=== PATIENT | male | born 1945 | race Caucasian/White ===

== ENCOUNTER 2018-03-04 07:00 | Inpatient (IN) | payer OTHER, BC ==
[2018-03-04] MEDS ORDERED: MORPHINE 4 MG/ML SYR ONE (07:27)
[2018-03-04] MEDS ORDERED: ONDANSETRON 4 MG/2 ML VIAL ONE ×2 (07:27→08:45)
[2018-03-04 07:51] LABS: Absolute Lymphocytes (CBC) 0.6 K/uL (0.7-4.9); Absolute Monocytes 0.5 K/uL (0.1-1.3); Absolute Neutrophil 3.4 K/uL (1.8-8.0); Basophils % 0.6 % (0-1.3); Hematocrit 28.9 % (39.6-49.0); Lymphocytes % 13.4 % (15.3-44.8); MCH 33.7 pg (27.0-35.0); MCV 100.2 fL (80-100); MPV 7.2 fL (7.6-11.3); Monocytes % 10.5 % (3.3-12.3); RBC Red Blood Cell Count 2.89 M/uL (4.33-5.43)
[2018-03-04] MEDS ORDERED: FENTANYL CITR 100 MCG/2 ML ONE ×2 (08:00→11:05)
[2018-03-04 08:36] LABS: Albumin 3.7 g/dL (3.4-5.0); Bilirubin Direct 0.3 mg/dL (0-0.2); Potassium 4.5 mmol/L (3.5-5.1); Protein, Total 6.9 g/dL (6.4-8.2)
--- NOTE | 2018-03-04 08:59 | RAD REPORT ---
EXAM DESCRIPTION: CT - Abdomen Pelvis Wo Contrast - 03/04/2018 8:20 am CLINICAL HISTORY: Abdominal pain. no iv or oral contrast;Abd pain COMPARISON: CTSTONE PROTOCOL dated 02/06/2012 TECHNIQUE: CT imaging of the abdomen and pelvis was performed without contrast. Solid organ, bowel a nd vascular assessment is limited due to lack of IV and oral contrast. All CT scans are performed using dose optimization technique as appropriate and may include automated exposure control or mA/KV adjustment according to patient size. FINDINGS: Linear subsegmental atelectasis is seen in both lung bases posteriorly.Rim calcified lesio n is identified in the right as azygoesophageal recess measuring 4.0 x 2.0 cm, new since prior study. Multiple hypodense liver lesions are seen compatible with benign cysts. Left lobe 5 cm cyst shows thi n partial rim calcification.Multiple stones are present in the gallbladder. 6 mm stone is in the neck close to the cystic duct. Spleen is mildly prominent. The pancreas and adrenal glands are normal. Bi lateral nephrectomies are noted. No bowel obstruction, free air, free fluid or abscess. The appendix is normal. The osseous structures are within normal limits. IMPRESSION: Rim calcified lesion the in the as azygoesophageal recess, new since comparative study. Differential considerations would include mediastinal cyst or nerve sheath tumor. Cholelithiasis as described with mild gallbladder distention. A limited non-contrast examination was performed as detailed.
--- NOTE | 2018-03-04 09:12 | ER ---
Nurse's Notes [facility] Name: Analilia Colby Age: 72 yrs Sex: Male : 1945 Arrival Date: 03/04/2018 Time: 07:01 Bed 19 Private MD: Alfreda Obrien C Diagnosis: Cholelithiasis;Abdominal and pelvic pain-Intractable Presentation: 03/04 07:05 Presenting complaint: Patient states: epigastric pain that radiates to LUQ and RUQ with ss N/V. Pain began at 0500 this morning. Transition of care: patient was not received from another setting of care. Onset of symptoms was March 04, 2018. Risk Assessment: Do you want to hurt yourself or someone else? Patient reports no desire to harm self or others. Initial Sepsis Screen: Does the patient meet any 2 criteria? No. Patient's initial sepsis screen is negative. Does the patient have a suspected source of infection? No. Patient's initial sepsis screen is negative. Care prior to arrival: None. 07:05 Method Of Arrival: Ambulatory ss 07:05 Acuity: RIVERA 2 ss Historical: - Allergies: 07:11 No Known Allergies; ph - Home Meds: 07:11 amlodipine 10 mg tab 1 tab twice a day [Active]; valsartan 320 mg oral tab 1 tab once ph daily [Active]; sevelamer carbonate 800 mg oral tab 4 tabs 3 times per day [Active]; - PMHx: 07:06 Cancer, Lung; Dialysis; Liver disease; Renal Cancer; ss - PSHx: 07:06 bilateral nephrectomy; ss - Immunization history:: Adult Immunizations unknown. - Social history:: Smoking status: Patient/guardian denies using tobacco. - Ebola Screening: : No symptoms or risks identified at this time. Screenin:35 Abuse screen: Denies threats or abuse. Denies injuries from another. Nutritional ph screening: No deficits noted. Tuberculosis screening: No symptoms or risk factors identified. Fall Risk None identified. Assessment: 07:10 General: Appears in no apparent distress. uncomfortable, well groomed, Behavior is ph calm, cooperative, appropriate for age. Pain: Complains of pain in epigastric area, right upper quadrant and left upper quadrant Pain currently is 10 out of 10 on a pain scale. Quality of pain is described as sharp, stabbing, Pain began suddenly. Neuro: Level of Consciousness is awake, alert, obeys commands, Oriented to person, place, time, situation. Cardiovascular: Reports nausea, vomiting, Denies chest pain, palpitations, shortness of breath, Capillary refill < 3 seconds in bilateral fingers Patient's skin is warm and dry. Rhythm is regular Dialysis shunt: in the dorsal aspect of right forearm, with palpable thrill, with auscultated bruit, with no erythema, with mild edema, no bleeding noted. Respiratory: Airway is patent Respiratory effort is even, unlabored, Respiratory pattern is regular, symmetrical. GI: Abdomen is round non-distended, Bowel sounds present X 4 quads. Abd is soft X 4 quads Abdomen is tender to palpation in epigastric area and right upper quadrant Reports upper abdominal pain, epigastric pain, nausea, vomiting, Patient currently denies diarrhea. : No signs and/or symptoms were reported regarding the genitourinary system. Derm: Skin is intact, is healthy with good turgor, Skin is pink, warm \T\ dry. Musculoskeletal: Circulation, motion, and sensation intact. Range of motion: intact in all extremities. 08:30 Reassessment: Patient appears in no apparent distress at this time. Patient and/or ph family updated on plan of care and expected duration. Pain level reassessed. Patient is alert, oriented x 3, equal unlabored respirations, skin warm/dry/pink. Pt resting quietly, reports that pain has improved to 2/10, awaiting lab and CT results. 10:00 Reassessment: Patient appears in no apparent distress at this time. No changes from previously documented assessment. Patient and/or family updated on plan of care and expected duration. Pain level reassessed. Patient is alert, oriented x 3, equal unlabored respirations, skin warm/dry/pink. Pt resting quietly, awaiting US results and room assignment. 11:45 Reassessment: Patient appears in no apparent distress at this time. Patient and/or ph family updated on plan of care and expected duration. Pain level reassessed. Patient is alert, oriented x 3, equal unlabored respirations, skin warm/dry/pink. Pt resting quietly, rates pain 2/10, report called to second floor, awaiting tech to transport pt. Vital Signs: 07:20 BP 190 / 102; Pulse 70; Resp 20; Temp 97.6(O); Pulse Ox 100% on R/A; Pain 10/10; dh3 08:35 BP 164 / 76; Pulse 68; Resp 18; Pulse Ox 99% on R/A; Pain 7/10; ph 10:00 BP 168 / 82; Pulse 69; Resp 18; Temp 97.8; Pulse Ox 99% on R/A; ph 11:30 BP 174 / 78; Pulse 67; Resp 18; Pulse Ox 100% on R/A; Pain 2/10; ph ED Course: 07:01 Patient arrived in ED. as 07:01 Alfreda Obrien MD is Private Physician. as 07:06 Triage completed. ss 07:06 Arm band placed on right wrist. ss 07:09 Paige Joshi, ALEK is Primary Nurse. ph 07:09 Arturo Corbin PA is PHCP. jr8 07:10 Brenden Bonilla MD is Attending Physician. jr8 07:30 Patient has correct armband on for positive identification. Placed in gown. Bed in low ph position. Call light in reach. Side rails up X 1. ekg monitor on. Pulse ox on. NIBP on. Warm blanket given. 07:30 Accessed Port-a-Cath. using accessed w/ # 20 Cespedes needle, Clean \T\ dry. Dressing ph intact. Good blood return. Flushes easily. 08:19 CT Abd/Pelvis - Without Cont In Process Unspecified. EDMS 08:19 CT completed. Patient tolerated procedure well. Patient moved to CT via stretcher. vr Patient moved back from CT. 09:02 Ultrasound completed. hr 09:12 US Abdomen Limited In Process Unspecified. EDMS 09:12 Alfreda Obrien MD is Hospitalizing Provider. jr8 11:39 No provider procedures requiring assistance completed. Patient admitted, IV remains in ph place. Administered Medications: 07:32 Drug: morphine 4 mg Route: IVP; Site: Port-a-cath; ph 08:25 Follow up: Response: No adverse reaction; Pain is unchanged, physician notified ph 07:32 Drug: Zofran 4 mg Route: IVP; Site: Port-a-cath; ph 08:25 Follow up: Response: No adverse reaction; Nausea is decreased ph 08:05 Drug: fentaNYL (PF) 75 mcg Route: IVP; Site: Port-a-cath; ph 10:35 Follow up: Response: No adverse reaction; Pain is decreased ph 08:59 Drug: Zofran 4 mg Route: IVP; Site: Port-a-cath; ph 10:35 Follow up: Response: No adverse reaction; Nausea is decreased ph 10:25 Drug: Mefoxin 1 grams Route: IVPB; Infused Over: 30 mins; Site: Port-a-cath; ph 10:34 Follow up: Response: No adverse reaction; IV Status: Completed infusion ph 10:33 Drug: Flagyl 500 mg Volume: 100 ml; Route: IVPB; Rate: 200 ml/hr; Infused Over: 30 ph mins; Site: Port-a-cath; 11:47 Follow up: Response: No adverse reaction; IV Status: Completed infusion ph 11:00 Drug: fentaNYL (PF) 25 mcg Route: IVP; Site: Port-a-cath; ph 11:47 Follow up: Response: No adverse reaction; Pain is decreased ph Outcome: 09:12 Decision to Hospitalize by Provider. jr8 11:42 Admitted to Med/surg accompanied by tech, family with patient, via wheelchair, room ph 206, with chart, Report called to Anna GASTON 11:42 Condition: stable 11:50 Patient left the ED. Signatures: Dispatcher [employer] EDMS Quin Crocker Amelia as Smirch, Shelby, ALEK RN Negra Blount Josh, PA PA jr8 Paige Joshi RN RN Kristen Owen 3 Corrections: (The following items were deleted from the chart) 07:31 07:20 BP 190 / 102; Pulse 70bpm; Resp 20bpm; Pulse Ox 98% RA; Temp 97.6F; Pain 10/10; dh3 dh3 07:31 07:20 BP 190 / 102; Pulse 70bpm; Resp 20bpm; Pulse Ox 100% RA; Temp 97.6F; Pain 10/10; dh3 dh3 10:34 10:33 Flagyl 500 mg 100 ml IVPB at 200 ml/hr in left antecubital over 30 mins 100 ml ph ph
--- NOTE | 2018-03-04 09:12 | EDPHYS ---
Physician Documentation [facility] Name: Analiila Colby Age: 72 yrs Sex: Male : 1945 Arrival Date: 03/04/2018 Time: 07:01 Bed 19 Private MD: Alfreda Obrien C ED Physician Brenden Bonilla HPI: 03/04 07:38 This 72 yrs old Male presents to ER via Ambulatory with complaints of jr8 Abdominal Pain. 07:38 The patient presents with abdominal pain in the upper abdomen. Onset: The jr8 symptoms/episode began/occurred acutely, this morning, today. The symptoms do not radiate. Associated signs and symptoms: Pertinent positives: nausea and vomiting. The symptoms are described as constant. Modifying factors: The symptoms are alleviated by nothing, the symptoms are aggravated by nothing. Severity of pain: At its worst the pain was moderate in the emergency department the pain is unchanged. The patient has not experienced similar symptoms in the past. The patient has not recently seen a physician. Historical: - Allergies: 07:11 No Known Allergies; ph - Home Meds: 07:11 amlodipine 10 mg tab 1 tab twice a day [Active]; valsartan 320 mg oral tab 1 tab once ph daily [Active]; sevelamer carbonate 800 mg oral tab 4 tabs 3 times per day [Active]; - PMHx: 07:06 Cancer, Lung; Dialysis; Liver disease; Renal Cancer; ss - PSHx: 07:06 bilateral nephrectomy; ss - Immunization history:: Adult Immunizations unknown. - Social history:: Smoking status: Patient/guardian denies using tobacco. - Ebola Screening: : No symptoms or risks identified at this time. ROS: 07:38 Eyes: Negative for injury, pain, redness, and discharge, ENT: Negative for injury, jr8 pain, and discharge, Neck: Negative for injury, pain, and swelling, Cardiovascular: Negative for chest pain, palpitations, and edema, Respiratory: Negative for shortness of breath, cough, wheezing, and pleuritic chest pain, Back: Negative for injury and pain, MS/Extremity: Negative for injury and deformity, Skin: Negative for injury, rash, and discoloration, Neuro: Negative for headache, weakness, numbness, tingling, and seizure. 07:38 Abdomen/GI: Positive for abdominal pain, nausea and vomiting, Negative for diarrhea, constipation, abdominal cramps, abdominal distension, anorexia, dysphagia, hematemesis, black/tarry stool, rectal pain, rectal bleeding, bowel incontinence, flatulence. Exam: 07:38 Eyes: Pupils equal round and reactive to light, extra-ocular motions intact. Lids and jr8 lashes normal. Conjunctiva and sclera are non-icteric and not injected. Cornea within normal limits. Periorbital areas with no swelling, redness, or edema. ENT: Nares patent. No nasal discharge, no septal abnormalities noted. Tympanic membranes are normal and external auditory canals are clear. Oropharynx with no redness, swelling, or masses, exudates, or evidence of obstruction, uvula midline. Mucous membranes moist. Neck: Trachea midline, no thyromegaly or masses palpated, and no cervical lymphadenopathy. Supple, full range of motion without nuchal rigidity, or vertebral point tenderness. No Meningismus. Cardiovascular: Regular rate and rhythm with a normal S1 and S2. No gallops, murmurs, or rubs. Normal PMI, no JVD. No pulse deficits. Respiratory: Lungs have equal breath sounds bilaterally, clear to auscultation and percussion. No rales, rhonchi or wheezes noted. No increased work of breathing, no retractions or nasal flaring. Back: No spinal tenderness. No costovertebral tenderness. Full range of motion. Skin: Warm, dry with normal turgor. Normal color with no rashes, no lesions, and no evidence of cellulitis. MS/ Extremity: Pulses equal, no cyanosis. Neurovascular intact. Full, normal range of motion. Neuro: Awake and alert, GCS 15, oriented to person, place, time, and situation. Cranial nerves II-XII grossly intact. Motor strength 5/5 in all extremities. Sensory grossly intact. Cerebellar exam normal. Normal gait. 07:38 Abdomen/GI: Inspection: scar(s), are noted in the anterior aspect of left lateral abdomen and anterior aspect of right lateral abdomen, Bowel sounds: active, Palpation: soft, in all quadrants, moderate abdominal tenderness, in the epigastric area mid abdomen, mass, is not appreciated, rebound tenderness, is not appreciated, voluntary guarding, is not appreciated, involuntary guarding, is not appreciated, no appreciated organomegaly, Indicators: McBurney's point is not tender, Quezada's sign is negative, Rovsing's sign is negative. 07:44 ECG was reviewed by the Attending Physician. jr8 Vital Signs: 07:20 BP 190 / 102; Pulse 70; Resp 20; Temp 97.6(O); Pulse Ox 100% on R/A; Pain 10/10; dh3 08:35 BP 164 / 76; Pulse 68; Resp 18; Pulse Ox 99% on R/A; Pain 7/10; ph 10:00 BP 168 / 82; Pulse 69; Resp 18; Temp 97.8; Pulse Ox 99% on R/A; ph 11:30 BP 174 / 78; Pulse 67; Resp 18; Pulse Ox 100% on R/A; Pain 2/10; ph MDM: 07:10 Patient medically screened. jr8 09:11 Data reviewed: vital signs, nurses notes, lab test result(s), radiologic studies, CT jr8 scan, ultrasound, and as a result, I will admit patient. Data interpreted: Pulse oximetry: on room air is 99 %. Interpretation: normal. Counseling: I had a detailed discussion with the patient and/or guardian regarding: the historical points, exam findings, and any diagnostic results supporting the discharge/admit diagnosis, lab results, radiology results, the need for further work-up and treatment in the hospital. 09:19 ED course: Dr. Obrien consulted 09:18. Will see patient for admission . jr8 09:50 ED course: Consulted Dr. Mera on behalf of patient and family. Dr. Mera accepted and jr8 will see patient . 03/04 07:10 Order name: Basic Metabolic Panel; Complete Time: 08:43 03/04 07:10 Order name: CBC with Diff; Complete Time: 07:54 03/04 07:10 Order name: Creatinine for Radiology; Complete Time: 08:43 03/04 07:10 Order name: Hepatic Function; Complete Time: 08:43 03/04 07:10 Order name: Lipase; Complete Time: 08:43 03/04 07:55 Order name: CT Abd/Pelvis - Without Cont; Complete Time: 09:12 03/04 08:48 Order name: US Abdomen Limited; Complete Time: 10:55 03/04 07:07 Order name: EKG; Complete Time: 07:07 03/04 07:07 Order name: EKG - Nurse/Tech; Complete Time: ss 03/04 07:10 Order name: IV Saline Lock; Complete Time: 03/04 07:10 Order name: Labs collected and sent; Complete Time: 03/04 09:54 Order name: CONS Physician Consult EDMS EC:44 Rate is 67 beats/min. Rhythm is regular, Normal Sinus Rhythm. Right axis deviation jr8 noted. [place] interval is normal at 182 msec. QRS interval is prolonged at 122 msec. QT interval is normal at 450 msec. No Q waves. T waves are Inverted in leads II, III, aVF, V4, V5, V6. No ST changes noted. Clinical impression: NSR w/ Non-specific ST/T Changes. Interpreted by me. Reviewed by me. Administered Medications: 07:32 Drug: morphine 4 mg Route: IVP; Site: Port-a-cath; ph 08:25 Follow up: Response: No adverse reaction; Pain is unchanged, physician notified ph 07:32 Drug: Zofran 4 mg Route: IVP; Site: Port-a-cath; ph 08:25 Follow up: Response: No adverse reaction; Nausea is decreased ph 08:05 Drug: fentaNYL (PF) 75 mcg Route: IVP; Site: Port-a-cath; ph 10:35 Follow up: Response: No adverse reaction; Pain is decreased ph 08:59 Drug: Zofran 4 mg Route: IVP; Site: Port-a-cath; ph 10:35 Follow up: Response: No adverse reaction; Nausea is decreased ph 10:25 Drug: Mefoxin 1 grams Route: IVPB; Infused Over: 30 mins; Site: Port-a-cath; ph 10:34 Follow up: Response: No adverse reaction; IV Status: Completed infusion ph 10:33 Drug: Flagyl 500 mg Volume: 100 ml; Route: IVPB; Rate: 200 ml/hr; Infused Over: 30 ph mins; Site: Port-a-cath; 11:47 Follow up: Response: No adverse reaction; IV Status: Completed infusion ph 11:00 Drug: fentaNYL (PF) 25 mcg Route: IVP; Site: Port-a-cath; ph 11:47 Follow up: Response: No adverse reaction; Pain is decreased ph Disposition: 19:19 Co-signature as Attending Physician, Brenden Bonilla MD. rn Disposition: 03/04/18 09:12 Hospitalization ordered by Alfreda Obrien for Inpatient Admission. Preliminary diagnosis are Cholelithiasis, Abdominal and pelvic pain - Intractable . - Bed requested for Telemetry/MedSurg (Inpatient). - Status is Inpatient Admission. ss - Condition is Fair. - Problem is new. - Symptoms have improved. UTI on Admission? No Signatures: Dispatcher [employer] EDMO Christy Paul RN RN Brenden Bonilla MD MD rn Smirch, Shelby, RN RN ss Arturo Corbin, PA PA jr8 Paige Joshi RN RN ph Corrections: (The following items were deleted from the chart) 07:43 07:38 Abdomen/GI: Inspection: abdomen appears normal, jr8 jr8 10:44 09:12 Hospitalization Ordered by A Micah ARRIETA for Inpatient Admission. Preliminary dw diagnosis is Cholelithiasis; Abdominal and pelvic pain - Intractable . Bed requested for Telemetry/MedSurg (Inpatient). Status is Inpatient Admission. Condition is Fair. Problem is new. Symptoms have improved. UTI on Admission? No. jr8 11:50 10:44 03/04/2018 09:12 Hospitalization Ordered by A Micah ARRIETA for Inpatient Admission. ss Preliminary diagnosis is Cholelithiasis; Abdominal and pelvic pain - Intractable . Bed requested for Telemetry/MedSurg (Inpatient). Status is Inpatient Admission. Condition is Fair. Problem is new. Symptoms have improved. UTI on Admission? No. dw
[2018-03-04] MEDS ORDERED: CEFOXITIN/SWI 1gm 1 GM/10 ML SYR ONE (09:58)
[2018-03-04] MEDS ORDERED: METRONIDAZOLE 500mg IVPB 500 MG/100 ML BAG IV ONE (09:58)
--- NOTE | 2018-03-04 10:54 | RAD REPORT ---
EXAM DESCRIPTION: US - Abdomen Exam Limited - 03/04/2018 10:41 am CLINICAL HISTORY: Abdominal pain, right upper quadrant pain, abnormal CT study COMPARISON: CT study March 04 FINDINGS: Well filled gallbladder shows no abnormal wall thickening or pericholecystic fluid. Multip le gallstones are clustered in the neck of the gallbladder up to 15 mm in size. These remained positi oned at the neck throughout the course of the examination. Common bile duct is 5 mm in thickness with no intrahepatic dilatation. No common duct stone identifia ble. Incidental liver cysts are noted not fully assessed on this examination. IMPRESSION: Multi stone cholelithiasis up to 15 mm in size fixed near the neck of the gallbladder. No wall thickening or pericholecystic fluid. No duct stone or biliary tree dilatation.
[2018-03-04] MEDS ORDERED: ACETAMINOPHEN 500 MG TAB PO PRN (11:34)
[2018-03-04] MEDS ORDERED: ONDANSETRON 4 MG/2 ML VIAL IV PRN (11:34)
[2018-03-04 12:36] VITALS: BMI 27.5
[2018-03-04] MEDS ORDERED: PNEUMOCOCCAL VACCINE 0.5 ML IMVAC ONE (14:00)
--- NOTE | 2018-03-04 15:42 | EKG ---
Test Date: 2018-03-04 Test Time: 07:25:13 Supervising Editor News Reel: MATT MEASUREMENT RESULTS: Intervals: Rate: 67 OH: 182 QRSD: 122 QT: 426 QTc: 450 [place]: P: 54 OH: 182 QRS: -46 T: -47 INTERPRETIVE STATEMENTS: Normal sinus rhythm Left bundle branch block Abnormal ECG Compared to ECG 08/22/2011 03:12:39 Left bundle-branch block now present ST (T wave) deviation no longer present Possible ischemia no longer present Electronically Signed On 03-04-18 15:40:31 CDT by Kendrick Gomez
[2018-03-04] MEDS: HEPARIN 500 UNIT/5 ML SYR IV SCH (16:57)
[2018-03-04] MEDS ORDERED: AMLODIPINE 5 MG TAB PO ONE (18:00)
--- NOTE | 2018-03-04 18:15 | CON ---
Date of Consultation: 03/04/2018 Reason For Consultation: Abdominal pain. History Of Present Illness: The patient is a 72-year-old gentleman, comes in with acute onset of epi gastric pain, going to both upper quadrants, associated with nausea, vomiting. No bloating, belching , or heartburn. This happened this morning. There was not postprandial. He has never had similar s ymptoms in the past and the pain was severe. Pain medication given in the ER was not helpful and the patient was admitted. He has no sore throat, runny nose, cough, headaches, or dizziness. No chest pain. No fever or chills. No diarrhea, constipation, blood in his stool. No dysuria or hematuria. Review of Systems: Otherwise unremarkable. Past Medical History: Significant for bilateral renal carcinoma, end-stage renal disease, high blood pressure. Past Surgical History: Significant for vascular access for dialysis on the right arm and bilateral n ephrectomies. Allergies: NO ALLERGIES. Social History: He does not smoke. Does not drink. Family History: Noncontributory. Physical Examination: Vital Signs: Stable. He is afebrile. General: He is awake, alert, and oriented x3. Head and Neck: Cranial nerves 2 through 12 grossly within normal limits. No icterus. No neck alban s. No JVD. Throat clear. Neck is supple. Chest: Clear. Heart: S1, S2. Abdomen: Soft, nondistended. Positive bowel sounds. There is tenderness in the right upper quadran t with minimal rebound. No rigidity or guarding. He does have subcostal incision for his nephrectom y bilaterally. Extremities: Adequately perfused. Nontender. Neuro: Nonfocal. Laboratory Data: White count is 4.7, platelets are 86. Chemistry reviewed. His BUN and creatinine are elevated as expected with not being on dialysis. CO2 is 25. LFTs, total bilirubin, amylase, lip ase are within normal limits. He had a CAT scan of the abdomen and pelvis and an abdominal ultrasoun d, which showed multi stone cholelithiasis up to 15 mm in size, fixed near the neck of the gallbladde r. No wall thickening or pericholecystic fluid. No duct stone or biliary tree dilatation. An abdom inal CT shows a rim calcified lesion in the azygoesophageal recess, nuisance comparative study, nghia lithiasis described with mild gallbladder distention. Assessment: A 72-year-old gentleman with acute cholecystitis, cholelithiasis, renal cancer, end-stag e renal disease. Recommendations: I discussed the case with Dr. Obrien and Dr. Le. We will go ahead and schedule the patient for dialysis early in the morning following which we will proceed with lap choly, possibl e open knowing that the risks of opening are slightly higher based on his previous surgeries. This w as also explained to the patient and family in detail. They understand the benefits, alternatives, a nd risks and agreed to procedure. We will keep him on antibiotics and n.p.o. after midnight. /MODL Voice ID: [id number] Report ID: [id number]
[2018-03-04] MEDS: METRONIDAZOLE 500mg IVPB 500 MG/100 ML BAG IV SCH (20:26)
[2018-03-04] MEDS ORDERED: NA CHLORIDE 0.9% 250 ML ONE (20:26)
--- NOTE | 2018-03-04 22:09 | P.CNS ---
Date of Consult: 03/04/18 Reason for Consult: ESRD Requesting Physician: Ward Obrien Chief Complaint: Epigastric pain History of Present Illness: 07:38 This 72 yrs old Male presents to ER via Ambulatory with complaints of jr8 Abdominal Pain. 07:38 The patient presents with abdominal pain in the upper abdomen. Onset: The jr8 symptoms/episode began/occurred acutely, this morning, today. The symptoms do not radiate. Associated signs and symptoms: Pertinent positives: nausea and vomiting. The symptoms are described as constant. Modifying factors: The symptoms are alleviated by nothing, the symptoms are aggravated by nothing. Severity of pain: At its worst the pain was moderate in the emergency department the pain is unchanged. The patient has not experienced similar symptoms in the past. The patient has not recently seen a physician. Allergies No Known Allergies Allergy (Verified 03/04/18 12:12) Home medications list reviewed: Yes Home Medications: Amlodipine Besylate 1 tab PO DAILY 03/04/18 Sevelamer HCl [Renagel] 4 tab PO AC 03/04/18 Valsartan/Hydrochlorothiazide [Valsartan-Hctz 320-12.5 mg Tab] 1 tab PO DAILY - Past Medical/Surgical History Diabetic: No -: renal cell carcinoma with mets lungs -: both kidneys removed -: htn -: dialysis [facility] -: both kidneys removed -: fistula L arm-not active. -: surg. L shoulder repair. -: tonsils removed and adnoids - Social History Smoking Status: Never smoker Alcohol use: No CD- Drugs: No Caffeine use: No Place of Residence: Home Review of Systems 10-point ROS is otherwise unremarkable Gastrointestinal: Abdominal Pain Physical Examination Temp Pulse Resp BP Pulse Ox 96.9 F 66 20 176/74 H 99 03/04/18 16:00 03/04/18 18:15 03/04/18 16:00 03/04/18 18:15 03/04/18 16:00 General: Oriented x3, Cooperative HEENT: Atraumatic, Mucous membr. moist/pink Neck: Supple Respiratory: Clear to auscultation bilaterally, Normal air movement Cardiovascular: No edema, Regular rate/rhythm, No rubs Gastrointestinal: Hypoactive, No masses, Tenderness (RUQ) Musculoskeletal: No clubbing, No contractures Integumentary: No rashes, No cyanosis Neurological: Normal speech Laboratory Data (last 24 hrs) 03/04/18 07:23: Creatinine 8.60 H* 03/04/18 07:23: WBC 4.7, Hgb 9.7 L, Hct 28.9 L, Plt Count 86 L 03/04/18 07:23: Sodium 138, Potassium 4.5, BUN 48 H, Creatinine 8.60 H*, Glucose 137 H, Total Bilirubin 1.0, AST 11 L, ALT 19, Alkaline Phosphatase 114, Lipase 205 Imagings Data: EXAM DESCRIPTION: CT - Abdomen Pelvis Wo Contrast - 03/04/2018 8:20 am CLINICAL HISTORY: Abdominal pain. no iv or oral contrast;Abd pain COMPARISON: CTSTONE PROTOCOL dated 02/06/2012 TECHNIQUE: CT imaging of the abdomen and pelvis was performed without contrast. Solid organ, bowel and vascular assessment is limited due to lack of IV and oral contrast. All CT scans are performed using dose optimization technique as appropriate and may include automated exposure control or mA/KV adjustment according to patient size. FINDINGS: Linear subsegmental atelectasis is seen in both lung bases posteriorly.Rim calcified lesion is identified in the right as azygoesophageal recess measuring 4.0 x 2.0 cm, new since prior study. Multiple hypodense liver lesions are seen compatible with benign cysts. Left lobe 5 cm cyst shows thin partial rim calcification.Multiple stones are present in the gallbladder. 6 mm stone is in the neck close to the cystic duct. Spleen is mildly prominent. The pancreas and adrenal glands are normal. Bilateral nephrectomies are noted. No bowel obstruction, free air, free fluid or abscess. The appendix is normal. The osseous structures are within normal limits. IMPRESSION: Rim calcified lesion the in the as azygoesophageal recess, new since comparative study. Differential considerations would include mediastinal cyst or nerve sheath tumor. Cholelithiasis as described with mild gallbladder distention. A limited non-contrast examination was performed as detailed. Conclusions/Impression: A/ ESRD on HD. HTN with CKD. Anemia in CKD. Diastolic CHF, chronic. MANFRED/ Secondary HyperPTH. Acute cholecystitis. P/ Continue current POC and Medications. Acute HD in the AM. Restart home medications as indicated. Follow up with surgery in the am. AM labs. Daily weight. Thank you kindly for the consultation.
[2018-03-05] MEDS: FENTANYL CITR 100 MCG/2 ML IV PRN ×3 (00:17→21:50)
--- NOTE | 2018-03-05 03:37 | HP ---
Date of Admission: 03/04/2018 Chief Complaint: Abdominal pain. History Of Present Illness: This is a 72-year-old male patient with end-stage renal disease, on hemo dialysis, was doing fine in his normal usual state of health until this morning he started to have se chester abdominal pain in the right upper quadrant and epigastric region. Denies any fever or chills. Pain was continuous until he came to emergency room. After he came into the ER, he was given morphin e that did not help, subsequently received fentanyl and that did help his pain. Further workup done in the emergency room reveals evidence of acute cholecystitis with gallstone and I was contacted requ esting admission to the hospital. General surgeon, Dr. Mera, was consulted and I have discussed det ails with him. Allergies: NO KNOWN ALLERGIES. Medications: List reviewed. Review of Systems: GI: As mentioned above. All other systems reviewed and negative. Past Medical History: Significant for hypertension; end-stage renal disease, on hemodialysis; hyperl ipidemia; anemia due to chronic kidney disease; chronic systolic congestive heart failure; kidney can cer; benign prostatic hypertrophy. Past Surgical History: Bilateral nephrectomies in 2006 due to kidney cancer. Family History: Significant for COPD. Social History: Negative for smoking and alcohol use. Physical Examination: Vital Signs: Temperature 96.9, pulse 66, respiratory rate 20, blood pressure 176/74, oxygen saturati on 99%. General: Awake, alert, oriented, not in distress. HEENT: Head atraumatic, normocephalic. Conjunctivae nonerythematous. Sclerae white. Mouth, no thr ush or edema noted. Ears/Nose, no mass, lesion, discharge noted. Neck: Supple. No JVD, lymph nodes, bruit, thyromegaly noted. Lungs: Bilateral good equal air entry. Clear to auscultation. No rhonchi. No rales. Heart: Normal heart sounds, no murmur or gallop. Abdomen: Soft. Bowel sounds normal. No guarding, rigidity, or distention. Presence of right upper quadrant tenderness. No rebound tenderness. No distention. No hepatosplenomegaly. Bowel sounds n ormoactive. Extremities: No leg edema. No calf tenderness. Skin: No rash, ulcer, cellulitis. Lymphatics: No lymph node enlargement in neck, supraclavicular, infraclavicular region. Neuro: No focal neurological deficit. Chest: Unremarkable. External Genitalia: Deferred. Rectal: Deferred. Laboratory Data: White count 4.7, hemoglobin 9.7, platelets 86. Sodium 138, potassium 4.5, chloride 102, bicarb 25, BUN 48, creatinine 8.60, glucose 137. Liver function tests unremarkable. Lipase 20 5. Abdominal ultrasound shows multi-stone cholelithiasis and some gallstones fixed near the neck of the gallbladder. No evidence of biliary tree dilatation. CAT scan of abdomen without contrast shows rim calcified lesion in azygoesophageal recess, new since prior study from 2011 and differential could b e mediastinal cyst or nerve sheath tumor. EKG; normal sinus rhythm, left bundle-branch block. Impression: 1.Cholelithiasis with acute cholecystitis without obstruction. 2.End-stage renal disease, on hemodialysis. 3.Anemia due to chronic kidney disease. 4.Thrombocytopenia. 5.Hypertension. 6.Hyperlipidemia. 7.Kidney cancer. 8.Benign prostatic hypertrophy. Plan: We will go ahead and admit the patient to hospital for further evaluation and management of th is problem. The patient is appropriate for inpatient and is expected to spend 2 midnights in the [facility]. We will consult manager fleet for dialysis support. The patient will have dialysis tomorrow m orning and after that Dr. Mera will perform gallbladder surgery. The patient is at acceptable risk from planned surgery. We will continue home medications per order. Empiric antibiotics will be give n per order. Details and plan of treatment discussed with the patient. Upon discharge from the hosp ital, the patient should follow up at [facility] with a copy of the CAT scan result. He does go to [facility] regularly, so further evaluation will be requested for abnormality noted on the CAT scan with help of oncologist at [facility]. The patient will be requested to take copy of CAT scan film and report. RYAN/MODL Voice ID: [id number]
[2018-03-05 04:54] LABS: Absolute Lymphocytes (CBC) 0.6 K/uL (0.7-4.9); Absolute Monocytes 0.4 K/uL (0.1-1.3); Absolute Neutrophil 2.9 K/uL (1.8-8.0); Basophils % 1.2 % (0-1.3); Hematocrit 25.6 % (39.6-49.0); Lymphocytes % 14.6 % (15.3-44.8); MCH 33.6 pg (27.0-35.0); MCV 98.7 fL (80-100); MPV 6.7 fL (7.6-11.3); Monocytes % 9.7 % (3.3-12.3)
[2018-03-05 05:20] LABS: Blood Morphology Comment NOT SEEN (NOT SEEN); Platelet Estimate DECR; Urine White Blood Cell Casts OK
[2018-03-05 05:30] LABS: Albumin 3.3 g/dL (3.4-5.0); Bilirubin Direct 0.4 mg/dL (0-0.2); Bilirubin Total 1.2 mg/dL (0.2-1.0); Potassium 5.5 mmol/L (3.5-5.1); Protein, Total 5.9 g/dL (6.4-8.2)
[2018-03-05] MEDS ORDERED: NA CHLORIDE 0.9% 1,000 ML IV PRN (07:03)
[2018-03-05] MEDS ORDERED: MANNITOL 25% 12.5 GM/50 ML VIAL IV PRN (07:03)
[2018-03-05] MEDS ORDERED: EPOETIN ALFA 20,000 UNIT/ML SQ ONE (07:05)
[2018-03-05] MEDS ORDERED: EPOETIN ALFA 10,000 UNIT/ML VIAL IV SCH (07:15)
[2018-03-05] MEDS ORDERED: SEVELAMER HCL PO SCH (07:30)
[2018-03-05] MEDS: SEVELAMER CARBONATE 800 MG TABLET PO SCH ×3 (07:30→16:30)
[2018-03-05] MEDS ORDERED: ALBUMIN HUMAN 25% 50 ML IV SCH (08:00)
[2018-03-05] MEDS: VALSARTAN 160 MG TAB PO SCH (09:00)
[2018-03-05] MEDS: AMLODIPINE 10 MG TAB PO SCH (09:00)
[2018-03-05] MEDS ORDERED: HOME MED 1 EA UNK (Valsartan/Hydrochlorothiazide [Valsartan-Hctz 320-12.5 Mg Tab] 1 TAB) PO SCH (09:00)
[2018-03-05] MEDS: hydroCHLOROthiazide 12.5 MG CAP PO SCH (09:00)
[2018-03-05] MEDS ORDERED: CEFOXITIN SODIUM 1 GM/VIAL IVPB SCH (10:00)
[2018-03-05] MEDS ORDERED: NA CHLORIDE 0.9% 500 ML ONE (10:16)
[2018-03-05] MEDS ORDERED: PROPOFOL 200 MG/20 ML VIAL IV ONE (11:28)
[2018-03-05] MEDS ORDERED: GLYCOPYRROLATE 0.2 MG/ML SYR ONE (11:29)
[2018-03-05] MEDS ORDERED: LIDOCAINE 2% MPF 5 ML VIAL ONE (11:29)
[2018-03-05] MEDS ORDERED: NEOSTIGMINE 1 MG/ML -5 ML SYRINGE ONE (11:30)
[2018-03-05] MEDS ORDERED: FENTANYL CITR 100 MCG/2 ML ONE (11:30)
[2018-03-05] MEDS ORDERED: ROCURONIUM 50 MG/5 ML VIAL IV ONE (11:30)
[2018-03-05] MEDS: CEFOXITIN/SWI 1gm 1 GM/10 ML SYR IV SCH (11:35)
[2018-03-05] MEDS: METRONIDAZOLE 500mg IVPB 500 MG/100 ML BAG IV SCH ×2 (11:38→21:38)
[2018-03-05] MEDS ORDERED: ETOMIDATE 20 MG/10 ML VIAL IV ONE (11:46)
[2018-03-05] MEDS ORDERED: CISATRACURIUM INJECTION 2 MG/ML (10 ML Vial) IV ONE (12:00)
[2018-03-05] MEDS ORDERED: HYDRALAZINE HCL 20 MG/ML VIAL ONE (12:28)
--- NOTE | 2018-03-05 12:41 | P.OP ---
Manager Union: Rosalie PECK Preoperative diagnosis: Acute Cholecystitis and Cholelithiasis Postoperative diagnosis: same Primary procedure: Lap Ashleigh Anesthesia: general Estimated blood loss: min Specimen: gb Findings: as above Complications: None Transferred to: Recovery Room Condition: Good
[2018-03-05] MEDS ORDERED: EPHEDRINE SULF 50 MG/ML SYR ONE (12:59)
[2018-03-05] MEDS ORDERED: MEPERIDINE HCL 25 MG/0.5 ML ONE (13:06)
[2018-03-05] MEDS ORDERED: PROMETHAZINE 25 MG/ML VIAL ONE (13:25)
[2018-03-05] MEDS ORDERED: ONDANSETRON 4 MG/2 ML VIAL IV PRN (13:40)
[2018-03-05] MEDS ORDERED: HYDROCODONE/APAP 7.5/325 MG TAB PO PRN (13:40)
--- NOTE | 2018-03-05 23:48 | OP ---
Date of Procedure: 03/05/2018 Surgeon: Erich Mera MD Community Health Worker: CISCO Valadez. Preoperative Diagnoses: Acute cholecystitis and cholelithiasis. Postoperative Diagnoses: Acute cholecystitis and cholelithiasis. Procedure: Laparoscopic cholecystectomy. Estimated Blood Loss: Minimal. Specimens: Gallbladder. Findings: As above. Anesthesia: General. Complications: None. Disposition: The patient tolerated the procedure in stable condition and taken to Recovery in good g eneral condition. Procedure In Detail: The patient was brought to the OR and placed in supine position. General anest hesia was begun. The patient was prepped and draped in the usual sterile fashion. Marcaine 0.5% was infiltrated locally. A #15-blade was used to make a 1 cm supraumbilical midline incision. Subcutan eous tissue was divided. Fascia was identified and divided. A #1 Vicryl stay suture was placed. Pe ritoneal cavity was entered with blunt dissection. A 12-mm trocar was placed into the peritoneal cav ity under direct vision. Pneumoperitoneum was established. Then, three 5-mm trocars were placed, 1 in the epigastrium just to the right of midline and 2 in the right subcostal region. Laparoscopy rev ealed adhesions to the gallbladder, omental in nature, taken down with sharp and blunt dissection. B leeding was controlled with cautery. Gallbladder was distended and was aspirated of bile, and the fu ndus was retracted superiorly. Infundibulum was identified and retracted inferolaterally. Cystic du ct and cystic artery were clearly identified with blunt dissection. Clips were placed. Both structu res were divided. Cautery was used to remove the gallbladder from the liver bed. Bleeding in the li drew bed was controlled with cautery. Gallbladder was retrieved through the umbilicus via EndoCatch b ag. Right upper quadrant was irrigated. Effluent was clear. No evidence of bleeding or bile leakag e appreciated. Subsequently, all trocars were removed under direct vision. Stay sutures were tied t o each other to help reapproximate the fascial defect. Subcutaneous wounds were irrigated. Bleeding was controlled with cautery. A 3-0 chromic used to reapproximate the subcutaneous tissue and close the skin. Sterile dressing was applied. The patient was awakened and taken to Recovery in good gene ral condition. /MODL Voice ID: [id number] Report ID: [id number]
--- NOTE | 2018-03-06 00:18 | PN ---
Date of Progress Note: 03/05/2018 Subjective: The patient was seen this morning for followup. No new complaints or problems reported by patient. Lying in bed, not in distress. He was getting dialysis. Had some abdominal pain last n ight, requiring IV pain medication. No nausea. No vomiting. Objective: Vital Signs: Reviewed. HEENT: Examination unremarkable. Lungs: Clear to auscultation. Heart: Heart sounds normal. Abdomen: Soft. Bowel sounds normal. No guarding, rigidity, tenderness, or distention, except some mild right upper quadrant tenderness. Extremities: No leg edema. Laboratory Data: White count 4.2, hemoglobin 8.7, platelets 78. Sodium 139, potassium 5.5, chloride 100, bicarb 27, BUN 57, creatinine 10.70, glucose 82, lipase 305. Impression: 1.Gallstone with acute cholecystitis. 2.End-stage renal disease, on hemodialysis. 3.Hypertension. 4.Anemia due to chronic kidney disease. 5.Kidney cancer. Plan: We will continue current antihypertensive medication. Details were discussed with Dr. Mera. The patient was getting dialysis this morning. After the dialysis, he will have gallbladder surgery . I will see him tomorrow for followup. RYAN/MODL Voice ID: [id number] Report ID: [id number]
[2018-03-06 05:01] LABS: Absolute Lymphocytes (CBC) 0.5 K/uL (0.7-4.9); Absolute Monocytes 0.5 K/uL (0.1-1.3); Absolute Neutrophil 4.3 K/uL (1.8-8.0); Basophils % 0.7 % (0-1.3); Eosinophils % 2.2 % (0-4.4); Hematocrit 26.8 % (39.6-49.0); Lymphocytes % 8.7 % (15.3-44.8); MCH 33.8 pg (27.0-35.0); MCV 99.7 fL (80-100); MPV 6.7 fL (7.6-11.3); Monocytes % 9.5 % (3.3-12.3); RBC Red Blood Cell Count 2.69 M/uL (4.33-5.43)
[2018-03-06 06:13] LABS: Magnesium 2.2 mg/dL (1.8-2.4); Phosphorus 6.9 mg/dL (2.5-4.9)
[2018-03-06] MEDS: SEVELAMER CARBONATE 800 MG TABLET PO SCH (08:07)
[2018-03-06] MEDS: AMLODIPINE 10 MG TAB PO SCH (08:07)
[2018-03-06] MEDS: hydroCHLOROthiazide 12.5 MG CAP PO SCH (08:07)
[2018-03-06] MEDS: VALSARTAN 160 MG TAB PO SCH (08:08)
[2018-03-06 08:55] VITALS: O2SAT 98
[2018-03-06] MEDS ORDERED: SILVER NITRATE 1 APPL TOP SCH (09:00)
[2018-03-06 09:26] VITALS: BP 170/74; TEMP 97.8
[2018-03-06] MEDS: CEFOXITIN/SWI 1gm 1 GM/10 ML SYR IV SCH (10:01)
[2018-03-06] MEDS: HEPARIN 500 UNIT/5 ML SYR IV SCH (10:02)
[2018-03-06] MEDS ORDERED: HEPARIN 500 UNIT/5 ML SYR IV PRN (10:12)
--- NOTE | 2018-03-06 11:01 | PN ---
Date of Progress Note: 03/06/2018 Subjective: The patient is awake, alert. No complaint. Tolerating his diet. He has some oozing fr om the 5-mm trocar site. Vital signs are stable. Afebrile. His H and H are stable. Platelets are 72,000. Abdominal exam revealed minimal oozing in the top of a 5-mm trocar site. Silver nitrate was utilized to control bleeding immediately. Pressure dressing was applied. Disposition: The patient tolerated the procedure well. Assessment: Status post laparoscopic cholecystectomy. Recommendation: The patient will be discharged to home. Told him to leave the pressure dressing on for 2 days, then he can shower. He will be given antibiotics and pain medicine by Dr. Obrien. He will follow up with me in 1 week. Instructions given in detail. FRANCISCO/WATSON Voice ID: [id number] Report ID: [id number]
--- NOTE | 2018-03-06 20:20 | P.PN ---
Date of Service: 03/06/18 Vital Signs Temp Pulse Resp BP Pulse Ox 97.8 F 70 16 170/74 H 96 03/06/18 08:00 03/06/18 08:00 03/06/18 08:00 03/06/18 08:00 03/06/18 08:00 Assessment/ Plan: Nephrology. Doing better. Pain improved. +Appetite CPS stable without CP or SOB. No acute events overnight. Vitals, medications, blood work and imaging reviewed in the chart. General: Oriented x3, Cooperative HEENT: Atraumatic, Mucous membr. moist/pink Neck: Supple Respiratory: Clear to auscultation bilaterally, Normal air movement Cardiovascular: No edema, Regular rate/rhythm, No rubs Gastrointestinal: Hypoactive, No masses, Tenderness (RUQ) Musculoskeletal: No clubbing, No contractures Integumentary: No rashes, No cyanosis Neurological: Normal speech Laboratory Data (last 24 hrs) 03/04/18 07:23: Creatinine 8.60 H* 03/04/18 07:23: WBC 4.7, Hgb 9.7 L, Hct 28.9 L, Plt Count 86 L 03/04/18 07:23: Sodium 138, Potassium 4.5, BUN 48 H, Creatinine 8.60 H*, Glucose 137 H, Total Bilirubin 1.0, AST 11 L, ALT 19, Alkaline Phosphatase 114, Lipase 205 Imagings Data: EXAM DESCRIPTION: CT - Abdomen Pelvis Wo Contrast - 03/04/2018 8:20 am CLINICAL HISTORY: Abdominal pain. no iv or oral contrast;Abd pain COMPARISON: CTSTONE PROTOCOL dated 02/06/2012 TECHNIQUE: CT imaging of the abdomen and pelvis was performed without contrast. Solid organ, bowel and vascular assessment is limited due to lack of IV and oral contrast. All CT scans are performed using dose optimization technique as appropriate and may include automated exposure control or mA/KV adjustment according to patient size. FINDINGS: Linear subsegmental atelectasis is seen in both lung bases posteriorly.Rim calcified lesion is identified in the right as azygoesophageal recess measuring 4.0 x 2.0 cm, new since prior study. Multiple hypodense liver lesions are seen compatible with benign cysts. Left lobe 5 cm cyst shows thin partial rim calcification.Multiple stones are present in the gallbladder. 6 mm stone is in the neck close to the cystic duct. Spleen is mildly prominent. The pancreas and adrenal glands are normal. Bilateral nephrectomies are noted. No bowel obstruction, free air, free fluid or abscess. The appendix is normal. The osseous structures are within normal limits. IMPRESSION: Rim calcified lesion the in the as azygoesophageal recess, new since comparative study. Differential considerations would include mediastinal cyst or nerve sheath tumor. Cholelithiasis as described with mild gallbladder distention. A limited non-contrast examination was performed as detailed. Conclusions/Impression: A/ ESRD on HD. HTN with CKD. Anemia in CKD. Diastolic CHF, chronic. MANFRED/ Secondary HyperPTH. Acute cholecystitis. P/ Continue current POC and Medications. Next HD tomorrow. Case discussed with Dr. Obrien. Follow up with surgery. AM labs. Daily weight.
--- NOTE | 2018-03-07 01:57 | DS ---
Date of Discharge: 03/06/2018 Disposition: Discharged to go home. Physical Examination: HEENT: Unremarkable. Lungs: Clear to auscultation. Heart: Sounds normal. Abdomen: Soft, bowel sounds normal. No guarding, rigidity, tenderness, or distention. Extremities: No leg edema. Hospital Course: A 72-year-old male patient, who was admitted to the hospital with abdominal pain. Please see dictated H and P for more information. The patient was admitted to the hospital with acut e cholecystitis with gallstone without any obstruction of bile duct. After he was evaluated in the E R, he was admitted to the hospital. Empiric antibiotics were started. Nephrology consultation was r equested for his dialysis needs and yesterday he had dialysis. In the morning after his hemodialysis , Dr. Mera did a laparoscopy cholecystectomy. Postoperatively, the patient is doing fine. He is to lerating diet very well. This morning when I saw him, he reported that at 1 surgical site he had nita e oozing of blood which was saturating his gauze and he had to get that changed by the nursing staff. I did talk to Dr. Mera this morning. He evaluated the patient and cauterized distally which he re ported that it was bleeding. After that he has released patient to go home. Medically, he is stable for discharge. His CAT scan of the abdomen done in emergency room had shown some abnormality which I pointed out to him and I have given him a copy of this CAT scan results and also copy of the CAT sc an film. The patient and patient's both were made aware that he needs to follow up at [facility]. He goes there about almost every 3 months and so far he has had multiple CAT scans done at [facility] and he does not recollect any abnormality detected or mentioned at [facility]. So, I am not sure what to make out of this report, but I have informed the patient and his that I would like for him to get opinion from his oncologist at [facility] for further evaluation of any abnormalities stating that needs further attention. Final Diagnoses: 1.Cholelithiasis with acute cholecystitis without obstruction. 2.End-stage renal disease, on hemodialysis. 3.Anemia due to chronic kidney disease. 4.Thrombocytopenia. 5.Hypertension. 6.Hyperlipidemia. 7.Kidney cancer. 8.Benign prostatic hypertrophy. Discharge Medications: 1.Continue all prior home medication. 2.Levaquin 250 mg p.o. daily for 1 week. 3.Tylenol with Codeine No. 3, one tablet p.o. q.6 hours p.r.n. pain. Discharge Instructions: 1.The patient was instructed not to drive car or operate any hazardous machine after taking this lisa n medication. 2.Follow up with Dr. Mera per his instruction. 3.Follow up at my office in about 3 weeks. RYAN/MODL Voice ID: [id number] Report ID: [id number]
== END 2018-03-06 10:56 | disposition home or self-care (01) | DRG 417 ==
LOC: ER 07:00 → ERHOLD 09:52 → 2ND 11:39
PROVIDERS: ADMIT Internal Medicine; ATTEND Internal Medicine
PROC: 0FT44ZZ Resection of Gallbladder, Percutaneous Endoscopic Approach (ICD-10-PCS; principal; 2018-03-05 10:45)
DX: K80.00 Calculus of gallbladder with acute cholecystitis without obstruction (principal); N18.6 End stage renal disease; I13.2 Hypertensive heart and chronic kidney disease with heart failure and with stage 5 chronic kidney disease, or end stage renal disease; I50.22 Chronic systolic (congestive) heart failure; D63.1 Anemia in chronic kidney disease; D69.6 Thrombocytopenia, unspecified; E78.5 Hyperlipidemia, unspecified; N40.0 Benign prostatic hyperplasia without lower urinary tract symptoms; Z85.528 Personal history of other malignant neoplasm of kidney; Z90.5 Acquired absence of kidney
CPT/HCPCS: 36415; 74176; 76705; 80048; 80076; 83690; 83735; 84100; 85025; 87070; 87205; 88304; 90935; 93005; 96365; 96375; 99285; J0360; J0885; J1642; J2175; J2405; J2550; J2710; J3010

== ENCOUNTER 2018-11-12 17:45 | Observation (INO) | payer OTHER, BC ==
[2018-11-12] MEDS ORDERED: NA CHLORIDE 0.9% 1,000 ML ONE (18:34)
[2018-11-12 18:53] LABS: Absolute Lymphocytes (CBC) 0.8 K/uL (0.7-4.9); Absolute Monocytes 0.6 K/uL (0.1-1.3); Absolute Neutrophil 6.2 K/uL (1.8-8.0); Basophils % 1.2 % (0-1.3); Eosinophils % 4.8 % (0-4.4); Lymphocytes % 9.8 % (15.3-44.8); MPV 7.5 fL (7.6-11.3); Monocytes % 6.9 % (3.3-12.3)
[2018-11-12 19:19] LABS: Blood Morphology Comment NOT SEEN (NOT SEEN); Platelet Estimate DECR; Urine White Blood Cell Casts OK
[2018-11-12 19:33] LABS: Albumin 3.6 g/dL (3.4-5.0); Bilirubin Direct 0.4 mg/dL (0-0.2); Bilirubin Total 1.1 mg/dL (0.2-1.0); Protein, Total 6.5 g/dL (6.4-8.2)
[2018-11-12 19:35] LABS: Potassium 6.2 mmol/L (3.5-5.1)
--- NOTE | 2018-11-12 19:40 | RAD REPORT ---
EXAM DESCRIPTION: CT - Abdomen Pelvis Wo Contrast - 11/12/2018 7:23 pm CLINICAL HISTORY: Abdominal pain vomiting and diarrhea COMPARISON: February 2018 TECHNIQUE: Computed axial tomography of the abdomen and pelvis was obtained. IV and oral contrast we re not requested. All CT scans are performed using dose optimization technique as appropriate and may include automated exposure control or mA/KV adjustment according to patient size. FINDINGS: The evaluation of solid organs, vessels and bowel is limited secondary to the lack of con trast administration. 4 centimeter peripherally calcified mass within as azygoesophageal recess is unchanged. Hepatic cysts are stable. Spleen is upper limits normal size containing granulomas. The pancreas appears grossly normal. Bilateral nephrectomies Cholecystectomy Multiple loops of small bowel are mildly dilated and fluid-filled. Fluid is also present within the c olon. Small amount of ascites is present. Mild stranding is present within the mesenteric fat. Prostate gland is mildly to moderately enlarged. Small inguinal hernias contain fat The appendix is normal. There is no evidence of diverticulitis. IMPRESSION: Multiple loops of mildly dilated small bowel which are fluid-filled. Fluid is also pres ent within the colon. This probably represents a gastroenteritis. .
--- NOTE | 2018-11-12 20:13 | EDPHYS ---
Physician Documentation [facility] Name: Analilia Colby Age: 73 yrs Sex: Male : 1945 Arrival Date: 11/12/2018 Time: 17:48 Bed 14 Private MD: Alfreda Obrien C ED Physician Andre Barros HPI: 11/12 19:30 This 73 yrs old Male presents to ER via Ambulatory with complaints of pm1 Vomiting/Diarrhea, Abdominal Pain. 19:30 The patient presents to the emergency department with nausea, vomiting, diarrhea, pm1 abdominal pain, of the bilateral sides of umbilicus, described as crampy, sharp, and does not radiate. Onset: The symptoms/episode began/occurred last night. Possible causes: unknown. The symptoms are aggravated by nothing. The symptoms are alleviated by nothing. Associated signs and symptoms: Pertinent negatives: dysuria, fever, chest pain, shortness of breath. Severity of symptoms: in the emergency department the symptoms have improved markedly. The patient has not experienced similar symptoms in the past. Patient missed his dialysis appointment today due to pain and n/v/d. Historical: - Allergies: 17:55 No Known Allergies; tw2 - Home Meds: 17:55 valsartan 320 mg Oral tab 1 tab once daily [Active]; sevelamer carbonate 800 mg Oral tw2 tab 4 tabs 3 times per day [Active]; amlodipine 10 mg tab 1 tab twice a day [Active]; carvedilol 3.125 mg oral tab 1 tab 2 times per day [Active]; losartan 100 mg oral tab 1 tab once daily [Active]; - PMHx: 17:55 Cancer, Lung; Dialysis; Liver disease; Renal Cancer; tw2 - PSHx: 17:55 bilateral nephrectomy; tw2 - Immunization history:: Adult Immunizations. - Social history:: Smoking status: . - Ebola Screening: : Patient denies travel to an Ebola-affected area in the 21 days before illness onset. ROS: 19:30 Constitutional: Negative for fever, chills, and weight loss, Eyes: Negative for injury, pm1 pain, redness, and discharge, ENT: Negative for injury, pain, and discharge, Neck: Negative for injury, pain, and swelling, Cardiovascular: Negative for chest pain, palpitations, and edema, Respiratory: Negative for shortness of breath, cough, wheezing, and pleuritic chest pain. 19:30 Back: Negative for injury and pain, : Negative for injury, bleeding, discharge, and swelling, MS/Extremity: Negative for injury and deformity, Skin: Negative for injury, rash, and discoloration, Neuro: Negative for headache, weakness, numbness, tingling, and seizure. 19:30 Abdomen/GI: Positive for abdominal pain, nausea, vomiting, and diarrhea, Negative for constipation, hematemesis, black/tarry stool, rectal bleeding. Exam: 19:30 Constitutional: This is a well developed, well nourished patient who is awake, alert, pm1 and in no acute distress. Head/Face: Normocephalic, atraumatic. Eyes: Pupils equal round and reactive to light, extra-ocular motions intact. Lids and lashes normal. Conjunctiva and sclera are non-icteric and not injected. Cornea within normal limits. Periorbital areas with no swelling, redness, or edema. ENT: Nares patent. No nasal discharge, no septal abnormalities noted. Tympanic membranes are normal and external auditory canals are clear. Oropharynx with no redness, swelling, or masses, exudates, or evidence of obstruction, uvula midline. Mucous membranes moist. Neck: Trachea midline, no thyromegaly or masses palpated, and no cervical lymphadenopathy. Supple, full range of motion without nuchal rigidity, or vertebral point tenderness. No Meningismus. Chest/axilla: Normal chest wall appearance and motion. Nontender with no deformity. No lesions are appreciated. Cardiovascular: Regular rate and rhythm with a normal S1 and S2. No gallops, murmurs, or rubs. Normal PMI, no JVD. No pulse deficits. Respiratory: Lungs have equal breath sounds bilaterally, clear to auscultation and percussion. No rales, rhonchi or wheezes noted. No increased work of breathing, no retractions or nasal flaring. 19:30 Back: No spinal tenderness. No costovertebral tenderness. Full range of motion. Skin: Warm, dry with normal turgor. Normal color with no rashes, no lesions, and no evidence of cellulitis. MS/ Extremity: Pulses equal, no cyanosis. Neurovascular intact. Full, normal range of motion. 19:30 Abdomen/GI: Inspection: abdomen appears normal, Bowel sounds: normal, Palpation: soft, moderate abdominal tenderness, in the laterally to umbilicus, mass, is not appreciated, rebound tenderness, is not appreciated. 19:30 Neuro: Orientation: is normal, Motor: is normal, moves all fours. Vital Signs: 17:56 BP 135 / 85; Pulse 81; Resp 17; Temp 97.0(O); Pulse Ox 99% on R/A; Weight 83.91 kg (R); tw2 Height 5 ft. 9 in. (175.26 cm); Pain 6/10; 19:15 BP 177 / 81; Pulse 75; Resp 20 S; Temp 97.4(O); Pulse Ox 99% on R/A; cc3 20:40 BP 137 / 65; Pulse 78; Resp 19 S; Pulse Ox 96% on R/A; cc3 21:45 BP 138 / 80; Pulse 72; Resp 20 S; Pulse Ox 100% on R/A; cc3 22:11 BP 174 / 84; Pulse 70; Resp 17; Pulse Ox 95% on R/A; cc3 22:45 BP 148 / 73; Pulse 69; Resp 18 S; Pulse Ox 95% on R/A; cc3 17:56 Body Mass Index 27.32 (83.91 kg, 175.26 cm) tw2 MDM: 18:58 Patient medically screened. pm1 19:59 Physician consultation: Alfreda Obrien MD regarding admission, patient's condition, would like pm1 medications started, Levaquin 250mg IV once daily, Flagyl 500 mg Q8, Stop NS 125mL/hr and change to 50mL/hr, in the emergency department to see patient at 19:59. 20:10 Physician consultation: Wang Le DO was called at 20:05, was contacted at 20:05, pm1 regarding consult, patient's condition, If patient can tolerate Kayexalate and EKG is normal will perform dialysis on patient tomorrow morning. Informed that EKG looks good, no peaked T's. May give Kayexalate UT if needed. Informed Dr. Obrien of dialysis treatment plan. 20:11 Data reviewed: vital signs. Data interpreted: Pulse oximetry: on room air is 99 %. pm1 Interpretation: normal. Counseling: I had a detailed discussion with the patient and/or guardian regarding: the historical points, exam findings, and any diagnostic results supporting the discharge/admit diagnosis, lab results, radiology results, the need for further work-up and treatment in the hospital. 11/12 18:16 Order name: Basic Metabolic Panel; Complete Time: 19:36 kdr 11/12 18:16 Order name: CBC with Diff; Complete Time: 19:32 kdr 11/12 18:16 Order name: Creatinine for Radiology; Complete Time: 19:41 kdr 11/12 18:16 Order name: Hepatic Function; Complete Time: 19:36 kdr 11/12 18:16 Order name: Lipase; Complete Time: 19:36 kdr 11/12 19:20 Order name: CBC Smear Scan; Complete Time: 19:32 EDMS 11/12 19:07 Order name: CT Abd/Pelvis - Without Cont; Complete Time: 19:41 pm1 11/12 18:16 Order name: IV Saline Lock; Complete Time: 18:41 kdr 11/12 18:16 Order name: Labs collected and sent; Complete Time: 18:42 kdr 11/12 19:40 Order name: EKG; Complete Time: 19:41 pm1 11/12 19:40 Order name: EKG - Nurse/Tech; Complete Time: 20:50 pm1 Administered Medications: Discontinued: NS 0.9% 1000 ml IV at 125 ml/hr continuous 18:21 Drug: NS 0.9% 1000 ml Route: IV; Rate: 125 ml/hr; Site: left antecubital; hj 20:15 Drug: NS 0.9% 1000 ml Route: IV; Rate: 50 ml/hr; Site: left antecubital; cc3 22:45 Follow up: Response: No adverse reaction; IV Status: Infusion continued upon admission cc3 20:30 Drug: Kayexalate 30 grams Route: PO; cc3 21:00 Follow up: Response: No adverse reaction cc3 20:31 Drug: Albuterol 5 mg Route: Inhalation; cc3 21:00 Follow up: Response: No adverse reaction cc3 20:34 Drug: Insulin Regular Human 5 units {Co-Signature: ls4 (Danisha Cummins RN).} Route: IVP; cc3 Site: left antecubital; 21:00 Follow up: Response: No adverse reaction cc3 20:35 Drug: D50W 50 ml Route: IVP; Site: left antecubital; cc3 21:00 Follow up: Response: No adverse reaction cc3 20:40 Drug: morphine 4 mg Route: IVP; Site: left antecubital; cc3 21:45 Follow up: Response: No adverse reaction; Pain is unchanged, physician notified cc3 20:44 Drug: Zofran 4 mg Route: IVP; Site: left antecubital; cc3 21:00 Follow up: Response: No adverse reaction; Nausea is decreased cc3 20:47 Drug: Flagyl 500 mg Volume: 100 ml; Route: IVPB; Rate: 200 ml/hr; Infused Over: 30 cc3 mins; Site: left antecubital; 21:15 Follow up: Response: No adverse reaction; IV Status: Completed infusion; IV Intake: cc3 100ml 21:40 Drug: Calcium Gluconate 1 grams Route: IVPB; Infused Over: 60 mins; Site: left cc3 antecubital; 22:40 Follow up: Response: No adverse reaction; IV Status: Completed infusion cc3 22:00 Drug: morphine 4 mg Route: IVP; Site: left antecubital; cc3 22:45 Follow up: Response: No adverse reaction; Pain is decreased cc3 22:41 Drug: LevaQUIN 250 mg Volume: 50 ml; Route: IVPB; Infused Over: 60 mins; Site: left cc3 antecubital; 22:45 Follow up: Response: No adverse reaction; IV Status: Infusion continued upon admission cc3 Disposition: 11/13 07:38 Co-signature as Attending Physician, Andre Barros MD I agree with the assessment and kdr plan of care. Disposition: 11/12/18 20:13 Hospitalization ordered by Alfreda Obrien for Inpatient Admission. Preliminary diagnosis are Hyperkalemia, Unspecified abdominal pain, Gastroenteritis, End stage renal disease. - Bed requested for Telemetry/MedSurg (Inpatient). - Status is Inpatient Admission. cc3 - Condition is Stable. - Problem is new. - Symptoms have improved. UTI on Admission? No Signatures: Dispatcher [employer] EDMS Andre Barros MD MD [facility] Garrick Avery RN RN hj Garcia, Cindy, RN RN cg Marinas, Patrick, IDALMIS DIAL SCREW ASSEMBLER pm1 Dolly Miller RN RN tw2 Марина Acharya cc3 Danisha Cummins RN ls4 Corrections: (The following items were deleted from the chart) 11/12 21:12 20:13 Hospitalization Ordered by A Micah ARRIETA for Inpatient Admission. Preliminary cg diagnosis is HyperkalemiaUnspecified abdominal pain; Gastroenteritis; End stage renal disease. Bed requested for Telemetry/MedSurg (Inpatient). Status is Inpatient Admission. Condition is Stable. Problem is new. Symptoms have improved. UTI on Admission? No. pm1 23:00 21:12 11/12/2018 20:13 Hospitalization Ordered by A Micah ARRIETA for Inpatient Admission. cc3 Preliminary diagnosis is HyperkalemiaUnspecified abdominal pain; Gastroenteritis; End stage renal disease. Bed requested for Telemetry/MedSurg (Inpatient). Status is Inpatient Admission. Condition is Stable. Problem is new. Symptoms have improved. UTI on Admission? No. cg
--- NOTE | 2018-11-12 20:13 | ER ---
Nurse's Notes [facility] Name: Analilia Colby Age: 73 yrs Sex: Male : 1945 Arrival Date: 11/12/2018 Time: 17:48 Bed 14 Private MD: Alfreda Obrien C Diagnosis: Unspecified abdominal pain;Gastroenteritis;Hyperkalemia;End stage renal disease Presentation: 11/12 17:53 Presenting complaint: Patient states: i started feeling bad just about this time tw2 yesterday, i threw up, i was supposed to go to dialysis today but he had diarrhea all night and so he didn't go. Transition of care: patient was not received from another setting of care. Onset of symptoms was November 12, 2018. Risk Assessment: Do you want to hurt yourself or someone else? Patient reports no desire to harm self or others. Initial Sepsis Screen: Does the patient meet any 2 criteria? No. Patient's initial sepsis screen is negative. Does the patient have a suspected source of infection? No. Patient's initial sepsis screen is negative. Care prior to arrival: None. 17:53 Method Of Arrival: Ambulatory tw2 17:53 Acuity: RIVERA 3 tw2 Triage Assessment: 17:56 General: Appears uncomfortable, Behavior is calm, cooperative, appropriate for age. tw2 Pain: Complains of pain in abdomen. GI: Reports nausea, vomiting. Historical: - Allergies: 17:55 No Known Allergies; tw2 - Home Meds: 17:55 valsartan 320 mg Oral tab 1 tab once daily [Active]; sevelamer carbonate 800 mg Oral tw2 tab 4 tabs 3 times per day [Active]; amlodipine 10 mg tab 1 tab twice a day [Active]; carvedilol 3.125 mg oral tab 1 tab 2 times per day [Active]; losartan 100 mg oral tab 1 tab once daily [Active]; - PMHx: 17:55 Cancer, Lung; Dialysis; Liver disease; Renal Cancer; tw2 - PSHx: 17:55 bilateral nephrectomy; tw2 - Immunization history:: Adult Immunizations. - Social history:: Smoking status: . - Ebola Screening: : Patient denies travel to an Ebola-affected area in the 21 days before illness onset. Screenin:16 Abuse screen: Denies threats or abuse. Denies injuries from another. Nutritional hj screening: No deficits noted. Tuberculosis screening: No symptoms or risk factors identified. Fall Risk None identified. Assessment: 18:41 GI: Abdomen is non-distended. hj 18:42 General: Appears in no apparent distress. uncomfortable, Behavior is calm, cooperative, hj appropriate for age. Pain: Complains of pain in abdomen Pain currently is 6 out of 10 on a pain scale. Neuro: Level of Consciousness is awake, alert, obeys commands, Oriented to person, place, time, situation, Appropriate for age. Cardiovascular: Capillary refill < 3 seconds Patient's skin is warm and dry. Respiratory: Airway is patent Respiratory effort is even, unlabored, Respiratory pattern is regular, symmetrical. : Reports should have dialysis today but missed it due to diarrhea;. EENT: No signs and/or symptoms were reported regarding the EENT system. Derm: No signs and/or symptoms reported regarding the dermatologic system. Musculoskeletal: No signs and/or symptoms reported regarding the musculoskeletal system. 19:15 Reassessment: Patient appears in no apparent distress at this time. Patient and/or cc3 family updated on plan of care and expected duration. Pain level reassessed. Patient is alert, oriented x 3, equal unlabored respirations, skin warm/dry/pink. Received this male patient from morning shift ALEK Mccauley as a case of vomiting and diarrhea. With IV cannula gauge 22 at the left ACV with ongoing IVF of NS 1 liter at 125 mL/hr infusing well. Patient on hemodialysis during Saturday, Saturday and Saturday but today's session was not done, with hemodialysis access at the right arm noted. 19:30 Reassessment: Patient came back from CT scan department, awaiting result. cc3 20:30 Reassessment: Patient appears in no apparent distress at this time. Patient and/or cc3 family updated on plan of care and expected duration. Pain level reassessed. Patient is alert, oriented x 3, equal unlabored respirations, skin warm/dry/pink. Patient took more than half of the kayexalate 30 grams medication orally but doesn't like to finish all up the remaining though educated him regarding the need of it, informed CARDIOLOGY CONSULTANT Armando and he's aware. 21:20 Reassessment: Patient appears in no apparent distress at this time. Patient and/or cc3 family updated on plan of care and expected duration. Pain level reassessed. Patient is alert, oriented x 3, equal unlabored respirations, skin warm/dry/pink. 22:45 Reassessment: Patient appears in no apparent distress at this time. Patient and/or cc3 family updated on plan of care and expected duration. Pain level reassessed. Patient is alert, oriented x 3, equal unlabored respirations, skin warm/dry/pink. Room available at 207, report called and handed over to ALEK Krishna for continuity of care and management. 22:55 Reassessment: Patient appears in no apparent distress at this time. Patient and/or cc3 family updated on plan of care and expected duration. Pain level reassessed. Patient is alert, oriented x 3, equal unlabored respirations, skin warm/dry/pink. Patient left ER for admission vitally stable by wheelchair escorted by emergency vehicle technician Glenys and the patient's . Vital Signs: 17:56 BP 135 / 85; Pulse 81; Resp 17; Temp 97.0(O); Pulse Ox 99% on R/A; Weight 83.91 kg (R); tw2 Height 5 ft. 9 in. (175.26 cm); Pain 6/10; 19:15 BP 177 / 81; Pulse 75; Resp 20 S; Temp 97.4(O); Pulse Ox 99% on R/A; cc3 20:40 BP 137 / 65; Pulse 78; Resp 19 S; Pulse Ox 96% on R/A; cc3 21:45 BP 138 / 80; Pulse 72; Resp 20 S; Pulse Ox 100% on R/A; cc3 22:11 BP 174 / 84; Pulse 70; Resp 17; Pulse Ox 95% on R/A; cc3 22:45 BP 148 / 73; Pulse 69; Resp 18 S; Pulse Ox 95% on R/A; cc3 17:56 Body Mass Index 27.32 (83.91 kg, 175.26 cm) tw2 ED Course: 17:48 Patient arrived in ED. ds1 17:49 Alfreda Obrien MD is Private Physician. ds1 17:54 Triage completed. tw2 17:54 Arm band placed on. tw2 18:14 Andre Barros MD is Attending Physician. kdr 18:16 Garrick Avery, ALEK is Primary Nurse. hj 18:16 Patient has correct armband on for positive identification. Bed in low position. Call light in reach. Side rails up X 1. Adult w/ patient. 18:35 Initial lab(s) drawn, by me, sent to lab. Inserted saline lock: 22 gauge in left hj antecubital area, using aseptic technique. Blood collected. 18:42 Basic Metabolic Panel Sent. hj 18:42 CBC with Diff Sent. hj 18:42 Creatinine for Radiology Sent. hj 18:42 Hepatic Function Sent. hj 18:42 Lipase Sent. hj 18:57 Armando Banegas, IDALMIS is PHCP. pm1 19:[address] 2 19:24 CT Abd/Pelvis - Without Cont In Process Unspecified. EDMS 19:38 Notified Nurse Practitioner and/or Physician Roentgenology Teacher of a critical lab result(s), bb Potassium of 6.2, Creatinine 10.9 Armando Banegas CARDIOLOGY CONSULTANT notified. 20:12 Alfreda Obrien MD is Hospitalizing Provider. pm1 22:45 No provider procedures requiring assistance completed. Patient admitted, IV remains in cc3 place. Administered Medications: Discontinued: NS 0.9% 1000 ml IV at 125 ml/hr continuous 18:21 Drug: NS 0.9% 1000 ml Route: IV; Rate: 125 ml/hr; Site: left antecubital; hj 20:15 Drug: NS 0.9% 1000 ml Route: IV; Rate: 50 ml/hr; Site: left antecubital; cc3 22:45 Follow up: Response: No adverse reaction; IV Status: Infusion continued upon admission cc3 20:30 Drug: Kayexalate 30 grams Route: PO; cc3 21:00 Follow up: Response: No adverse reaction cc3 20:31 Drug: Albuterol 5 mg Route: Inhalation; cc3 21:00 Follow up: Response: No adverse reaction cc3 20:34 Drug: Insulin Regular Human 5 units {Co-Signature: ls4 (Danisha Cummins RN).} Route: IVP; cc3 Site: left antecubital; 21:00 Follow up: Response: No adverse reaction cc3 20:35 Drug: D50W 50 ml Route: IVP; Site: left antecubital; cc3 21:00 Follow up: Response: No adverse reaction cc3 20:40 Drug: morphine 4 mg Route: IVP; Site: left antecubital; cc3 21:45 Follow up: Response: No adverse reaction; Pain is unchanged, physician notified cc3 20:44 Drug: Zofran 4 mg Route: IVP; Site: left antecubital; cc3 21:00 Follow up: Response: No adverse reaction; Nausea is decreased cc3 20:47 Drug: Flagyl 500 mg Volume: 100 ml; Route: IVPB; Rate: 200 ml/hr; Infused Over: 30 cc3 mins; Site: left antecubital; 21:15 Follow up: Response: No adverse reaction; IV Status: Completed infusion; IV Intake: cc3 100ml 21:40 Drug: Calcium Gluconate 1 grams Route: IVPB; Infused Over: 60 mins; Site: left cc3 antecubital; 22:40 Follow up: Response: No adverse reaction; IV Status: Completed infusion cc3 22:00 Drug: morphine 4 mg Route: IVP; Site: left antecubital; cc3 22:45 Follow up: Response: No adverse reaction; Pain is decreased cc3 22:41 Drug: LevaQUIN 250 mg Volume: 50 ml; Route: IVPB; Infused Over: 60 mins; Site: left cc3 antecubital; 22:45 Follow up: Response: No adverse reaction; IV Status: Infusion continued upon admission cc3 Intake: 21:15 IV: 100ml; Total: 100ml. cc3 Outcome: 20:13 Decision to Hospitalize by Provider. pm1 22:45 Admitted to Med/surg accompanied by tech, family with patient, via wheelchair, room cc3 207, with chart, Report called to ALEK Krishna 22:45 Condition: stable 22:45 Instructed on the need for admit, Demonstrated understanding of instructions. 23:00 Patient left the ED. cc3 Signatures: Dispatcher [employer] EDMS Andre Barros MD MD kdr Sanford, Demi ds1 Nikole Nina RN RN bb Joaquin, Henry, RN RN hj Marinas, Patrick, NP CARDIOLOGY CONSULTANT pm1 Dolly Miller RN RN tw2 Negra Tran [facility] Марина Acharya cc3 Danisha Cummins RN ls4
[2018-11-12] MEDS ORDERED: INSULIN -REGULAR HUMAN 50 UNIT/0.5 ML ML ONE (20:33)
[2018-11-12] MEDS ORDERED: ALBUTEROL 2.5 MG/3 ML NEB SOL ONE (20:34)
[2018-11-12] MEDS ORDERED: ONDANSETRON 4 MG/2 ML VIAL ONE (20:35)
[2018-11-12] MEDS ORDERED: MORPHINE 4 MG/ML SYR ONE ×2 (20:35→22:10)
[2018-11-12] MEDS ORDERED: METRONIDAZOLE 500mg IVPB 500 MG/100 ML BAG IV ONE (20:36)
[2018-11-12] MEDS ORDERED: D50W 25 GM/50 ML SYRINGE IV ONE (20:36)
[2018-11-12] MEDS ORDERED: SOD POLYSTYREN SUL 15 GM/60 ML UCUP ONE (20:36)
[2018-11-12] MEDS ORDERED: CALCIUM GLUCONATE 1 GM IVPB 1 GM/50 ML BAG IV ONE (21:27)
[2018-11-12] MEDS ORDERED: Levofloxacin 250mg IV 250 MG/50 ML BAG IV ONE (21:37)
[2018-11-12] MEDS ORDERED: Levofloxacin 250mg IV 250 MG/50 ML BAG IV SCH (23:10)
[2018-11-12] MEDS ORDERED: NA CHLORIDE 0.9% 1,000 ML IV SCH (23:10)
[2018-11-12] MEDS ORDERED: MORPHINE 4 MG/ML SYR IV PRN (23:10)
[2018-11-12] MEDS ORDERED: ONDANSETRON 4 MG/2 ML VIAL IV PRN (23:10)
[2018-11-12 23:13] VITALS: BMI 27.1
[2018-11-13] MEDS: METRONIDAZOLE 500mg IVPB 500 MG/100 ML BAG IV SCH ×2 (00:32→09:16)
--- NOTE | 2018-11-13 05:53 | EKG ---
Test Date: 2018-11-12 Test Time: 20:01:54 Applicator Sprayer: CHRISSY MEASUREMENT RESULTS: Intervals: Rate: 75 OK: 186 QRSD: 128 QT: 414 QTc: 462 [place]: P: 62 OK: 186 QRS: -60 T: -21 INTERPRETIVE STATEMENTS: Normal sinus rhythm Left atrial enlargement Left axis deviation Nonspecific intraventricular block Non specific ST and T abnormality Abnormal ECG Compared to ECG 05/27/2018 08:55:28 no significant change from previous ECG Electronically Signed On 11-13-18 05:53:01 [employer] by Haresh Ledsema
[2018-11-13 06:57] LABS: Absolute Lymphocytes (CBC) 0.8 K/uL (0.7-4.9); Absolute Monocytes 0.4 K/uL (0.1-1.3); Absolute Neutrophil 3.2 K/uL (1.8-8.0); Basophils % 0.9 % (0-1.3); Eosinophils % 4.8 % (0-4.4); Hematocrit 30.8 % (39.6-49.0); Lymphocytes % 16.4 % (15.3-44.8); MPV 7.9 fL (7.6-11.3); Monocytes % 8.7 % (3.3-12.3); RBC Red Blood Cell Count 3.35 M/uL (4.33-5.43)
[2018-11-13 07:13] LABS: Albumin 3.2 g/dL (3.4-5.0); Bilirubin Total 1.7 mg/dL (0.2-1.0); Protein, Total 5.6 g/dL (6.4-8.2)
[2018-11-13 07:18] LABS: Potassium 6.5 mmol/L (3.5-5.1)
[2018-11-13] MEDS ORDERED: NA CHLORIDE 0.9% 1,000 ML IV PRN (08:48)
[2018-11-13] MEDS ORDERED: MANNITOL 25% 12.5 GM/50 ML VIAL IV PRN (08:48)
[2018-11-13 08:56] VITALS: TEMP 97.4
[2018-11-13 09:00] LABS: Blood Morphology Comment NOT SEEN (NOT SEEN); Platelet Estimate DECR
[2018-11-13] MEDS ORDERED: CARVEDILOL 3.125 MG PO SCH (09:00)
[2018-11-13] MEDS ORDERED: EPOETIN ALFA 10,000 UNIT/ML VIAL IV SCH (09:00)
[2018-11-13] MEDS ORDERED: HOME MED 1 EA UNK (Losartan Potassium [Losartan Potassium] 100 MG) PO SCH (09:00)
[2018-11-13] MEDS ORDERED: ALBUMIN HUMAN 25% 50 ML IV SCH (09:00)
[2018-11-13] MEDS ORDERED: SEVELAMER CARBONATE PO SCH (09:00)
[2018-11-13] MEDS ORDERED: AMLODIPINE BESYLATE PO SCH (09:00)
[2018-11-13 10:58] VITALS: O2SAT 98
[2018-11-13 12:27] VITALS: BP 166/74
--- NOTE | 2018-11-13 18:16 | P.CNS ---
Date of Consult: 11/13/18 Reason for Consult: ESRD Requesting Physician: Ward Obrien Chief Complaint: N/V/D History of Present Illness: 73 yo WM CKD, HTN presented to the ER with 24 hours of severe, persistent symptoms of gastroenteritis with associated malaise and fatigue. No alleviating fx. Seen and examined this morning. Feeling better with supportive medications. Did not take his kayexalate last night. 19:30 This 73 yrs old Male presents to ER via Ambulatory with complaints of pm1 Vomiting/Diarrhea, Abdominal Pain. 19:30 The patient presents to the emergency department with nausea, vomiting, diarrhea, pm1 abdominal pain, of the bilateral sides of umbilicus, described as crampy, sharp, and does not radiate. Onset: The symptoms/episode began/occurred last night. Possible causes: unknown. The symptoms are aggravated by nothing. The symptoms are alleviated by nothing. Associated signs and symptoms: Pertinent negatives: dysuria, fever, chest pain, shortness of breath. Severity of symptoms: in the emergency department the symptoms have improved markedly. The patient has not experienced similar symptoms in the past. Patient missed his dialysis appointment today due to pain and n/ v/d. Allergies No Known Allergies Allergy (Verified 11/12/18 23:23) Home Medications: Amlodipine Besylate 1 tab PO BID 11/12/18 Carvedilol [Coreg] 3.125 mg PO BID 11/12/18 Losartan Potassium 100 mg PO DAILY 11/12/18 Sevelamer Carbonate [Renvela*] 4 tab PO TID 11/12/18 - Past Medical/Surgical History Diabetic: No -: renal cell carcinoma with mets lungs -: both kidneys removed -: htn -: dialysis mwf -: both kidneys removed -: fistula L arm-not active. -: cholecystectomy -: tonsils removed and adnoids - Social History Smoking Status: Never smoker Alcohol use: No CD- Drugs: No Caffeine use: No Place of Residence: Home Review of Systems 10-point ROS is otherwise unremarkable General: Weakness, Malaise Respiratory: SOB with Excertion Cardiovascular: Edema Gastrointestinal: Nausea, Vomiting, Abdominal Pain, Diarrhea Neurological: Weakness Physical Examination Temp Pulse Resp BP Pulse Ox 97.4 F 67 15 166/74 H 95 11/13/18 08:00 11/13/18 12:00 11/13/18 12:00 11/13/18 12:00 11/13/18 12:00 General: Oriented x3, Cooperative HEENT: Atraumatic Neck: Supple Respiratory: Clear to auscultation bilaterally Cardiovascular: Edema Gastrointestinal: Soft and benign, Non-distended Integumentary: No rashes, No cyanosis Neurological: Normal speech Laboratory Data (last 24 hrs) 11/12/18 18:36: Creatinine 11.00 H* 11/12/18 18:36: WBC 8.0, Hgb 12.3 L, Hct 37.0 L, Plt Count 113 L 11/12/18 18:36: Sodium 143, Potassium 6.2 H*, BUN 87 H, Creatinine 10.90 H*, Glucose 106, Total Bilirubin 1.1 H, AST 70 H, ALT 68, Alkaline Phosphatase 157 H , Lipase 433 H Imagings Data: EXAM DESCRIPTION: CT - Abdomen Pelvis Wo Contrast - 11/12/2018 7:23 pm CLINICAL HISTORY: Abdominal pain vomiting and diarrhea COMPARISON: February 2018 TECHNIQUE: Computed axial tomography of the abdomen and pelvis was obtained. IV and oral contrast were not requested. All CT scans are performed using dose optimization technique as appropriate and may include automated exposure control or mA/KV adjustment according to patient size. FINDINGS: The evaluation of solid organs, vessels and bowel is limited secondary to the lack of contrast administration. 4 centimeter peripherally calcified mass within as azygoesophageal recess is unchanged. Hepatic cysts are stable. Spleen is upper limits normal size containing granulomas. The pancreas appears grossly normal. Bilateral nephrectomies Cholecystectomy Multiple loops of small bowel are mildly dilated and fluid-filled. Fluid is also present within the colon. Small amount of ascites is present. Mild stranding is present within the mesenteric fat. Prostate gland is mildly to moderately enlarged. Small inguinal hernias contain fat The appendix is normal. There is no evidence of diverticulitis. IMPRESSION: Multiple loops of mildly dilated small bowel which are fluid- filled. Fluid is also present within the colon. This probably represents a gastroenteritis. Conclusions/Impression: A/ ESRD on HD. Hyperkalemia. HTN with CKD/ CHF. Diastolic CHF, chronic. Anemia in CKD. MANFRED/ Secondary HyperPTH. Metastatic RCC sp bilateral nephrectomy. Acute gastroenteritis. P/ Continue current POC and Medications. Supportive care as ordered. Kayexalate as ordered. Arrange for acute HD. 1-2 Liters UF. Restart home medications as indicated. Give Epo. Give binders and vitamin D. Renal diet; advance as tolerated. No NSAIDs. AM labs. Daily weight. Case discussed with ER physician. Thank you kindly for the consultation.
[2018-11-13] MEDS ORDERED: Levofloxacin 250mg IV 250 MG/50 ML BAG IV SCH (22:00)
--- NOTE | 2018-11-16 21:47 | HP ---
Date of Admission: 11/12/2018 Chief Complaint: Abdominal pain, nausea, vomiting, diarrhea. History Of Present Illness: This is a 73-year-old male patient with end-stage renal disease on hemod ialysis, was doing fine in his usual state of health until today, started to have significant abdomin al pain associated with nausea, vomiting, and diarrhea. All these symptoms started yesterday. He ca lled my office today and was advised to come to emergency room. He had about 4-5 episodes of vomitin g and multiple episodes of diarrhea. He was evaluated in the ER and decision was made to admit him t o the hospital. He was feeling very bad when he came in to ER with this complaint. I did see him in the emergency room. His was present with him at bedside. Allergies: NO KNOWN ALLERGIES. Medications: List reviewed. Review of Systems: GI: As mentioned above. Constitutional: As mentioned above. All other systems reviewed and negative. Past Medical History: Significant for hypertension, end-stage renal disease on hemodialysis, hyperli pidemia, anemia due to chronic kidney disease, chronic systolic congestive heart failure, kidney canc er, benign prostatic hypertrophy. Past Surgical History: Bilateral nephrectomy in 2006 due to kidney cancer. Family History: Significant for COPD. Social History: Negative for smoking and alcohol use. Physical Examination: Vital Signs: Temperature 97, pulse 81, respiratory rate 17, blood pressure 135/85, oxygen saturation 99%. Height 5 feet 9 inches, weight 182 pounds. General: Awake, alert, oriented, not in distress. HEENT: Head atraumatic, normocephalic. Conjunctivae nonerythematous. Sclerae white. Mouth, no thr ush or edema noted. Ears/Nose, no mass, lesion, discharge noted. Neck: Supple. No JVD, lymph nodes, bruit, thyromegaly noted. Lungs: Bilateral good equal air entry. Clear to auscultation. No rhonchi. No rales. Heart: Normal heart sounds, no murmur or gallop. Abdomen: The patient has abdominal tenderness all across his mid and lower abdomen. No rebound tend erness. Bowel sounds normoactive. No distention. No hepatosplenomegaly. No bruit. Extremities: No leg edema. No calf tenderness. Skin: No rash, ulcer, cellulitis. Lymphatics: No lymph node enlargement in neck, supraclavicular, infraclavicular region. Neuro: No focal neurological deficit. Chest: Unremarkable. External Genitalia: Deferred. Rectal: Deferred. Laboratory Data: White count 8, hemoglobin 12.3, platelets of abdomen and pelvis without contrast shows multiple loops of mildly dilated small bowel, which are fluid-filled. A 4-cm peripher ally calcified mass in azygoesophageal recess and it is unchanged from prior CAT scan. Evidence of h epatic cyst, which is stable from previous CAT scan per radiologist. Sodium 143, potassium 6.2, chlo ride 107, bicarb 26, BUN 87, creatinine 10.9, glucose 106. SGOT 70, SGPT 68, alkaline phosphatase 15 7, lipase 433. Impression: 1.Acute gastroenteritis. 2.Hyperkalemia. 3.End-stage renal disease, on hemodialysis. 4.Hypertension. 5.Hyperlipidemia. 6.Anemia due to chronic kidney disease. 7.Kidney cancer. 8.Thrombocytopenia. Plan: Admit the patient to hospital for further evaluation and management of this problem. The trent ent is appropriate to be admitted as he feels very poorly at this point with this acute gastroenterit is. We will go ahead and give him gentle IV hydration. IV antibiotics will be given. Prototype Technician will be consulted for dialysis need and I will see him tomorrow for followup. Home medications will be continued and details and plan of treatment discussed with the patient and his . RYAN/WATSON Voice ID: [id number]
--- NOTE | 2018-11-17 09:46 | DS ---
Date of Discharge: 11/13/2018 Disposition: Discharged to go home. Physical Examination: HEENT: Unremarkable. Lungs: Clear to auscultation. Heart: Sounds normal. Abdomen: Soft. Bowel sounds normal. No guarding, rigidity, tenderness, or distention. Extremities: No leg edema. Laboratory Data: White count today on day of discharge 4.6, hemoglobin 10.4, platelets 69. Discharge Diagnoses: 1.Acute gastroenteritis. 2.Hyperkalemia. 3.End-stage renal disease, on hemodialysis. 4.Anemia due to chronic kidney disease. 5.Thrombocytopenia. 6.Hypertension. 7.Hyperlipidemia. 8.Kidney cancer. 9.Benign prostatic hypertrophy. Hospital Course: A 73-year-old male patient admitted to the hospital after he presented to emergency room with abdominal pain, nausea, vomiting, diarrhea. Please see dictated H and P for more informat rajinder. After the patient was evaluated in the ER, he was admitted to the hospital. We started him on gentle IV fluid hydration. IV antibiotics were given. Nephrology was consulted. A day after admiss rajinder, when I saw him in the morning, he was feeling fine, back to his normal usual state of health, an d no GI complaints reported at all. He has not had any bowel movement. No diarrhea, no vomiting aft er his admission to hospital. I did talk to him about his thrombocytopenia, and he has a history of thrombocytopenia, and he was suggested to have a followup blood work done on Saturday when he goes for his dialysis, and for some reason if he does not get that blood work with energy efficient site manager for monitoring of this low platelet count, then he was advised to come to my office to sweet pickle maker the lab order. The patient reports that this is his ongoing problem, and he gets blood work done very regularly for at [facility] as well as with energy efficient site manager. Discharge Medications And Instructions: 1.Continue prior home medications. 2.Follow up at my office per scheduled appointment. RYAN/MODL Voice ID: [id number] Report ID: [id number]
[2018-11-19 03:39] LABS: HBsAG Nonreactive (Nonreactive)
== END 2018-11-13 16:37 | disposition home or self-care (01) ==
LOC: ER 17:45 → ERHOLD 20:24 → INTOOBSV 20:24 → 2ND 22:47
PROVIDERS: ADMIT Internal Medicine; ATTEND Internal Medicine
DX: K52.9 Noninfective gastroenteritis and colitis, unspecified (principal); E87.5 Hyperkalemia; I13.2 Hypertensive heart and chronic kidney disease with heart failure and with stage 5 chronic kidney disease, or end stage renal disease; N18.6 End stage renal disease; I50.32 Chronic diastolic (congestive) heart failure; Z99.2 Dependence on renal dialysis; D63.1 Anemia in chronic kidney disease; D69.6 Thrombocytopenia, unspecified; E78.5 Hyperlipidemia, unspecified; N40.0 Benign prostatic hyperplasia without lower urinary tract symptoms; Z85.528 Personal history of other malignant neoplasm of kidney
CPT/HCPCS: 96365; 96367; 96361; 93005; 85025 ×2; 80048 ×2; 36415; 80076 ×2; 83690 ×2; 86317; 87340; 86706; 74176; 90935 ×2; 96375; 99285; Q4081; J0610; J7030; J2405; G0378 ×2

== ENCOUNTER 2018-11-20 10:06 | Emergency (ER) | payer OTHER, BC ==
--- NOTE | 2018-11-20 11:59 | RAD REPORT ---
EXAM DESCRIPTION: RAD - Chest Single View - 11/20/2018 11:48 am CLINICAL HISTORY: cough, fever Chest pain. COMPARISON: Chest Pa And Lat (2 Views) dated 05/27/2018; ABDOMEN ACUTE SERIES dated 08/22/2011; CHEST PA AND LAT 2 VIEW dated 10/18/2009; CHEST SINGLE VIEW dated 08/26/2009; Abdomen Pelvis Wo Contrast d ated 11/12/2018 FINDINGS: Portable technique limits examination quality. Rounded nodule is suspected in the right upper lobe. Small nodule may also be present superior to the left hilum. Calcified nodule seen in the right mid lung. No focal infiltrate is seen. The heart is n ormal in size. Left-sided port catheter its tip in the SVC. IMPRESSION: Several nodules are present in the lungs, presumably neoplastic in origin. No acute intr athoracic abnormality discerned.
[2018-11-20 12:23] LABS: Absolute Lymphocytes (CBC) 0.3 K/uL (0.7-4.9); Absolute Monocytes 0.4 K/uL (0.1-1.3); Absolute Neutrophil 2.5 K/uL (1.8-8.0); Basophils % 0.7 % (0-1.3); Eosinophils % 5.6 % (0-4.4); Hematocrit 31.3 % (39.6-49.0); Lymphocytes % 9.2 % (15.3-44.8); MPV 7.1 fL (7.6-11.3); Monocytes % 11.7 % (3.3-12.3); RBC Red Blood Cell Count 3.39 M/uL (4.33-5.43)
[2018-11-20 12:24] LABS: Protime INR 1.11
[2018-11-20 12:48] LABS: ALT/SGPT 42 U/L (12-78); AST/SGOT 17 U/L (15-37); Albumin 3.4 g/dL (3.4-5.0); Alkaline Phosphatase 155 U/L (45-117); BUN Blood Urea Nitrogen 28 mg/dL (7-18); Bicarbonate 31 mmol/L (21-32); Bilirubin Direct 0.4 mg/dL (0-0.2); Bilirubin Total 1.5 mg/dL (0.2-1.0); Glucose Level 89 mg/dL (74-106); Magnesium 2.1 mg/dL (1.8-2.4); NT PRO-BNP 31647 pg/mL (<125); Potassium 4.6 mmol/L (3.5-5.1); Protein, Total 6.2 g/dL (6.4-8.2); Sodium Level 143 mmol/L (136-145); Troponin (Emerg Dept Use Only) < 0.02 ng/mL (0.0-0.045)
[2018-11-20] MEDS ORDERED: LEVALBUTEROL 1.25 MG/3 ML NEB ONE (13:10)
[2018-11-20 14:45] LABS: Platelet Estimate DECR; Urine White Blood Cell Casts OK
[2018-11-20 14:46] LABS: Anisocytosis 2+; Blood Morphology Comment NOTED (NOT SEEN); Polychromasia 1+
[2018-11-20] MEDS ORDERED: Levofloxacin 250mg IV 250 MG/50 ML BAG IV ONE (15:00)
--- NOTE | 2018-11-20 15:36 | ER ---
Nurse's Notes [facility] Name: Analilia Colby Age: 73 yrs Sex: Male : 1945 Arrival Date: 11/20/2018 Time: 10:07 Bed 17 Private MD: Alfreda Obrien C Diagnosis: Acute bronchitis Presentation: 11/20 10:35 Presenting complaint: Patient states: Runny nose ,productive cough w/ clear mucus, and ph fever that began yesterday, TMAX 102.5, denies N/V/D. Transition of care: patient was not received from another setting of care. Onset of symptoms was November 20, 2018. Risk Assessment: Do you want to hurt yourself or someone else? Patient reports no desire to harm self or others. Initial Sepsis Screen: Does the patient meet any 2 criteria? No. Patient's initial sepsis screen is negative. Does the patient have a suspected source of infection? Yes: Productive cough/pneumonia. Care prior to arrival: None. 10:35 Method Of Arrival: Ambulatory ph 10:35 Acuity: RIVERA 3 ph Historical: - Allergies: 10:37 No Known Allergies; ph - PMHx: 10:37 Cancer, Lung; Dialysis; Liver disease; Renal Cancer; ph - PSHx: 10:37 bilateral nephrectomy; ph - Immunization history:: Flu vaccine is up to date. - Social history:: Smoking status: Smoking status: Patient/guardian denies using tobacco. - Ebola Screening: : Patient denies travel to an Ebola-affected area in the 21 days before illness onset. Screenin:30 Abuse screen: Denies threats or abuse. Denies injuries from another. Nutritional ph screening: No deficits noted. Tuberculosis screening: No symptoms or risk factors identified. 16:29 Fall Risk None identified. aj1 Assessment: 11:30 General: Appears in no apparent distress. uncomfortable, Behavior is calm, cooperative, ph appropriate for age. Pain: Denies pain. Neuro: Level of Consciousness is awake, alert, obeys commands, Oriented to person, place, time, situation. Cardiovascular: Heart tones S1 S2 present Patient's skin is warm and dry. Rhythm is sinus rhythm. Respiratory: Reports cough that is productive, Airway is patent Respiratory effort is even, unlabored, Respiratory pattern is regular, symmetrical, Breath sounds with wheezes bilaterally. GI: No signs and/or symptoms were reported involving the gastrointestinal system. : No signs and/or symptoms were reported regarding the genitourinary system. EENT: No signs and/or symptoms were reported regarding the EENT system. Derm: No signs and/or symptoms reported regarding the dermatologic system. Skin is pink, warm \T\ dry. normal. Musculoskeletal: No signs and/or symptoms reported regarding the musculoskeletal system. Circulation, motion, and sensation intact. 12:30 Reassessment: Patient appears in no apparent distress at this time. No changes from ph previously documented assessment. Patient and/or family updated on plan of care and expected duration. Pain level reassessed. Patient is alert, oriented x 3, equal unlabored respirations, skin warm/dry/pink. 13:30 Reassessment: Patient appears in no apparent distress at this time. No changes from aj1 previously documented assessment. Patient and/or family updated on plan of care and expected duration. Pain level reassessed. Patient is alert, oriented x 3, equal unlabored respirations, skin warm/dry/pink. 14:30 Reassessment: Patient appears in no apparent distress at this time. No changes from aj1 previously documented assessment. Patient and/or family updated on plan of care and expected duration. Pain level reassessed. Patient is alert, oriented x 3, equal unlabored respirations, skin warm/dry/pink. 15:28 Reassessment: Patient appears in no apparent distress at this time. No changes from aj1 previously documented assessment. Patient and/or family updated on plan of care and expected duration. Pain level reassessed. Patient is alert, oriented x 3, equal unlabored respirations, skin warm/dry/pink. 16:27 Reassessment: Patient appears in no apparent distress at this time. No changes from aj1 previously documented assessment. Patient and/or family updated on plan of care and expected duration. Pain level reassessed. Patient is alert, oriented x 3, equal unlabored respirations, skin warm/dry/pink. Vital Signs: 10:38 BP 172 / 72; Pulse 77; Resp 20; Temp 98.5; Pulse Ox 97% on R/A; Weight 83.91 kg; Height ph 5 ft. 8 in. (172.72 cm); 11:30 BP 169 / 78; Pulse 74; Resp 21; Pulse Ox 95% on R/A; ph 13:04 BP 166 / 65; Pulse 68; Resp 16; Pulse Ox 100% on Nebulizer Mask; ph 13:22 BP 167 / 73; Pulse 69; Resp 19; Temp 98.0(O); Pulse Ox 100% ; mh5 14:30 BP 135 / 98; Pulse 69; Resp 13; Pulse Ox 96% on R/A; aj1 15:28 BP 170 / 77; Pulse 70; Resp 22; Pulse Ox 97% on R/A; aj1 16:28 BP 166 / 65; Pulse 72; Resp 18; Pulse Ox 97% on R/A; aj1 10:38 Body Mass Index 28.13 (83.91 kg, 172.72 cm) ph ED Course: 10:07 Patient arrived in ED. ag5 10:07 Alfreda Obrien MD is Private Physician. ag5 10:37 Triage completed. ph 10:38 Arm band placed on. ph 11:00 Wilber Montiel PA is PHCP. jm 11:00 Cristhian Garcia MD is Attending Physician. [facility] 11:30 Patient has correct armband on for positive identification. Bed in low position. Call ph light in reach. Side rails up X 1. admitting manager on. Pulse ox on. NIBP on. 11:41 EKG done, by biochemistry technician. reviewed by Wilber NAPOLES. at1 11:45 X-ray completed. Portable x-ray completed in exam room. Patient tolerated procedure sw well. 11:46 XRAY Chest (1 view) In Process Unspecified. EDMS 11:50 Initial lab(s) drawn, by wv, sent to lab. Inserted saline lock: 22 gauge in left ph antecubital area, using aseptic technique. Blood collected. 11:54 Paige Joshi, RN is Primary Nurse. ph 15:36 Alfreda Obrien MD is Referral Physician. jm 16:29 No provider procedures requiring assistance completed. IV discontinued, intact, aj1 bleeding controlled, No redness/swelling at site. Pressure dressing applied. Administered Medications: 13:02 Drug: Xopenex (3) 1.25 mg Route: Inhalation; ph 16:27 Follow up: Response: No adverse reaction aj1 14:51 Drug: LevaQUIN 250 mg Volume: 50 ml; Route: IVPB; Infused Over: 60 mins; Site: left aj1 antecubital; 16:27 Follow up: IV Status: Completed infusion; IV Intake: 100ml aj1 Intake: 16:27 IV: 100ml; Total: 100ml. aj1 Outcome: 15:36 Discharge ordered by . laly 16:29 Discharged to home ambulatory, with family. aj1 16:29 Condition: good 16:29 Discharge instructions given to patient, family, Instructed on discharge instructions, follow up and referral plans. medication usage, Demonstrated understanding of instructions, follow-up care, medications, Prescriptions given X 3. 16:47 Patient left the ED. aj1 Signatures: Dispatcher [employer] EDAisha Ramos RN RN aj1 Wilber Montiel PA PA jmm Gonzales, Amanda, powerhouse mechanic EKG [facility]1 Paige Joshi RN RN Rigoberto, [facility] Miguel, [facility]
--- NOTE | 2018-11-20 15:36 | EDPHYS ---
Physician Documentation [facility] Name: Analilia Colby Age: 73 yrs Sex: Male : 1945 Arrival Date: 11/20/2018 Time: 10:07 Bed 17 Private MD: Alfreda Obrien C ED Physician Cristhian Garcia HPI: 11/20 11:02 This 73 yrs old Male presents to ER via Ambulatory with complaints of Cough, jmm Fever, Wheezing > 1 Year. 11:02 The patient or guardian reports cough. Onset: The symptoms/episode began/occurred last jmm night. This is a 73 year old male with a history of esrd, renal cell cancer that presents to the ED with complaints of cough, fever, body aches beginning last night. Patient states he was recently admitted to the hospital due to diarrhea. Patient states he was last dialyzed yesterday. Dr. Le is the patient's wrapping checker. . Historical: - Allergies: 10:37 No Known Allergies; ph - PMHx: 10:37 Cancer, Lung; Dialysis; Liver disease; Renal Cancer; ph - PSHx: 10:37 bilateral nephrectomy; ph - Immunization history:: Flu vaccine is up to date. - Social history:: Smoking status: Smoking status: Patient/guardian denies using tobacco. - Ebola Screening: : Patient denies travel to an Ebola-affected area in the 21 days before illness onset. ROS: 11:02 Constitutional: Positive for body aches, fever. jmm 11:02 Respiratory: Positive for cough, shortness of breath. 11:02 All other systems are negative. Exam: 11:02 Constitutional: This is a well developed, well nourished patient who is awake, alert, jmm and in no acute distress. Head/Face: atraumatic. Eyes: EOMI, no conjunctival erythema appreciated ENT: Moist Mucus Membranes Neck: Trachea midline, Supple Chest/axilla: Normal chest wall appearance and motion. 11:02 Abdomen/GI: Non distended, soft Back: Normal ROM Skin: General appearance color normal MS/ Extremity: Moves all extremities, no obvious deformities appreciated, no edema noted to the lower extremities Neuro: Awake and alert, normal gait Psych: Behavior is normal, Mood is normal, Patient is cooperative and pleasant 11:02 Cardiovascular: Rate: normal, Rhythm: regular. 11:02 Respiratory: the patient does not display signs of respiratory distress, Respirations: normal, Breath sounds: wheezing: is heard diffusely. Vital Signs: 10:38 BP 172 / 72; Pulse 77; Resp 20; Temp 98.5; Pulse Ox 97% on R/A; Weight 83.91 kg; Height ph 5 ft. 8 in. (172.72 cm); 11:30 BP 169 / 78; Pulse 74; Resp 21; Pulse Ox 95% on R/A; ph 13:04 BP 166 / 65; Pulse 68; Resp 16; Pulse Ox 100% on Nebulizer Mask; ph 13:22 BP 167 / 73; Pulse 69; Resp 19; Temp 98.0(O); Pulse Ox 100% ; mh5 14:30 BP 135 / 98; Pulse 69; Resp 13; Pulse Ox 96% on R/A; aj1 15:28 BP 170 / 77; Pulse 70; Resp 22; Pulse Ox 97% on R/A; aj1 16:28 BP 166 / 65; Pulse 72; Resp 18; Pulse Ox 97% on R/A; aj1 10:38 Body Mass Index 28.13 (83.91 kg, 172.72 cm) ph MDM: 11:02 Patient medically screened. anh 14:20 Data reviewed: vital signs, nurses notes. Counseling: I had a detailed discussion with laly the patient and/or guardian regarding: the historical points, exam findings, and any diagnostic results supporting the discharge/admit diagnosis, lab results, radiology results. 15:31 ED course: Patient is alert and non toxic in appearance in the ED. No signs of resp [facility] distress appreciated. Wheezing has decreased in the ED. Patient will be given prescription for antibiotics along with albuterol inhaler. Benefits of admission for observation was discussed with the patient whom declined. I discussed the patient with Dr. Obrien whom would accepted admission. The patient was given strict return precautions and otherwise advised to follow up with Dr. Obrien outpatient. Patient understood and agrees with the plan of care. . 11/20 11:15 Order name: Basic Metabolic Panel [facility] 11/20 11:15 Order name: CBC with Diff [facility] 11/20 11:15 Order name: LFT's [facility] 11/20 11:15 Order name: Magnesium; Complete Time: 12:55 [facility] 11/20 11:15 Order name: NT PRO-BNP; Complete Time: 12:55 [facility] 11/20 11:15 Order name: PT-INR; Complete Time: 12:32 [facility] 11/20 11:15 Order name: Troponin (emerg Dept Use Only); Complete Time: 12:55 [facility] 11/20 11:15 Order name: Procalcitonin; Complete Time: 12:56 [facility] 11/20 11:15 Order name: Lactate; Complete Time: 12:35 [facility] 11/20 11:15 Order name: Blood Culture Adult (2) [facility] 11/20 11:15 Order name: Flu; Complete Time: 12:46 [facility] 11/20 11:16 Order name: Basic Metabolic Panel; Complete Time: 12:55 EDMS 11/20 11:16 Order name: CBC with Automated Diff; Complete Time: 14:59 EDMS 11/20 11:16 Order name: Liver (Hepatic) Function; Complete Time: 12:55 EDMS 11/20 11:15 Order name: XRAY Chest (1 view); Complete Time: 12:02 [facility] 11/20 11:15 Order name: EKG; Complete Time: 11:16 [facility] 11/20 11:15 Order name: Cardiac monitoring; Complete Time: 12:12 [facility] 11/20 11:15 Order name: EKG - Nurse/Tech; Complete Time: 11:55 [facility] 11/20 11:15 Order name: IV Saline Lock; Complete Time: 12:12 [facility] 11/20 11:15 Order name: Labs collected and sent; Complete Time: 12:12 [facility] 11/20 11:15 Order name: O2 Per Protocol; Complete Time: 12:12 [facility] 11/20 11:15 Order name: O2 Sat Monitoring; Complete Time: 12:12 [facility] 11/20 12:25 Order name: CBC Smear Scan; Complete Time: 14:59 EDMS Administered Medications: 13:02 Drug: Xopenex (3) 1.25 mg Route: Inhalation; ph 16:27 Follow up: Response: No adverse reaction aj1 14:51 Drug: LevaQUIN 250 mg Volume: 50 ml; Route: IVPB; Infused Over: 60 mins; Site: left aj1 antecubital; 16:27 Follow up: IV Status: Completed infusion; IV Intake: 100ml aj1 Disposition: 11/21 09:10 Co-signature as Attending Physician, Cristhian Garcia MD I agree with the assessment and anh plan of care. Disposition: 11/20/18 15:36 Discharged to Home. Impression: Acute bronchitis. - Condition is Stable. - Discharge Instructions: Acute Bronchitis, Adult. - Prescriptions for Levaquin 250 mg Oral Tablet - take 1 tablet by ORAL route every 48 hours for 10 days Begin 11/22; 4 tablet. Albuterol Sulfate 90 mcg/actuation - inhale 1-2 puff by INHALATION route every 4-6 hours; 1 Inhaler. Guaifenesin AC - take 5 milliliter by ORAL route every 6 hours; 60 milliliter. - Medication Reconciliation Form, Thank You Letter, Antibiotic Education, Prescription Opioid Use form. - Follow up: Alfreda Obrien MD; When: 2 - 3 days; Reason: Recheck today's complaints, Continuance of care, Re-evaluation by your physician. Signatures: Dispatcher [employer] EDAisha Ramos RN RN aj1 Cristhian Garcia MD MD cha Mickail, Joel, PA PA darrius Paige Joshi RN RN ph Corrections: (The following items were deleted from the chart) 11/20 16:47 15:36 11/20/2018 15:36 Discharged to Home. Impression: Acute bronchitis. Condition is aj1 Stable. Forms are Medication Reconciliation Form, Thank You Letter, Antibiotic Education, Prescription Opioid Use. Follow up: Alfreda Obrien; When: 2 - 3 days; Reason: Recheck today's complaints, Continuance of care, Re-evaluation by your physician. laly
[2018-11-20 17:02] VITALS: TEMP 98
[2018-11-20 17:04] VITALS: O2SAT 97
[2018-11-20 17:05] VITALS: BP 166/65
--- NOTE | 2018-11-21 05:33 | EKG ---
Test Date: 2018-11-20 Test Time: 11:31:41 [employer] Making Machine Supervisor: MATT MEASUREMENT RESULTS: Intervals: Rate: 71 LA: 188 QRSD: 124 QT: 410 QTc: 445 [place]: P: 72 LA: 188 QRS: -55 T: -17 INTERPRETIVE STATEMENTS: Normal sinus rhythm Left axis Nonspecific ST and T wave abnormality Abnormal ECG Compared to ECG 11/12/2018 20:01:54 Atrial abnormality no longer present Electronically Signed On 11-21-18 05:33:15 CDT by Haresh Ledesma
== END 2018-11-20 16:47 | disposition home or self-care (01) ==
LOC: ER 10:06
DX: J20.9 Acute bronchitis, unspecified (principal); K76.9 Liver disease, unspecified; Z99.2 Dependence on renal dialysis; N18.6 End stage renal disease; Z85.118 Personal history of other malignant neoplasm of bronchus and lung; Z85.528 Personal history of other malignant neoplasm of kidney
CPT/HCPCS: 36415; 71045; 80048; 80076; 83605; 83735; 83880; 84145; 84484; 85025; 85610; 87040; 87804; 93005; 96365; 96366; 99285

== ENCOUNTER 2018-11-25 18:14 | Inpatient (IN) | payer OTHER, BC ==
[2018-11-25] MEDS ORDERED: GUAIFENESIN/DM 5 ML UCUP PO PRN (19:57)
[2018-11-25 20:31] LABS: Absolute Lymphocytes (CBC) 0.4 K/uL (0.7-4.9); Absolute Monocytes 0.3 K/uL (0.1-1.3); Absolute Neutrophil 1.8 K/uL (1.8-8.0); Basophils % 0.8 % (0-1.3); Eosinophils % 6.4 % (0-4.4); Hematocrit 29.6 % (39.6-49.0); Lymphocytes % 15.8 % (15.3-44.8); MPV 7.2 fL (7.6-11.3); Monocytes % 9.8 % (3.3-12.3); RBC Red Blood Cell Count 3.22 M/uL (4.33-5.43)
--- NOTE | 2018-11-25 20:35 | RAD REPORT ---
EXAM DESCRIPTION: Hema Farr And Lat (2 Views)11/25/2018 8:22 pm CLINICAL HISTORY: Cough COMPARISON: November 20, 2018 FINDINGS: 17 millimeter nodular opacity overlies the right upper lobe. A smaller nodule seen on the prior chest x-ray within the left upper lobe is obscured by the overlying port. Couple of calcified l maria antonia granulomas are present. The heart is mildly enlarged. A central venous catheter remains in place. IMPRESSION: Bilateral pulmonary nodules may represent metastases
[2018-11-25 20:44] LABS: Albumin 3.3 g/dL (3.4-5.0); Bilirubin Total 1.4 mg/dL (0.2-1.0); Magnesium 2.3 mg/dL (1.8-2.4); Potassium 4.7 mmol/L (3.5-5.1); Protein, Total 6.2 g/dL (6.4-8.2)
[2018-11-25] MEDS: ALBUTEROL 2.5 MG/3 ML NEB SOL NEB SCH (20:55)
[2018-11-25] MEDS: AMLODIPINE 10 MG TAB PO SCH (21:00)
[2018-11-25] MEDS: CARVEDILOL 3.125 MG TAB PO SCH (21:00)
[2018-11-25] MEDS ORDERED: CEFTRIAXONE 1 GM/NS 50 ML 1 GM/50 ML BAG IV SCH (21:00)
[2018-11-25 21:22] LABS: Platelet Estimate DECR; Urine White Blood Cell Casts OK
[2018-11-25 21:23] LABS: Blood Morphology Comment NOT SEEN (NOT SEEN)
[2018-11-25] MEDS ORDERED: CEFTRIAXONE/SWI 1gm 1 GM/10 ML SYR ONE (21:55)
[2018-11-25] MEDS ORDERED: NA CHLORIDE 0.9% 50 ML ONE (22:28)
[2018-11-25] MEDS ORDERED: MANNITOL 25% 12.5 GM/50 ML VIAL IV PRN (23:05)
[2018-11-25] MEDS ORDERED: NA CHLORIDE 0.9% 1,000 ML IV PRN (23:05)
[2018-11-25] MEDS ORDERED: EPOETIN ALFA 10,000 UNIT/ML VIAL IV SCH (23:15)
[2018-11-25] MEDS ORDERED: ALBUMIN HUMAN 25% 50 ML IV SCH (23:45)
[2018-11-26] MEDS: ALBUTEROL 2.5 MG/3 ML NEB SOL NEB SCH ×5 (02:40→20:00)
--- NOTE | 2018-11-26 04:40 | HP ---
Date of Admission: 11/25/2018 Chief Complaint: Shortness of breath. History Of Present Illness: A 73-year-old male patient came into emergency room almost a week ago wi th cough, congestion, and some fever. After he was evaluated in the ER, he was discharged to go home with Levaquin 250 mg every other day and albuterol neb inhaler. The patient says that he was gettin g better with this medication until last 2-3 days. He is having increasing cough, chest congestion, shortness of breath, feeling very weak, very poor appetite. His shortness of breath was so bad that last 2 days he felt like that he was not going to be able to make it at home. He came into office to day with his . After he was evaluated, decision was made to admit him to hospital for further ev aluation and management of what I am concerned about him having this pneumonia. Allergies: NO KNOWN ALLERGIES. Medications: List reviewed. Review of Systems: Respiratory: As mentioned above. Constitutional: As mentioned above. All other systems reviewed a nd negative. Past Medical History: Significant for hypertension, end-stage renal disease on hemodialysis, hyperli pidemia, anemia due to chronic kidney disease, thrombocytopenia, chronic systolic congestive heart fa ilure, kidney cancer, benign prostatic hypertrophy. Past Surgical History: Bilateral nephrectomy in 2006 due to kidney cancer. Family History: Significant for COPD. Social History: Negative for smoking and alcohol use. Physical Examination: VITAL SIGNS: At office today when he came in, weight 184 pounds, blood pressure 137/66, pulse 66, re spiratory rate 15, temperature 98.2, height 68 inches. General: Awake, alert, oriented, not in distress. HEENT: Head atraumatic, normocephalic. Conjunctivae nonerythematous. Sclerae white. Mouth, no thr ush or edema noted. Ears/Nose, no mass, lesion, discharge noted. Neck: Supple. No JVD, lymph nodes, bruit, thyromegaly noted. Lungs: Bilateral good equal air entry. Presence of scattered rales noted in lower 2/3 of both lung armstrong with some scattered wheezing. Not using accessory muscles of respiration at rest. Heart: Normal heart sounds, no murmur or gallop. Abdomen: Soft, bowel sounds normal. No guarding, rigidity, tenderness, mass, hepatosplenomegaly, di stention, or bruit noted. Extremities: No leg edema. No calf tenderness. Skin: No rash, ulcer, cellulitis. Lymphatics: No lymph node enlargement in neck, supraclavicular, infraclavicular region. Neuro: No focal neurological deficit. Chest: Unremarkable. External Genitalia: Deferred. Rectal: Deferred. Laboratory Data: Sodium 144, potassium 4.7, chloride 105, bicarb 29, BUN 38, creatinine 8.87, glucos e 99. Liver function tests unremarkable except total bilirubin 1.4. Albumin 3.3. Lactic acid 1.4. Procalcitonin pending. White count 2.6, hemoglobin 10, platelets 54. Chest x-ray, bilateral pulmon niru nodules present indicating metastatic disease. No definite infiltrate seen on the chest x-ray. Impression: 1.Pneumonia. 2.Thrombocytopenia. 3.Anemia due to chronic kidney disease. 4.Hypertension. 5.End-stage renal disease, on hemodialysis. 6.Kidney cancer. 7.Hyperlipidemia. 8.Chronic systolic congestive heart failure. 9.Benign prostatic hypertrophy. Plan: Admit the patient to hospital for further evaluation and management of this problem. The trent ent is appropriate for inpatient and is expected to spend 2 midnights in hospital. We will go ahead and continue home medications per order. Consult labor training manager for dialysis support. SCD was ordered for DVT prophylaxis. Empiric antibiotics will be given. I will go ahead and start him on IV steroi d as well as CAT scan of the chest will be obtained tomorrow. Details and plan of treatment discusse d with him. I will see him tomorrow for followup. RYAN/MODL Voice ID: [id number]
[2018-11-26] MEDS: LOSARTAN POTASSIUM 50 MG TABLET PO SCH ×2 (09:00→10:20)
[2018-11-26] MEDS: CARVEDILOL 3.125 MG TAB PO SCH ×3 (09:00→21:00)
[2018-11-26] MEDS: AMLODIPINE 10 MG TAB PO SCH ×3 (09:00→21:00)
[2018-11-26] MEDS: AZITHROMYCIN IV 250 MG in NA CHLORIDE 0.9% 250 ML IVPB SCH (10:18)
[2018-11-26] MEDS: METHYLPREDNISOLONE 40 MG INJ IV SCH ×2 (10:19→18:00)
[2018-11-26] MEDS: CEFTRIAXONE/SWI 1gm 1 GM/10 ML SYR IV SCH ×2 (10:19→21:55)
[2018-11-26] MEDS: DULERA 100/5 (MOMETASONE/FORMOTEROL) INHALER IH SCH ×2 (10:19→21:56)
--- NOTE | 2018-11-26 10:51 | RAD REPORT ---
EXAM DESCRIPTION: .CT - Thorax Wo Con - 11/26/2018 9:31 am CLINICAL HISTORY: Pulmonary nodules/renal cell carcinoma COMPARISON: February 2018 CT abdomen November 25, 2018 chest x-ray TECHNIQUE: Computed axial tomography of the chest was obtained. Contrast was not requested. All CT scans are performed using dose optimization technique as appropriate and may include automated exposure control or mA/KV adjustment according to patient size. FINDINGS: The evaluation of mediastinum, rolando and vessels is limited secondary to lack of IV contras t administration. A 3.9 centimeter mass with peripheral calcification within the azygoesophageal recess is unchanged. Mild tree-in-bud opacities within the left lower lobe. A 7 millimeter ground-glass nodule is present within the lingula image 30. Calcified granuloma right lung 1.9 x 0.8 centimeter pleural based opacity is present within the upper posterior right hemithorax con taining small amount of calcification. This corresponds to the abnormality seen on recent chest x-ray . No mediastinal or hilar lymphadenopathy is seen. A pleural effusion is not present. A pericardial effusion is not noted. Hepatic cysts IMPRESSION: A 3.9 centimeter mass with peripheral calcification within the azygoesophageal recess is unchanged since February 2018. It probably represents a foregut or bronchogenic cyst. 1.9 x 0.8 centimeter pleural based opacity within the upper posterior right upper hemithorax may repr esent benign pleural thickening or a small mass. Followup CT in 3 months recommended 7 millimeter ground-glass nodule within the lingula probably is inflammatory or infectious. Neoplasm can also have this appearance. This also can be re-evaluated on the follow-up CT chest Mild tree-in-bud opacities within the left lower lobe may indicate an atypical infection
[2018-11-26 19:11] LABS: Absolute Lymphocytes (CBC) 0.2 K/uL (0.7-4.9); Absolute Monocytes 0.1 K/uL (0.1-1.3); Absolute Neutrophil 2.1 K/uL (1.8-8.0); Basophils % 0.4 % (0-1.3); Eosinophils % 0.7 % (0-4.4); Hematocrit 32.1 % (39.6-49.0); Lymphocytes % 8.6 % (15.3-44.8); MPV 7.6 fL (7.6-11.3); Monocytes % 2.3 % (3.3-12.3); RBC Red Blood Cell Count 3.52 M/uL (4.33-5.43)
[2018-11-26 19:26] LABS: Albumin 3.5 g/dL (3.4-5.0); Bilirubin Total 1.1 mg/dL (0.2-1.0); Phosphorus 5.3 mg/dL (2.5-4.9); Potassium 4.4 mmol/L (3.5-5.1); Protein, Total 6.6 g/dL (6.4-8.2); Uric Acid 6.2 mg/dL (3.5-7.2)
[2018-11-26 21:20] LABS: Blood Morphology Comment NOT SEEN (NOT SEEN); Platelet Estimate DECR
--- NOTE | 2018-11-26 22:25 | P.CNS ---
Date of Consult: 11/25/18 Reason for Consult: ESRD Requesting Physician: Ward Obrien Chief Complaint: Cough History of Present Illness: 73 yo WM CKD, HTN presented to the hospital from his PCP's office with moderate , persistent cough with associated dyspnea. Associated malaise and fatigue. + Anorexia Allergies No Known Allergies Allergy (Verified 11/12/18 23:23) Home Medications: Amlodipine [Norvasc*] 1 tab PO BID 11/25/18 Carvedilol [Coreg*] 1 tab PO BID 11/25/18 Losartan Potassium [Cozaar] 1 tab PO DAILY 11/25/18 - Past Medical/Surgical History Diabetic: No -: renal cell carcinoma with mets lungs -: both kidneys removed -: htn -: dialysis mwf -: both kidneys removed -: fistula L arm-not active. -: cholecystectomy -: tonsils removed and adnoids - Social History Smoking Status: Never smoker Alcohol use: No CD- Drugs: No Caffeine use: No Place of Residence: Home Review of Systems 10-point ROS is otherwise unremarkable General: Weakness, Malaise Respiratory: Cough, Shortness of Breath Physical Examination Temp Pulse Resp BP Pulse Ox 97.7 F 70 18 183/82 H 95 11/26/18 16:00 11/26/18 16:00 11/26/18 16:00 11/26/18 16:00 11/26/18 16:00 General: Alert, Oriented x3, Cooperative HEENT: Atraumatic Neck: Supple Respiratory: Rhonchi/gurgles Cardiovascular: No edema, Regular rate/rhythm Gastrointestinal: Soft and benign, Non-distended Musculoskeletal: No clubbing, No contractures Integumentary: No rashes Neurological: Normal speech Lymphatics: No axilla or inguinal lymphadenopathy Laboratory Data (last 24 hrs) 11/26/18 18:15: WBC 2.4 L, Hgb 10.8 L, Hct 32.1 L, Plt Count 62 L 11/26/18 18:15: Sodium 141, Potassium 4.4, BUN 50 H, Creatinine 10.80 H* D, Glucose 181 H, Uric Acid 6.2, Phosphorus 5.3 H, Total Bilirubin 1.1 H, AST 31, ALT 57, Alkaline Phosphatase 317 H Imagings Data: EXAM DESCRIPTION: .CT - Thorax Wo Con - 11/26/2018 9:31 am CLINICAL HISTORY: Pulmonary nodules/renal cell carcinoma COMPARISON: February 2018 CT abdomen November 25, 2018 chest x-ray TECHNIQUE: Computed axial tomography of the chest was obtained. Contrast was not requested. All CT scans are performed using dose optimization technique as appropriate and may include automated exposure control or mA/KV adjustment according to patient size. FINDINGS: The evaluation of mediastinum, rolando and vessels is limited secondary to lack of IV contrast administration. A 3.9 centimeter mass with peripheral calcification within the azygoesophageal recess is unchanged. Mild tree-in-bud opacities within the left lower lobe. A 7 millimeter ground-glass nodule is present within the lingula image 30. Calcified granuloma right lung 1.9 x 0.8 centimeter pleural based opacity is present within the upper posterior right hemithorax containing small amount of calcification. This corresponds to the abnormality seen on recent chest x-ray. No mediastinal or hilar lymphadenopathy is seen. A pleural effusion is not present. A pericardial effusion is not noted. Hepatic cysts IMPRESSION: A 3.9 centimeter mass with peripheral calcification within the azygoesophageal recess is unchanged since February 2018. It probably represents a foregut or bronchogenic cyst. 1.9 x 0.8 centimeter pleural based opacity within the upper posterior right upper hemithorax may represent benign pleural thickening or a small mass. Followup CT in 3 months recommended 7 millimeter ground-glass nodule within the lingula probably is inflammatory or infectious. Neoplasm can also have this appearance. This also can be re- evaluated on the follow-up CT chest Mild tree-in-bud opacities within the left lower lobe may indicate an atypical infection Conclusions/Impression: A/ ESRD on HD. HTN with CKD/ CHF. Diastolic CHF, chronic. Anemia in CKD. MANFRED/ Secondary HyperPTH. RCC with metastatic disease. Bilateral nephrectomy. Acute bronchitis vs atypical PNA. P/ Continue current POC and Medications. Arrange for acute HD. Restart home medications as indicated. Agree with abx. AM labs. Daily weight. Thank you kindly for the consultation.
--- NOTE | 2018-11-26 22:31 | P.PN ---
Date of Service: 11/26/18 Vital Signs Temp Pulse Resp BP Pulse Ox 97.7 F 70 18 183/82 H 95 11/26/18 16:00 11/26/18 16:00 11/26/18 16:00 11/26/18 16:00 11/26/18 16:00 Medications Albuterol Sulfate (Proventil 0.083% Neb Soln) 2.5 mg NEB [id number] MACO Stop: 12/25/18 20:01 Last Admin: 11/26/18 14:05 Dose: 2.5 mg Amlodipine Besylate (Norvasc) 10 mg PO BID MACO Stop: 12/25/18 21:01 Last Admin: 11/26/18 21:00 Dose: Not Given Carvedilol (Coreg) 3.125 mg PO BID MACO Stop: 12/25/18 21:01 Last Admin: 11/26/18 21:00 Dose: Not Given Epoetin Cl[place]is (Procrit) 10,000 unit IV EVERY HD MACO Stop: 12/25/18 23:16 Last Admin: 11/26/18 19:56 Dose: 10,000 unit Guaifenesin/Dextromethorphan (Robitussin Dm) 10 ml PO Q6H PRN PRN Reason: COUGH Stop: 12/25/18 19:58 Heparin Sodium (Porcine) (Heparin 1,000 Units/Ml) 6,000 unit IJ EVERY HD PRN PRN Reason: FLUSH AFTER EACH USE Stop: 12/25/18 23:06 Azithromycin 250 mg/ Sodium (Chloride) 250 mls @ 250 mls/hr IVPB DAILY MACO; Protocol Stop: 12/26/18 09:01 Last Admin: 11/26/18 10:18 Dose: 250 mls Albumin Human (Albumin 25%) 50 mls @ 100 mls/hr IV EVERY HD MACO Stop: 12/25/18 23:46 Ceftriaxone Sodium/Sodium Chloride (Rocephin 1 Gm/10 Ml Swi Ivp) 1 gm in 10 mls @ 600 mls/hr IV Q12HR MACO; Protocol Stop: 12/26/18 09:01 Last Admin: 11/26/18 21:55 Dose: 10 mls Losartan Potassium (Cozaar) 100 mg PO DAILY MACO Stop: 12/26/18 09:01 Last Admin: 11/26/18 09:00 Dose: Not Given Mannitol (Mannitol 12.5 Gm/50 Ml Vial) 12.5 gm IV EVERY HD PRN PRN Reason: Titrate to SBP (MUST DEFINE) Stop: 12/25/18 23:06 Methylprednisolone Sodium Succinate (Solu-Medrol) 40 mg IV Q8HR MACO Stop: 12/26/18 09:01 Last Admin: 11/26/18 18:00 Dose: 40 mg Lab Results (last 24 hrs) 11/26/18 18:15: WBC 2.4 L, RBC 3.52 L, Hgb 10.8 L, Hct 32.1 L, MCV 91.1, MCH 30.8, MCHC 33.8, RDW 17.1 H, Plt Count 62 L, MPV 7.6, Neutrophils % 88.0 H, Lymphocytes % 8.6 L, Monocytes % 2.3 L, Eosinophils % 0.7, Basophils % 0.4, Absolute Neutrophils 2.1, Segmented Neutrophils 93 H, Band Neutrophils 1, Absolute Lymphocytes 0.2 L, Lymphocytes 5 L, Monocytes CELLAR SUPERVISOR, Absolute Monocytes 0.1, Eosinophils 1, Absolute Eosinophils 0.0, Absolute Basophils 0.0, Morphology Comment Not seen 11/26/18 18:15: Sodium 141, Potassium 4.4, Chloride 103, Carbon Dioxide 24, BUN 50 H, Creatinine 10.80 H* D, Estimated GFR 5 L, Glucose 181 H, Uric Acid 6.2, Calcium 8.4 L, Phosphorus 5.3 H, Total Bilirubin 1.1 H, AST 31, ALT 57, Alkaline Phosphatase 317 H, Serum Total Protein 6.6, Albumin 3.5, Globulin 3.1, Albumin/Globulin Ratio 1.1 11/25/18 20:10: Procalcitonin 0.74 H Assessment/ Plan: Nephrology. Feeling better today. CPS improved without CP or SOB. +CP No acute events overnight. Vitals, medications, blood work and imaging reviewed in the chart. General: Alert, Oriented x3, Cooperative HEENT: Atraumatic Neck: Supple Respiratory: Rhonchi/gurgles Cardiovascular: No edema, Regular rate/rhythm Gastrointestinal: Soft and benign, Non-distended Musculoskeletal: No clubbing, No contractures Integumentary: No rashes Neurological: Normal speech Lymphatics: No axilla or inguinal lymphadenopathy Laboratory Data (last 24 hrs) 11/26/18 18:15: WBC 2.4 L, Hgb 10.8 L, Hct 32.1 L, Plt Count 62 L 11/26/18 18:15: Sodium 141, Potassium 4.4, BUN 50 H, Creatinine 10.80 H* D, Glucose 181 H, Uric Acid 6.2, Phosphorus 5.3 H, Total Bilirubin 1.1 H, AST 31, ALT 57, Alkaline Phosphatase 317 H Imagings Data: EXAM DESCRIPTION: .CT - Thorax Wo Con - 11/26/2018 9:31 am CLINICAL HISTORY: Pulmonary nodules/renal cell carcinoma COMPARISON: February 2018 CT abdomen November 25, 2018 chest x-ray TECHNIQUE: Computed axial tomography of the chest was obtained. Contrast was not requested. All CT scans are performed using dose optimization technique as appropriate and may include automated exposure control or mA/KV adjustment according to patient size. FINDINGS: The evaluation of mediastinum, rolando and vessels is limited secondary to lack of IV contrast administration. A 3.9 centimeter mass with peripheral calcification within the azygoesophageal recess is unchanged. Mild tree-in-bud opacities within the left lower lobe. A 7 millimeter ground-glass nodule is present within the lingula image 30. Calcified granuloma right lung 1.9 x 0.8 centimeter pleural based opacity is present within the upper posterior right hemithorax containing small amount of calcification. This corresponds to the abnormality seen on recent chest x-ray. No mediastinal or hilar lymphadenopathy is seen. A pleural effusion is not present. A pericardial effusion is not noted. Hepatic cysts IMPRESSION: A 3.9 centimeter mass with peripheral calcification within the azygoesophageal recess is unchanged since February 2018. It probably represents a foregut or bronchogenic cyst. 1.9 x 0.8 centimeter pleural based opacity within the upper posterior right upper hemithorax may represent benign pleural thickening or a small mass. Followup CT in 3 months recommended 7 millimeter ground-glass nodule within the lingula probably is inflammatory or infectious. Neoplasm can also have this appearance. This also can be re- evaluated on the follow-up CT chest Mild tree-in-bud opacities within the left lower lobe may indicate an atypical infection Conclusions/Impression: A/ ESRD on HD. HTN with CKD/ CHF. Diastolic CHF, chronic. Anemia in CKD. MANFRED/ Secondary HyperPTH. RCC with metastatic disease. Bilateral nephrectomy. Acute bronchitis vs atypical PNA. P/ Continue current POC and Medications. Arrange for acute HD. Agree with abx. AM labs. Daily weight.
[2018-11-27] MEDS: METHYLPREDNISOLONE 40 MG INJ IV SCH ×3 (00:25→16:36)
--- NOTE | 2018-11-27 01:15 | PN ---
Date of Progress Note: 11/26/2018 Subjective: The patient was seen this morning for followup. His was present with him at bedsid e. He denies any new complaints, but does not feel any better today than yesterday. Still has cough , congestion, and shortness of breath. Objective: Vital Signs: Reviewed. HEENT: Unremarkable. Lungs: Bilateral wheezing and rales noted, unchanged from yesterday. Not in any respiratory distres s. Heart: Sounds normal. Abdomen: Soft. Bowel sounds normal. No guarding, rigidity, tenderness, or distention. Extremities: No leg edema. Laboratory Data: CAT scan of the chest done today. Results reviewed. Impression: 1.Pneumonia. 2.Pulmonary nodules. 3.Kidney cancer. 4.End-stage renal disease, on hemodialysis. 5.Hypertension. 6.Pancytopenia. Plan: When I walked into the patient's room, he was talking to his oncologist and I also had janna gamez to discuss details with his oncologist. His oncologist did inform me that current immunotherapy that the patient is currently on, can cause pneumonitis type of problem as well as pancytopenia and he had recommended using steroid medications, which I already have ordered it for the patient to be s tarted on as of this morning, and oncologist was agreeable with that plan along with continuation of current antibiotics. I am hoping in next day or 2 days with combination of antibiotic and steroid, t he patient's condition should improve well enough to go home. Dialysis support to be provided by nep hrologist and I will see him tomorrow for followup. Details and plan of treatment discussed with the patient and his . RYAN/MODL Voice ID: [id number] Report ID: [id number]
[2018-11-27] MEDS: ALBUTEROL 2.5 MG/3 ML NEB SOL NEB SCH ×4 (02:00→19:23)
[2018-11-27] MEDS: AMLODIPINE 10 MG TAB PO SCH ×2 (09:00→21:00)
[2018-11-27] MEDS: LOSARTAN POTASSIUM 50 MG TABLET PO SCH (09:00)
[2018-11-27] MEDS: CARVEDILOL 3.125 MG TAB PO SCH ×2 (09:00→21:00)
[2018-11-27] MEDS: CEFTRIAXONE/SWI 1gm 1 GM/10 ML SYR IV SCH ×2 (10:03→21:44)
[2018-11-27] MEDS: AZITHROMYCIN IV 250 MG in NA CHLORIDE 0.9% 250 ML IVPB SCH (10:03)
[2018-11-27] MEDS: DULERA 100/5 (MOMETASONE/FORMOTEROL) INHALER IH SCH ×2 (10:04→21:45)
[2018-11-27 18:03] VITALS: BMI 27.2
--- NOTE | 2018-11-27 22:18 | P.PN ---
Date of Service: 11/27/18 Vital Signs Temp Pulse Resp BP Pulse Ox 97.3 F 63 16 181/77 H 95 11/27/18 20:00 11/27/18 21:00 11/27/18 20:00 11/27/18 21:00 11/27/18 20:00 Medications Albuterol Sulfate (Proventil 0.083% Neb Soln) 2.5 mg NEB [id number] MACO Stop: 12/25/18 20:01 Last Admin: 11/27/18 19:23 Dose: 2.5 mg Amlodipine Besylate (Norvasc) 10 mg PO BID MACO Stop: 12/25/18 21:01 Last Admin: 11/27/18 21:00 Dose: Not Given Carvedilol (Coreg) 3.125 mg PO BID MACO Stop: 12/25/18 21:01 Last Admin: 11/27/18 21:00 Dose: Not Given Epoetin Clovis (Procrit) 10,000 unit IV EVERY HD MACO Stop: 12/25/18 23:16 Last Admin: 11/26/18 19:56 Dose: 10,000 unit Guaifenesin/Dextromethorphan (Robitussin Dm) 10 ml PO Q6H PRN PRN Reason: COUGH Stop: 12/25/18 19:58 Heparin Sodium (Porcine) (Heparin 1,000 Units/Ml) 6,000 unit IJ EVERY HD PRN PRN Reason: FLUSH AFTER EACH USE Stop: 12/25/18 23:06 Azithromycin 250 mg/ Sodium (Chloride) 250 mls @ 250 mls/hr IVPB DAILY MACO; Protocol Stop: 12/26/18 09:01 Last Admin: 11/27/18 10:03 Dose: 250 mls Albumin Human (Albumin 25%) 50 mls @ 100 mls/hr IV EVERY HD MACO Stop: 12/25/18 23:46 Ceftriaxone Sodium/Sodium Chloride (Rocephin 1 Gm/10 Ml Swi Ivp) 1 gm in 10 mls @ 600 mls/hr IV Q12HR MACO; Protocol Stop: 12/26/18 09:01 Last Admin: 11/27/18 21:44 Dose: 10 mls Losartan Potassium (Cozaar) 100 mg PO DAILY MACO Stop: 12/26/18 09:01 Last Admin: 11/27/18 09:00 Dose: Not Given Mannitol (Mannitol 12.5 Gm/50 Ml Vial) 12.5 gm IV EVERY HD PRN PRN Reason: Titrate to SBP (MUST DEFINE) Stop: 12/25/18 23:06 Methylprednisolone Sodium Succinate (Solu-Medrol) 40 mg IV Q8HR MACO Stop: 12/26/18 09:01 Last Admin: 11/27/18 16:36 Dose: 40 mg Assessment/ Plan: Nephrology. Feeling better today. CPS improved without CP or SOB. No acute events overnight. Vitals, medications, blood work and imaging reviewed in the chart. General: Alert, Oriented x3, Cooperative HEENT: Atraumatic Neck: Supple Respiratory: Rhonchi/gurgles Cardiovascular: No edema, Regular rate/rhythm Gastrointestinal: Soft and benign, Non-distended Musculoskeletal: No clubbing, No contractures Integumentary: No rashes Neurological: Normal speech Lymphatics: No axilla or inguinal lymphadenopathy Laboratory Data (last 24 hrs) 11/26/18 18:15: WBC 2.4 L, Hgb 10.8 L, Hct 32.1 L, Plt Count 62 L 11/26/18 18:15: Sodium 141, Potassium 4.4, BUN 50 H, Creatinine 10.80 H* D, Glucose 181 H, Uric Acid 6.2, Phosphorus 5.3 H, Total Bilirubin 1.1 H, AST 31, ALT 57, Alkaline Phosphatase 317 H Imagings Data: EXAM DESCRIPTION: .CT - Thorax Wo Con - 11/26/2018 9:31 am CLINICAL HISTORY: Pulmonary nodules/renal cell carcinoma COMPARISON: February 2018 CT abdomen November 25, 2018 chest x-ray TECHNIQUE: Computed axial tomography of the chest was obtained. Contrast was not requested. All CT scans are performed using dose optimization technique as appropriate and may include automated exposure control or mA/KV adjustment according to patient size. FINDINGS: The evaluation of mediastinum, rolando and vessels is limited secondary to lack of IV contrast administration. A 3.9 centimeter mass with peripheral calcification within the azygoesophageal recess is unchanged. Mild tree-in-bud opacities within the left lower lobe. A 7 millimeter ground-glass nodule is present within the lingula image 30. Calcified granuloma right lung 1.9 x 0.8 centimeter pleural based opacity is present within the upper posterior right hemithorax containing small amount of calcification. This corresponds to the abnormality seen on recent chest x-ray. No mediastinal or hilar lymphadenopathy is seen. A pleural effusion is not present. A pericardial effusion is not noted. Hepatic cysts IMPRESSION: A 3.9 centimeter mass with peripheral calcification within the azygoesophageal recess is unchanged since February 2018. It probably represents a foregut or bronchogenic cyst. 1.9 x 0.8 centimeter pleural based opacity within the upper posterior right upper hemithorax may represent benign pleural thickening or a small mass. Followup CT in 3 months recommended 7 millimeter ground-glass nodule within the lingula probably is inflammatory or infectious. Neoplasm can also have this appearance. This also can be re- evaluated on the follow-up CT chest Mild tree-in-bud opacities within the left lower lobe may indicate an atypical infection Conclusions/Impression: A/ ESRD on HD. HTN with CKD/ CHF. Diastolic CHF, chronic. Anemia in CKD. MANFRED/ Secondary HyperPTH. RCC with metastatic disease. Bilateral nephrectomy. Acute bronchitis vs atypical PNA. Opdivo effect? P/ Continue current POC and Medications. Arrange for acute HD tomorrow. Agree with abx. Agree with steroids. AM labs. Daily weight.
[2018-11-28] MEDS: METHYLPREDNISOLONE 40 MG INJ IV SCH ×3 (01:05→09:00)
[2018-11-28 01:34] VITALS: O2SAT 95
[2018-11-28] MEDS: ALBUTEROL 2.5 MG/3 ML NEB SOL NEB SCH ×2 (02:15→08:08)
--- NOTE | 2018-11-28 03:10 | PN ---
Date of Progress Note: 11/27/2018 Subjective: The patient was seen this morning for followup. His was present with him at bedsid e. No new complaints or problems reported. He feels better today than yesterday. Objective: Vital Signs: Reviewed. HEENT: Examination unremarkable. Lungs: Bilateral good equal air entry. Presence of scattered wheezing noted with some rales in the lower lung armstrong, not in any respiratory distress. Overall lung findings are better today than yest erday. Heart: Sounds normal. Abdomen: Soft. Bowel sounds normal. No guarding, rigidity, tenderness, or distention. Extremities: No leg edema. Laboratory Data: Yesterday's blood work results reviewed. CAT scan of the chest reviewed. Impression: 1.Pneumonia. 2.Kidney cancer. 3.End-stage renal disease, on hemodialysis. 4.Hypertension. Plan: The patient's lung findings are much better today than yesterday. We will continue antibiotic and steroids. Continue antihypertensive medication. 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 I will see him tomorrow for followup, possible discharge to go home either tomorrow or day after tomorrow depending on his overall conditio n. RYAN/MODL Voice ID: [id number] Report ID: [id number]
[2018-11-28] MEDS: AZITHROMYCIN IV 250 MG in NA CHLORIDE 0.9% 250 ML IVPB SCH ×2 (08:57→09:00)
[2018-11-28] MEDS: CEFTRIAXONE/SWI 1gm 1 GM/10 ML SYR IV SCH ×2 (08:57→09:00)
[2018-11-28] MEDS: CARVEDILOL 3.125 MG TAB PO SCH (08:58)
[2018-11-28] MEDS: LOSARTAN POTASSIUM 50 MG TABLET PO SCH (08:59)
[2018-11-28] MEDS: DULERA 100/5 (MOMETASONE/FORMOTEROL) INHALER IH SCH (08:59)
[2018-11-28] MEDS: AMLODIPINE 10 MG TAB PO SCH (08:59)
[2018-11-28 10:50] VITALS: BP 159/88; TEMP 97.7
--- NOTE | 2018-11-28 20:50 | P.PN ---
Date of Service: 11/28/18 Vital Signs Temp Pulse Resp BP Pulse Ox 97.7 F 139 H 16 159/88 H 95 11/28/18 08:00 11/28/18 08:00 11/28/18 08:00 11/28/18 08:00 11/28/18 08:00 Assessment/ Plan: Nephrology. Feeling better today. CPS stable without CP or SOB. No acute events overnight. Vitals, medications, blood work and imaging reviewed in the chart. General: Alert, Oriented x3, Cooperative HEENT: Atraumatic Neck: Supple Respiratory: Rhonchi/gurgles Cardiovascular: No edema, Regular rate/rhythm Gastrointestinal: Soft and benign, Non-distended Musculoskeletal: No clubbing, No contractures Integumentary: No rashes Neurological: Normal speech Lymphatics: No axilla or inguinal lymphadenopathy Laboratory Data (last 24 hrs) 11/26/18 18:15: WBC 2.4 L, Hgb 10.8 L, Hct 32.1 L, Plt Count 62 L 11/26/18 18:15: Sodium 141, Potassium 4.4, BUN 50 H, Creatinine 10.80 H* D, Glucose 181 H, Uric Acid 6.2, Phosphorus 5.3 H, Total Bilirubin 1.1 H, AST 31, ALT 57, Alkaline Phosphatase 317 H Imagings Data: EXAM DESCRIPTION: .CT - Thorax Wo Con - 11/26/2018 9:31 am CLINICAL HISTORY: Pulmonary nodules/renal cell carcinoma COMPARISON: February 2018 CT abdomen November 25, 2018 chest x-ray TECHNIQUE: Computed axial tomography of the chest was obtained. Contrast was not requested. All CT scans are performed using dose optimization technique as appropriate and may include automated exposure control or mA/KV adjustment according to patient size. FINDINGS: The evaluation of mediastinum, rolando and vessels is limited secondary to lack of IV contrast administration. A 3.9 centimeter mass with peripheral calcification within the azygoesophageal recess is unchanged. Mild tree-in-bud opacities within the left lower lobe. A 7 millimeter ground-glass nodule is present within the lingula image 30. Calcified granuloma right lung 1.9 x 0.8 centimeter pleural based opacity is present within the upper posterior right hemithorax containing small amount of calcification. This corresponds to the abnormality seen on recent chest x-ray. No mediastinal or hilar lymphadenopathy is seen. A pleural effusion is not present. A pericardial effusion is not noted. Hepatic cysts IMPRESSION: A 3.9 centimeter mass with peripheral calcification within the azygoesophageal recess is unchanged since February 2018. It probably represents a foregut or bronchogenic cyst. 1.9 x 0.8 centimeter pleural based opacity within the upper posterior right upper hemithorax may represent benign pleural thickening or a small mass. Followup CT in 3 months recommended 7 millimeter ground-glass nodule within the lingula probably is inflammatory or infectious. Neoplasm can also have this appearance. This also can be re- evaluated on the follow-up CT chest Mild tree-in-bud opacities within the left lower lobe may indicate an atypical infection Conclusions/Impression: A/ ESRD on HD. HTN with CKD/ CHF. Diastolic CHF, chronic. Anemia in CKD. MANFRED/ Secondary HyperPTH. RCC with metastatic disease. Bilateral nephrectomy. Acute bronchitis vs atypical PNA. Opdivo effect? P/ Continue current POC and Medications. HD today. Agree with abx. Agree with steroids. AM labs. Daily weight.
--- NOTE | 2018-12-14 06:28 | DS ---
Date of Discharge: 11/28/2018 Physical Examination: HEENT: Unremarkable. Lungs: Clear to auscultation. Heart: Sounds normal. Abdomen: Soft. Bowel sounds normal. No guarding, rigidity, tenderness, or distention. Extremities: No leg edema. Laboratory Data: Labs and investigation done during this hospitalization. Initial white count 2.6, hemoglobin 10, platelets 54, repeat white count 2.4, hemoglobin 10.8, platelets 62. Last chemistry, sodium 141, potassium 4.4, chloride 103, bicarb 24, BUN 50, creatinine 10.8, glucose 181, procalciton in 0.74. Chest x-ray showed bilateral pulmonary nodules and CAT scan of the chest showed pulmonary n odules and mild tree-in-bud opacities in left lower lobe may indicate atypical infection. Hospital Course: This is a 73-year-old male patient, came into emergency room and was admitted [facility] after he came in with complaints of cough, shortness of breath. Please see dictated H and P for more information. The patient was admitted to the hospital with a diagnosis of pneumonia. He has kidney cancer with metastatic disease and he has been going to [facility] currently on immunoth erapy. Empiric antibiotics were started. Oxygen nebulizer treatment, etc., was started. I did talk to his oncologist and he is concerned about possible side effect of his immunotherapy causing shortn ess of breath and he agreed with treatment of steroids so IV steroid was started while he was in our hospital. Nephrology consultation was obtained for dialysis support. The patient's condition improv ed very well after we started him on IV steroid. His cough, shortness of breath, wheezing continued to improve on a day-to-day basis and on the day of discharge, he was feeling much better. His lungs were clear to auscultation and there was no evidence of any wheezing. The patient was discharged to go home in stable condition. Discharge Medications And Instructions: 1.Continue all prior home medications except stop antibiotic that you were taking prior to this admi ssion. 2.Take new medication as prescribed, which is prednisone and antibiotics and it was sent to his [facility] from office. 3.Follow up at my office a week after next. 4.Use Dulera inhaler 2 puffs by mouth 2 times a day. Rinse mouth with water after each use. Final Diagnoses: 1.Pneumonia. 2.Kidney cancer. 3.End-stage renal disease, on hemodialysis. 4.Hypertension. 5.Thrombocytopenia. 6.Hyperlipidemia. 7.Chronic systolic congestive heart failure. 8.Benign prostatic hypertrophy. RYAN/MODL Voice ID: [id number] Report ID: [id number]
== END 2018-11-28 10:30 | disposition home or self-care (01) | DRG 193 ==
LOC: 2ND 18:18
PROVIDERS: ADMIT Internal Medicine; ATTEND Internal Medicine
PROC: 5A1D70Z Performance of Urinary Filtration, Intermittent, Less than 6 Hours Per Day (ICD-10-PCS; principal; 2018-11-26)
DX: J18.9 Pneumonia, unspecified organism (principal); N18.6 End stage renal disease; I13.2 Hypertensive heart and chronic kidney disease with heart failure and with stage 5 chronic kidney disease, or end stage renal disease; I50.22 Chronic systolic (congestive) heart failure; C78.00 Secondary malignant neoplasm of unspecified lung; N25.81 Secondary hyperparathyroidism of renal origin; D61.818 Other pancytopenia; Z99.2 Dependence on renal dialysis; E78.5 Hyperlipidemia, unspecified; D63.1 Anemia in chronic kidney disease; Z85.528 Personal history of other malignant neoplasm of kidney; N40.0 Benign prostatic hyperplasia without lower urinary tract symptoms; Z90.5 Acquired absence of kidney; N25.0 Renal osteodystrophy; R91.8 Other nonspecific abnormal finding of lung field
CPT/HCPCS: 36415; 71046; 71250; 80053; 82977; 83605; 83735; 84100; 84145; 84550; 85025; 90935; 94640; J0456; J0696; J1644; J2920; J7606; Q4081

== ENCOUNTER 2019-05-17 20:07 | Observation (INO) | payer OTHER, BC ==
--- OUTSIDE RECORDS SUMMARY | 2019-05-17 20:11 | XMS REPORT | Clinical Summary ---
:1945 Author Organization [employer] Address [address] [place] [address] Care Team Providers Name Role Phone Ward Obrien MD Primary Care Provider Allergies No Known Allergies Medications Medication Sig Dispensed Refills Start Date End Date Status carvedilol (COREG) Take 3.125 mg by 0 Active 3.125 MG tablet mouth 2 (two) times a day with meals. losartan (COZAAR) Take 100 mg by 0 Active 100 MG tablet mouth daily. predniSONE Take 10 mg by 0 Active (DELTASONE) 10 mg mouth daily. tablet amLODIPine Take 10 mg by 0 Active (NORVASC) 10 mg mouth 2 (two) tablet times a day. mometasone-formoter Inhale 2 puffs 2 0 Active ol (DULERA) 100-5 (two) times a day. mcg/actuation inhaler azithromycin Take 250 mg by 0 11/29/2018 01/08/2019 (ZITHROMAX) 250 MG mouth every other tablet day. For 10 days alternate with cefuroxime 500 mg every other day 11/29/18-12/09/18 cefuroxime (CEFTIN) Take 500 mg by 0 11/28/2018 12/08/2018 500 MG tablet mouth every other day. For 10 days alternate with Azithromycin 250 mg every other day 11/28/18-12/08/18 sevelamer (RENVELA) Take 3 tablets 270 tablet 0 12/05/2018 01/04/2019 800 mg tablet (2,400 mg total) by mouth 3 (three) times a day with meals for 30 days. fluticasone 2 sprays (100 mcg 15.8 mL 0 12/05/2018 01/04/2019 propionate total) by Each (FLONASE) 50 Nare route daily mcg/actuation nasal for 30 days. spray Active Problems Problem Noted Date Dialysis AV fistula malfunction 12/03/2018 Encounters Date Type Specialty Care Team Description 12/25/2018 Office Visit Cardiovascular Scott Garcia Encounter regarding vascular access for dialysis for end-stage renal disease (HCC) (Primary Dx); MD Lois Postprocedural seroma of skin and subcutaneous tissue following other procedure 12/22/2018 Telephone Cardiovascular Ivon Reich MA 12/05/2018 Anesthesia Event General Surgery Kalpesh Soto MD 12/05/2018 Surgery General Surgery Neil, RIGHT UPPER EXTREMITY Delio Menchaca MD AV FISTULA THROMBECTOMY AND REVISION 12/03/2018 - [facility] Internal Glenroy Garcia Malfunction of 12/06/2018 Encounter Medicine MD Balta arteriovenous Ace, dialysis fistula, MD Balta initial encounter Iesha Magallon MD ([facility]) (Primary Dx) after 05/16/2018 Social History Tobacco Use Types Packs/Day Years Used Date Never Smoker Smokeless Tobacco: Never Used Alcohol Use Drinks/Week oz/Week Comments No Alcohol Habits Answer Date Recorded How often do you have a drink containing alcohol? Never 12/03/2018 How many drinks containing alcohol do you have on a typical Not asked day when you are drinking? How often do you have six or more drinks on one occasion? Not asked Sex Assigned at Date Recorded Not on file Job Start Date Occupation Industry Not on file Not on file Not on file Travel History Travel Start Travel End No recent travel history available. Last Filed Vital Signs Vital Sign Reading Time Taken Comments Blood Pressure 158/70 12/25/2018 8:38 AM CDT Pulse 68 12/25/2018 8:38 AM CDT Temperature 36 C (96.8 F) 12/06/2018 1:00 AM CDT Respiratory Rate 18 12/06/2018 1:00 AM CDT Oxygen Saturation 99% 12/25/2018 8:38 AM CDT Inhaled Oxygen Concentration - - Weight 83.9 kg (185 lb) 12/25/2018 8:38 AM CDT Height 172.7 cm (5' 8") 12/25/2018 8:38 AM CDT Body Mass Index 28.13 12/25/2018 8:38 AM CDT Plan of Treatment Health Maintenance Due Date Last Done Comments COLONOSCOPY SCREENING 1997 SHINGLES VACCINES (#1) 1997 65+ PNEUMOCOCCAL VACCINE (1 of 2 - PCV13) 2012 INFLUENZA VACCINE 04/09/2019 Implants Implanted Type Area Supply Chain Coordinator Device Shelf Model / Identifier Expiration Serial / Date Lot Instructional Material Director Mltpl Clip Ligaclip Ligtng [address] [facility] - [id number] Surgical Right: ETHICON ENDO [id number] / Implanted: Qty: 1 on 12/05/2018 by Delio Trejo MD at [facility] Implants; Arm SURGERY-ED / Expanders; Extenders; Surgical Wires Procedures Procedure Name Priority Date/Time Associated Comments Diagnosis HEPATITIS B SURFACE Routine 12/05/2018 9:00 Results for this ANTIGEN PM CDT procedure are in the results section. HEMODIALYSIS Routine 12/05/2018 5:43 PM CDT WV AN ELECTIVE Routine 12/05/2018 8:33 SUPRAGLOTTIC AIRWAY AM CDT Procedure Note - Kalpesh Soto MD - 12/05/2018 8:33 AM CDT Airway Date/Time: 12/05/2018 8:13 AM Performed by: Kalpesh Soto MD Authorized by: Kalpesh Soto MD Location: OR Urgency: Elective Difficult Airway: No Anesthesiologist: Kalpesh Soto MD Performed by: anesthesiologist Preoxygenated with 100% O2: Yes C-spine Precautions Maintained Throughout: Yes Mask Ventilation: Not attempted Final Airway Type: Supraglottic airway Final LMA: I-Gel LMA Size: 4 Number of Attempts at Approach: 1 THROMBECTOMY, AV GRAFT, WITH 12/05/2018 8:04 AM CDT End stage renal disease REVISION (HCC) Case Notes REQ 0800 START, PHYSICIAN HAS [facility] MEETING, C-ARM Special Needs REQ 0800 START, PHYSICIAN HAS [facility] MEETING, C-ARM POTASSIUM LEVEL Routine 12/05/2018 4:44 AM CDT ESTIMATED GFR Routine 12/05/2018 1:01 AM CDT MAGNESIUM LEVEL Routine 12/05/2018 1:01 AM CDT BASIC METABOLIC PANEL Routine 12/05/2018 1:01 AM CDT TYPE AND SCREEN Routine 12/05/2018 12:45 AM CDT PROTHROMBIN TIME WITH INR Routine 12/05/2018 12:45 AM CDT PARTIAL THROMBOPLASTIN TIME Routine 12/05/2018 12:45 AM CDT Results for this (PTT) procedure are in the results section. CBC WITH PLATELET AND Routine 12/05/2018 12:45 AM CDT Results for this DIFFERENTIAL procedure are in the results section. HEMODIALYSIS Routine 12/04/2018 4:29 PM CDT US DUPLEX VENOUS UPPER STAT 12/04/2018 2:59 PM CDT Results for this EXTREMITY RIGHT procedure are in the results section. US DUPLEX HEMODIALYSIS AVG STAT 12/04/2018 2:59 PM CDT Results for this AVF ACCESS procedure are in the results section. ESTIMATED GFR Routine 12/04/2018 5:10 AM CDT TROPONIN Routine 12/04/2018 5:10 AM CDT COMPREHENSIVE METABOLIC Routine 12/04/2018 5:10 AM CDT Results for this PANEL procedure are in the results section. PROTHROMBIN TIME WITH INR Routine 12/04/2018 5:10 AM CDT PARTIAL THROMBOPLASTIN TIME Routine 12/04/2018 5:10 AM CDT Results for this (PTT) procedure are in the results section. HC COMPLETE BLD COUNT W/AUTO Routine 12/04/2018 5:10 AM CDT Results for this DIFF procedure are in the results section. XR CHEST 2 VW STAT 12/03/2018 9:47 PM CDT ECG 12-LEAD STAT 12/03/2018 9:08 PM CDT ESTIMATED GFR STAT 12/03/2018 8:59 PM CDT PARTIAL THROMBOPLASTIN TIME STAT 12/03/2018 8:59 PM CDT Results for this (PTT) procedure are in the results section. PROTHROMBIN TIME WITH INR STAT 12/03/2018 8:59 PM CDT B NATRIURETIC PEPTIDE STAT 12/03/2018 8:59 PM CDT TROPONIN STAT 12/03/2018 8:59 PM CDT COMPREHENSIVE METABOLIC STAT 12/03/2018 8:59 PM CDT Results for this PANEL procedure are in the results section. HC COMPLETE BLD COUNT W/AUTO STAT 12/03/2018 8:59 PM CDT Results for this DIFF procedure are in the results section. ECG ED PRELIMINARY Routine 12/03/2018 8:45 PM CDT Results for this INTERPRETATION procedure are in the results section. after 05/16/2018 Results Hepatitis B surface antigen (12/05/2018 9:00 PM CDT) Pathologist [facility] Hepatitis B surface Non-reactive Non-reactive [facility] Specimen Blood Performing Organization Address City/[facility] Phone Number [facility] DEPARTMENT OF PATHOLOGY AND [address] [place] [phone] [place] [phone] Potassium level (12/05/2018 4:44 AM CDT) [facility] Potassium 4.8 3.5 - 5.0 mEq/L [facility] Specimen Plasma specimen Performing Organization Address City/[facility] Phone Number [facility] DEPARTMENT OF PATHOLOGY AND [address] [place] [phone] [place] [phone] Estimated GFR (12/05/2018 1:01 AM CDT)Only the most recent of3 resultswithin the time period is included. [facility] Estimated GFR 4 (A) mL/min/1.73 [facility] Comment: HOSPITAL CatergoryUnitsInterpretation G1 >=90 Normal or high G2 60-89Mildly decreased F5q04-22Ldziko to moderately decreased V1g56-27Cmlwtcveno to severely decreased G4 15-29Severely decreased G5 <15Kidney failure The eGFR was calculated using the Chronic Kidney Disease Epidemiology Collaboration (CKD-EPI) equation. Interpretation is based on recommendations of the National Kidney Foundation-Kidney Disease Outcomes Quality Initiative (NKF-KDOQI) published in 2014. Specimen Plasma specimen Narrative Performed At [facility] to perform testing, specimen is [facility] DEPARTMENT OF PATHOLOGY AND GENOMIC HEMOLYZED. Recollect MEDICINE requested for K___ (name/location) notified by ____ (tech ID) at ____ (date/time).Credit issued. Performing Organization Address City/State/Zipcode Phone Number [facility] DEPARTMENT OF PATHOLOGY AND [address] [place] [phone] Magnesium level (12/05/2018 1:01 AM CDT) Magnesium 2.4 1.6 - 2.4 mg/dL [facility] Specimen Plasma specimen Narrative Performed At Unable to perform testing, specimen is [facility] DEPARTMENT OF PATHOLOGY AND GENOMIC HEMOLYZED. Recollect MEDICINE requested for K___ (name/location) notified by ____ (tech ID) at ____ (date/time).Credit issued. Performing Organization Address City/[facility] Phone Number [facility] DEPARTMENT OF PATHOLOGY AND [address] [place] [phone] Basic metabolic panel (12/05/2018 1:01 AM CDT) Sodium 143 135 - 148 mEq/L [facility] Potassium SEE COMMENT 3.5 - 5.0 mEq/L [facility] Comment: HOSPITAL Footnote--------- Unable to perform testing, specimen is HEMOLYZED. Recollect requested for K Chloride 99 98 - 112 mEq/L [facility] CO2 21 (L) 24 - 31 mEq/L [facility] Anion gap 23@ANIO (H) 7 - 15 mEq/L [facility] BUN 110 (H) 8 - 23 mg/dL [facility] Creatinine 11.45 (H) 0.70 - 1.20 [facility] mg/dL [facility] Glucose 134 (H) 65 - 99 mg/dL [facility] Calcium 8.0 (L) 8.8 - 10.2 [facility] mg/dL [facility] Specimen Plasma specimen Narrative Performed At Unable to perform testing, specimen is [facility] DEPARTMENT OF PATHOLOGY AND GENOMIC HEMOLYZED. Recollect MEDICINE requested for K___ (name/location) notified by ____ (tech ID) at ____ (date/time).Credit issued. Performing Organization Address City/State/Zipcode Phone Number [facility] DEPARTMENT OF PATHOLOGY AND [address] [place] [phone] [place] [phone] Partial thromboplastin time, activated (12/05/2018 12:45 AM CDT)Only the most recent of3 resultswithin the time period is included. PTT 25.8 23.0 - 36.0 [facility] Comment: [facility] PTT therapeutic range for unfractionated heparin is 61.0-112.0 seconds which corresponds to Anti-Xa 0.3-0.7 U/ml. Specimen Blood Performing Organization Address City/[facility]/Zipcode Phone Number [facility] DEPARTMENT OF PATHOLOGY AND [address] [place] [address] Prothrombin time with INR (12/05/2018 12:45 AM CDT)Only the most recent of3 resultswithin the time period is included. [facility] Prothrombin time 13.7 11.5 - 14.5 [facility] INR 1.1 LAUREN Comment: LAURITA The International Normalized Ratio (INR) is a therapeutic HOSPITAL monitoring tool for patients who are stable on oral anticoagulant therapy. An INR of 2.0-3.0 is suggested for deep vein thrombosis/pulmonary embolism. Specimen Blood Performing Organization Address City/[facility]/Zipcode Phone Number [facility] DEPARTMENT OF PATHOLOGY AND [address] [place] [phone] [place] [phone] CBC with platelet and differential (12/05/2018 12:45 AM CDT)Only the most recent of3 resultswithin the time period is included. WBC 9.29 4.50 - 11.00 [facility] k/[facility] RBC 3.19 (L) 4.40 - 6.00 [facility] m/[facility] HGB 9.9 (L) 14.0 - 18.0 [facility] g/dL [facility] HCT 30.4 (L) 41.0 - 51.0 % [facility] MCV 95.3 82.0 - 100.0 [facility] MCH 31.0 27.0 - 34.0 pg [facility] MCHC 32.6 31.0 - 37.0 [facility] g/dL HOSPITAL RDW - SD 57.1 (H) 37.0 - 55.0 fL [facility] MPV 11.5 8.8 - 13.2 fL [facility] Platelet count 140 (L) 150 - 400 k/uL [facility] Nucleated RBC 0.00 /100 WBC [facility] Neutrophils 85.1 (H) 39.0 - 69.0 % [facility] Lymphocytes 4.3 (L) 25.0 - 45.0 % [facility] Monocytes 6.6 0.0 - 10.0 % [facility] Eosinophils 0.5 0.0 - 5.0 % [facility] Basophils 0.2 0.0 - 1.0 % [facility] Immature granulocytes 3.3 0.0 - 1.0 % [facility] (H)Comment: HOSPITAL "Immature granulocytes" (promyelocytes , myelocytes, metamyelocytes ) Specimen Blood Performing Organization Address [facility] Phone Number [facility] DEPARTMENT OF PATHOLOGY AND [address] [place] [address] Type and screen (12/05/2018 12:45 AM CDT) ABO grouping O [facility] Rh type POS [facility] Antibody screen (gel) NEG [facility] Specimen Blood Performing Organization Address [facility] Phone Number [facility] DEPARTMENT OF PATHOLOGY AND [address] [place] [address] Us duplex venous upper extremity (12/04/2018 2:59 PM CDT) Specimen Narrative Performed At [facility] Vascular Ultrasound Laboratory Upper Extremity Venous Report [address] [place] [address] Pat.Name:JENNIFER COLBY Pat.ID:[id number] .Date: 12/04/2018 Refer.MD:IESHA MAGALLON MD Exam Time: 2:40:00 PMStudy Type:UE Venous DOBAge:1945,73Y Sex: MALE Sonogrphr: Luke Vi, RVTPat. Stat.:Inpatient Room:[address] TapeVol: , CPT - 4: 19326 Echo Event ID:[id number] Order ID:[id number] Reason for Study:Right upper arm swelling and pain. Procedures:Colorflow, Grayscale/2D, Pulsed wave Doppler Race:C SUMMARY: DUPLEX SCAN OBSERVATIONS Right Left IJNormal SubclavianNormal Normal AxillaryNormal BrachialArterialized BasilicArterialized CephalicThrombosed AVF RIGHT: The cephalic vein (radiocephalic AVF) at upper arm is dilated, non-compressible and filled with mixed echogenic material within the lumen. Colorflow and Doppler signals are absent. All other remaining veins are patent. Arterialized flow is seen in the brachial vein and basilic vein. LEFT: There is normal compressibility and no evidence of echogenic material noted within the lumen of the subclavian vein. Colorflow and Doppler signals are normal. PRELIMINARY FINDINGS 1. Thrombosed right cephalic vein (radiocephalic AVF) at upper arm. PHYSICIAN INTERPRETATION Venous examination of the right upper extremity and neck demonstrated thrombosed right cephalic vein (radiocephalic AVF) at upper arm. Brachial and basilic veins still arterialized. Signed 12/04/2018 03:51 PM Aguilar Daly MD, RPVI Procedure Note Interface, Radiology Results In - 12/04/2018 3:53 PM CDT Vascular Ultrasound Laboratory Upper Extremity Venous Report [address] [place] [address] Pat.Name: JENNIFER COLBY Pat.ID: [id number] St.Date: 12/04/2018 Refer.MD: IESHA MAGALLON MD Exam Time: 2:40:00 PM Study Type:UE Venous Age: 11 1945,73Y Sex: MALE Sonogrphr: Ti Berman RVT Pat. Stat.:Inpatient Room: [address] Vol: HV, CPT - 4: 28019 Echo Event ID:[id number] Order ID: [id number] Reason for Study:Right upper arm swelling and pain. Procedures:Colorflow, Grayscale/2D, Pulsed wave Doppler Race: C SUMMARY: DUPLEX SCAN OBSERVATIONS Right Left IJ Normal Subclavian Normal Normal Axillary Normal Brachial Arterialized Basilic Arterialized Cephalic Thrombosed AVF RIGHT: The cephalic vein (radiocephalic AVF) at upper arm is dilated, non-compressible and filled with mixed echogenic material within the lumen. Colorflow and Doppler signals are absent. All other remaining veins are patent. Arterialized flow is seen in the brachial vein and basilic vein. LEFT: There is normal compressibility and no evidence of echogenic material noted within the lumen of the subclavian vein. Colorflow and Doppler signals are normal. PRELIMINARY FINDINGS 1. Thrombosed right cephalic vein (radiocephalic AVF) at upper arm. PHYSICIAN INTERPRETATION Venous examination of the right upper extremity and neck demonstrated thrombosed right cephalic vein (radiocephalic AVF) at upper arm. Brachial and basilic veins still arterialized. Signed 12/04/2018 03:51 PM Aguilar Daly MD, RPVI Performing Organization Address [facility]/Zipcode Phone Number [facility] [address] duplex hemodialysis avg avf access (12/04/2018 2:59 PM CDT) Specimen Narrative Performed At [facility] Vascular Ultrasound Laboratory AV Graft - Fistula Report [address] [place] [address] Pat.Name:JENNIFER COLBY Pat.ID:[id number] St.Date: 12/04/2018 Refer.MD:IESHA MAGALLON MD Exam Time: 1:55:00 PMStudy Type:AV Graft - Fistula DOBAge:1945,73Y Sex: MALE Sonogrphr: Luke Vi, RVTPat. Stat.:Inpatient Room:[address] TapeVol: , CPT - 4: 06965 Echo Event ID:[id number] Order ID:[id number] Reason for Study:Concern for right upper extremity AVF malfunction. History of right radiocephalic AVF, ESRD on HD. Procedures:B-flow imaging, Colorflow, Grayscale/2D, Pulsed wave Doppler Race:C SUMMARY: DUPLEX SCAN OBSERVATIONS: RIGHT: The radiocephalic vein AV fistula is well visualized. Disturbed colorflow and Doppler signals are seen at the anastomosis. Calcified material is noted at the anastomosis and juxta. The upper arm cephalic vein is dilated, non-compressible and filled with mixed echogenic material within the lumen. Colorflow and Doppler signals are absent. The mid forearm cephalic vein is tortuous and narrowed. Elevated velocity and disturbed colorflow and Doppler signals are seen. The cephalic arch is patent with flow coming from collaterals. The subclavian vein is patent. DOPPLER FINDINGS: ARTERYLOCATIONPSV (cm/sec) RIGHT BrachialProximal-third 109 Mid-wibow387 Distal- RadialProximal-third 143 Mid-xbewx617 Distal-wvuqq227 Radiocephalic AVF Gwrxkrzcnta098 Shphr261 FA-Pymkwi636 FA-Hmr514 588(Tortuosity) FA-Glucisck729 Antecubital fossa 132 UA-Distal0 UA-Mid0 UA-Proximal0 Shoulder0 Cephalic Arch 27 (from collateral flow) Subclavian vein Distal- VOLUME FLOW: [id number] cc/min 1025 cc/min Lsyryd365 cc/min 663 cc/min PRELIMINARY FINDINGS: 1. Thrombosed right radiocephalic AV fistula at upper arm. 2. <50% stenosis at the anastomosis. 3. Elevatedvelocity of right cephalic vein at mid forearm, possibly due to tortuosity. 4. Volume of right brachial artery is 1031 cc/min. 5. Volume of right radial artery is 725 cc/min. PHYSICIAN INTERPRETATION: 1. Thrombosed right radiocephalic AV fistula and ulnar artery at upper arm. 2. <50% stenosis at the anastomosis. 3. Elevatedvelocity of right cephalic vein at mid forearm, possibly due to tortuosity. 4. Volume of right brachial artery is 1031 cc/min. Volume of right radial artery is 725 cc/min. Signed 12/05/2018 11:52 AM Aguilar Daly MD, RPVI Procedure Note Interface, Radiology Results In - 12/05/2018 11:53 AM CDT Vascular Ultrasound Laboratory AV Graft - Fistula Report [address] [place] [address] Pat.Name: JENNIFER COLBY Pat.ID: [id number] .Date: 12/04/2018 Refer.MD: IESHA MAGALLON MD Exam Time: 1:55:00 PM Study Type:AV Graft - Fistula Age: 11 1945,73Y Sex: MALE Sonogrphr: Ti Berman RVT Pat. Stat.:Inpatient Room: [address] Tape Vol: , CPT - 4: 49311 Echo Event ID:[id number] Order ID: [id number] Reason for Study:Concern for right upper extremity AVF malfunction. History of right radiocephalic AVF, ESRD on HD. Procedures:B-flow imaging, Colorflow, Grayscale/2D, Pulsed wave Doppler Race: C SUMMARY: DUPLEX SCAN OBSERVATIONS: RIGHT: The radiocephalic vein AV fistula is well visualized. Disturbed colorflow and Doppler signals are seen at the anastomosis. Calcified material is noted at the anastomosis and juxta. The upper arm cephalic vein is dilated, non-compressible and filled with mixed echogenic material within the lumen. Colorflow and Doppler signals are absent. The mid forearm cephalic vein is tortuous and narrowed. Elevated velocity and disturbed colorflow and Doppler signals are seen. The cephalic arch is patent with flow coming from collaterals. The subclavian vein is patent. DOPPLER FINDINGS: ARTERY LOCATION PSV (cm/sec) RIGHT Brachial Proximal-third 109 Mid-third 153 Distal-third 166 Radial Proximal-third 143 Mid-third 208 Distal-third 212 Radiocephalic AVF Anastamosis 253 Juxta 276 FA-Distal 151 FA-Mid 142 588(Tortuosity) FA-Proximal 153 Antecubital fossa 132 UA-Distal 0 UA-Mid 0 UA-Proximal 0 Shoulder 0 Cephalic Arch 27 (from collateral flow) Subclavian vein Distal-third 177 VOLUME FLOW: Brachial 1031 cc/min 1025 cc/min Radial 725 cc/min 663 cc/min PRELIMINARY FINDINGS: 1. Thrombosed right radiocephalic AV fistula at upper arm. 2. <50% stenosis at the anastomosis. 3. Elevated velocity of right cephalic vein at mid forearm, possibly due to tortuosity. 4. Volume of right brachial artery is 1031 cc/min. 5. Volume of right radial artery is 725 cc/min. PHYSICIAN INTERPRETATION: 1. Thrombosed right radiocephalic AV fistula and ulnar artery at upper arm. 2. <50% stenosis at the anastomosis. 3. Elevated velocity of right cephalic vein at mid forearm, possibly due to tortuosity. 4. Volume of right brachial artery is 1031 cc/min. Volume of right radial artery is 725 cc/min. Signed 12/05/2018 11:52 AM Aguilar Daly MD, RPVI Performing Organization Address City/[facility]/Zipcode Phone Number [facility] [address] [place] [address] Troponin (12/04/2018 5:10 AM CDT)Only the most recent of2 resultswithin the time period is included. [facility] Troponin <0.30 0.00 - 0.30 [facility] Comment: ng/mL HOSPITAL 0.30 - 1.49 ng/mlMay indicate increased risk of acute coronary syndrome. >=1.5 ng/mlConsistent with acute myocardial infarction. The diagnostic value of a single normal or non-diagnostic result is questionable.Serial samples at 2-6 hour intervals are required to rule out acute myocardial injury. Specimen Plasma specimen Performing Organization Address City/[facility]/Zipcode Phone Number [facility] DEPARTMENT OF PATHOLOGY AND [address] [place] [address] GENOMIC MEDICINE [address] [address] Comprehensive metabolic panel (12/04/2018 5:10 AM CDT)Only the most recent of2 resultswithin the time period is included. [facility] Sodium 143 135 - 148 [facility] mEq/L [facility] Potassium 5.1 (H) 3.5 - 5.0 [facility] mEq/L [facility] Chloride 102 98 - 112 mEq/L [facility] CO2 20 (L) 24 - 31 mEq/L [facility] Anion gap 21@ANIO (H) 7 - 15 mEq/L [facility] BUN 102 (H) 8 - 23 mg/dL [facility] Creatinine 9.97 (H) 0.70 - 1.20 [facility] mg/dL [facility] Glucose 121 (H) 65 - 99 mg/dL [facility] Calcium 8.5 (L) 8.8 - 10.2 [facility] mg/dL [facility] Protein 5.6 (L) 6.3 - 8.3 g/dL [facility] Comment: HOSPITAL 4.6-7.0 g/dL 1 week 4.4-7.6 g/dL 7 months-1year5.1-7.3 g/dL 1-2 years5.6-7.5 g/dL >3 years6.0-8.0 g/dL 18-150 6.3-8.3 g/dL Albumin 3.2 (L) 3.5 - 5.0 g/dL [facility] A/G ratio 1.3 0.7 - 3.8 [facility] Alkaline phosphatase 147 (H) 40 - 129 U/L [facility] AST 17 10 - 50 U/L [facility] ALT 29 5 - 50 U/L [facility] Total bilirubin 0.7 0.0 - 1.2 [facility] mg/dL [facility] Specimen Plasma specimen Performing Organization Address City/State/Zipcode Phone Number [facility] DEPARTMENT OF PATHOLOGY AND [address] [place] [address] GENOMIC MEDICINE [address] [address] XR Chest 2 Vw (12/03/2018 9:47 PM CDT) Specimen Narrative Performed At EXAMINATION: XR CHEST 2 VW [facility] CLINICAL HISTORY: HTN COMPARISON:07/07/2007 chest x-ray. IMPRESSION: Left chest port. The lungs are clear. No pleural effusion or pneumothorax. The cardiomediastinal silhouette is normal. No acute osseous abnormalities. [facility]-[id number] Procedure Note Interface, Radiology Results Incoming - 12/03/2018 9:59 PM CDT EXAMINATION: XR CHEST 2 VW CLINICAL HISTORY: HTN COMPARISON: 07/07/2007 chest x-ray. IMPRESSION: Left chest port. The lungs are clear. No pleural effusion or pneumothorax. The cardiomediastinal silhouette is normal. No acute osseous abnormalities. [facility]-[id number] Performing Organization Address [facility] Phone Number [facility] [address] [place] [address] ECG 12 lead (12/03/2018 9:08 PM CDT) Ventricular rate 69 [facility] MUSE Atrial rate 69 [facility] MUSE [place] interval 140 [facility] M[facility] QRSD interval 120 [facility] QT interval 428 [facility] QTC interval 458 [facility] M[facility] P axis 1 69 [facility] QRS axis 1 -51 [facility] M[facility] T wave axis -18 [facility] EKG impression Sinus rhythm with occasional premature ventricular complexes- Left anterior fascicular block-Nonspecific intraventricular block-Nonspecific ST and T wave abnormality-Abnormal ECG-In automated comparison [facility] MUSE with ECG of 16-MAR-2013 10:14,-premature ventricular complexes are now present-T wave inversion no longer evident in Anterior leads- Specimen Narrative Performed At Performing Organization Address [facility] Phone Number [facility] M[facility] [address] [place] [address] B natriuretic peptide (12/03/2018 8:59 PM CDT) BNP 631 (H) 0 - 100 pg/mL [facility] Specimen Blood Performing Organization Address City/State/Zipcode Phone Number [facility] DEPARTMENT OF PATHOLOGY AND [address] [place] [address] GENOMIC MEDICINE [address] [address] ECG ED Preliminary Interpretation - Not an Order (12/03/2018 8:45 PM CDT) Narrative Performed At Glenroy Garcia MD 12/04/20181:12 AM ECG ED Preliminary Interpretation - Not an Order Performed by: Glenroy Garcia MD Authorized by: Glenroy Garcia MD ECG reviewed by ED Physician in the absence of a network announcer: yes Interpretation: Interpretation: abnormal Rate: ECG rate:69 ECG rate assessment: normal Rhythm: Rhythm: sinus rhythm Ectopy: Ectopy: PVCs PVCs:Infrequent QRS: QRS axis:Left QRS intervals:Wide Conduction: Conduction: abnormal Abnormal conduction: non-specific intraventricular conduction delay ST segments: ST segments:Normal T waves: T waves: normal Other findings: Other findings: poor R wave progression after 05/16/2018 Insurance Payer Benefit Plan / Subscriber ID Effective Dates Phone Address Type Group MEDICARE MEDICARE PART A xxxxxxxxxxx 2007-Present [place], [place] Medicare AND B BCBS BCBS CHOICE xxxxxxxxxxxx 2017-Present PPO PPO/[employer] PPO Advance Directives For more information, please contact: [phone] Type Date 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
[2019-05-17] MEDS ORDERED: IPRATROPIUM BROM 0.5MG/2.5ML ONE ×2 (21:35→21:36)
[2019-05-17] MEDS ORDERED: ALBUTEROL 2.5 MG/3 ML NEB SOL ONE ×2 (21:35→23:04)
[2019-05-17] MEDS ORDERED: predniSONE 20 MG TAB ONE (21:56)
[2019-05-17 22:03] LABS: Absolute Lymphocytes (CBC) 0.6 K/uL (0.7-4.9); Hematocrit 27.4 % (39.6-49.0); Lymphocytes % 6.9 % (15.3-44.8); MPV 6.9 fL (7.6-11.3); RBC Red Blood Cell Count 2.97 M/uL (4.33-5.43)
[2019-05-17 22:08] LABS: Protime INR 0.96
[2019-05-17 22:40] LABS: Albumin 3.9 g/dL (3.4-5.0); Bilirubin Direct 0.5 mg/dL (0-0.2); Bilirubin Total 1.9 mg/dL (0.2-1.0); Magnesium 2.3 mg/dL (1.8-2.4); Protein, Total 6.8 g/dL (6.4-8.2); Troponin (Emerg Dept Use Only) 0.02 ng/mL (0.0-0.045)
[2019-05-17 22:51] LABS: Blood Morphology Comment NOT SEEN (NOT SEEN); Platelet Estimate DECR; Urine White Blood Cell Casts OK
[2019-05-17] MEDS ORDERED: CEFEPIME 1 GM/100 ML BAG IV ONE (23:05)
[2019-05-17 23:07] LABS: Arterial Blood Carboxyhemoglob 1.8 % (0-1.5); Blood Gas Oxyhemoglobin 85.4 % (94-97)
--- NOTE | 2019-05-17 23:46 | RAD REPORT ---
EXAM DESCRIPTION: RAD - Chest Single View - 05/17/2019 10:11 pm CLINICAL HISTORY: DYSPNEA Chest pain. COMPARISON: Chest Pa And Lat (2 Views) dated 11/25/2018; Chest Single View dated 11/20/2018; Chest Pa And Lat (2 Views) dated 05/27/2018; ABDOMEN ACUTE SERIES dated 08/22/2011; Thorax Wo Con dated 9 FINDINGS: Portable technique limits examination quality. Moderate pulmonary opacities are present bilaterally, slightly greater on the right, likely indicatin g pulmonary edema or pneumonia. The heart is moderately enlarged. Small bilateral pleural effusions a re likely present. Left-sided port catheter has tip in the SVC.
[2019-05-18] MEDS: IPRATROPIUM BROM 0.5MG/2.5ML NEB SCH ×7 (00:09→23:35)
--- NOTE | 2019-05-18 00:52 | ER ---
Nurse's Notes [facility] Name: Analilia Colby Age: 73 yrs Sex: Male : 1945 Arrival Date: 05/17/2019 Time: 20:09 Bed 25 Private MD: Alfreda Obrien C Diagnosis: Lobar pneumonia, unspecified organism;VOLUME OVERLOAD;Pulmonary edema Presentation: 05/17 20:43 Presenting complaint: Patient states: Shortness of breath for the past week that aj1 started getting worse yesterday. Reports cough. Reports that hes taking Octivo for cancer and that has caused his cough. He was here in November for the same thing, but its not as bad as his previous visit. Transition of care: patient was not received from another setting of care. Onset of symptoms was May 17, 2019. Risk Assessment: Do you want to hurt yourself or someone else? Patient reports no desire to harm self or others. Initial Sepsis Screen: Does the patient meet any 2 criteria? RR > 20 per min. No. Patient's initial sepsis screen is negative. Does the patient have a suspected source of infection? Yes: Productive cough/pneumonia. Care prior to arrival: None. 20:43 Method Of Arrival: Wheelchair aj1 20:43 Acuity: RIVERA 3 aj1 Triage Assessment: 20:46 General: Appears in no apparent distress. comfortable, Behavior is calm, cooperative, aj1 appropriate for age. Pain: Denies pain. Neuro: Level of Consciousness is awake, alert, obeys commands, Oriented to person, place, time, situation. Cardiovascular: Patient's skin is warm and dry. Respiratory: Reports shortness of breath cough that is dry, persistent Airway is patent Respiratory effort is even, unlabored, Respiratory pattern is regular, symmetrical, Onset: The symptoms/episode began/occurred gradually, the patient has moderate shortness of breath. Historical: - Allergies: 20:46 No Known Allergies; aj1 - Home Meds: 20:46 carvedilol 6.25 mg oral tab 2 times per day [Active]; losartan 100 mg Oral tab 1 tab aj1 once daily [Active]; amlodipine 10 mg tab 1 tab twice a day [Active]; prednisone 5 mg/5 mL Oral soln once daily [Active]; ProAir HFA 90 mcg/actuation inhalation HFAA 1 puff every 4 hours [Active]; - PMHx: 20:46 Cancer, Lung; Dialysis; Liver disease; Renal Cancer; aj1 - Immunization history:: Flu vaccine is up to date. - Social history:: Smoking status: Patient/guardian denies using tobacco. - Ebola Screening: : Patient denies travel to an Ebola-affected area in the 21 days before illness onset. Screenin:00 Abuse screen: Denies threats or abuse. Denies injuries from another. Nutritional rv screening: No deficits noted. Tuberculosis screening: No symptoms or risk factors identified. Fall Risk None identified. Assessment: 21:00 General: Appears in no apparent distress. uncomfortable, Behavior is calm, appropriate rv for age. 21:00 Pain: Denies pain. Neuro: Level of Consciousness is awake, alert, obeys commands, rv Oriented to person, place, time, situation. Cardiovascular: Patient's skin is warm and dry. Rhythm is regular. Respiratory: Airway is patent Breath sounds with wheezes bilaterally. GI: No signs and/or symptoms were reported involving the gastrointestinal system. : No signs and/or symptoms were reported regarding the genitourinary system. EENT: No signs and/or symptoms were reported regarding the EENT system. Derm: Skin is intact. Musculoskeletal: No signs and/or symptoms reported regarding the musculoskeletal system. 23:44 Reassessment: Patient appears in no apparent distress at this time. Patient and/or rv family updated on plan of care and expected duration. Pain level reassessed. Patient is alert, oriented x 3, equal unlabored respirations, skin warm/dry/pink. PATIENT WENT TO THE CT SCAN. AWAITING RESULT. PATIENT AND FAMILY UPDATED ON WAIT STATUS. 05/18 01:11 Reassessment: Patient appears in no apparent distress at this time. Patient and/or rv family updated on plan of care and expected duration. Pain level reassessed. Patient is alert, oriented x 3, equal unlabored respirations, skin warm/dry/pink. DR SAENZ TALKED TO THE PATIENT AND EXPLAINED THE PLAN OF CARE. PATIENT AND FAMILY AGREED. WAITING FOR ADMISSION ORDERS. Vital Signs: 05/17 20:46 BP 183 / 78; Pulse 72; Resp 28; Temp 98.4; Pulse Ox 91% on R/A; Weight 81.65 kg; Height aj1 5 ft. 8 in. (172.72 cm) (R); 22:31 BP 164 / 61 LA Supine; Pulse 74; Resp 24; Pulse Ox 94% on R/A; rv 23:42 Pulse 72; Resp 21; Pulse Ox 97% on 2 lpm NC; rv 05/18 01:09 BP 145 / 66; Pulse 68; Resp 21; Pulse Ox 97% on 2 lpm NC; rv 05/17 20:46 Body Mass Index 27.37 (81.65 kg, 172.72 cm) aj1 ED Course: 05/17 20:09 Patient arrived in ED. mr 20:10 Alfreda Obrien MD is Private Physician. mr 20:45 Triage completed. aj1 20:46 Arm band placed on. aj1 20:56 Joe Downing RN is Primary Nurse. rv 20:57 John Saenz MD is Attending Physician. gs 21:00 Patient has correct armband on for positive identification. Bed in low position. Call rv light in reach. Side rails up X 1. night monitor on. Pulse ox on. NIBP on. 22:01 Missed attempt(s): 22 gauge in left forearm. rv 22:11 XRAY Chest (1 view) In Process Unspecified. EDMS 23:44 Inserted saline lock: 22 gauge in left forearm, using aseptic technique. rv 23:49 CT Chest Wo Con In Process Unspecified. EDMS 05/18 00:49 Alfreda Obrien MD is Hospitalizing Provider. gs 03:00 No provider procedures requiring assistance completed. Patient admitted, IV remains in wh place. Administered Medications: 05/17 21:30 Drug: Albuterol - atroVENT (3:1) (2.5 mg - 0.5 mg) 3 ml Route: Nebulizer; rv 22:30 Follow up: Response: No adverse reaction; Marked relief of symptoms rv 21:30 Drug: AtroVENT Aerosol 0.5 mg Route: Inhalation; rv 22:31 Follow up: Response: No adverse reaction rv 21:57 Drug: predniSONE 40 mg Route: PO; wh 22:31 Follow up: Response: No adverse reaction rv 23:00 Drug: Albuterol 2.5 mg Route: Inhalation; rv 23:39 Drug: Cefepime 1 grams Route: IVPB; Rate: 200 ml/hr; Infused Over: 30 mins; Site: left rv forearm; 05/18 01:57 Follow up: Response: No adverse reaction; IV Status: Completed infusion Outcome: 00:50 Decision to Hospitalize by Provider. 03:00 Admitted to Tele accompanied by nurse, family with patient, via wheelchair, room 427, with oxygen, with chart, Report called to Marck Oliver RN 03:00 Condition: good 03:00 Instructed on the need for admit. 03:16 Patient left the ED. bb Signatures: Dispatcher [employer] EDAisha Ramos RN RN aj Alessandra Yin Brenda RN RN Yaniv Hemphill John Saenz MD MD Joe Downing RN RN rv
--- NOTE | 2019-05-18 00:53 | EDPHYS ---
Physician Documentation [facility] Name: Analilia Colby Age: 73 yrs Sex: Male : 1945 Arrival Date: 05/17/2019 Time: 20:09 Bed 25 Private MD: Alfreda Obrien C ED Physician John Saenz HPI: 05/18 00:32 This 73 yrs old Male presents to ER via Wheelchair with complaints of gs Shortness Of Breath. 00:32 The patient has shortness of breath at rest. Onset: The symptoms/episode began/occurred gs 3 day(s) ago, and became worse and became persistent. Duration: The symptoms are continuous. The patient's shortness of breath is aggravated by coughing. Associated signs and symptoms: Pertinent negatives: chest pain, diaphoresis. Severity of symptoms: At their worst the symptoms were severe in the emergency department the symptoms are unchanged. The patient has experienced similar episodes in the past, a few times. Historical: - Allergies: 05/17 20:46 No Known Allergies; aj1 - Home Meds: 20:46 carvedilol 6.25 mg oral tab 2 times per day [Active]; losartan 100 mg Oral tab 1 tab aj1 once daily [Active]; amlodipine 10 mg tab 1 tab twice a day [Active]; prednisone 5 mg/5 mL Oral soln once daily [Active]; ProAir HFA 90 mcg/actuation inhalation HFAA 1 puff every 4 hours [Active]; - PMHx: 20:46 Cancer, Lung; Dialysis; Liver disease; Renal Cancer; aj1 - Immunization history:: Flu vaccine is up to date. - Social history:: Smoking status: Patient/guardian denies using tobacco. - Ebola Screening: : Patient denies travel to an Ebola-affected area in the 21 days before illness onset. ROS: 05/18 00:32 All other systems are negative. gs Exam: 00:32 Head/Face: Normocephalic, atraumatic. Eyes: Pupils equal round and reactive to light, gs extra-ocular motions intact. Lids and lashes normal. Conjunctiva and sclera are non-icteric and not injected. Cornea within normal limits. Periorbital areas with no swelling, redness, or edema. ENT: Nares patent. No nasal discharge, no septal abnormalities noted. Tympanic membranes are normal and external auditory canals are clear. Oropharynx with no redness, swelling, or masses, exudates, or evidence of obstruction, uvula midline. Mucous membranes moist. Neck: Trachea midline, no thyromegaly or masses palpated, and no cervical lymphadenopathy. Supple, full range of motion without nuchal rigidity, or vertebral point tenderness. No Meningismus. Chest/axilla: Normal chest wall appearance and motion. Nontender with no deformity. No lesions are appreciated. Cardiovascular: Regular rate and rhythm with a normal S1 and S2. No gallops, murmurs, or rubs. Normal PMI, no JVD. No pulse deficits. 00:32 Abdomen/GI: Soft, non-tender, with normal bowel sounds. No distension or tympany. No guarding or rebound. No evidence of tenderness throughout. Back: No spinal tenderness. No costovertebral tenderness. Full range of motion. Skin: Warm, dry with normal turgor. Normal color with no rashes, no lesions, and no evidence of cellulitis. MS/ Extremity: Pulses equal, no cyanosis. Neurovascular intact. Full, normal range of motion. 00:32 Constitutional: The patient appears alert, awake, in obvious distress, severely distressed. 00:32 Cardiovascular: Rate: 00:32 ECG was reviewed by the Attending Physician. 00:32 Respiratory: moderate respiratory distress is noted, Respirations: tachypnea, Breath sounds: decreased breath sounds, wheezing: Vital Signs: 05/17 20:46 BP 183 / 78; Pulse 72; Resp 28; Temp 98.4; Pulse Ox 91% on R/A; Weight 81.65 kg; Height aj1 5 ft. 8 in. (172.72 cm) (R); 22:31 BP 164 / 61 LA Supine; Pulse 74; Resp 24; Pulse Ox 94% on R/A; rv 23:42 Pulse 72; Resp 21; Pulse Ox 97% on 2 lpm NC; rv 05/18 01:09 BP 145 / 66; Pulse 68; Resp 21; Pulse Ox 97% on 2 lpm NC; rv 05/17 20:46 Body Mass Index 27.37 (81.65 kg, 172.72 cm) aj1 MDM: 05/17 21:24 Patient medically screened. 05/18 00:32 Differential diagnosis: CHF exacerbation, Chronic Obstructive Pulmonary Disease gs pneumonia. Data reviewed: vital signs, nurses notes, old medical records, lab test result(s), EKG, radiologic studies. Counseling: I had a detailed discussion with the patient and/or guardian regarding: the historical points, exam findings, and any diagnostic results supporting the discharge/admit diagnosis, the need for further work-up and treatment in the hospital. Physician consultation: Fam Maldonado MD and will see patient in inpatient room. Physician consultation: Cody Loving MD regarding patient's condition, and will see patient in inpatient room. ED course: IMPROVED. 05/17 21:28 Order name: Basic Metabolic Panel 05/17 21:28 Order name: CBC with Diff; Complete Time: 23: 05/17 21:28 Order name: LFT's; Complete Time: 23: 05/17 21:28 Order name: Magnesium; Complete Time: 23: 05/17 21:28 Order name: NT PRO-BNP; Complete Time: 23: 05/17 21:28 Order name: PT-INR; Complete Time: 23: 05/17 21:28 Order name: Troponin (emerg Dept Use Only); Complete Time: 23:07 05/17 21:28 Order name: XRAY Chest (1 view); Complete Time: 00:50 05/17 21:29 Order name: Basic Metabolic Panel; Complete Time: 23:07 [facility] 05/17 22:32 Order name: ABG; Complete Time: 00:50 05/17 22:52 Order name: CBC Smear Scan; Complete Time: 23:07 [facility] 05/17 23:10 Order name: CT Chest Wo Con 05/17 21:28 Order name: EKG; Complete Time: 21:30 05/17 21:28 Order name: Cardiac monitoring; Complete Time: 23:39 05/17 21:28 Order name: EKG - Nurse/Tech; Complete Time: 21:33 05/17 21:28 Order name: IV Saline Lock; Complete Time: 21:58 05/17 21:28 Order name: Labs collected and sent; Complete Time: 21:58 05/17 21:28 Order name: O2 Per Protocol; Complete Time: 21:58 05/17 21:28 Order name: O2 Sat Monitoring; Complete Time: 21:59 05/17 22:32 Order name: Oxygen; Complete Time: 23:10 05/18 01:04 Order name: CONS Physician Consult EDMS 05/18 01:04 Order name: Consistent Carb (ADA) 2000 Roberto EDMS EC:32 Rate is 73 beats/min. Rhythm is regular. QRS [place] is Normal. [place] interval is prolonged. gs QRS interval is prolonged. Clinical impression: NSR w/ Non-specific ST/T Changes. Interpreted by me. Administered Medications: 05/17 21:30 Drug: Albuterol - atroVENT (3:1) (2.5 mg - 0.5 mg) 3 ml Route: Nebulizer; rv 22:30 Follow up: Response: No adverse reaction; Marked relief of symptoms rv 21:30 Drug: AtroVENT Aerosol 0.5 mg Route: Inhalation; rv 22:31 Follow up: Response: No adverse reaction rv 21:57 Drug: predniSONE 40 mg Route: PO; wh 22:31 Follow up: Response: No adverse reaction rv 23:00 Drug: Albuterol 2.5 mg Route: Inhalation; rv 23:39 Drug: Cefepime 1 grams Route: IVPB; Rate: 200 ml/hr; Infused Over: 30 mins; Site: left rv forearm; 05/18 01:57 Follow up: Response: No adverse reaction; IV Status: Completed infusion Disposition: 05/18/19 00:50 Hospitalization ordered by Alfreda Obrien for Inpatient Admission. Preliminary diagnosis are Lobar pneumonia, unspecified organism, VOLUME OVERLOAD, Pulmonary edema. - Bed requested for Telemetry/MedSurg (Inpatient). - Status is Inpatient Admission. bb - Condition is Stable. - Problem is new. - Symptoms have improved. UTI on Admission? No Signatures: Dispatcher [employer] EDWY Aisha Duran RN RN aj1 Nikole Nina RN RN bb Kath Friedman RN RN Yaniv Persaud John Saenz MD MD Joe Downing RN RN rv Corrections: (The following items were deleted from the chart) 01:56 00:50 Hospitalization Ordered by A Micah ARRIETA for Inpatient Admission. Preliminary cg diagnosis is Lobar pneumonia, unspecified organism; VOLUME OVERLOAD; Pulmonary edema. Bed requested for Telemetry/MedSurg (Inpatient). Status is Inpatient Admission. Condition is Stable. Problem is new. Symptoms have improved. UTI on Admission? No. gs 03:16 01:56 05/18/2019 00:50 Hospitalization Ordered by A Micah ARRIETA for Inpatient Admission. bb Preliminary diagnosis is Lobar pneumonia, unspecified organism; VOLUME OVERLOAD; Pulmonary edema. Bed requested for Telemetry/MedSurg (Inpatient). Status is Inpatient Admission. Condition is Stable. Problem is new. Symptoms have improved. UTI on Admission? No. cg
[2019-05-18] MEDS ORDERED: ACETAMINOPHEN 500 MG TAB PO PRN (00:56)
[2019-05-18] MEDS: PIPER/TAZO/NS 2.25gm 2.25 GM/50 ML BAG IVPB SCH ×3 (01:00→17:54)
[2019-05-18] MEDS: ALBUTEROL 2.5 MG/3 ML NEB SOL NEB SCH ×6 (02:00→23:35)
[2019-05-18 03:13] VITALS: BMI 27.5
[2019-05-18] MEDS ORDERED: PIPERACIL/TAZO 2.25 GM VIAL IV ONE (04:00)
[2019-05-18] MEDS ORDERED: NA CHLORIDE 0.9% 50 ML ONE (04:02)
[2019-05-18] MEDS ORDERED: ALBUTEROL INHALER 60 PUFF/8 GM IH PRN (07:39)
--- NOTE | 2019-05-18 08:03 | EKG ---
Test Date: 2019-05-17 Test Time: 21:05:36 Telehealth Nurse Educator: RV MEASUREMENT RESULTS: Intervals: Rate: 73 MT: 172 QRSD: 126 QT: 408 QTc: 449 [place]: P: 61 MT: 172 QRS: -19 T: 13 INTERPRETIVE STATEMENTS: Normal sinus rhythm Nonspecific intraventricular block Abnormal ECG Compared to ECG 11/20/2018 11:31:41 ST (T wave) deviation no longer present Electronically Signed On 05-18-19 08:02:38 CDT by Haresh Ledesma
[2019-05-18] MEDS: METHYLPREDNISOLONE 40 MG INJ IV SCH ×2 (08:34→21:54)
[2019-05-18] MEDS: LOSARTAN POTASSIUM 50 MG TABLET PO SCH (08:34)
[2019-05-18] MEDS: AMLODIPINE 10 MG TAB PO SCH ×2 (08:34→21:54)
[2019-05-18] MEDS: CARVEDILOL 6.25 MG TAB PO SCH ×2 (08:35→21:54)
[2019-05-18] MEDS ORDERED: MANNITOL 25% 12.5 GM/50 ML VIAL IV PRN (09:14)
[2019-05-18] MEDS ORDERED: NA CHLORIDE 0.9% 1,000 ML IV PRN (09:14)
[2019-05-18] MEDS ORDERED: NA CHLORIDE 0.9% 100 ML IV ONE (09:51)
[2019-05-18] MEDS ORDERED: ALBUMIN HUMAN 25% 50 ML IV SCH (10:00)
--- NOTE | 2019-05-18 20:23 | P.CNS ---
Date of Consult: 05/18/19 Reason for Consult: ESRD Requesting Physician: Ward Obrien Chief Complaint: Dyspnea History of Present Illness: 73 yo WM HTN, CKD presented to the ER with moderate, progressive dyspnea in the setting of CHF with associated fatigue and weakness. The patient was seen and examined at the end of dialysis. He feels better after receiving his dialysis with UF of approximately 2-2.5 liters of fluid. Reports scattered bruising of unclear etiology. 00:32 This 73 yrs old Male presents to ER via Wheelchair with complaints of gs Shortness Of Breath. 00:32 The patient has shortness of breath at rest. Onset: The symptoms/episode began/occurred gs 3 day(s) ago, and became worse and became persistent. Duration: The symptoms are continuous. The patient's shortness of breath is aggravated by coughing. Associated signs and symptoms: Pertinent negatives: chest pain, diaphoresis. Severity of symptoms: At their worst the symptoms were severe in the emergency department the symptoms are unchanged. The patient has experienced similar episodes in the past, a few times. Allergies No Known Allergies Allergy (Verified 11/12/18 23:23) Home medications list reviewed: Yes Home Medications: Carvedilol [Coreg*] 6.25 mg PO BID 11/25/18 Losartan Potassium [Cozaar] 1 tab PO DAILY 11/25/18 Albuterol Sulfate [Proair Hfa] 1 puff IH Q4HP PRN 05/18/19 Amlodipine Besylate 1 tab PO BID 05/18/19 predniSONE [Prednisone] 1 tab PO DAILY 05/18/19 - Past Medical/Surgical History Diabetic: No -: renal cell carcinoma with mets lungs -: both kidneys removed -: htn -: dialysis mwf -: both kidneys removed -: graft L arm-not active. -: cholecystectomy -: tonsils removed and adnoids - Family History Mother Medical History: Cancer Notes: doesnt know what kind Father Medical History: Other (see notes) Notes: circulatory problem-aneurysm - Social History Smoking Status: Never smoker Alcohol use: No CD- Drugs: No Caffeine use: No Place of Residence: Home Review of Systems 10-point ROS is otherwise unremarkable General: Weakness, Malaise Respiratory: SOB with Excertion Cardiovascular: Edema Neurological: Weakness Physical Examination Temp Pulse Resp BP Pulse Ox 98.2 F 66 18 146/92 H 100 05/18/19 16:00 05/18/19 16:00 05/18/19 16:00 05/18/19 16:00 05/18/19 16:00 General: In no apparent distress, Oriented x3, Cooperative HEENT: Atraumatic Neck: Supple Respiratory: Clear to auscultation bilaterally Cardiovascular: Regular rate/rhythm, Edema Gastrointestinal: Soft and benign, Non-distended Musculoskeletal: No clubbing, No contractures Integumentary: No rashes, No significant lesion, No cyanosis Neurological: Normal speech Laboratory Data (last 24 hrs) 05/17/19 21:59: PT 11.4, INR 0.96 05/17/19 21:59: WBC 9.2, Hgb 9.5 L, Hct 27.4 L, Plt Count 80 L 05/17/19 21:59: Sodium 144, Potassium 5.0, BUN 65 H, Creatinine 10.30 H*, Glucose 94, Magnesium 2.3, Total Bilirubin 1.9 H, AST 11 L, ALT 19, Alkaline Phosphatase 86 Imagings Data: EXAM DESCRIPTION: RAD - Chest Single View - 05/17/2019 10:11 pm CLINICAL HISTORY: DYSPNEA Chest pain. COMPARISON: Chest Pa And Lat (2 Views) dated 11/25/2018; Chest Single View dated 11/20/2018; Chest Pa And Lat (2 Views) dated 05/27/2018; ABDOMEN ACUTE SERIES dated 08/22/2011; Thorax Wo Con dated 05/17/2019 FINDINGS: Portable technique limits examination quality. Moderate pulmonary opacities are present bilaterally, slightly greater on the right, likely indicating pulmonary edema or pneumonia. The heart is moderately enlarged. Small bilateral pleural effusions are likely present. Left-sided port catheter has tip in the SVC. Conclusions/Impression: A/ ESRD on HD. Hyperkalemia. Diastolic CHF, A/C. HTN with CKD/ CHF. Anemia in CKD. Hyperglycemia on steroids. RCC with mets. P/ Continue current POC and Medications. Acute HD as ordered. Seen and examined at the end of HD. UF as tolerated. Give Procrit. On abx for possible PNA. Low sodium/ No sugar diet. No NSAIDs. AM labs. Daily weight. Thank you kindly for the consultation.
[2019-05-18] MEDS ORDERED: EPOETIN ALFA 20,000 UNIT/1 ML VIAL SQ ONE (20:45)
[2019-05-19] MEDS: PIPER/TAZO/NS 2.25gm 2.25 GM/50 ML BAG IVPB SCH ×2 (00:44→08:01)
--- NOTE | 2019-05-19 02:29 | HP ---
Date of Admission: 05/18/2019 Chief Complaint: Shortness of breath. History Of Present Illness: This is a 73-year-old pleasant male patient with multiple comorbidities, has kidney cancer, end-stage renal disease, hypertension. He is on immunotherapy at [facility] and gets this treatment about every month. He has some shortness of breath with activity and his last h ospital admission was about 6 months ago or so for similar problem, and he was treated with antibioti c as well as steroid considering in mind about possible side effect from his immunotherapy to his daniel g as per my discussion with his oncologist. So, after he was treated, he started feeling better, but continues to have some baseline shortness of breath a small dose of maintenance dose of p rednisone, and the patient says that so far that has allowed him to continue his immunotherapy, but i n the last few days, his shortness of breath has got much worse that he could not even walk 15-20 tootie ps in his house without getting short of breath, and he came into emergency room. After he was evalu ated, he was admitted to hospital. He does not have any expectoration. No hemoptysis. Medications: List reviewed. Allergies: NO KNOWN ALLERGIES. Review of Systems: Respiratory: As mentioned above. All other systems reviewed and negative. Past Medical History: Significant for hypertension, end-stage renal disease, kidney cancer, hyperlip idemia, anemia due to chronic kidney disease, thrombocytopenia, chronic systolic congestive heart nathaly lure, benign prostatic hypertrophy. Past Surgical History: Bilateral nephrectomy in 2006 due to kidney cancer. Family History: Significant for COPD. Social History: Negative for smoking and alcohol use. Physical Examination: Vital Signs: Temperature 97, pulse 78, respiratory rate 22, blood pressure 153/69, oxygen saturation 97% on 28% FiO2. Height 5 feet 8 inches, weight 181 pounds. General: Awake, alert, oriented, not in distress. HEENT: Head atraumatic, normocephalic. Conjunctivae nonerythematous. Sclerae white. Mouth, no thr ush or edema noted. Ears/Nose, no mass, lesion, discharge noted. Neck: Supple. No JVD, lymph nodes, bruit, thyromegaly noted. Lungs: Presence of diminished air entry in both mid and lower lung region with presence of some fine crackles in both lung armstrong in the lower lung region. The patient is not using any accessory muscl es of respiration. Heart: Normal heart sounds, no murmur or gallop. Abdomen: Soft, bowel sounds normal. No guarding, rigidity, tenderness, mass, hepatosplenomegaly, dis tention, or bruit noted. Extremities: No leg edema. No calf tenderness. Skin: No rash, ulcer, cellulitis. Lymphatics: No lymph node enlargement in neck, supraclavicular, infraclavicular region. Neuro: No focal neurological deficit. Chest: Unremarkable. External Genitalia: Deferred. Rectal: Deferred. Laboratory Data: White count 9.2, hemoglobin 9.5, platelets 80. Blood gas; pH 7.45, pCO2 37.4, pO2 54, oxygen saturation 88% on room air. Sodium 144, potassium 5, chloride 108, bicarb 24, BUN 65, cre atinine 10.30, glucose 94. Total bilirubin 1.9; rest of the liver function tests unremarkable. ProB EEO OFFICER 148,697. Chest x-ray shows moderate pulmonary opacities bilaterally consistent with pneumonia and congestive heart failure. Impression: 1.Pneumonia. 2.Chronic systolic congestive heart failure, with acute exacerbation. 3.End-stage renal disease, on hemodialysis. 4.Anemia due to chronic kidney disease. 5.Thrombocytopenia, chronic. 6.Kidney cancer. 7.Hypertension. 8.Hyperlipidemia. 9.Benign prostatic hypertrophy. Plan: Admit the patient to hospital for further evaluation and management of this problem. The trent ent is appropriate for inpatient and is expected to spend 2 midnights in hospital. Home medications will be continued. We will go ahead and continue IV antibiotics per order; IV steroid will be given per order. Ambulation was encouraged. I will see him tomorrow for followup, and upon discharge from the hospital, the patient will communicate with his oncologist at [facility] to see what other genaro tment adjustment he may need to make for his immunotherapy as it seems to be underlying concern with pneumonia. I will review his prior record to see when his last echocardiogram was, and if necessary, we will order echocardiogram with Doppler. Consult his florist supplies salesperson for dialysis support. We will see him tomorrow for followup. RYAN/MODL Voice ID: [id number]
[2019-05-19] MEDS: IPRATROPIUM BROM 0.5MG/2.5ML NEB SCH ×3 (03:50→12:11)
[2019-05-19] MEDS: ALBUTEROL 2.5 MG/3 ML NEB SOL NEB SCH ×3 (03:50→12:11)
[2019-05-19 04:14] LABS: Absolute Lymphocytes (CBC) 0.3 K/uL (0.7-4.9); Basophils % 0.3 % (0-1.3); Hematocrit 22.8 % (39.6-49.0); Lymphocytes % 3.3 % (15.3-44.8); MPV 7.7 fL (7.6-11.3); RBC Red Blood Cell Count 2.51 M/uL (4.33-5.43)
[2019-05-19 05:04] LABS: Albumin 3.2 g/dL (3.4-5.0); Bilirubin Total 1.5 mg/dL (0.2-1.0); Magnesium 2.1 mg/dL (1.8-2.4); Potassium 5.2 mmol/L (3.5-5.1); Protein, Total 5.7 g/dL (6.4-8.2); Uric Acid 3.2 mg/dL (3.5-7.2)
[2019-05-19] MEDS: LOSARTAN POTASSIUM 50 MG TABLET PO SCH (08:02)
[2019-05-19] MEDS: AMLODIPINE 10 MG TAB PO SCH (08:02)
[2019-05-19] MEDS: SEVELAMER CARBONATE 800 MG TABLET PO SCH ×3 (08:03→16:38)
[2019-05-19] MEDS: CARVEDILOL 6.25 MG TAB PO SCH (08:03)
[2019-05-19] MEDS: METHYLPREDNISOLONE 40 MG INJ IV SCH (08:03)
--- NOTE | 2019-05-19 08:42 | RAD REPORT ---
EXAM DESCRIPTION: RAD - Chest Pa And Lat (2 Views) - 05/19/2019 8:34 am CLINICAL HISTORY: pneumonia COMPARISON: May 17 CT chest, May 17 portable chest TECHNIQUE: PA and lateral views of the chest were obtained. FINDINGS: The lungs are normal volume. Patient has a baseline prominence of the interstitial pattern . Overall interstitial and alveolar opacities are substantially improved from comparison. Minimal inf iltrate or lung opacities remain. Trachea is midline. Left-sided Port-A-Cath is in place. Heart size is normal and central vasculature is within normal limits. Small bilateral pleural effusions are st ill present. No acute bony finding noted. No aortic abnormality. IMPRESSION: Significant clearing of the lung parenchymal opacities since prior May 17 imaging Small bilateral pleural effusions remain.
[2019-05-19] MEDS ORDERED: VITAMIN D 5,000 UNIT CAP PO SCH (09:00)
[2019-05-19] MEDS ORDERED: CALCITROL 0.25 MCG CAP PO SCH (09:00)
--- NOTE | 2019-05-19 09:49 | RAD REPORT ---
EXAM DESCRIPTION: Thorax Wo Con CLINICAL HISTORY: 73 years Male sob COMPARISON: 11/26/2018. TECHNIQUE: Contiguous axial images obtained through the chest without IV contrast. Reformatted image s obtained. This exam was performed according to our department optimization program which includes automated exp osure control, adjustment of the mA and/or kv according to patient size and/or use of iterative recon struction technique. FINDINGS: Left chest port tip is in the lower SVC. There are multiple low-density lesions in the liver which appears similar and are consistent with cys ts. Small amount of wall calcification is visualized within one of these cysts. There is mild cardiomegaly. Coronary artery calcifications. There are small lymph nodes in the mediastinum. There is a 3.6 x 2.4 cm pleural-based mass in the region of the right azygos esophageal recess. There is rim calcification with some internal calcifications also visualized. The appearance is stable com pared to the prior study. There is also a pleural-based mass in the posterior right upper lung measur ing approximately 2.1 x 0.9 cm each is unchanged in size when measured in a similar fashion. There ar e several calcifications associated with this lesion. Atherosclerotic calcifications in the thoracic aorta. There are small bilateral pleural effusions which are new since the previous study. There are patchy airspace and nodular infiltrates throughout the lungs greater on the right. These findings could be f rom an infectious or an inflammatory process. There is a calcified granuloma in the lateral right daniel g. No pneumothorax. There are somewhat lytic appearing lesions in the lateral ninth rib which are stable compared to the prior study. IMPRESSION: Bilateral pleural effusions with patchy airspace and nodular infiltrates throughout the lungs greater on the right. The findings are likely from an infectious or inflammatory process. Mejía es from edema are not totally excluded. Follow-up is recommended after treatment. There are stable pleural-based mass lesions which are of uncertain etiology. There are somewhat lytic appearing lesions in the lateral ninth rib which are stable compared to the prior study. Follow-up of these findings is recommended in 12 months. Electronically signed by: Louis Heredia MD 05/18/2019 12:19 AM CDT Due to temporary technical issues with the PACS/Fluency reporting system, reports are being signed by the in house radiologist as a courtesy to ensure prompt reporting. The interpreting radiologist is f ully responsible for the content of the report.
[2019-05-19] MEDS ORDERED: EPOETIN ALFA 20,000 UNIT/ML SQ ONE (10:36)
[2019-05-19 16:04] VITALS: O2SAT 97
[2019-05-19 16:12] VITALS: BP 172/82; TEMP 98.2
--- NOTE | 2019-05-20 17:46 | DS ---
Date of Discharge: 05/19/2019 Disposition: Discharged to go home. Physical Examination: HEENT: Unremarkable. Lungs: Clear to auscultation. No rhonchi. No rales. Heart: Sounds normal. Abdomen: Soft. Bowel sounds normal. No guarding, rigidity, tenderness, distention. Extremities: No leg edema. Hospital Course: A 73-year-old male patient admitted to the hospital with complaints of shortness of breath. Please see dictated H and P for more information. The patient's white count was 9.2, hemog lobin 9.5, platelets 80. Blood gas showed pH 7.45, pCO2 of 37.4, PO2 of 54, oxygen saturation 88% on room air upon admission. Sodium was 144, potassium 5, chloride 108, bicarb 24, BUN 65, creatinine 1 0.30, glucose 94. Total bilirubin 1.9, otherwise rest of the liver function tests were unremarkable. Chest x-ray showed moderate pulmonary opacity bilaterally consistent with pneumonia. The patient w as admitted to the hospital. He was given IV antibiotics Zosyn, IV steroid Solu-Medrol 40 mg q.12 ho urs. On outpatient basis, he takes prednisone 5 mg daily. Maintenance Technician 2Nd Shift was consulted for dialysis s upport. He got his dialysis yesterday. Today, when I saw him, he was feeling much better, ambulatin g well. Shortness of breath problem has improved significantly and told me that he felt like he was ready to go home. Repeat chest x-ray done today shows significant improvement in his pneumonia. Jeff prather advised him to follow up with his [facility] oncologist within next 1 to 2 weeks and to discuss about his hospital admission with pneumonia requiring IV antibiotics and IV steroids and to discuss f urther treatment plan for his kidney cancer with help of his oncologist as there is a concern about o ngoing immunotherapy causing any lung damage. Final Diagnoses: 1.Pneumonia. 2.Chronic systolic congestive heart failure, with acute exacerbation. 3.End-stage renal disease, on hemodialysis. 4.Anemia due to chronic kidney disease. 5.Thrombocytopenia, chronic. 6.Kidney cancer. 7.Hypertension. 8.Hyperlipidemia. 9.Benign prostatic hypertrophy. Discharge Medications: 1.Continue prior home medications. 2.Take Augmentin 500 mg one tablet by mouth daily for 10 days and patient was advised to take it in the afternoon or evening hours so he will end up taking his dose after dialysis. 3.Take prednisone 10 mg. the patient to take 3 tablets by mouth daily for 3 days, then 2 tablets by mouth daily for 3 days, then 1 tablet by mouth daily for 3 days, then stop. The patient was advised that after he stops this 9 days of prednisone therapy, he should resume his usual daily dose of 5 mg prednisone at that time. Discharge Instructions: 1.Follow up at my office in 1 month. 2.Follow up with MD Garcia in 1 to 2 weeks. RYAN/WATSON Voice ID: [id number] Report ID: [id number]
== END 2019-05-19 17:00 | disposition home or self-care (01) ==
LOC: ER 20:07 → ERHOLD 05-18 01:22 → INTOOBSV 05-18 01:22 → 4TH 05-18 02:26
PROVIDERS: ADMIT Internal Medicine; ATTEND Internal Medicine
PROC: 5A1D70Z Performance of Urinary Filtration, Intermittent, Less than 6 Hours Per Day (ICD-10-PCS; principal; 2019-05-19)
DX: J18.9 Pneumonia, unspecified organism (principal); I50.23 Acute on chronic systolic (congestive) heart failure; I13.2 Hypertensive heart and chronic kidney disease with heart failure and with stage 5 chronic kidney disease, or end stage renal disease; R73.9 Hyperglycemia, unspecified; E87.5 Hyperkalemia; D69.6 Thrombocytopenia, unspecified; N18.6 End stage renal disease; E78.5 Hyperlipidemia, unspecified; N40.0 Benign prostatic hyperplasia without lower urinary tract symptoms; C64.9 Malignant neoplasm of unspecified kidney, except renal pelvis; D63.1 Anemia in chronic kidney disease; Z99.2 Dependence on renal dialysis
CPT/HCPCS: 96365; 93005; 85025 ×2; 80048; 36415 ×2; 83735 ×2; 85610; 82962 ×2; 80076; 84550; 83036; 84484; 80053; 84145; 83880 ×2; 71250; 71045; 71046; 90935 ×2; 94640 ×2; 82805; 94760 ×7; 99285; 96366; J2543; Q4081; J1644 ×2; J0692; J2920 ×3; G0378; J7512

== ENCOUNTER 2019-08-15 16:20 | Inpatient (IN) | payer OTHER, BC ==
[2019-08-15] MEDS ORDERED: CEFTRIAXONE/SWI 1gm 1 GM/10 ML SYR ONE (17:39)
[2019-08-15] MEDS ORDERED: LEVALBUTEROL 1.25 MG/3 ML NEB ONE (17:39)
[2019-08-15 17:53] LABS: Absolute Lymphocytes (CBC) 0.2 K/uL (0.7-4.9); Basophils % 0.4 % (0-1.3); Hematocrit 27.9 % (39.6-49.0); Lymphocytes % 3.7 % (15.3-44.8); RBC Red Blood Cell Count 3.12 M/uL (4.33-5.43)
[2019-08-15 17:57] LABS: Protime INR 0.99
--- NOTE | 2019-08-15 18:13 | RAD REPORT ---
EXAM DESCRIPTION: Hema Single View08/15/2019 5:49 pm CLINICAL HISTORY: congestion COMPARISON: August 12, 2018 FINDINGS: Mild bilateral interstitial lung opacities. Small pleural effusions. The heart is mildly enlarged Central venous line has its tip in the superior vena cava IMPRESSION: Mild CHF
[2019-08-15 18:18] LABS: Blood Morphology Comment NOT SEEN (NOT SEEN); Platelet Estimate DECR; Urine White Blood Cell Casts OK
[2019-08-15 18:34] LABS: ALT/SGPT 20 U/L (12-78); AST/SGOT 17 U/L (15-37); Alkaline Phosphatase 91 U/L (45-117); BUN Blood Urea Nitrogen 40 mg/dL (7-18); Bicarbonate 28 mmol/L (21-32); Bilirubin Direct 0.4 mg/dL (0-0.2); Bilirubin Total 1.3 mg/dL (0.2-1.0); Glucose Level 123 mg/dL (74-106); Magnesium 2.2 mg/dL (1.8-2.4); Potassium 4.5 mmol/L (3.5-5.1); Protein, Total 6.6 g/dL (6.4-8.2); Sodium Level 143 mmol/L (136-145); Troponin (Emerg Dept Use Only) < 0.02 ng/mL (0.0-0.045)
[2019-08-15 19:06] LABS: NT PRO-BNP > 175000 pg/mL (<125)
--- NOTE | 2019-08-15 19:12 | ER ---
Nurse's Notes [facility] Name: Analilia Colby Age: 74 yrs Sex: Male : 1945 Arrival Date: 08/15/2019 Time: 16:22 Bed 20 Private MD: Alfreda Obrien C Diagnosis: Shortness of breath;Congestive Heart Failure Presentation: 08/15 16:46 Presenting complaint: Patient states: Cough, congestion, and SOB x approx 1 week, saw ph Micah on and prescribed Zpack and steroids but aren't helping, denies fever, chills, N/V, no distress noted. Transition of care: patient was not received from another setting of care. Onset of symptoms was August 15, 2019. Risk Assessment: Do you want to hurt yourself or someone else? Patient reports no desire to harm self or others. Initial Sepsis Screen: Does the patient meet any 2 criteria? No. Patient's initial sepsis screen is negative. Does the patient have a suspected source of infection? No. Patient's initial sepsis screen is negative. Care prior to arrival: None. 16:46 Method Of Arrival: Wheelchair 16:46 Acuity: RIVERA 3 ph Triage Assessment: 19:20 General: Appears in no apparent distress. comfortable. Respiratory: the patient has cc3 mild shortness of breath. Historical: - Allergies: 16:46 No Known Allergies; ph - Home Meds: 16:46 amlodipine 10 mg tab 1 tab twice a day [Active]; carvedilol 6.25 mg Oral tab 2 times ph per day [Active]; losartan 100 mg Oral tab 1 tab once daily [Active]; prednisone 5 mg/5 mL Oral soln once daily [Active]; ProAir HFA 90 mcg/actuation inhalation HFAA 1 puff every 4 hours [Active]; - PMHx: 16:46 Cancer, Lung; Renal Cancer; Dialysis; Liver disease; Hypertension; ph - Immunization history:: Flu vaccine is up to date. - Social history:: Smoking status: Patient/guardian denies using tobacco. - Ebola Screening: : No symptoms or risks identified at this time. Screenin:05 Abuse screen: Denies threats or abuse. Nutritional screening: No deficits noted. em Tuberculosis screening: No symptoms or risk factors identified. Fall Risk None identified. Assessment: 17:05 General: Appears in no apparent distress. uncomfortable, Behavior is calm, cooperative, em Denies fever. Pain: Denies pain. Neuro: Level of Consciousness is awake, alert, obeys commands, Oriented to person, place, time, situation, Appropriate for age. Cardiovascular: Capillary refill < 3 seconds Patient's skin is warm and dry. Rhythm is regular Chest pain is denied Dialysis shunt: in the right antecubital area, with palpable thrill, with auscultated bruit, with no erythema, with no edema, no bleeding noted. Respiratory: Reports shortness of breath at rest on exertion cough that is productive, Airway is patent Respiratory effort is even, unlabored, Breath sounds with wheezes bilaterally. Onset: The symptoms/episode began/occurred 1 week. Derm: Skin is intact, is healthy with good turgor, Skin is pink, warm \T\ dry. Musculoskeletal: Capillary refill < 3 seconds, Range of motion: intact in all extremities. 17:50 Reassessment: Patient appears in no apparent distress at this time. Patient and/or em family updated on plan of care and expected duration. Pain level reassessed. Patient is alert, oriented x 3, equal unlabored respirations, skin warm/dry/pink. Patient states symptoms have improved. 19:20 Reassessment: Patient appears in no apparent distress at this time. Patient and/or cc3 family updated on plan of care and expected duration. Pain level reassessed. Patient is alert, oriented x 3, equal unlabored respirations, skin warm/dry/pink. Received this male patient from morning shift [facility] as a case of CHF, with IV cannula gauge 22 at the left ACV saline locked. Noted with nonworking fistula at the left arm; with right arm working fistula for hemodialysis, patient said he's having hemodialysis during Saturday, Saturday, and Saturday. Patient denies pain at this time. General: Appears in no apparent distress. comfortable, Behavior is calm, cooperative, appropriate for age. Pain: Denies pain. Neuro: Level of Consciousness is awake, alert, obeys commands, Oriented to person, place, time, situation, Appropriate for age. Cardiovascular: Denies chest pain, Heart tones S1 S2 present Capillary refill < 3 seconds in bilateral fingers Patient's skin is warm and dry. Dialysis shunt: in the right arm and right antecubital area, with palpable thrill, with auscultated bruit, with no erythema, with no edema, no bleeding noted. Respiratory: Airway is patent Respiratory effort is even, unlabored, Respiratory pattern is regular, symmetrical, Breath sounds with wheezes bilaterally. GI: Abdomen is round non-distended, Bowel sounds present X 4 quads. Abd is soft and non tender X 4 quads. : Reports anuria because he's on hemodialysis. EENT: No signs and/or symptoms were reported regarding the EENT system. Derm: Skin is fragile, is thin, Skin is pink, warm \T\ dry. normal. Musculoskeletal: Circulation, motion, and sensation intact. Range of motion: intact in all extremities. 20:18 Reassessment: Patient appears in no apparent distress at this time. Patient and/or cc3 family updated on plan of care and expected duration. Pain level reassessed. Patient is alert, oriented x 3, equal unlabored respirations, skin warm/dry/pink. Patient denies pain at this time. Patient states feeling better. Patient states symptoms have improved. 21:15 Reassessment: Patient appears in no apparent distress at this time. Patient and/or cc3 family updated on plan of care and expected duration. Pain level reassessed. Patient is alert, oriented x 3, equal unlabored respirations, skin warm/dry/pink. Patient for admission, room available in 407, report called and handed over to ALEK Juarez for continuity of care and management. 21:30 Reassessment: Patient appears in no apparent distress at this time. Patient and/or cc3 family updated on plan of care and expected duration. Pain level reassessed. Patient is alert, oriented x 3, equal unlabored respirations, skin warm/dry/pink. dental laboratory technician Maite called lab to draw Troponin and lab staff told her that they've been waiting for Troponin sample since 1700H; last Troponin result was at 1837H charge nurse Nikole informed and she called lab and spoke with the staff and she was told that the admission order was Troponin every 4 hours. 21:50 Reassessment: Patient appears in no apparent distress at this time. Patient and/or cc3 family updated on plan of care and expected duration. Pain level reassessed. Patient is alert, oriented x 3, equal unlabored respirations, skin warm/dry/pink. Patient left ER for admission vitally stable by stretcher escorted by dental laboratory technician Maite and the patient's . No valuables left in the patient's room. Patient denies pain at this time. Patient states feeling better. Patient states symptoms have improved. Vital Signs: 16:48 BP 171 / 83; Pulse 78; Resp 20; Temp 98.0(O); Pulse Ox 94% on R/A; Weight 80 kg; ph 17:30 BP 161 / 72; Pulse 77; Resp 18; Pulse Ox 99% on R/A; Pain 0/10; iw 19:30 BP 156 / 87; Pulse 75; Resp 20 S; Pulse Ox 97% on R/A; cc3 20:00 BP 127 / 53; Pulse 76; Resp 20 S; Pulse Ox 97% on R/A; cc3 21:30 BP 114 / 51; Pulse 78; Resp 21 S; Pulse Ox 99% on R/A; cc3 ED Course: 16:22 Patient arrived in ED. mr 16:23 Alfreda Obrien MD is Private Physician. mr 16:48 Triage completed. ph 16:49 Arm band placed on left wrist. Patient placed in an exam room. ph 17:03 Andre Barros MD is Attending Physician. iw 17:05 Patient has correct armband on for positive identification. Placed in gown. Bed in low em position. Call light in reach. Side rails up X2. Adult w/ patient. Pulse ox on. NIBP on. 17:08 Juventino Del Rio LVN is Primary Nurse. em 17:50 Inserted saline lock: 22 gauge in left antecubital area, using aseptic technique. Blood em collected. 17:50 Initial lab(s) drawn, by me, sent to lab. First set of blood cultures drawn by me. em 17:51 XRAY Chest (1 view) In Process Unspecified. EDMS 19:08 Alfreda Obrien MD is Hospitalizing Provider. kdr 20:00 Radiology exam delayed due to PT HAVING A BREATHING TREATMENT. bq 20:19 CT completed. Patient tolerated procedure well. Patient moved back from CT. mw3 21:15 No provider procedures requiring assistance completed. Patient admitted, IV remains in cc3 place. Administered Medications: 17:44 Drug: Xopenex (3) 1.25 mg Route: Inhalation; em 18:15 Drug: Rocephin 1 grams Route: IV; Rate: calculated rate; Site: left antecubital; iw 19:00 Follow up: Response: No adverse reaction; IV Status: Completed infusion cc3 19:15 Drug: Lasix 40 mg Route: IVP; Site: left antecubital; cc3 20:00 Follow up: Response: No adverse reaction cc3 19:32 CANCELLED (Duplicate Order): DuoNeb (3:1) (2.5 mg - 0.5 mg) 3 ml Nebulizer once cc3 19:35 Drug: SOLU-Medrol 100 mg Route: IVP; Site: left antecubital; cc3 20:00 Follow up: Response: No adverse reaction cc3 19:35 Drug: Albuterol - atroVENT (3:1) (2.5 mg - 0.5 mg) 3 ml Route: Nebulizer; cc3 20:00 Follow up: Response: No adverse reaction; Marked relief of symptoms cc3 Outcome: 19:09 Decision to Hospitalize by Provider. kdr 21:15 Admitted to Tele accompanied by tech, family with patient, via stretcher, room 407, cc3 with chart, Report called to ALEK Juarez 21:15 Condition: stable 21:15 Instructed on the need for admit, Demonstrated understanding of instructions. 22:05 Patient left the ED. cc3 Signatures: Dispatcher [employer] Andre Clark MD MD [facility] Humphrey, Alessandra mr Maddi, Jessicagibson Del Rio, Juventino, POSTBED STITCHER POSTBED STITCHER Jessie Vargas RN RN Paige Joshi RN RN Shi Arboleda 3 Марина Acharya cc3 Corrections: (The following items were deleted from the chart) 19:38 17:50 Reassessment: Patient appears in no apparent distress at this time. Patient em and/or family updated on plan of care and expected duration. Pain level reassessed. Patient is alert, oriented x 3, equal unlabored respirations, skin warm/dry/pink. Patient states symptoms have improved. iw
--- NOTE | 2019-08-15 19:12 | EDPHYS ---
Physician Documentation [facility] Name: Analilia Colby Age: 74 yrs Sex: Male : 1945 Arrival Date: 08/15/2019 Time: 16:22 Bed 20 Private MD: Alfreda Obrien C ED Physician Andre Barros HPI: 08/15 19:09 This 74 yrs old Male presents to ER via Wheelchair with complaints of kdr Breathing Difficulty, Cough, Congestion. 08/16 07:12 The patient has shortness of breath at rest, with light activity. Onset: The kdr symptoms/episode began/occurred gradually, 1 week(s) ago. Duration: The symptoms are continuous, and are steadily getting worse. The patient's shortness of breath is aggravated by exertion, light activity. Associated signs and symptoms: Pertinent positives: non-productive cough, Pertinent negatives: diaphoresis, dizziness, fever, hemoptysis, nausea, numbness in extremities, visual changes, vomiting. Severity of symptoms: At their worst the symptoms were mild moderate just prior to arrival, in the emergency department the symptoms are unchanged. The patient has not experienced similar symptoms in the past. The patient has been recently seen by a physician: Saw Dr. Obrien on Saturday and given Z-Pack and steroids but he is not getting any better. Historical: - Allergies: 08/15 16:46 No Known Allergies; ph - Home Meds: 16:46 amlodipine 10 mg tab 1 tab twice a day [Active]; carvedilol 6.25 mg Oral tab 2 times ph per day [Active]; losartan 100 mg Oral tab 1 tab once daily [Active]; prednisone 5 mg/5 mL Oral soln once daily [Active]; ProAir HFA 90 mcg/actuation inhalation HFAA 1 puff every 4 hours [Active]; - PMHx: 16:46 Cancer, Lung; Renal Cancer; Dialysis; Liver disease; Hypertension; ph - Immunization history:: Flu vaccine is up to date. - Social history:: Smoking status: Patient/guardian denies using tobacco. - Ebola Screening: : No symptoms or risks identified at this time. ROS: 08/16 07:12 Constitutional: Negative for fever, chills, and weight loss, Eyes: Negative for injury, kdr pain, redness, and discharge, ENT: Negative for injury, pain, and discharge, Neck: Negative for injury, pain, and swelling, Cardiovascular: Negative for chest pain, palpitations, and edema, Abdomen/GI: Negative for abdominal pain, nausea, vomiting, diarrhea, and constipation, Back: Negative for injury and pain, : Negative for injury, bleeding, discharge, and swelling, MS/Extremity: Negative for injury and deformity, Skin: Negative for injury, rash, and discoloration, Neuro: Negative for headache, weakness, numbness, tingling, and seizure activity. Psych: Negative for depression, anxiety, suicide ideation, homicidal ideation, and hallucinations, Allergy/Immunology: Negative for hives, rash, and allergies, Endocrine: Negative for neck swelling, polydipsia, polyuria, polyphagia, and marked weight changes, Hematologic/Lymphatic: Negative for swollen nodes, abnormal bleeding, and unusual bruising. Respiratory: Positive for cough, with no reported sputum, dyspnea on exertion, shortness of breath, wheezing, inspiratory, expiratory. Exam: 07:12 Constitutional: This is a well developed, well nourished patient who is awake, alert, kdr and in no acute distress. Head/Face: Normocephalic, atraumatic. Eyes: Pupils equal round and reactive to light, extra-ocular motions intact. Lids and lashes normal. Conjunctiva and sclera are non-icteric and not injected. Cornea within normal limits. Periorbital areas with no swelling, redness, or edema. Neck: Trachea midline, no thyromegaly or masses palpated, and no cervical lymphadenopathy. Supple, full range of motion without nuchal rigidity, or vertebral point tenderness. No Meningismus. Chest/axilla: Normal chest wall appearance and motion. Nontender with no deformity. No lesions are appreciated. Cardiovascular: Regular rate and rhythm with a normal S1 and S2. No gallops, murmurs, or rubs. Normal PMI, no JVD. No pulse deficits. Abdomen/GI: Soft, non-tender, with normal bowel sounds. No distension or tympany. No guarding or rebound. No evidence of tenderness throughout. Back: No spinal tenderness. No costovertebral tenderness. Full range of motion. Skin: Warm, dry with normal turgor. Normal color with no rashes, no lesions, and no evidence of cellulitis. MS/ Extremity: Pulses equal, no cyanosis. Neurovascular intact. Full, normal range of motion. Neuro: Awake and alert, GCS 15, oriented to person, place, time, and situation. Cranial nerves II-XII grossly intact. Motor strength 5/5 in all extremities. Sensory grossly intact. Cerebellar exam normal. Normal gait. Psych: Awake, alert, with orientation to person, place and time. Behavior, mood, and affect are within normal limits. 07:12 Respiratory: mild respiratory distress is noted, Respirations: labored breathing, that is mild, Breath sounds: rales, are heard diffusely, wheezing: that is moderate, is heard diffusely. Vital Signs: 08/15 16:48 BP 171 / 83; Pulse 78; Resp 20; Temp 98.0(O); Pulse Ox 94% on R/A; Weight 80 kg; ph 17:30 BP 161 / 72; Pulse 77; Resp 18; Pulse Ox 99% on R/A; Pain 0/10; iw 19:30 BP 156 / 87; Pulse 75; Resp 20 S; Pulse Ox 97% on R/A; cc3 20:00 BP 127 / 53; Pulse 76; Resp 20 S; Pulse Ox 97% on R/A; cc3 21:30 BP 114 / 51; Pulse 78; Resp 21 S; Pulse Ox 99% on R/A; cc3 MDM: 19:09 Patient medically screened. kdr 08/16 07:12 Data reviewed: vital signs, nurses notes, lab test result(s), radiologic studies. kdr Counseling: I had a detailed discussion with the patient and/or guardian regarding: the historical points, exam findings, and any diagnostic results supporting the discharge/admit diagnosis, lab results, radiology results, the need for further work-up and treatment in the hospital. 08/15 17:04 Order name: Basic Metabolic Panel; Complete Time: 19:07 kdr 08/15 17:04 Order name: CBC with Diff; Complete Time: 18:47 kdr 08/15 17:04 Order name: LFT's; Complete Time: 19:07 kdr 08/15 17:04 Order name: Magnesium; Complete Time: 19:07 kdr 08/15 17:04 Order name: NT PRO-BNP; Complete Time: 19:07 kdr 08/15 17:04 Order name: PT-INR; Complete Time: 18:47 kdr 08/15 17:04 Order name: Troponin (emerg Dept Use Only); Complete Time: 19:07 kdr 08/15 17:34 Order name: Blood Culture Adult (2) kdr 08/15 17:34 Order name: Ckmb; Complete Time: 20:55 kdr 08/15 17:34 Order name: CPK; Complete Time: 20:55 kdr 08/15 17:34 Order name: Lactate; Complete Time: 18:47 kdr 08/15 17:34 Order name: Lipase; Complete Time: 20:55 kdr 08/15 17:34 Order name: Procalcitonin; Complete Time: 19:07 kdr 08/15 17:34 Order name: Ptt, Activated; Complete Time: 18:47 kdr 08/15 17:04 Order name: XRAY Chest (1 view); Complete Time: 18:47 kdr 08/15 17:34 Order name: Urine Microscopic Only kdr 08/15 17:58 Order name: CBC Smear Scan; Complete Time: 18:47 EDMS 08/15 19:18 Order name: Basic Metabolic Panel EDPA 08/15 19:18 Order name: Basic Metabolic Panel EDPA 08/15 19:18 Order name: CBC with Automated Diff EDMS 08/15 19:18 Order name: CBC with Automated Diff EDMS 08/15 19:18 Order name: NT PRO-BNP EDPA 08/15 19:18 Order name: NT PRO-BNP EDPA 08/15 19:18 Order name: Troponin I EDPA 08/15 19:19 Order name: Troponin I EDPA 08/15 19:19 Order name: Troponin I EDPA 08/15 19:31 Order name: CT Chest Wo Con kdr 08/15 20:54 Order name: CT; Complete Time: 20:55 EDMS 08/15 17:04 Order name: EKG; Complete Time: 17:06 kdr 08/15 17:04 Order name: Cardiac monitoring; Complete Time: 17:08 kdr 08/15 17:04 Order name: EKG - Nurse/Tech; Complete Time: 18:03 kdr 08/15 17:04 Order name: IV Saline Lock; Complete Time: 18:03 kdr 08/15 17:04 Order name: Labs collected and sent; Complete Time: 18:03 kdr 08/15 17:04 Order name: O2 Per Protocol; Complete Time: 17:08 kdr 08/15 17:04 Order name: O2 Sat Monitoring; Complete Time: 17:08 kdr 08/15 17:34 Order name: Accucheck; Complete Time: 18:30 kdr 08/15 17:34 Order name: IV Saline Lock - Large Bore; Complete Time: 18:30 kdr 08/15 19:18 Order name: Low Sodium EDMS Administered Medications: 08/15 17:44 Drug: Xopenex (3) 1.25 mg Route: Inhalation; em 18:15 Drug: Rocephin 1 grams Route: IV; Rate: calculated rate; Site: left antecubital; iw 19:00 Follow up: Response: No adverse reaction; IV Status: Completed infusion cc3 19:15 Drug: Lasix 40 mg Route: IVP; Site: left antecubital; cc3 20:00 Follow up: Response: No adverse reaction cc3 19:32 CANCELLED (Duplicate Order): DuoNeb (3:1) (2.5 mg - 0.5 mg) 3 ml Nebulizer once cc3 19:35 Drug: SOLU-Medrol 100 mg Route: IVP; Site: left antecubital; cc3 20:00 Follow up: Response: No adverse reaction cc3 19:35 Drug: Albuterol - atroVENT (3:1) (2.5 mg - 0.5 mg) 3 ml Route: Nebulizer; cc3 20:00 Follow up: Response: No adverse reaction; Marked relief of symptoms cc3 Disposition: 08/15/19 19:09 Hospitalization ordered by Alfreda Obrien for Inpatient Admission. Preliminary diagnosis are Shortness of breath, Congestive Heart Failure. - Bed requested for Telemetry/MedSurg (Inpatient). - Status is Inpatient Admission. cc3 - Condition is Fair. - Problem is an acute exacerbation. - Symptoms have improved. UTI on Admission? No Signatures: Dispatcher [employer] EDMS Cristhian Garcia MD MD cha Rittger, Kevin, MD MD kdr Juventino Del [place], CLINICAL PRODUCT SPECIALIST CLINICAL PRODUCT SPECIALIST em Jessie Wynn, ALEK GASTON iw Paige Joshi RN RN ph Garcia, Cindy, ALEK RN Марина Villareal cc3 Corrections: (The following items were deleted from the chart) 18:19 17:34 Urine Dipstick-Ancillary ordered. kdr ar5 19:32 19:31 DuoNeb (3:1) (2.5 mg - 0.5 mg) 3 ml Nebulizer once ordered. cc3 cc3 19:52 19:09 Hospitalization Ordered by A Micah ARRIETA for Inpatient Admission. Preliminary cg diagnosis is Shortness of breath; Congestive Heart Failure. Bed requested for Telemetry/MedSurg (Inpatient). Status is Inpatient Admission. Condition is Fair. Problem is an acute exacerbation. Symptoms have improved. UTI on Admission? No. kdr 22:05 19:52 08/15/2019 19:09 Hospitalization Ordered by A Micah ARRIETA for Inpatient Admission. cc3 Preliminary diagnosis is Shortness of breath; Congestive Heart Failure. Bed requested for Telemetry/MedSurg (Inpatient). Status is Inpatient Admission. Condition is Fair. Problem is an acute exacerbation. Symptoms have improved. UTI on Admission? No. cg
[2019-08-15] MEDS ORDERED: ONDANSETRON 4 MG/2 ML VIAL IV PRN (19:15)
[2019-08-15] MEDS ORDERED: ACETAMINOPHEN 500 MG TAB PO PRN (19:15)
[2019-08-15] MEDS ORDERED: ALBUTEROL 2.5 MG/3 ML NEB SOL NEB PRN (19:15)
[2019-08-15] MEDS ORDERED: IPRATROPIUM BROM 0.5MG/2.5ML NEB PRN (19:15)
[2019-08-15] MEDS ORDERED: FUROSEMIDE 40 MG/4 ML VIAL ONE (19:18)
[2019-08-15 19:39] LABS: CKMB Creatine Kinase MB 1.2 ng/mL (0.3-3.6)
[2019-08-15] MEDS ORDERED: METHYLPREDNISOLONE 125 MG INJ ONE (19:39)
[2019-08-15] MEDS ORDERED: IPRATROPIUM BROM 0.5MG/2.5ML ONE (19:39)
[2019-08-15] MEDS ORDERED: ALBUTEROL 2.5 MG/3 ML NEB SOL ONE (19:39)
--- NOTE | 2019-08-15 20:52 | RAD REPORT ---
EXAM DESCRIPTION: CT - Thorax Wo Con - 08/15/2019 8:19 pm CLINICAL HISTORY: sob COMPARISON: November 2018 TECHNIQUE: Computed axial tomography of the chest was obtained. Contrast was not requested. All CT scans are performed using dose optimization technique as appropriate and may include automated exposure control or mA/KV adjustment according to patient size. FINDINGS: The evaluation of mediastinum, rolando and vessels is limited secondary to lack of IV contras t administration. Mild bilateral interstitial lung opacities 1 3.9 centimeter peripherally calcified mass within the azygoesophagealrecess is unchanged. 1.9 centimeter pleural base mass within the upper posterior right hemithorax contains small calcifica tion and is unchanged Small bilateral pleural effusions. A 1 centimeter lucency within a lower lateral left rib is unchanged IMPRESSION: Mild CHF 3.9 centimeter peripherally calcified mass within the as azygoesophageal recess unchanged may represe nt a bronchogenic or foregut cyst 1.9 centimeter pleural-based mass within the upper posterior right hemithorax is unchanged 1 centimeter lucency within a lower lateral left rib is unchanged Followup CT in 6 months is recommended for re-evaluation
[2019-08-16 04:12] LABS: Absolute Lymphocytes (CBC) 0.1 K/uL (0.7-4.9); Basophils % 0.3 % (0-1.3); Hematocrit 25.7 % (39.6-49.0); Lymphocytes % 3.4 % (15.3-44.8); MPV 7.5 fL (7.6-11.3); RBC Red Blood Cell Count 2.84 M/uL (4.33-5.43)
[2019-08-16 04:37] LABS: BUN Blood Urea Nitrogen 47 mg/dL (7-18); Bicarbonate 27 mmol/L (21-32); Glucose Level 161 mg/dL (74-106); Potassium 4.2 mmol/L (3.5-5.1); Sodium Level 142 mmol/L (136-145)
[2019-08-16 04:39] LABS: NT PRO-BNP > 175000 pg/mL (<125)
--- NOTE | 2019-08-16 06:04 | EKG ---
Test Date: 2019-08-15 Test Time: 17:16:27 Maintenance Planner: HAJA MEASUREMENT RESULTS: Intervals: Rate: 78 NM: 170 QRSD: 134 QT: 422 QTc: 481 [place]: P: -5 NM: 170 QRS: 102 T: 50 INTERPRETIVE STATEMENTS: Sinus rhythm with occasional premature ventricular complexes Rightward axis Nonspecific intraventricular block Abnormal ECG Compared to ECG 05/17/2019 21:05:36 Ventricular premature complex(es) now present Right-axis deviation now present Electronically Signed On 08-16-19 06:03:33 VENEER MARKER by Haresh Ledesma
[2019-08-16] MEDS ORDERED: FUROSEMIDE 20 MG/ 2ML VIAL IV SCH (09:00)
[2019-08-16] MEDS: IPRATROPIUM BROM 0.5MG/2.5ML NEB SCH ×3 (10:11→20:00)
[2019-08-16] MEDS: ALBUTEROL 2.5 MG/3 ML NEB SOL NEB SCH ×3 (10:11→20:00)
[2019-08-16] MEDS: CEFTRIAXONE/SWI 1gm 1 GM/10 ML SYR IVP SCH ×2 (10:37→20:36)
[2019-08-16] MEDS: METHYLPREDNISOLONE 40 MG INJ IV SCH ×3 (11:31→23:07)
[2019-08-16] MEDS: LOSARTAN POTASSIUM 50 MG TABLET PO SCH (11:31)
[2019-08-16] MEDS: AZITHROMYCIN IV 250 MG in NA CHLORIDE 0.9% 250 ML IVPB SCH (13:18)
--- NOTE | 2019-08-16 19:40 | CON ---
Date of Consultation: 08/16/2019 Requesting Provider: Dr. Obrien. Reason For Consultation: End-stage renal disease. History Of Present Illness: Mr. Colby is a 74-year-old male with a history of end-stage renal disea se. He presented to the hospital with shortness of breath at rest. The patient was admitted for fur ther management. Consultation was requested for dialysis management. Mr. Colby states that he has been adhering to his dialysis therapy and denies any excessive fluid or sodium intake. He is current ly receiving breathing treatment as he states that his dyspnea has been improving. Review of Systems: Denies any fevers or chills. Positive for dyspnea. No chest pain, nausea, vomiting, or diarrhea. Past Medical History: End-stage renal disease, kidney cancer, and hypertension. Family History: Noncontributory. Physical Examination: Vital Signs: Blood pressure 144, 75, pulse 76, afebrile. General: No acute distress, receiving breathing treatment. Heart: Regular rate and rhythm. No murmurs, rubs, gallops. Lungs: Diffuse expiratory wheezing and rhonchi noted. Abdomen: Soft, nontender, nondistended. Positive bowel sounds x4. Extremities: No significant edema. AV fistula with palpable thrill and audible bruit. Laboratory Data: Hemoglobin 8.4, hematocrit 25.7. Serum chemistry; potassium 4.2, BUN 47, creatinin e 7.36. BNP over 175,000. Diagnostic Imaging: Chest CT shows calcified mass, also shows a 1.9 cm pleural-based mass, 1 cm luce ncy of the lower lateral left rib without any akbar volume overload. Impression: 1.End-stage renal disease, on hemodialysis. 2.Acute dyspnea with wheezing related to possible asthma versus chronic obstructive pulmonary diseas e versus effect of patient's immunologic therapy. 3.Hypertension. Plan: The patient currently is breathing treatment. I will recommend continuing Solu-Medrol 40 mg I V q.6h. Patient will be scheduled for dialysis tomorrow to maintain patient on schedule. Thank you kindly for the consultation. SE/MODL Voice ID: [id number] Report ID: [id number]
--- NOTE | 2019-08-16 20:19 | HP ---
Date of Admission: 08/16/2019 Chief Complaint: Cough, shortness of breath, coughing up mucus. History Of Present Illness: A 74-year-old pleasant male patient who came into my office Saturday of this week with shortness of breath for last few days. He did not have any other symptoms except shortness of breath with activity. Outpatient chest x-ray was done which revealed bilateral pleural effusion, small and on patient's symptoms got little worse, so I did talk to him. He was asked to come in at office and his examination was unchanged, but considering his symptoms, we decided to start him on 5 days of prednisone 20 mg daily and also a Z-Eric was prescribed considering his symptoms. Patient says that Saturday, he felt really great, felt like he was getting much better, but as of yesterday, he started to have more and more shortness of breath and taking just few steps in the room would cause him shortness of breath. He started to have some cough with clear mucus which later on turned into yellow mucus. He denies any fever. After he came into emergency room, he was admitted to the hospital. This morning when I saw him, he was noted to have some wheezing and obviously shortness of breath with talking and that is definitely worse than what it was earlier this week on Saturday and when I saw him at the office. Allergies: NO KNOWN ALLERGIES. Medications: List reviewed. Review of Systems: Respiratory: As mentioned above. Cardiovascular: As mentioned above. All other systems reviewed and negative. Social History: Negative for smoking, alcohol use. Family History: Significant for COPD. Past Surgical History: Bilateral nephrectomy in 2006 due to kidney cancer. Past Medical History: Hypertension, end-stage renal disease, kidney cancer, hyperlipidemia, anemia due to chronic kidney disease, thrombocytopenia, chronic systolic congestive heart failure, benign prostatic hypertrophy. Patient goes for dialysis on Saturday, Saturday, Saturday and after I talked to him on to try to get some more fluid removed during dialysis. He did have his last dialysis session on Saturday and he got 1 extra kilogram body weight removed with extra dialysis. Physical Examination: Vital Signs: Temperature 97.7, pulse 81, respiratory rate 18, blood pressure 144/70, oxygen saturation 94%. Height 5 feet 2 inches, weight 178 pounds. General: Awake, alert, oriented, not in distress. HEENT: Head atraumatic, normocephalic. Conjunctivae nonerythematous. Sclerae white. Mouth, no thrush or edema noted. Ears/Nose, no mass, lesion, discharge noted. Neck: Supple. No JVD, lymph nodes, bruit, thyromegaly noted. Lungs: Patient has wheezing in both lung armstrong, scattered all over. Presence of some rales in both lower lung armstrong, more so on left side than the right side. Heart: Normal heart sounds, no murmur or gallop. Abdomen: Soft, bowel sounds normal. No guarding, rigidity, tenderness, mass, hepatosplenomegaly, distention, or bruit noted. Extremities: No leg edema. No calf tenderness. Skin: No rash, ulcer, cellulitis. Lymphatics: No lymph node enlargement in neck, supraclavicular, infraclavicular region. Neuro: No focal neurological deficit. Chest: Unremarkable. External Genitalia: Deferred. Rectal: Deferred. Laboratory Data: Chest x-ray yesterday shows evidence of mild CHF type of pattern. Electrocardiogram, normal sinus rhythm, occasional premature ventricular complex. CAT scan of the chest done in the emergency room yesterday shows mild CHF pattern, 3.9 cm peripherally calcified mass within the azygoesophageal recess unchanged from before 1.9 cm pleural base mass within upper posterior right hemithorax unchanged and 1 cm lucency within the lower lateral left rib unchanged. White count yesterday 6.1, hemoglobin 9.5, platelets 76. This morning, white count 4.1, hemoglobin 8.4, platelets 65. Yesterday, sodium 143, potassium 4.5, chloride 107, bicarb 28, BUN 40, creatinine 6.54, glucose 123. Liver function tests unremarkable. ProBNP 175, 000. Troponin less than 0.02. Procalcitonin 0.32. This morning, ProBNP more than 175,000. Sodium 142, potassium 4.2, chloride 107, bicarb 27, BUN 47, creatinine 7.36, glucose 161. Impression: 1. Congestive heart failure, chronic, systolic, with acute exacerbation. 2. Acute bronchitis. 3. End-stage renal disease, on hemodialysis. 4. Kidney cancer, status post bilateral nephrectomy. 5. Hypertension. 6. Anemia due to chronic kidney disease. 7. Thrombocytopenia, chronic. 8. Hyperlipidemia. 9. Benign prostatic hypertrophy. Plan: We will go ahead and admit the patient to hospital for further evaluation and management of this problem. Patient is appropriate for inpatient and is expected to spend 2 midnights in hospital. We will go ahead and give him IV steroid, IV antibiotics per order. We will discontinue IV Lasix. Patient does not make any urine at all and we will discontinue IV Lasix therapy. We will also consult retail support manager for dialysis support and see if retail support manager can remove some more fluid for him if it is possible to assist with his breathing, we will get echo with Doppler tomorrow. Home medications will be continued per order and we will make further adjustment on medication depending on his echocardiogram report. Details and plan of treatment discussed with the patient. RYAN/WATSON Voice ID: [id number] QUAN
[2019-08-16] MEDS: AMLODIPINE 10 MG TAB PO SCH (20:35)
[2019-08-16] MEDS: GUAIFENESIN/DM 5 ML UCUP PO PRN (20:36)
[2019-08-16] MEDS: carvediloL 6.25 MG TAB PO SCH (20:36)
[2019-08-17] MEDS: IPRATROPIUM BROM 0.5MG/2.5ML NEB SCH ×4 (02:00→20:45)
[2019-08-17] MEDS: ALBUTEROL 2.5 MG/3 ML NEB SOL NEB SCH ×4 (02:00→20:45)
[2019-08-17] MEDS: GUAIFENESIN/DM 5 ML UCUP PO PRN ×2 (02:04→22:19)
[2019-08-17] MEDS: METHYLPREDNISOLONE 40 MG INJ IV SCH ×3 (05:15→17:04)
[2019-08-17 05:37] VITALS: BMI 26.3
[2019-08-17] MEDS ORDERED: HOME MED 1 EA UNK (Losartan Potassium [Cozaar] 1 TAB) PO SCH (09:00)
[2019-08-17] MEDS ORDERED: LOSARTAN POTASSIUM 50 MG TABLET PO SCH (09:00)
[2019-08-17] MEDS: PIPER/TAZO/NS 2.25gm 2.25 GM/50 ML BAG IVPB SCH ×2 (09:53→16:36)
[2019-08-17] MEDS: AZITHROMYCIN IV 250 MG in NA CHLORIDE 0.9% 250 ML IVPB SCH (09:53)
[2019-08-17] MEDS: carvediloL 6.25 MG TAB PO SCH ×2 (09:54→22:19)
[2019-08-17] MEDS: AMLODIPINE 10 MG TAB PO SCH ×2 (09:54→22:20)
[2019-08-17] MEDS: LOSARTAN POTASSIUM 50 MG TABLET PO SCH (09:54)
--- NOTE | 2019-08-17 10:12 | RAD REPORT ---
EXAM DESCRIPTION: Hema Pa And Lat (2 Views)08/17/2019 9:04 am CLINICAL HISTORY: Cough COMPARISON: August 15, 2019 FINDINGS: The bilateral pulmonary opacities have resolved Small bilateral pleural effusions The heart is mildly enlarged A central venous line remains in place No change in a partially calcified right as azygoesophageal mass
--- NOTE | 2019-08-17 22:13 | P.PN ---
Date of Service: 08/17/19 Vital Signs Temp Pulse Resp BP Pulse Ox 97.5 F 66 28 H 137/85 96 08/17/19 16:00 08/17/19 16:00 08/17/19 16:00 08/17/19 16:00 08/17/19 16:00 Medications Acetaminophen (Tylenol -Extra Strength) 500 mg PO Q6H PRN PRN Reason: Temp > 101.5 Stop: 09/14/19 19:16 Albuterol Sulfate (Proventil 0.083% Neb Soln) 2.5 mg NEB [id number] [facility] Stop: 09/15/19 12:01 Last Admin: 08/17/19 14:00 Dose: Not Given Amlodipine Besylate (Norvasc) 10 mg PO BID [facility] Stop: 09/15/19 21:01 Last Admin: 08/17/19 09:54 Dose: 10 mg Carvedilol (Coreg) 6.25 mg PO BID [facility] Stop: 09/15/19 21:01 Last Admin: 08/17/19 09:54 Dose: 6.25 mg Guaifenesin/Dextromethorphan (Robitussin Dm) 10 ml PO Q6H PRN PRN Reason: COUGH Stop: 09/15/19 09:42 Last Admin: 08/17/19 02:04 Dose: 10 ml Azithromycin 250 mg/ Sodium (Chloride) 250 mls @ 250 mls/hr IVPB DAILY [facility]; Protocol Stop: 09/15/19 12:01 Last Admin: 08/17/19 09:53 Dose: 250 mls Piperacillin/Tazobactam/Sod Chloride (Zosyn 2.25 Gm/50 Ml Ivpb) 2.25 gm in 50 mls @ 100 mls/hr IVPB Q8HR [facility]; Protocol Stop: 09/16/19 09:01 Last Admin: 08/17/19 16:36 Dose: 50 mls Ipratropium [place] (Atrovent Neb) 0.5 mg NEB [id number] [facility] Stop: 09/15/19 12:01 Last Admin: 08/17/19 14:00 Dose: Not Given Losartan Potassium (Cozaar) 100 mg PO DAILY [facility] Stop: 09/15/19 12:01 Last Admin: 08/17/19 09:54 Dose: 100 mg Methylprednisolone Sodium Succinate (Solu-Medrol) 40 mg IV Q6HR [facility] Stop: 09/15/19 12:01 Last Admin: 08/17/19 17:04 Dose: 40 mg Ondansetron HCl (Zofran) 4 mg IV Q4H PRN PRN Reason: NAUSEA / VOMITING Sodium Chloride (Normal Saline Flush) 10 ml IV BID [facility] Stop: 09/14/19 21:01 Last Admin: 08/17/19 09:54 Dose: 10 ml Microbiology Results 08/15/19 18:10 Blood - Blood Aerobic Blood Culture - Preliminary No growth in 24 hours. 08/15/19 18:10 Blood - Blood Anaerobic Blood Culture - Final 08/15/19 17:50 Blood - Blood Aerobic Blood Culture - Preliminary No growth in 24 hours. 08/15/19 17:50 Blood - Blood Anaerobic Blood Culture - Final Assessment/ Plan: Nephrology CPS improved without CP. +GILLIAM Feeling better after dialysis today. No acute events overnight. Vitals, medications, blood work and imaging reviewed in the chart. NAD. MMM. Neck supple. Diffuse wet rales. RRR. Soft Abd. No C/C/E. No rash. AAO. Normal Speech. A/ ESRD on HD. Systolic CHF, A/C. HTN with CKD/ CHF. Anemia in CKD. Thrombocytopenia. MANFRED/ Secondary HyperPTH. BPH. P/ Continue current POC and Medications. Next HD Saturday. Declines another HD treatment tomorrow. Continue abx and steroids. Echocardiogram pending. AM labs. Daily weight. No NSAIDs. EXAM DESCRIPTION: Hema Farr And Lat (2 Views)08/17/2019 9:04 am CLINICAL HISTORY: Cough COMPARISON: August 15, 2019 FINDINGS: The bilateral pulmonary opacities have resolved Small bilateral pleural effusions The heart is mildly enlarged A central venous line remains in place No change in a partially calcified right as azygoesophageal mass. EXAM DESCRIPTION: CT - Thorax Wo Con - 08/15/2019 8:19 pm CLINICAL HISTORY: sob COMPARISON: November 2018 TECHNIQUE: Computed axial tomography of the chest was obtained. Contrast was not requested. All CT scans are performed using dose optimization technique as appropriate and may include automated exposure control or mA/KV adjustment according to patient size. FINDINGS: The evaluation of mediastinum, rolando and vessels is limited secondary to lack of IV contrast administration. Mild bilateral interstitial lung opacities 1 3.9 centimeter peripherally calcified mass within the azygoesophagealrecess is unchanged. 1.9 centimeter pleural base mass within the upper posterior right hemithorax contains small calcification and is unchanged Small bilateral pleural effusions. A 1 centimeter lucency within a lower lateral left rib is unchanged IMPRESSION: Mild CHF 3.9 centimeter peripherally calcified mass within the as azygoesophageal recess unchanged may represent a bronchogenic or foregut cyst 1.9 centimeter pleural-based mass within the upper posterior right hemithorax is unchanged 1 centimeter lucency within a lower lateral left rib is unchanged Followup CT in 6 months is recommended for re-evaluation
[2019-08-18] MEDS: METHYLPREDNISOLONE 40 MG INJ IV SCH ×4 (00:23→17:08)
--- NOTE | 2019-08-18 01:11 | PN ---
Date of Progress Note: 08/17/2019 Subjective: Patient was seen this morning for followup. He did not feel any better today compared t o yesterday. In fact, he felt like his shortness of breath was worse today than yesterday. Objective: Vital Signs: Reviewed. HEENT: Unremarkable. Lungs: Bilateral good equal air entry, presence of some scattered wheezing noted. Heart: Sounds normal. Abdomen: Soft, bowel sounds normal. No guarding, rigidity, tenderness, or distention. Extremities: No leg edema. Impression: 1.Pneumonia. 2.End-stage renal disease, on hemodialysis. 3.Kidney cancer. Plan: We will repeat chest x-ray. Discontinue ceftriaxone, but continue azithromycin. We will add Zosyn per order. Dialysis support will be provided per ecmo specialist and we will follow up on echocar diogram results. Depending on echocardiogram results, we will decide further treatment. Meanwhile, continue other current medications. RYAN/MODL Voice ID: [id number] Report ID: [id number]
[2019-08-18] MEDS: PIPER/TAZO/NS 2.25gm 2.25 GM/50 ML BAG IVPB SCH ×4 (01:25→17:08)
[2019-08-18] MEDS: ALBUTEROL 2.5 MG/3 ML NEB SOL NEB SCH ×4 (01:30→19:55)
[2019-08-18] MEDS: IPRATROPIUM BROM 0.5MG/2.5ML NEB SCH ×4 (01:30→19:55)
[2019-08-18] MEDS: ACETYLCYST 20% 4 ML VIAL IH SCH ×2 (08:00→19:55)
[2019-08-18] MEDS: AZITHROMYCIN IV 250 MG in NA CHLORIDE 0.9% 250 ML IVPB SCH (09:16)
[2019-08-18] MEDS: carvediloL 6.25 MG TAB PO SCH ×2 (09:18→22:03)
[2019-08-18] MEDS: AMLODIPINE 10 MG TAB PO SCH ×2 (09:18→22:03)
[2019-08-18] MEDS: LOSARTAN POTASSIUM 50 MG TABLET PO SCH (09:18)
--- NOTE | 2019-08-18 13:21 | ECHO ---
HEIGHT: 5 ft 8 in WEIGHT: 173 lb 3.2 oz DATE OF STUDY: 08/18/[address]: Ward Obrien MD 2-DIMENSIONAL: YES M.MODE: YES DOPPLER: YES COLOR FLOW: YES TDS: NO PORTABLE: NO DEFINITY: NO BUBBLE STUDY: NO DIAGNOSIS: CONGESTIVE HEART FAILURE CARDIAC HISTORY: CATHERIZATION: NO SURGERY: NO PROSTHETIC VALVE: NO PACEMAKER: NO MEASUREMENTS (cm) DIASTOLIC (NORMALS) SYSTOLIC (NORMALS) IVSd 1.3 (0.6-1.2) LA Diam 4.1 (1.9-4.0) LVEF 51-55% LVIDd 5.4 (3.5-5.7) LVIDs 3.8 (2.0-3.5) %FS 18% LVPWd 1.3 (0.6-1.2) Ao Diam 3.0 (2.0-3.7) 2 DIMENSIONAL ASSESSMENT: RIGHT ATRIUM: NORMAL LEFT ATRIUM: DILATED RIGHT VENTRICLE: NORMAL LEFT VENTRICLE: LEFT VENTRICULAR HYPERTROPHY TRICUSPID VALVE: NORMAL MITRAL VALVE: MITRAL ANNULAR CALCIFICATION PULMONIC VALVE: NORMAL AORTIC VALVE: NORMAL PERICARDIAL EFFUSION: NONE AORTIC ROOT: NORMAL LEFT VENTRICULAR WALL MOTION: NORMAL EJECTION FRACTION. DOPPLER/COLOR FLOW: MILD MITRAL REGURGITATION. MILD TRICUSPID REGURGITATION MILD PULMONARY HYPERTENSION. COMMENTS: DIASTOLIC DYSFUNCTION. LEFT VENTRICULAR HYPERTROPHY. LEFT ATRIAL ENLARGEMENT. MITRAL ANNULAR CALCIFICATION. MILD MITRAL AND TRICUSPID REGURGITATION. MILD PULMONARY HYPERTENSION. TECHNOLOGIST: AYAN BINGHAM
[2019-08-18 22:41] VITALS: O2SAT 98
--- NOTE | 2019-08-18 23:16 | P.PN ---
Date of Service: 08/18/19 Vital Signs Temp Pulse Resp BP Pulse Ox 97.5 F 66 18 149/67 H 98 08/18/19 16:00 08/18/19 16:00 08/18/19 16:00 08/18/19 16:00 08/18/19 16:00 Medications Acetaminophen (Tylenol -Extra Strength) 500 mg PO Q6H PRN PRN Reason: Temp > 101.5 Stop: 09/14/19 19:16 Acetylcysteine (Mucomyst 20% (For Respiratory)) 4 ml IH BIDRESP [facility] Stop: 09/17/19 08:01 Last Admin: 08/18/19 19:55 Dose: 4 ml Albuterol Sulfate (Proventil 0.083% Neb Soln) 2.5 mg NEB [id number] [facility] Stop: 09/15/19 12:01 Last Admin: 08/18/19 19:55 Dose: 2.5 mg Amlodipine Besylate (Norvasc) 10 mg PO BID [facility] Stop: 09/15/19 21:01 Last Admin: 08/18/19 22:03 Dose: 10 mg Carvedilol (Coreg) 6.25 mg PO BID [facility] Stop: 09/15/19 21:01 Last Admin: 08/18/19 22:03 Dose: 6.25 mg Guaifenesin/Dextromethorphan (Robitussin Dm) 10 ml PO Q6H PRN PRN Reason: COUGH Stop: 09/15/19 09:42 Last Admin: 08/17/19 22:19 Dose: 10 ml Azithromycin 250 mg/ Sodium (Chloride) 250 mls @ 250 mls/hr IVPB DAILY [facility]; Protocol Stop: 09/15/19 12:01 Last Admin: 08/18/19 09:16 Dose: 250 mls Piperacillin/Tazobactam/Sod Chloride (Zosyn 2.25 Gm/50 Ml Ivpb) 2.25 gm in 50 mls @ 100 mls/hr IVPB Q8HR [facility]; Protocol Stop: 09/16/19 09:01 Last Admin: 08/18/19 17:08 Dose: 50 mls Ipratropium [place] (Atrovent Neb) 0.5 mg NEB [id number] [facility] Stop: 09/15/19 12:01 Last Admin: 08/18/19 19:55 Dose: 0.5 mg Losartan Potassium (Cozaar) 100 mg PO DAILY [facility] Stop: 09/15/19 12:01 Last Admin: 08/18/19 09:18 Dose: 100 mg Methylprednisolone Sodium Succinate (Solu-Medrol) 40 mg IV Q6HR [facility] Stop: 09/15/19 12:01 Last Admin: 08/18/19 17:08 Dose: 40 mg Ondansetron HCl (Zofran) 4 mg IV Q4H PRN PRN Reason: NAUSEA / VOMITING Sodium Chloride (Normal Saline Flush) 10 ml IV BID [facility] Stop: 09/14/19 21:01 Last Admin: 08/18/19 09:18 Dose: 10 ml Microbiology Results 08/15/19 18:10 Blood - Blood Aerobic Blood Culture - Preliminary No growth in 24 hours. 08/15/19 18:10 Blood - Blood Anaerobic Blood Culture - Final 08/15/19 17:50 Blood - Blood Aerobic Blood Culture - Preliminary No growth in 24 hours. 08/15/19 17:50 Blood - Blood Anaerobic Blood Culture - Final Assessment/ Plan: Nephrology CPS improved without CP. +GILLIAM Feeling better today. No acute events overnight. Vitals, medications, blood work and imaging reviewed in the chart. NAD. MMM. Neck supple. Diffuse wet rales. RRR. Soft Abd. No C/C/E. No rash. AAO. Normal Speech. A/ ESRD on HD. Diastolic CHF, A/C. HTN with CKD/ CHF. Anemia in CKD. Thrombocytopenia. MANFRED/ Secondary HyperPTH. BPH. P/ Continue current POC and Medications. Next HD Saturday. Continue abx and steroids. Echocardiogram reviewed. AM labs. Daily weight. No NSAIDs. EXAM DESCRIPTION: Hema Farr And Lat (2 Views)08/17/2019 9:04 am CLINICAL HISTORY: Cough COMPARISON: August 15, 2019 FINDINGS: The bilateral pulmonary opacities have resolved Small bilateral pleural effusions The heart is mildly enlarged A central venous line remains in place No change in a partially calcified right as azygoesophageal mass. EXAM DESCRIPTION: CT - Thorax Wo Con - 08/15/2019 8:19 pm CLINICAL HISTORY: sob COMPARISON: November 2018 TECHNIQUE: Computed axial tomography of the chest was obtained. Contrast was not requested. All CT scans are performed using dose optimization technique as appropriate and may include automated exposure control or mA/KV adjustment according to patient size. FINDINGS: The evaluation of mediastinum, rolando and vessels is limited secondary to lack of IV contrast administration. Mild bilateral interstitial lung opacities 1 3.9 centimeter peripherally calcified mass within the azygoesophagealrecess is unchanged. 1.9 centimeter pleural base mass within the upper posterior right hemithorax contains small calcification and is unchanged Small bilateral pleural effusions. A 1 centimeter lucency within a lower lateral left rib is unchanged IMPRESSION: Mild CHF 3.9 centimeter peripherally calcified mass within the as azygoesophageal recess unchanged may represent a bronchogenic or foregut cyst 1.9 centimeter pleural-based mass within the upper posterior right hemithorax is unchanged 1 centimeter lucency within a lower lateral left rib is unchanged Followup CT in 6 months is recommended for re-evaluation
--- NOTE | 2019-08-19 00:45 | PN ---
Date of Progress Note: 08/18/2019 Subjective: Patient was seen this morning for followup. No new complaints or problems reported by asif diaz. Overall, he is feeling better today than yesterday. He did have dialysis yesterday. Objective: Vital Signs: Reviewed. HEENT: Unremarkable. Lungs: Bilateral good equal air entry. Presence of minimum wheezing and rales noted in lower lung f ield. Overall, much better today than yesterday. Heart: Heart sounds normal. Abdomen: Soft, bowel sounds normal. No guarding, rigidity, tenderness, or distention. Extremities: No leg edema. Laboratory Data: Echocardiogram, which was done today after I saw him, results reviewed. Impression: 1.Pneumonia. 2.Congestive heart failure. 3.Hypertension. 4.End-stage renal disease, on dialysis. Plan: We will continue current medications, current antibiotics, nebulizer treatment. We will add M ucomyst per order as patient is having lot of cough and chest congestion, but has hard time coughing up mucus. I will see him tomorrow for followup and we will see if his condition is stable for discha rge tomorrow or not. RYAN/MODL Voice ID: [id number] Report ID: [id number]
[2019-08-19] MEDS: PIPER/TAZO/NS 2.25gm 2.25 GM/50 ML BAG IVPB SCH (00:55)
[2019-08-19] MEDS: METHYLPREDNISOLONE 40 MG INJ IV SCH ×2 (00:55→06:19)
[2019-08-19] MEDS: IPRATROPIUM BROM 0.5MG/2.5ML NEB SCH ×2 (02:00→08:00)
[2019-08-19] MEDS: ALBUTEROL 2.5 MG/3 ML NEB SOL NEB SCH ×2 (02:00→08:00)
[2019-08-19 04:23] VITALS: BP 113/53; TEMP 97.8
[2019-08-19 06:02] LABS: Absolute Lymphocytes (CBC) 0.2 K/uL (0.7-4.9); Basophils % 0.4 % (0-1.3); Hematocrit 28.2 % (39.6-49.0); Lymphocytes % 3.8 % (15.3-44.8); MPV 8.2 fL (7.6-11.3); RBC Red Blood Cell Count 3.18 M/uL (4.33-5.43)
[2019-08-19 07:14] LABS: ALT/SGPT 24 U/L (12-78); AST/SGOT 13 U/L (15-37); Albumin 3.2 g/dL (3.4-5.0); Alkaline Phosphatase 74 U/L (45-117); BUN Blood Urea Nitrogen 91 mg/dL (7-18); Bicarbonate 26 mmol/L (21-32); Bilirubin Total 0.8 mg/dL (0.2-1.0); Glucose Level 142 mg/dL (74-106); Magnesium 2.3 mg/dL (1.8-2.4); Phosphorus 7.1 mg/dL (2.5-4.9); Potassium 5.2 mmol/L (3.5-5.1); Protein, Total 5.6 g/dL (6.4-8.2); Sodium Level 139 mmol/L (136-145); Uric Acid 6.1 mg/dL (3.5-7.2)
[2019-08-19 07:17] LABS: NT PRO-BNP > 175000 pg/mL (<125)
[2019-08-19] MEDS: ACETYLCYST 20% 4 ML VIAL IH SCH (08:00)
[2019-08-19 08:53] LABS: Blood Morphology Comment NOT SEEN (NOT SEEN); Platelet Estimate ADEQ; Urine White Blood Cell Casts OK
--- NOTE | 2019-08-20 05:38 | DS ---
Date of Discharge: 08/19/2019 Disposition: Discharged to go home. Physical Examination: HEENT: Unremarkable. Lungs: Clear to auscultation. Heart: Heart sounds normal. Abdomen: Soft, bowel sounds normal. No guarding, rigidity, tenderness, or distention. Extremities: No leg edema. Laboratory Data: Labs done during this hospitalization upon admission, white count 6.1, hemoglobin 9 .5, platelets 76. Today, white count 6.6, hemoglobin 9.8, platelets 100. Chemistry today sodium 139 , potassium 5.2, chloride 102, bicarb 26, BUN 91, creatinine 8.82, glucose 142. Liver function tests unremarkable. Echocardiogram shows ejection fraction 51% to 55%, diastolic dysfunction with left ve ntricular hypertrophy. Hospital Course: A 74-year-old male patient admitted to the hospital with cough, shortness of breath , and coughing up mucus. Please see dictated H and P for more information. After the patient presen ras to the emergency room, he was admitted to the hospital. He was started on Zithromax about 2-3 da ys prior to this admission and the first day after he took it, he felt much better, but then his cond ition deteriorated, so he came into the emergency room. After he was admitted, we started him on ant ibiotics, which was ceftriaxone and azithromycin. He was also started on IV steroid. Nebulizer genaro tment was started. Overall, his condition improved slightly overnight, but then the following day he was feeling in fact a little worse as far as his shortness of breath and cough is concerned, so we c hanged antibiotics, ceftriaxone was discontinued and he was started on Zosyn. As of yesterday, we ad ded Mucomyst nebulizer treatment. Today, he reported that he is feeling much better. He has no more wheezing, has occasional cough, which is dry now. Chest x-ray showed improvement infiltrate type of pattern. I believe that he did have pneumonia and we did perform an echocardiogram to evaluate left ventricular ejection fraction. His ejection fraction is normal. No other significant abnormality n oted on echocardiogram. Foaming Machine Operator was consulted for dialysis support. Today, patient was discharg ed to go home in stable condition. Patient has a history of congestive heart failure with low ejecti on fraction in the past, but his current echocardiogram done during this hospital stay shows normal e jection fraction. Final Diagnoses: 1.Pneumonia. 2.Congestive heart failure, chronic, systolic, with acute exacerbation. 3.End-stage renal disease, on hemodialysis. 4.Anemia due to chronic kidney disease. 5.Thrombocytopenia, chronic. 6.Kidney cancer, status post bilateral nephrectomy. 7.Hypertension. 8.Hyperlipidemia. 9.Benign prostatic hypertrophy. Discharge Medications And Instructions: Continue all prior home medication except stop taking antibi otic and prednisone, which was prescribed to you prior to this hospital admission and take new antibi otic Augmentin 500 mg p.o. daily as prescribed and patient to take this dose after dialysis. Take pr ednisone 10 mg tablet, the patient will take 2 tablets by mouth daily and prescription was sent for 6 0 tablets and next week when I see him at office I will decide how to reduce the dose of prednisone. The patient's picked up sample of Trelegy inhaler from the office and she was taught actually h ow to use this inhaler and the patient to use 1 puff once a day, rinse mouth with water after use. I will see him at office for followup visit next week on Saturday. RYAN/MODL Voice ID: [id number] Report ID: [id number]
== END 2019-08-19 11:51 | disposition home or self-care (01) | DRG 193 ==
LOC: ER 16:20 → ERHOLD 19:12 → 4TH 21:35
PROVIDERS: ADMIT Internal Medicine; ATTEND Internal Medicine
DX: J18.9 Pneumonia, unspecified organism (principal); I50.23 Acute on chronic systolic (congestive) heart failure; N18.6 End stage renal disease; I13.2 Hypertensive heart and chronic kidney disease with heart failure and with stage 5 chronic kidney disease, or end stage renal disease; Z99.2 Dependence on renal dialysis; D63.1 Anemia in chronic kidney disease; D69.6 Thrombocytopenia, unspecified; N40.0 Benign prostatic hyperplasia without lower urinary tract symptoms; Z85.528 Personal history of other malignant neoplasm of kidney
CPT/HCPCS: 36415; 71045; 71046; 71250; 80048; 80053; 80076; 82550; 82553; 83605; 83690; 83735; 83880; 84100; 84145; 84484; 84550; 85025; 85610; 85730; 87040; 90935; 93005; 93306; 94640; 96365; 96375; 99285; J0456; J0696; J1644; J1940; J2920; J2930; J7030

== ENCOUNTER 2019-09-02 18:58 | Inpatient (IN) | payer OTHER, BC ==
[2019-09-02] MEDS ORDERED: NA CHLORIDE 0.9% 1,000 ML ONE (20:36)
--- NOTE | 2019-09-02 21:00 | RAD REPORT ---
EXAM DESCRIPTION: RAD - Chest Single View - 09/02/2019 8:52 pm CLINICAL HISTORY: DYSPNEA Chest pain. COMPARISON: Chest Pa And Lat (2 Views) dated 08/17/2019; Chest Single View dated 08/15/2019; Chest Pa And Lat (2 Views) dated 08/12/2019; Chest Pa And Lat (2 Views) dated 06/09/2019 FINDINGS: Portable technique limits examination quality. Mild to moderate bilateral pulmonary opacities are present, asymmetric on the right, suspicious for p neumonia or asymmetric pulmonary edema. The heart is mildly enlarged in size. Small bilateral pleural effusions. Left-sided port catheter has tip in the SVC.
[2019-09-02] MEDS ORDERED: ALBUTEROL 2.5 MG/3 ML NEB SOL ONE (21:27)
[2019-09-02] MEDS ORDERED: IPRATROPIUM BROM 0.5MG/2.5ML ONE (21:28)
[2019-09-02 21:34] LABS: Protime INR 0.93
--- NOTE | 2019-09-02 21:39 | ER ---
Nurse's Notes [facility] Name: Analilia Colby Age: 74 yrs Sex: Male : 1945 Arrival Date: 09/02/2019 Time: 18:59 Bed 18 Private MD: Alfreda Obrien C Diagnosis: Dyspnea;Chronic obstructive pulmonary disease with (acute) exacerbation;Pneumonia due to other specified bacteria;End stage renal disease-on hd;Hyperkalemia;Anemia, unspecified Presentation: 09/02 19:39 Presenting complaint: Patient states: Reports he was hospitalized the beginning of ea August, he was diagnosed with fluid overload. Pt reports he started feeling short of breath on Saturday, called Dr. Obrien and was placed on an antibiotic and prednisone. Denies fever. Transition of care: patient was not received from another setting of care. Onset of symptoms was September 02, 2019. Risk Assessment: Do you want to hurt yourself or someone else? Patient reports no desire to harm self or others. Initial Sepsis Screen: Does the patient meet any 2 criteria? No. Patient's initial sepsis screen is negative. Does the patient have a suspected source of infection? Yes: Productive cough/pneumonia. Care prior to arrival: None. 19:39 Method Of Arrival: Wheelchair ea 19:39 Acuity: RIVERA 3 ea Triage Assessment: 19:43 General: Appears uncomfortable, Behavior is appropriate for age. Pain: Denies pain. ea Respiratory: Reports shortness of breath at rest on exertion 09/03 01:32 Neuro: No deficits noted. Cardiovascular: No deficits noted. Respiratory: Onset: The lc1 symptoms/episode began/occurred. GI: No signs and/or symptoms were reported involving the gastrointestinal system. Historical: - Allergies: 09/02 19:43 No Known Allergies; ea - Home Meds: 19:43 amlodipine 10 mg tab 1 tab twice a day [Active]; carvedilol 6.25 mg Oral tab 2 times ea per day [Active]; losartan 100 mg Oral tab 1 tab once daily [Active]; prednisone 5 mg/5 mL Oral soln 2 times per day [Active]; ProAir HFA 90 mcg/actuation inhalation HFAA 1 puff every 4 hours [Active]; - PMHx: 19:43 Cancer, Lung; Dialysis; Hypertension; Liver disease; Renal Cancer; ea - Immunization history:: Adult Immunizations up to date. - Ebola Screening: : No symptoms or risks identified at this time. - Social history:: Smoking status: . Screenin:42 Abuse screen: Denies threats or abuse. Nutritional screening: No deficits noted. ea Tuberculosis screening: No symptoms or risk factors identified. 23:30 Fall Risk None identified. bb Assessment: 21:17 General: Appears distressed, uncomfortable, well groomed, Behavior is calm, lc1 cooperative. Pain: Denies pain. Neuro: No deficits noted. Cardiovascular: Rhythm is sinus rhythm. Respiratory: Reports shortness of breath Airway is patent Respiratory effort is even, labored, Breath sounds are clear bilaterally. GI: No signs and/or symptoms were reported involving the gastrointestinal system. : Reports anuric due to absence of kidneys. EENT: No signs and/or symptoms were reported regarding the EENT system. Derm: No signs and/or symptoms reported regarding the dermatologic system. Derm: grafts noted to bilateral arms. Patient on dialysis. Musculoskeletal: No signs and/or symptoms reported regarding the musculoskeletal system. 22:00 Reassessment: No changes from previously documented assessment. Patient and/or family bb updated on plan of care and expected duration. Pain level reassessed. Patient is alert, oriented x 3, equal unlabored respirations, skin warm/dry/pink. Patient states symptoms have not improved. patient remains SOB even after nebs given, practitioner notified and bipap ordered . 23:00 Reassessment: No changes from previously documented assessment. Patient and/or family bb updated on plan of care and expected duration. Pain level reassessed. Patient is alert, oriented x 3, equal unlabored respirations, skin warm/dry/pink. Patient states symptoms have not improved. 09/03 00:00 Reassessment: No changes from previously documented assessment. Patient and/or family lc1 updated on plan of care and expected duration. Pain level reassessed. Patient is alert, oriented x 3, equal unlabored respirations, skin warm/dry/pink. Vital Signs: 09/02 19:41 BP 155 / 91; Pulse 98; Resp 20; Temp 98; Pulse Ox 89% on R/A; Weight 81.65 kg; Height 5 ea ft. 8 in. (172.72 cm); 20:00 BP 166 / 58; Pulse 71; Resp 18; Pulse Ox 96% on 2 lpm NC; lc1 20:30 BP 166 / 63; Pulse 72; Resp 18; Pulse Ox 96% on 2 lpm NC; lc1 21:31 BP 134 / 96; Pulse 78; Resp 18; Temp 97.7(A); Pulse Ox 99% ; 5 22:00 BP 156 / 80; Pulse 75; Resp 20; Pulse Ox 97% on 2 lpm NC; bb 22:30 BP 173 / 67; Pulse 72; Resp 18; Pulse Ox 96% on 2 lpm NC; bb 23:00 BP 174 / 62; Pulse 72; Resp 20; Pulse Ox 95% on 2 lpm NC; bb 23:30 BP 160 / 57; Pulse 69; Resp 20; Pulse Ox 99% on 2% BiPAP; bb 09/03 00:30 BP 189 / 76; Pulse 74; Resp 20; Pulse Ox 96% on 2 lpm NC; 1 01:00 BP 196 / 67; Pulse 70; Resp 20; Pulse Ox 96% on 2 lpm NC; 1 09/02 19:41 Body Mass Index 27.37 (81.65 kg, 172.72 cm) ea 09/02 19:41 pt placed on 2 L per nasal cannula ea ED Course: 18:59 Patient arrived in ED. rg4 19:00 Alfreda Obrien MD is Private Physician. rg4 19:35 Cristhian Garcia MD is Attending Physician. [facility] 19:41 Triage completed. ea 19:41 Patient has correct armband on for positive identification. Bed in low position. Call ea light in reach. Adult w/ patient. 19:42 Arm band placed on right wrist. Patient placed in an exam room, on a stretcher, on ea pulse oximetry. 20:08 Danisha Meng is Primary Nurse. [facility] 20:52 XRAY Chest (1 view) In Process Unspecified. EDMS 20:57 Placed in gown. Side rails up X2. Warm blanket given. bus driver/monitor on. Pulse ox on. 5 NIBP on. 20:57 Missed attempt(s): 22 gauge in left forearm. [facility] 21:09 EKG done, by ED staff, reviewed by Cristhian Garcia MD. [facility] 21:21 Accessed using accessed w/ # 20 Cespedes needle, ,sterile technique, per hospital protocol. Good blood return. Flushes easily. Missed attempt(s): 20 gauge in left antecubital area. Bleeding controlled, band aid applied, catheter tip intact. 21:37 Alfreda Obrien MD is Hospitalizing Provider. [facility] 23:30 pt ambulated to bathroom to have BM, Very SOB, back in bed, RT present to put on Bipap bb SEttings 30%, I 14, E 7, RR 16. 23:47 BIPAP Sent. bb 09/03 00:30 No apparent distress. pt breathing improved on bipap. at bedside. [facility] 01:31 No provider procedures requiring assistance completed. Patient admitted, IV remains in lc1 place. Administered Medications: 09/02 21:35 Drug: Albuterol - atroVENT (3:1) (2.5 mg - 0.5 mg) 3 ml Route: Nebulizer; [facility] 23:40 Follow up: Response: No adverse reaction 22:24 Not Given (Patient Refused): NS 0.9% 1000 ml IV at 125 ml/hr continuous [facility] 22:32 CANCELLED (Duplicate Order): Lasix 60 mg IVP once [facility] 23:32 Drug: SOLU-Medrol 125 mg Route: IVP; Site: left subclavian; [facility] 23:40 Follow up: Response: No adverse reaction 09/03 00:41 Follow up: Response: No adverse reaction [facility] 09/02 23:33 Drug: vancoMYCIN 1 grams Route: IVPB; Infused Over: 2 hrs; Site: left subclavian; [facility] 09/03 01:37 Follow up: Response: No adverse reaction; IV Status: Infusion continued upon admission [facility] 00:38 Not Given (Patient Refused): Insulin Regular Human 10 units IVP once 1 00:38 Not Given (Patient Refused): Kayexalate 60 grams PO once 1 00:38 Not Given (Patient Refused): Albuterol 5 mg Inhalation once [facility] 00:39 Not Given (Patient ): Calcium Gluconate 1 grams IVPB once over 20 mins; (mix in 1 NS 100 mL) 00:39 Not Given (Patient Refused): Sodium Bicarbonate 1 amp IVP once; (50 mL); equals 50 mEq [facility] 00:39 Not Given (Patient Refused): D50W 50 ml IVP once; (1 amp) [facility] 01:15 Drug: Cefepime 2 grams Route: IVPB; Rate: 200 ml/hr; Infused Over: 30 mins; Site: left lc1 subclavian; 01:38 Follow up: IV Status: Infusion continued upon admission lc1 Outcome: 09/02 21:38 Decision to Hospitalize by Provider. anh 09/03 00:30 Admitted to ICU accompanied by nurse, via stretcher, room 6, with oxygen, on monitor, lc1 with chart, Report called to Amandeep Condition: stable Instructed on the need for admit. 01:38 Patient left the ED. 1 Signatures: Dispatcher [employer] EDCristhian Lindsey MD MD cha Ballard, Brenda, RN RN Danisha Beaulieu 1 Penelope Friedman 4 Giselle Salinas 5 Valeria Hwang RN RN irvin Corrections: (The following items were deleted from the chart) 09/02 23:50 23:30 pt ambulated to bathroom to have BM, Very SOB, back in bed, RT present to put on bb Bipap justo 09/03 01:33 09/02 19:43 Respiratory: Reports shortness of breath at rest on exertion ea 1
--- NOTE | 2019-09-02 21:40 | EDPHYS ---
Physician Documentation [facility] Name: Analilia Colby Age: 74 yrs Sex: Male : 1945 Arrival Date: 09/02/2019 Time: 18:59 Bed 18 Private MD: Alfreda Obrien C ED Physician Cristhian Garcia HPI: 09/02 21:34 This 74 yrs old Male presents to ER via Wheelchair with complaints of anh Breathing Difficulty. 21:34 The patient has shortness of breath at rest, with light activity. Onset: The anh symptoms/episode began/occurred 1 week(s) ago. Duration: The symptoms are continuous, and are steadily getting worse. The patient's shortness of breath is aggravated by coughing, exertion, light activity, supine position. Associated signs and symptoms: Pertinent positives: non-productive cough. Severity of symptoms: At their worst the symptoms were moderate in the emergency department the symptoms are unchanged. The patient has experienced similar episodes in the past, multiple times. Historical: - Allergies: 19:43 No Known Allergies; ea - Home Meds: 19:43 amlodipine 10 mg tab 1 tab twice a day [Active]; carvedilol 6.25 mg Oral tab 2 times ea per day [Active]; losartan 100 mg Oral tab 1 tab once daily [Active]; prednisone 5 mg/5 mL Oral soln 2 times per day [Active]; ProAir HFA 90 mcg/actuation inhalation HFAA 1 puff every 4 hours [Active]; - PMHx: 19:43 Cancer, Lung; Dialysis; Hypertension; Liver disease; Renal Cancer; ea - Immunization history:: Adult Immunizations up to date. - Ebola Screening: : No symptoms or risks identified at this time. - Social history:: Smoking status: . ROS: 21:36 Constitutional: Negative for fever, chills, and weight loss, Eyes: Negative for injury, anh pain, redness, and discharge, ENT: Negative for injury, pain, and discharge, Neck: Negative for injury, pain, and swelling, Cardiovascular: Negative for chest pain, palpitations, and edema, Abdomen/GI: Negative for abdominal pain, nausea, vomiting, diarrhea, and constipation, Back: Negative for injury and pain, : Negative for injury, bleeding, discharge, and swelling, MS/Extremity: Negative for injury and deformity, Skin: Negative for injury, rash, and discoloration, Neuro: Negative for headache, weakness, numbness, tingling, and seizure, Psych: Negative for depression, anxiety, suicide ideation, homicidal ideation, and hallucinations, Allergy/Immunology: Negative for hives, rash, and allergies, Endocrine: Negative for neck swelling, polydipsia, polyuria, polyphagia, and marked weight changes, Hematologic/Lymphatic: Negative for swollen nodes, abnormal bleeding, and unusual bruising. 21:36 Respiratory: Positive for cough, shortness of breath, wheezing, inspiratory, expiratory. Exam: 21:36 Constitutional: This is a well developed, well nourished patient who is awake, alert, anh and in no acute distress. Head/Face: Normocephalic, atraumatic. Eyes: Pupils equal round and reactive to light, extra-ocular motions intact. Lids and lashes normal. Conjunctiva and sclera are non-icteric and not injected. Cornea within normal limits. Periorbital areas with no swelling, redness, or edema. ENT: Nares patent. No nasal discharge, no septal abnormalities noted. Tympanic membranes are normal and external auditory canals are clear. Oropharynx with no redness, swelling, or masses, exudates, or evidence of obstruction, uvula midline. Mucous membranes moist. Neck: Trachea midline, no thyromegaly or masses palpated, and no cervical lymphadenopathy. Supple, full range of motion without nuchal rigidity, or vertebral point tenderness. No Meningismus. Chest/axilla: Normal chest wall appearance and motion. Nontender with no deformity. No lesions are appreciated. Cardiovascular: Regular rate and rhythm with a normal S1 and S2. No gallops, murmurs, or rubs. Normal PMI, no JVD. No pulse deficits. Abdomen/GI: Soft, non-tender, with normal bowel sounds. No distension or tympany. No guarding or rebound. No evidence of tenderness throughout. Back: No spinal tenderness. No costovertebral tenderness. Full range of motion. Male : Normal genitalia with no discharge or lesions. Skin: Warm, dry with normal turgor. Normal color with no rashes, no lesions, and no evidence of cellulitis. MS/ Extremity: Pulses equal, no cyanosis. Neurovascular intact. Full, normal range of motion. Neuro: Awake and alert, GCS 15, oriented to person, place, time, and situation. Cranial nerves II-XII grossly intact. Motor strength 5/5 in all extremities. Sensory grossly intact. Cerebellar exam normal. Normal gait. Psych: Awake, alert, with orientation to person, place and time. Behavior, mood, and affect are within normal limits. 21:36 Respiratory: mild respiratory distress is noted, Respirations: labored breathing, that is mild, that is moderate, Breath sounds: bronchial sounds, rhonchi, + upper airway congestion. wheezing: expiratory Respiratory rate: 22 Vital Signs: 19:41 BP 155 / 91; Pulse 98; Resp 20; Temp 98; Pulse Ox 89% on R/A; Weight 81.65 kg; Height 5 ea ft. 8 in. (172.72 cm); 20:00 BP 166 / 58; Pulse 71; Resp 18; Pulse Ox 96% on 2 lpm NC; lc1 20:30 BP 166 / 63; Pulse 72; Resp 18; Pulse Ox 96% on 2 lpm NC; 1 21:31 BP 134 / 96; Pulse 78; Resp 18; Temp 97.7(A); Pulse Ox 99% ; mh5 22:00 BP 156 / 80; Pulse 75; Resp 20; Pulse Ox 97% on 2 lpm NC; bb 22:30 BP 173 / 67; Pulse 72; Resp 18; Pulse Ox 96% on 2 lpm NC; bb 23:00 BP 174 / 62; Pulse 72; Resp 20; Pulse Ox 95% on 2 lpm NC; bb 23:30 BP 160 / 57; Pulse 69; Resp 20; Pulse Ox 99% on 2% BiPAP; bb 09/03 00:30 BP 189 / 76; Pulse 74; Resp 20; Pulse Ox 96% on 2 lpm NC; lc1 01:00 BP 196 / 67; Pulse 70; Resp 20; Pulse Ox 96% on 2 lpm NC; 1 09/02 19:41 Body Mass Index 27.37 (81.65 kg, 172.72 cm) ea 09/02 19:41 pt placed on 2 L per nasal cannula ea MDM: 19:35 Patient medically screened. [facility] 21:50 Data reviewed: vital signs, nurses notes, lab test result(s), EKG, radiologic studies, anh plain films. 09/02 20:00 Order name: Basic Metabolic Panel; Complete Time: 22:36 [facility] 09/02 20:00 Order name: CBC with Diff; Complete Time: 22:36 [facility] 09/02 20:00 Order name: LFT's; Complete Time: 22:36 [facility] 09/02 20:00 Order name: Magnesium; Complete Time: 22:36 [facility] 09/02 20:00 Order name: NT PRO-BNP; Complete Time: 22:36 [facility] 09/02 20:00 Order name: PT-INR; Complete Time: 22:36 [facility] 09/02 20:00 Order name: Troponin (emerg Dept Use Only); Complete Time: 22:36 [facility] 09/02 20:00 Order name: Blood Culture Adult (2) [facility] 09/02 20:00 Order name: Urine Culture [facility] 09/02 20:00 Order name: Lipase; Complete Time: 22:36 [facility] 09/02 21:34 Order name: ABG; Complete Time: 23:15 [facility] 09/02 21:36 Order name: Lactate [facility] 09/02 21:36 Order name: AMMONIA; Complete Time: 23:15 [facility] 09/02 21:36 Order name: Lactate; Complete Time: 22:36 EDID 09/02 20:00 Order name: XRAY Chest (1 view); Complete Time: 21:34 [facility] 09/02 20:00 Order name: EKG; Complete Time: 20:01 [facility] 09/02 21:50 Order name: BIPAP [facility] 09/02 21:58 Order name: CBC Smear Scan; Complete Time: 22:36 EDID 09/02 20:00 Order name: Cardiac monitoring; Complete Time: 20:15 [facility] 09/02 20:00 Order name: EKG - Nurse/Tech; Complete Time: 21:10 [facility] 09/02 20:00 Order name: IV Saline Lock; Complete Time: 23:47 [facility] 09/02 20:00 Order name: Labs collected and sent; Complete Time: 23:47 [facility] 09/02 20:00 Order name: O2 Per Protocol; Complete Time: 20:14 [facility] 09/02 20:00 Order name: O2 Sat Monitoring; Complete Time: 20:14 [facility] 09/02 21:45 Order name: CONS Physician Consult EDID 09/02 21:46 Order name: CONS Physician Consult EDID 09/02 21:46 Order name: CONS Physician Consult EDMS Administered Medications: 21:35 Drug: Albuterol - atroVENT (3:1) (2.5 mg - 0.5 mg) 3 ml Route: Nebulizer; [facility] 23:40 Follow up: Response: No adverse reaction 22:24 Not Given (Patient Refused): NS 0.9% 1000 ml IV at 125 ml/hr continuous [facility] 22:32 CANCELLED (Duplicate Order): Lasix 60 mg IVP once [facility] 23:32 Drug: SOLU-Medrol 125 mg Route: IVP; Site: left subclavian; [facility] 23:40 Follow up: Response: No adverse reaction 09/03 00:41 Follow up: Response: No adverse reaction [facility] 09/02 23:33 Drug: vancoMYCIN 1 grams Route: IVPB; Infused Over: 2 hrs; Site: left subclavian; [facility] 09/03 01:37 Follow up: Response: No adverse reaction; IV Status: Infusion continued upon admission [facility] 00:38 Not Given (Patient Refused): Insulin Regular Human [address] [facility] 00:38 Not Given (Patient Refused): Kayexalate 60 grams PO once 1 00:38 Not Given (Patient Refused): Albuterol 5 mg Inhalation once 1 00:39 Not Given (Patient ): Calcium Gluconate 1 grams IVPB once over 20 mins; (mix in lc1 NS 100 mL) 00:39 Not Given (Patient Refused): Sodium Bicarbonate 1 amp IVP once; (50 mL); equals [address] [facility] 00:39 Not Given (Patient Refused): D50W 50 ml IVP once; (1 amp) [facility] 01:15 Drug: Cefepime 2 grams Route: IVPB; Rate: 200 ml/hr; Infused Over: 30 mins; Site: left lc1 subclavian; 01:38 Follow up: IV Status: Infusion continued upon admission [facility] Disposition: 09/02/19 21:38 Hospitalization ordered by Alfreda Obrien for Inpatient Admission. Preliminary diagnosis are Dyspnea, Chronic obstructive pulmonary disease with (acute) exacerbation, Pneumonia due to other specified bacteria, End stage renal disease - on hd, Hyperkalemia, Anemia, unspecified. - Bed requested for Intensive Care Unit. - Status is Inpatient Admission. lc1 - Condition is Serious. - Problem is new. - Symptoms have improved. UTI on Admission? No Signatures: Dispatcher [employer] EDID Cristhian Garcia MD MD cha Ballard, Brenda, RN ALEK Mejiahoun Danisha lc1 Gracia White RN ALEK tl1 Valeria Hwang RN ALEK ea Corrections: (The following items were deleted from the chart) 09/02 22:21 21:38 Hospitalization Ordered by A Micah ARRIETA for Inpatient Admission. Preliminary tl1 diagnosis is Dyspnea; Chronic obstructive pulmonary disease with (acute) exacerbation; Pneumonia due to other specified bacteria; End stage renal disease - on hd. Bed requested for Telemetry/MedSurg (Inpatient). Status is Inpatient Admission. Condition is Fair. Problem is new. Symptoms have improved. UTI on Admission? No. anh 22:32 21:50 Lasix 60 mg IVP once ordered. anh kamara 22:37 22:21 09/02/2019 21:38 Hospitalization Ordered by A Micah ARRIETA for Inpatient Admission. anh Preliminary diagnosis is Dyspnea; Chronic obstructive pulmonary disease with (acute) exacerbation; Pneumonia due to other specified bacteria; End stage renal disease - on hd. Bed requested for Telemetry/MedSurg (Inpatient). Status is Inpatient Admission. Condition is Fair. Problem is new. Symptoms have improved. UTI on Admission? No. tl1 23:16 22:37 09/02/2019 21:38 Hospitalization Ordered by A Micah ARRIETA for Inpatient Admission. [facility] Preliminary diagnosis is Dyspnea; Chronic obstructive pulmonary disease with (acute) exacerbation; Pneumonia due to other specified bacteria; End stage renal disease - on hd; Hyperkalemia. Bed requested for Intensive Care Unit. Status is Inpatient Admission. Condition is Serious. Problem is new. Symptoms have improved. UTI on Admission? No. anh 23:52 23:16 09/02/2019 21:38 Hospitalization Ordered by A Micah ARRIETA for Inpatient Admission. tl1 Preliminary diagnosis is Dyspnea; Chronic obstructive pulmonary disease with (acute) exacerbation; Pneumonia due to other specified bacteria; End stage renal disease - on hd; Hyperkalemia; Anemia, unspecified. Bed requested for Intensive Care Unit. Status is Inpatient Admission. Condition is Serious. Problem is new. Symptoms have improved. UTI on Admission? No. anh 09/03 01:38 09/02 23:52 09/02/2019 21:38 Hospitalization Ordered by A Micah ARRIETA for Inpatient lc1 Admission. Preliminary diagnosis is Dyspnea; Chronic obstructive pulmonary disease with (acute) exacerbation; Pneumonia due to other specified bacteria; End stage renal disease - on hd; Hyperkalemia; Anemia, unspecified. Bed requested for Intensive Care Unit. Status is Inpatient Admission. Condition is Serious. Problem is new. Symptoms have improved. UTI on Admission? No. tl1
[2019-09-02 21:55] LABS: Absolute Lymphocytes (CBC) 0.2 K/uL (0.7-4.9); Basophils % 0.3 % (0-1.3); Hematocrit 27.3 % (39.6-49.0); Lymphocytes % 2.7 % (15.3-44.8); MPV 7.8 fL (7.6-11.3); RBC Red Blood Cell Count 3.06 M/uL (4.33-5.43)
[2019-09-02 21:57] LABS: Blood Morphology Comment NOT SEEN (NOT SEEN); Platelet Estimate DECR; Urine White Blood Cell Casts OK
[2019-09-02 22:02] LABS: Albumin 3.4 g/dL (3.4-5.0); Bilirubin Direct 0.2 mg/dL (0-0.2); Bilirubin Total 0.7 mg/dL (0.2-1.0); Magnesium 2.4 mg/dL (1.8-2.4); Troponin (Emerg Dept Use Only) 0.02 ng/mL (0.0-0.045)
[2019-09-02 22:05] LABS: Potassium 7.3 mmol/L (3.5-5.1)
[2019-09-02] MEDS ORDERED: FUROSEMIDE 20 MG/ 2ML VIAL ONE (22:30)
[2019-09-02] MEDS ORDERED: METHYLPREDNISOLONE 125 MG INJ ONE (22:30)
[2019-09-02] MEDS ORDERED: VANCOMYCIN 1 GM/VIAL ONE (22:30)
[2019-09-02] MEDS ORDERED: NA CHLORIDE 0.9% 250 ML ONE (22:30)
[2019-09-02] MEDS ORDERED: FUROSEMIDE 40 MG/4 ML VIAL ONE (22:30)
[2019-09-02 22:37] LABS: Arterial Blood Carboxyhemoglob 1.1 % (0-1.5)
[2019-09-02] MEDS ORDERED: SOD POLYSTYREN SUL 15 GM/60 ML UCUP ONE ×2 (22:43→23:15)
[2019-09-02] MEDS ORDERED: D50W 25 GM/50 ML SYRINGE/VIAL IV ONE (22:43)
[2019-09-02] MEDS ORDERED: INSULIN -REGULAR HUMAN 50 UNIT/0.5 ML ML ONE (22:50)
[2019-09-03] MEDS ORDERED: MORPHINE 4 MG/ML SYR IV PRN (00:56)
[2019-09-03] MEDS: METHYLPREDNISOLONE 40 MG INJ IV SCH ×2 (00:56→06:10)
[2019-09-03] MEDS ORDERED: ONDANSETRON 4 MG/2 ML VIAL IV PRN (00:56)
[2019-09-03] MEDS ORDERED: VANCOMYCIN/NS 1 gm 1 GM/250 ML BAG IVPB SCH (00:56)
[2019-09-03] MEDS ORDERED: NA CHLORIDE 0.9% 100 ML IV ONE (01:00)
[2019-09-03] MEDS ORDERED: CEFEPIME 2 GM VIAL ONE (01:00)
[2019-09-03] MEDS ORDERED: ACETAMINOPHEN 325 MG TABLET PO PRN (01:20)
[2019-09-03 02:44] VITALS: BMI 27.3
[2019-09-03 05:35] LABS: Absolute Lymphocytes (CBC) 0.1 K/uL (0.7-4.9); Basophils % 0.2 % (0-1.3); Hematocrit 28.8 % (39.6-49.0); Lymphocytes % 1.6 % (15.3-44.8); MPV 7.4 fL (7.6-11.3); RBC Red Blood Cell Count 3.27 M/uL (4.33-5.43)
[2019-09-03] MEDS ORDERED: VANCOMYCIN/NS 1 gm 1 GM/250 ML BAG IVPB ONE (06:00)
[2019-09-03] MEDS ORDERED: VANCOMYCIN 1 GM/VIAL ONE (06:02)
[2019-09-03] MEDS ORDERED: NA CHLORIDE 0.9% 250 ML ONE (06:03)
[2019-09-03 06:17] LABS: Potassium 4.1 mmol/L (3.5-5.1); Troponin I 0.05 ng/mL (0.0-0.045)
[2019-09-03] MEDS ORDERED: MORPHINE 2 MG/ML SYR IV PRN (07:18)
[2019-09-03] MEDS ORDERED: VANCOMYCIN/NS 1 gm 1 GM/250 ML BAG IV SCH (08:00)
--- NOTE | 2019-09-03 08:09 | EKG ---
Test Date: 2019-09-02 Test Time: 21:07:40 Data Security Coordinator: ANAT MEASUREMENT RESULTS: Intervals: Rate: 74 NC: 202 QRSD: 146 QT: 430 QTc: 477 [place]: P: 57 NC: 202 QRS: -24 T: 47 INTERPRETIVE STATEMENTS: Normal sinus rhythm Possible Left atrial enlargement Left ventricular hypertrophy with QRS widening Abnormal ECG Compared to ECG 08/15/2019 17:16:27 Left ventricular hypertrophy now present Ventricular premature complex(es) no longer present Right-axis deviation no longer present Electronically Signed On 09-03-19 08:08:15 ENTERPRISE SYSTEMS ARCHITECT by Kendrick Gomez
[2019-09-03] MEDS: carvediloL 6.25 MG TAB PO SCH ×2 (08:27→21:34)
[2019-09-03] MEDS: IPRATROPIUM BROM 0.5MG/2.5ML NEB PRN ×2 (08:28→20:30)
[2019-09-03] MEDS: ALBUTEROL 2.5 MG/3 ML NEB SOL NEB PRN ×2 (08:28→20:30)
--- NOTE | 2019-09-03 08:48 | RAD REPORT ---
EXAM DESCRIPTION: RAD - Chest Single View - 09/03/2019 7:55 am CLINICAL HISTORY: Chest Pain Chest pain. COMPARISON: Chest Single View dated 09/02/2019; Chest Pa And Lat (2 Views) dated 08/17/2019; Chest Si ngle View dated 08/15/2019; Chest Pa And Lat (2 Views) dated 08/12/2019 FINDINGS: Portable technique limits examination quality. Right upper lobe pulmonary infiltrate is again noted, slightly progressive since the comparative stud y. Small bilateral pleural effusions. The heart is moderately enlarged in size. Left-sided [place] has tip in the SVC.
[2019-09-03] MEDS ORDERED: CEFEPIME 1 GM/VIAL IV SCH (09:00)
[2019-09-03] MEDS ORDERED: FAMOTIDINE 20 MG/2 ML VIAL IV SCH (09:00)
[2019-09-03] MEDS ORDERED: CEFEPIME/SWI 1gm 10 ML IV SCH ×2 (09:00→21:00)
[2019-09-03] MEDS: predniSONE 20 MG TAB PO SCH (10:43)
--- NOTE | 2019-09-03 11:58 | EKG ---
Test Date: 2019-09-03 Test Time: 08:57:51 Environment Friendly Landscape Designer: MATT MEASUREMENT RESULTS: Intervals: Rate: 70 NC: 174 QRSD: 134 QT: 440 QTc: 475 [place]: P: 58 NC: 174 QRS: -29 T: -46 INTERPRETIVE STATEMENTS: Normal sinus rhythm Possible Left atrial enlargement Left ventricular hypertrophy with QRS widening Abnormal ECG Compared to ECG 09/02/2019 21:07:40 No significant changes Electronically Signed On 09-03-19 11:56:54 CRITICAL SYSTEMS TECHNICIAN by Kendrick Gomez
--- NOTE | 2019-09-03 13:28 | CON ---
Date of Consultation: 09/03/2019 Patient was admitted on 09/02/[address] Obrien's service. I saw the patient on 09/03/2019. Reason For Consultation: Congestive heart failure. History Of Present Illness: Mr. Colby is a 74-year-old white male. He is known to me from previous office visits and admissions. He has a history of chronic diastolic congestive heart failure. He i s on hemodialysis. He has no kidney secondary to renal cancer and bilateral nephrectomy. He has a h istory of hypertension. He has lung cancer that has been treated with chemotherapy, but he is on hol d for now as far as treatment till September because of side effects including thrombocytopenia. He ca me in with shortness of breath, has already improved dramatically by the time I saw him after hemodia lysis. 3.4 L of fluid were removed. The patient never really had any chest pain or syncope or palpi tation. Past Medical History: As stated above. Allergies: NONE. Review of Systems: Negative. Social History: Negative. Family History: Noncontributory. Home Medications: Losartan, Coreg, prednisone, and Norvasc. Physical Examination: Vital Signs: Stable. He was afebrile. HEENT: Negative. Neck: Supple with no bruit, lymphadenopathy, JVD, or thyromegaly. General: His O2 saturation was 100% on BiPAP. Last blood gas was 71 for PO2, pCO2 was 33, pH 7.44. Chest: Clear. Cardiac: Revealed a regular rhythm and rate with an S4 gallops. No murmurs or rubs. Abdomen: Benign. Extremities: Revealed no clubbing, cyanosis, or edema. Skin: Dry and intact. Neurologic: He was nonfocal. Diagnostic Data: Showed a creatinine of 3.8, hemoglobin of 9.9, platelet count was 56,000. His BNP was 121,973. Echocardiogram that was done very recently showed an ejection fraction of 55%, diastolic congestive h eart failure. Chest x-ray showed CHF with possible pneumonia. Impression And Plan: 1.Mjnnd-cf-tognurc diastolic congestive heart failure. 2.End-stage renal disease, on hemodialysis. 3.Elevated BNP secondary to congestive heart failure and renal failure. 4.Mild anemia and platelet of 56,000 secondary to recent chemotherapy for lung cancer. He is being followed in September at [facility] for that. Patient has also had a history of hypertension that is well controlled. He has had renal cancer. He is status post bilateral nephrectomy, on hemodialysis. The patient's right now is completely asymptomatic. I certainly would not repeat any more cardiac workup. I would continue his present medical regimen. I am comfortable with him going home whenever it is okay with Dr. Obrien. I will see him in the office in the near future. He needs to obviously w atch his salt intake and continue his beta-blockers for sure. ROSA/WATSON Voice ID: [id number] Report ID: [id number]
--- NOTE | 2019-09-03 18:49 | CON ---
Date of Consultation: 09/03/2019 Reason For Consult: Hyperkalemia and ESRD. History Of Present Illness: Mr. Colby is a 74-year-old male with past medical history significant f or ESRD on dialysis, history of renal cell carcinoma, has been on chemotherapy for a long time, chron ic myelosuppression, presented to [facility] with weakness, lethargy, and shortness of breat h. Patient has been compliant with his dialysis schedule. He also has history of lung cancer and lopez s been treated with chemotherapy, which is currently on hold because of side effects with chemotherap y. He was found to have severe hyperkalemia along with volume overload and chest x-ray was consisten t with pulmonary edema. Patient needed emergent dialysis to manage his hyperkalemia as well as his v olume status, 3.4 L was removed last night and he feels much better at this time. Patient states that he did have noncompliance with his diet and ate [employer] for 2 days in a row. His last dialysis was 2 days before. Past Medical History: Significant for history of chronic congestive heart failure, history of renal cell carcinoma, history of lung cancer carcinoma, chronic thrombocytopenia, multiple episodes of volu me overload. Allergies: NONE. Social History: Denies any history of smoking, alcohol use. Family History: Noncontributory. Review of Systems: Positive for weakness and shortness of breath. Denies any chest pain. Denies any abdominal pain. A ll other review of systems are negative. Physical Examination: Vital Signs: Have been reviewed and are stable. General: He appears in no acute distress. No JVD was noted. Lungs: Clear to auscultation bilaterally with diminished breath sounds at the bases. Abdomen: Soft and nontender. Extremities: Showed no evidence of edema. Laboratory Data: Has been reviewed. Potassium improved to 4.1, chloride of 104, BUN of 39 and creat inine of 3.8. CBC showed stable hemoglobin, hematocrit, and platelet count. Current Medications: Have been reviewed in detail as well. Impression: 1.End-stage renal disease, on dialysis. 2.Severe hyperkalemia and volume overload secondary to noncompliance with diet. 3.Anemia secondary to chronic disease. 4.History of lung carcinoma. 5.History of chronic diastolic heart failure with acute exacerbation. Plan: Patient is overall much better at this time. We will plan for dialysis again tomorrow per his regular schedule and we will plan to ultrafilter few more liters through dialysis tomorrow and he wi ll go back to his regular schedule dialysis again on Saturday. We will continue to monitor closely a nd will follow up. SILVINA/WATSON Voice ID: [id number] Report ID: [id number]
[2019-09-03] MEDS ORDERED: AMOX/K CLAV 500 MG TAB PO SCH (21:00)
[2019-09-03] MEDS: AMLODIPINE 10 MG TAB PO SCH (21:00)
--- NOTE | 2019-09-03 21:52 | HP ---
Date of Admission: 09/02/2019 Chief Complaint: Shortness of breath. History Of Present Illness: The patient is a very pleasant 74-year-old male patient with multiple co morbidities including end-stage renal disease, COPD, recently was in hospital at the beginning of the month and was treated with oral antibiotic, steroids after his discharge from the hospital. He fini shed taking his Augmentin for 1 week and was taking prednisone 10 mg tablets, was taking 2 tablets da yenni upon discharge and when I saw him at the office, we gave him schedule to wean off the prednisone. Two days ago, he called and talked to me and informed me that he was started to have cough, congest ion, coughing up some mucus, which was thick, no yellow-green color, and denies any fever. At that t janet, he was prescribed 1 week of Augmentin 500 mg daily. He used his last dose of Trelegy inhaler, s o he was prescribed Trelegy inhaler to be continued on a daily basis and was advised to take predniso ne 10 mg tablet 2 tablets daily for 4 days, then 1 tablet daily for 4 days, then 1/2 tablet daily for 1 week, then 1/2 tablet every other day for 1 week and stop. Patient reported that he was taking hi s medication as prescribed and suggested, but did not feel any better, did not feel any worse. His b reathing got worse and he heard lot of gurgling type of noise in his chest with breathing and was hav ing lot of shortness of breath. He came into emergency room. His potassium level was 7 and chest x- ray was abnormal. White count was normal, and patient had emergent dialysis during nighttime and he was admitted to ICU. He also received BiPAP therapy. He started to feel better immediately after di alysis was done and this morning when I saw him, he was feeling much better compared to yesterday. H is was present with him at bedside. Allergies: NO KNOWN ALLERGIES. Medications: List reviewed. Review of Systems: Respiratory: As mentioned above. All other systems reviewed and negative. Past Medical History: Significant for pneumonia, congestive heart failure with low ejection fraction in the past, but recent echocardiogram from last admission shows normal ejection fraction. Has end- stage renal disease, on hemodialysis and suspecting underlying COPD also. Also has anemia due to chr onic kidney disease; thrombocytopenia, which is chronic; kidney cancer; hypertension; hyperlipidemia; benign prostatic hypertrophy. Social History: Negative for smoking or alcohol use. Family History: Significant for COPD. Past Surgical History: Bilateral nephrectomy in 2006 due to kidney cancer. Physical Examination: Vital Signs: Temperature 96.6 that is the last temperature, last pulse 63, respiratory rate 17, bloo d pressure 139/61, oxygen saturation 100%. Height 5 feet 8 inches. Weight 180 pounds. General: Awake, alert, oriented, not in distress. HEENT: Head atraumatic, normocephalic. Conjunctivae nonerythematous. Sclerae white. Mouth, no thr ush or edema noted. Ears/Nose, no mass, lesion, discharge noted. Neck: Supple. No JVD, lymph nodes, bruit, thyromegaly noted. Lungs: Presence of some rales noted in right mid and lower lung armstrong. Heart: Normal heart sounds, no murmur or gallop. Abdomen: Soft, bowel sounds normal. No guarding, rigidity, tenderness, mass, hepatosplenomegaly, di stention, or bruit noted. Extremities: No leg edema. No calf tenderness. Skin: No rash, ulcer, cellulitis. Lymphatics: No lymph node enlargement in neck, supraclavicular, infraclavicular region. Neuro: No focal neurological deficit. Chest: Unremarkable. External Genitalia: Deferred. Rectal: Deferred. Laboratory Data: Yesterday's white count 8, hemoglobin 9.1, platelets 52. This morning, white count 8.7, hemoglobin 9.9, platelets 56. Blood gas: PH 7.44, pCO2 33.5, pO2 71.4, oxygen saturation 93% on 32% FiO2. Sodium 144, potassium 7.3, chloride 110, bicarb 25, BUN 82, creatinine 9.18, glucose 13 5. Liver function tests unremarkable. Troponin 0.02. This morning, sodium 141, potassium 4.1, chlo ride 104, bicarb 28, BUN 29, creatinine 3.80, glucose 114. ProBNP 121,973. Chest x-ray: Mild-to-mo derate bilateral pulmonary opacity noted, asymmetric on the right, suspicious for pneumonia or asymme tric pulmonary edema. Impression: 1.Pulmonary edema. 2.Rule out pneumonia. 3.End-stage renal disease, on hemodialysis. 4.Thrombocytopenia, chronic. 5.Anemia due to chronic kidney disease. 6.Chronic obstructive pulmonary disease. 7.Hyperkalemia. 8.Hypertension. Plan: Admit patient to hospital for further evaluation and management of this problem. Patient was admitted to intensive care unit, received BiPAP therapy overnight and dialysis and he is feeling much better. At this point, he does not need any assistance with BiPAP. He is medically stable for reyes sfer out of ICU to regular room and we will continue home medications per order. We will continue hi s antibiotic and oral tablet, Augmentin 500 mg daily at bedtime, continue prednisone 20 mg daily and his inhaler as well as other home medications per order. We will continue to follow with nephrologis t and patient goes for dialysis on Saturday, Saturday, and Saturday. He had dialysis on Saturday. At estefany t time, he did not achieve his dry weight and he was about 1-1/2 to 2 kg over his dry weight. He had his another dialysis session on Saturday and then because of holiday, he did not have dialysis order. I believe that his presentation is more of a pulmonary edema than pneumonia. We will continue to fo llow with assistance specialist, and I have advised him to talk to assistance specialist to see if we can get his dry w eight down by another 1 to 2 kg over period of next couple of weeks if he tolerates that and see how he does over that period of time. I have requested nursing staff to have assistance specialist called me when they make rounds to discuss the same issue. Possible discharge to go home tomorrow depending on his condition. Details were discussed with the patient and family. RYAN/MODL Voice ID: [id number]
[2019-09-04] MEDS: IPRATROPIUM BROM 0.5MG/2.5ML NEB PRN ×2 (00:05→04:02)
[2019-09-04] MEDS: ALBUTEROL 2.5 MG/3 ML NEB SOL NEB PRN ×2 (00:05→04:02)
[2019-09-04 07:53] VITALS: O2SAT 95
[2019-09-04 08:38] VITALS: BP 131/78; TEMP 97.2
[2019-09-04] MEDS: predniSONE 20 MG TAB PO SCH (08:47)
[2019-09-04] MEDS: carvediloL 6.25 MG TAB PO SCH (08:47)
[2019-09-04] MEDS: AMLODIPINE 10 MG TAB PO SCH (08:48)
[2019-09-04] MEDS ORDERED: LOSARTAN POTASSIUM 50 MG TABLET PO SCH (09:00)
[2019-09-04] MEDS ORDERED: Fluticasone/Umeclidin/Vilanter (Trelegy Ellipta) 100-62.5-25 MCG IH SCH (09:00)
--- NOTE | 2019-09-04 11:49 | RAD REPORT ---
EXAM DESCRIPTION: Hema Pa And Lat (2 Views)09/04/2019 11:36 am CLINICAL HISTORY: Cough COMPARISON: August 15, 2019 CT FINDINGS: Mild right upper lobe infiltrate has partially resolved Mild additional chronic appearing lung opacities are present. The heart is mildly enlarged. Central venous line remains in place 3.9 centimeter peripherally calcified mass within the as azygoesophageal recess unchanged may represe nt a bronchogenic or foregut cyst
[2019-09-04] MEDS ORDERED: HEPARIN 500 UNIT/5 ML SYR IV PRN (12:00)
--- NOTE | 2019-09-05 03:48 | DS ---
Date of Discharge: 09/04/2019 Disposition: Discharged to go home. Physical Examination: HEENT: Unremarkable. Lungs: Clear to auscultation. No rhonchi. No rales. Heart: Heart sounds normal. Abdomen: Soft, bowel sounds normal. No guarding, rigidity, tenderness, or distention. Extremities: No leg edema. Hospital Course: A 74-year-old pleasant male patient came into the emergency room with complaints of shortness of breath. Please see dictated H and P for more information. When patient first came int o the emergency room, his potassium was elevated at 7.3, and chest x-ray showed bilateral pulmonary o pacity, asymmetric on the right side suspicious for pneumonia or asymmetric pulmonary edema. Clinica sylviay, I suspected that this was asymmetric pulmonary edema and not pneumonia. The patient did require BiPAP therapy when he first came into the emergency room because he was in respiratory distress with hypoxia and with BiPAP therapy and mostly with dialysis, which was provided. After his admission du [facility] supervisor type bar and segment hours, he immediately started feeling significant relief in his shortness of breat h. He feels like he is back to his normal self. Yesterday, he did ambulate very well. He is not co ughing up any mucus as he reports today and today he was getting dialysis. When I saw him, had no ot her complaints today and he feels much better and feels like he is ready to go home. I did talk to [facility] about trying to get more dialysis done for removal of more fluid and get his dry weight down by 2 kg if he can tolerate that and requested his public health sanitarian technician to call me yesterday and nurse did talk to his public health sanitarian technician from ICU, but unfortunately I have not heard anything back from public health sanitarian technician, but ne phrologist did get my message through the nursing staff and physician about trying to dialyze him mor e and try to get his dry weight down and she did make that adjustment today on the dialysis as I kwesi campos. Patient will continue to work with Dialysis Clinic on outpatient basis, try to keep his weig ht down, and hopefully that would help him. After dialysis today, we will get a chest x-ray done, so we will see what his x-ray looks like compared to time of admission. Clinically, he is improving ve ry well and he will continue all his previously prescribed home medications upon discharge from the h ospital and I have discussed all these details with him. Patient will come see me at office a week a fter next for the followup. Final Diagnoses: 1.Pulmonary edema. 2.Acute respiratory failure, with hypoxia, improved. 3.End-stage renal disease, on hemodialysis. 4.Thrombocytopenia, chronic. 5.Anemia due to chronic kidney disease. 6.Chronic obstructive pulmonary disease. 7.Hyperkalemia. 8.Hypertension. 9.Kidney cancer. RYAN/MODL Voice ID: [id number] Report ID: [id number]
== END 2019-09-04 12:19 | disposition home or self-care (01) | DRG 189 ==
LOC: ER 18:58 → ERHOLD 22:02 → 3RD-ICU 09-03 01:03 → 2ND 09-03 13:10
PROVIDERS: ADMIT Internal Medicine; ATTEND Internal Medicine
PROC: 5A09457 Assistance with Respiratory Ventilation, 24-96 Consecutive Hours, Continuous Positive Airway Pressure (ICD-10-PCS; principal; 2019-09-02)
DX: J96.01 Acute respiratory failure with hypoxia (principal); N18.6 End stage renal disease; I50.33 Acute on chronic diastolic (congestive) heart failure; J18.9 Pneumonia, unspecified organism; I13.2 Hypertensive heart and chronic kidney disease with heart failure and with stage 5 chronic kidney disease, or end stage renal disease; C34.90 Malignant neoplasm of unspecified part of unspecified bronchus or lung; E78.5 Hyperlipidemia, unspecified; J44.9 Chronic obstructive pulmonary disease, unspecified; D69.6 Thrombocytopenia, unspecified; D63.1 Anemia in chronic kidney disease; Z99.2 Dependence on renal dialysis; Z79.899 Other long term (current) drug therapy
CPT/HCPCS: 36415; 71045; 71046; 80048; 80076; 82140; 82805; 83605; 83690; 83735; 83880; 84484; 85025; 85610; 87040; 90935; 93005; 94640; 94660; 94760; 96365; 96375; 99285; J0692; J1642; J1644; J1940; J2920; J2930; J3370; J7030; J7512

== ENCOUNTER 2019-10-11 18:28 | Observation (INO) | payer OTHER, BC ==
[2019-10-11] MEDS ORDERED: ALBUTEROL 2.5 MG/3 ML NEB SOL ONE (19:22)
[2019-10-11] MEDS ORDERED: IPRATROPIUM BROM 0.5MG/2.5ML ONE (19:23)
--- NOTE | 2019-10-11 19:38 | RAD REPORT ---
EXAM DESCRIPTION: RAD - Chest Single View - 10/11/2019 7:31 pm CLINICAL HISTORY: SOB COMPARISON: Chest Pa And Lat (2 Views) dated 09/04/2019 TECHNIQUE: AP portable chest image was obtained 10/11/2019 7:31 pm . FINDINGS: Bilateral pleural effusions are present new from the prior study. Heart size is enlarged. Vascular engorgement present. Left-sided Port-A-Cath is in place. Interstitial opacities are present in the mid and lower right lung field and to a lesser degree left lung base. Trachea is midline. No p neumothorax. No acute bony abnormality seen. No acute aortic findings suspected. IMPRESSION: CHF/volume overload pattern.
[2019-10-11 19:45] LABS: Absolute Lymphocytes (CBC) 0.4 K/uL (0.7-4.9); Basophils % 1.1 % (0-1.3); Hematocrit 25.3 % (39.6-49.0); Lymphocytes % 8.3 % (15.3-44.8); MPV 6.6 fL (7.6-11.3); RBC Red Blood Cell Count 2.68 M/uL (4.33-5.43)
[2019-10-11 19:51] LABS: Protime INR 0.97
[2019-10-11] MEDS ORDERED: FUROSEMIDE 40 MG/4 ML VIAL ONE (20:11)
[2019-10-11 20:20] LABS: ALT/SGPT 21 U/L (12-78); AST/SGOT 20 U/L (15-37); Albumin 3.6 g/dL (3.4-5.0); Alkaline Phosphatase 83 U/L (45-117); Amylase Level 46 U/L (25-115); Anisocytosis 1+; BUN Blood Urea Nitrogen 43 mg/dL (7-18); Bicarbonate 27 mmol/L (21-32); Bilirubin Direct 0.4 mg/dL (0-0.2); Bilirubin Total 1.5 mg/dL (0.2-1.0); Blood Morphology Comment NOTED (NOT SEEN); CKMB Creatine Kinase MB 1.3 ng/mL (0.3-3.6); Creatine Phosphokinase 36 U/L (39-308); Glucose Level 96 mg/dL (74-106); Hypochromasia 1+; Lipase 74 U/L (73-393); Platelet Estimate DECR; Protein, Total 6.4 g/dL (6.4-8.2); Sodium Level 142 mmol/L (136-145); Troponin (Emerg Dept Use Only) < 0.02 ng/mL (0.0-0.045); Urine White Blood Cell Casts OK
[2019-10-11] MEDS ORDERED: CEFTRIAXONE/SWI 1gm 1 GM/10 ML SYR ONE (20:56)
[2019-10-11] MEDS ORDERED: AZITHROMYCIN 500 MG INJ IVPB ONE (20:56)
[2019-10-11] MEDS ORDERED: NA CHLORIDE 0.9% 250 ML ONE (20:56)
[2019-10-11] MEDS ORDERED: METHYLPREDNISOLONE 125 MG INJ ONE (20:56)
--- NOTE | 2019-10-11 21:05 | ER ---
Nurse's Notes [facility] Name: Analilia Colby Age: 74 yrs Sex: Male : 1945 Arrival Date: 10/11/2019 Time: 18:30 Bed 19 Private MD: Alfreda Obrien C Diagnosis: Chronic obstructive pulmonary disease with (acute) exacerbation;Hypoxia;End stage renal disease;Volume overload Presentation: 10/11 18:35 Presenting complaint: Patient states: Shortness of breath for the past 2 weeks that has aj1 gotten progressively worse, he was seen at Dr. Obrien's office on Saturday and he is going to go see a different hand inspector, but the shortness of breath has gotten worse and he is too short of breath to walk. Transition of care: patient was not received from another setting of care. Onset of symptoms was 2019. Risk Assessment: Do you want to hurt yourself or someone else? Patient reports no desire to harm self or others. Initial Sepsis Screen: Does the patient meet any 2 criteria? RR > 20 per min. No. Patient's initial sepsis screen is negative. Does the patient have a suspected source of infection? No. Patient's initial sepsis screen is negative. Care prior to arrival: None. 18:35 Method Of Arrival: Wheelchair aj1 18:35 Acuity: RIVERA 2 aj1 Triage Assessment: 18:37 General: Appears in no apparent distress. comfortable, Behavior is calm, cooperative, aj1 appropriate for age. Pain: Denies pain. Neuro: Level of Consciousness is awake, alert, obeys commands. Cardiovascular: Patient's skin is warm and dry. Respiratory: Reports shortness of breath at rest Airway is patent Respiratory effort is even, unlabored, Respiratory pattern is regular, symmetrical, Onset: The symptoms/episode began/occurred 2 weeks ago, the patient has moderate shortness of breath. Historical: - Allergies: 18:37 No Known Allergies; aj1 - PMHx: 18:37 Cancer, Lung; Dialysis; Hypertension; Liver disease; Renal Cancer; aj1 - Immunization history:: Flu vaccine is up to date. - Coronavirus screen:: The patient has NOT traveled to [place], [place], or [place] in the past 14 days. - Social history:: Smoking status: Patient/guardian denies using tobacco. - Ebola Screening: : Patient denies travel to an Ebola-affected area in the 21 days before illness onset. Screenin:03 Abuse screen: Denies threats or abuse. Nutritional screening: No deficits noted. fu Tuberculosis screening: No symptoms or risk factors identified. Fall Risk None identified. Assessment: 19:00 General: Appears uncomfortable, Behavior is calm, cooperative, appropriate for age, fu Reports feeling ill for > 3 days, Denies fever. Pain: Denies pain. Neuro: Level of Consciousness is awake, alert, obeys commands, Oriented to person, place, time, situation, Radiation Therapy Technologist are equal bilaterally Moves all extremities. Cardiovascular: Denies chest pain, palpitations, Rhythm is regular. Respiratory: Airway is patent Breath sounds are diminished bilaterally. Onset: The symptoms/episode began/occurred past 2 weeks that become worse today. Respiratory: Airway is patent. GI: Reports nausea. : Reports on dialysis, MWF last dialysis last Saturday. Derm: Bruising that is on left arm Reports fistula to right arm for dialysis. 20:15 Reassessment: Patient appears in no apparent distress at this time. Patient and/or fu family updated on plan of care and expected duration. Pain level reassessed. Patient is alert, oriented x 3, equal unlabored respirations, skin warm/dry/pink. Patient states symptoms have improved. Respiratory: Respiratory effort is even. 21:00 Reassessment: Patient appears in no apparent distress at this time. Patient and/or fu family updated on plan of care and expected duration. Pain level reassessed. Patient is alert, oriented x 3, equal unlabored respirations, skin warm/dry/pink. Patient states symptoms have improved. 21:20 Reassessment: Patient complaining of itching to left arm, right below IV insertion fu site, and nausea, [employer] notified with orders made.. 22:00 Reassessment: Patient appears in no apparent distress at this time. Patient and/or fu family updated on plan of care and expected duration. Pain level reassessed. Patient is alert, oriented x 3, equal unlabored respirations, skin warm/dry/pink. Patient states feeling better. Vital Signs: 18:37 BP 163 / 75; Pulse 71; Resp 18; Temp 97.7; Pulse Ox 89% on R/A; Weight 79.38 kg (R); aj1 Height 5 ft. 8 in. (172.72 cm) (R); Pain 0/10; 19:45 BP 175 / 46; Pulse 73; Resp 18; Pulse Ox 99% on 3 lpm NC; Pain 0/10; fu 20:30 BP 171 / 54; Pulse 65; Resp 19; Pulse Ox 100% on 3 lpm NC; Pain 0/10; fu 20:35 BP 169 / 73; Pulse 69; Resp 20; Temp 97.8; Pulse Ox 100% on 3 lpm NC; Pain 0/10; fu 21:31 BP 122 / 107; Pulse 69; Resp 19; Pulse Ox 97% on 3 lpm NC; Pain 0/10; fu 22:15 BP 151 / 62; Pulse 72; Resp 20; Pulse Ox 98% on 3 lpm NC; Pain 0/10; fu 18:37 Body Mass Index 26.61 (79.38 kg, 172.72 cm) aj1 ED Course: 18:30 Patient arrived in ED. mr 18:30 Alfreda Obrien MD is Private Physician. mr 18:36 Triage completed. aj1 18:37 Arm band placed on Patient placed in an exam room. aj1 18:54 Armando Banegas NP is PHCP. pm1 18:54 Cristhian Garcia MD is Attending Physician. pm1 19:01 EKG done, by ED staff, reviewed by Armando Banegas NP. jb1 19:15 Memo Buckley, RN is Primary Nurse. fu 19:30 First set of blood cultures drawn. mt 19:30 Inserted saline lock: 22 gauge in left antecubital area, using aseptic technique. Blood mt collected. 19:31 Chest Single View XRAY In Process Unspecified. EDMS 19:47 Second set of blood cultures drawn by ED staff. mt 20:25 Notified Nurse Practitioner and/or Physician Digital Performance Analyst of a critical lab result(s), bb Creatinine of 8.82 Armando Banegas NP notified. 21:04 Alfreda Obrien MD is Hospitalizing Provider. pm1 22:03 Patient has correct armband on for positive identification. Placed in gown. Bed in low fu position. Call light in reach. 22:03 No provider procedures requiring assistance completed. fu 22:10 Patient admitted, IV remains in place. fu Administered Medications: 19:24 Drug: Albuterol - atroVENT (3:1) (2.5 mg - 0.5 mg) 3 ml Route: Nebulizer; fu 20:08 Not Given (Physician Discretion): Lasix 40 mg IVP once pm1 21:04 Drug: SOLU-Medrol 125 mg Route: IVP; Site: left antecubital; fu 21:06 Drug: Rocephin 1 grams Route: IV; Rate: calculated rate; Site: left antecubital; fu 21:06 Drug: AZITHromycin 500 mg Route: IVPB; Infused Over: 1 hrs; Site: left antecubital; fu 21:25 Drug: Zofran 4 mg Route: IVP; Site: left antecubital; fu Outcome: 21:05 Decision to Hospitalize by Provider. pm1 22:10 Admitted to Tele accompanied by nurse, via stretcher, room 422, with oxygen, Report fu called to ALEK Landry 22:10 Condition: improved 22:10 Instructed on the need for admit. 23:36 Patient left the ED. mw2 Signatures: Dispatcher [employer] EDMS Angel Luis Galo jbAisha Lantigua RN ALEK aj1 Alessandra Yin Brenda RN Armando Valadez, IDALMIS [employer] pm1 Kenia Hennessy tx Mmeo Buckley RN Pham Hassan mw2 Corrections: (The following items were deleted from the chart) 18:38 18:35 Acuity: RIVERA 3 aj1 aj1 20:02 19:39 Inserted saline lock: 22 gauge in left antecubital area, using aseptic technique. mt Blood collected. tx 23:35 22:45 BP 151 / 62; Pulse 72bpm; Resp 20bpm; Pulse Ox 98% 3 lpm Nasal Cannula; Pain fu 0/10; fu
--- NOTE | 2019-10-11 21:06 | EDPHYS ---
Physician Documentation [facility] Name: Analilia Colby Age: 74 yrs Sex: Male : 1945 Arrival Date: 10/11/2019 Time: 18:30 Bed 19 Private MD: Alfreda Obrien C ED Physician Cristhian Garcia HPI: 10/11 19:00 This 74 yrs old Male presents to ER via Wheelchair with complaints of pm1 Breathing Difficulty. 19:00 The patient has shortness of breath at rest, worse with exertion and walking. Onset: pm1 The symptoms/episode began/occurred 5 day(s) ago. Duration: The symptoms are continuous, and are steadily getting worse. The patient's shortness of breath is aggravated by exertion, walking, is alleviated by rest. Associated signs and symptoms: Pertinent negatives: chest pain, fever, nausea, vomiting. 19:00 Severity of symptoms: in the emergency department the symptoms are worse. The patient pm1 has been recently seen by a physician: the patient's primary care provider, Dr. Obrien 5 day(s) ago, with similar presenting complaints, and was referred to a specialist, core cutter and reamer. Historical: - Allergies: 18:37 No Known Allergies; aj1 - PMHx: 18:37 Cancer, Lung; Dialysis; Hypertension; Liver disease; Renal Cancer; aj1 - Immunization history:: Flu vaccine is up to date. - Coronavirus screen:: The patient has NOT traveled to [place], [place], or [place] in the past 14 days. - Social history:: Smoking status: Patient/guardian denies using tobacco. - Ebola Screening: : Patient denies travel to an Ebola-affected area in the 21 days before illness onset. ROS: 19:00 Constitutional: Negative for fever, chills, and weight loss, Eyes: Negative for injury, pm1 pain, redness, and discharge, ENT: Negative for injury, pain, and discharge, Neck: Negative for injury, pain, and swelling, Cardiovascular: Negative for chest pain, palpitations, and edema. 19:00 Abdomen/GI: Negative for abdominal pain, nausea, vomiting, diarrhea, and constipation, Back: Negative for injury and pain, MS/Extremity: Negative for injury and deformity, Skin: Negative for injury, rash, and discoloration, Neuro: Negative for headache, weakness, numbness, tingling, and seizure. 19:00 Respiratory: Positive for shortness of breath, at rest and on exertion. Exam: 19:00 Constitutional: This is a well developed, well nourished patient who is awake, alert, pm1 and in no acute distress. Head/Face: Normocephalic, atraumatic. Chest/axilla: Normal chest wall appearance and motion. Nontender with no deformity. No lesions are appreciated. Cardiovascular: Regular rate and rhythm with a normal S1 and S2. No gallops, murmurs, or rubs. No pulse deficits. 19:00 Abdomen/GI: Soft, non-tender, with normal bowel sounds. No distension or tympany. No guarding or rebound. No evidence of tenderness throughout. Back: No spinal tenderness. No costovertebral tenderness. Full range of motion. Skin: Warm, dry with normal turgor. Normal color with no rashes, no lesions, and no evidence of cellulitis. MS/ Extremity: Pulses equal, no cyanosis. Neurovascular intact. Full, normal range of motion. 19:00 Respiratory: the patient does not display signs of respiratory distress, Respirations: normal, Breath sounds: rales, are located in both bases. 19:00 Neuro: Orientation: is normal, Motor: is normal, moves all fours. Vital Signs: 18:37 BP 163 / 75; Pulse 71; Resp 18; Temp 97.7; Pulse Ox 89% on R/A; Weight 79.38 kg (R); aj1 Height 5 ft. 8 in. (172.72 cm) (R); Pain 0/10; 19:45 BP 175 / 46; Pulse 73; Resp 18; Pulse Ox 99% on 3 lpm NC; Pain 0/10; fu 20:30 BP 171 / 54; Pulse 65; Resp 19; Pulse Ox 100% on 3 lpm NC; Pain 0/10; fu 20:35 BP 169 / 73; Pulse 69; Resp 20; Temp 97.8; Pulse Ox 100% on 3 lpm NC; Pain 0/10; fu 21:31 BP 122 / 107; Pulse 69; Resp 19; Pulse Ox 97% on 3 lpm NC; Pain 0/10; fu 22:15 BP 151 / 62; Pulse 72; Resp 20; Pulse Ox 98% on 3 lpm NC; Pain 0/10; fu 18:37 Body Mass Index 26.61 (79.38 kg, 172.72 cm) aj1 MDM: 19:00 Patient medically screened. pm1 20:36 Data reviewed: vital signs. pm1 20:54 Counseling: I had a detailed discussion with the patient and/or guardian regarding: the pm1 historical points, exam findings, and any diagnostic results supporting the discharge/admit diagnosis, lab results, radiology results, the need for further work-up and treatment in the hospital. 20:55 ED course: Patient with 89% saturation on RA on arrival. He has a recent diagnosis of pm1 COPD and does not use oxygen at home. Patient does not urinate and cannot be diuresed. Will need dialysis to resolve volume overload. Will admit the patient for supplemental oxygen until dialyzed and antibiotics for COPD exacerbation/pneumonia. 20:55 Physician consultation: Alfreda Obrien MD regarding admission, patient's condition, would like pm1 consultation with Dr. Clay's science consultant. 21:02 Physician consultation: Raza Steven MD was called at 21:02, was contacted at 21:02, pm1 regarding consult, patient's condition, Put under Dr. Le. 10/11 19:00 Order name: Amylase, Serum pm1 10/11 19:00 Order name: Basic Metabolic Panel pm1 10/11 19:00 Order name: Blood Culture Adult (2) pm1 10/11 19:00 Order name: CBC with Diff pm1 10/11 19:00 Order name: Ckmb pm1 10/11 19:00 Order name: CPK; Complete Time: 20:31 pm10/11 19:00 Order name: Lactate; Complete Time: 20:31 pm10/11 19:00 Order name: LFT's; Complete Time: 20:31 pm1 10/11 19:00 Order name: Lipase; Complete Time: 20:31 pm1 10/11 19:00 Order name: Procalcitonin; Complete Time: 22:21 pm1 10/11 19:00 Order name: Protime (+inr); Complete Time: 20:31 pm1 10/11 19:00 Order name: Ptt, Activated; Complete Time: 20:31 pm1 10/11 19:00 Order name: Troponin (emerg Dept Use Only); Complete Time: 20:31 pm1 10/11 19:00 Order name: Urine Microscopic Only pm1 10/11 19:00 Order name: Chest Single View XRAY; Complete Time: 19:52 pm1 10/11 19:00 Order name: Flu; Complete Time: 20:31 pm1 10/11 19:01 Order name: Amylase Level; Complete Time: 20:31 EDMS 10/11 19:01 Order name: Basic Metabolic Panel; Complete Time: 20:31 EDMS 10/11 19:01 Order name: Blood Culture EDMS 10/11 19:01 Order name: CBC with Automated Diff; Complete Time: 20:31 EDMS 10/11 19:01 Order name: CKMB Creatine Kinase MB; Complete Time: 20:31 EDMS 10/11 19:48 Order name: CBC Smear Scan; Complete Time: 20:31 EDMS 10/11 20:09 Order name: Glucose, Ancillary Testing; Complete Time: 20:31 EDMS 10/11 21:29 Order name: CONS Physician Consult EDMS 10/11 19:00 Order name: Accucheck; Complete Time: 20:00 pm1 10/11 19:00 Order name: Cardiac monitoring; Complete Time: 20:00 pm1 10/11 19:00 Order name: EKG - Nurse/Tech; Complete Time: 20:00 pm1 10/11 19:00 Order name: IV Saline Lock - Large Bore; Complete Time: 20:00 pm1 10/11 19:00 Order name: Labs collected and sent; Complete Time: 20:01 pm1 10/11 19:00 Order name: O2 Per Protocol; Complete Time: 20:01 pm1 10/11 19:00 Order name: O2 Sat Monitoring; Complete Time: 20:00 pm1 Administered Medications: 19:24 Drug: Albuterol - atroVENT (3:1) (2.5 mg - 0.5 mg) 3 ml Route: Nebulizer; fu 20:08 Not Given (Physician Discretion): Lasix 40 mg IVP once pm1 21:04 Drug: SOLU-Medrol 125 mg Route: IVP; Site: left antecubital; fu 21:06 Drug: Rocephin 1 grams Route: IV; Rate: calculated rate; Site: left antecubital; fu 21:06 Drug: AZITHromycin 500 mg Route: IVPB; Infused Over: 1 hrs; Site: left antecubital; fu 21:25 Drug: Zofran 4 mg Route: IVP; Site: left antecubital; fu Disposition: 10/12 07:33 Co-signature as Attending Physician, Cristhian Garcia MD I agree with the assessment and anh plan of care. Disposition: 10/11/19 21:05 Hospitalization ordered by Alfreda Obrien for Inpatient Admission. Preliminary diagnosis are Chronic obstructive pulmonary disease with (acute) exacerbation, Hypoxia, End stage renal disease, Volume overload. - Bed requested for Telemetry/MedSurg (Inpatient). - Status is Inpatient Admission. mw2 - Condition is Stable. - Problem is new. - Symptoms have improved. UTI on Admission? No Signatures: Dispatcher [employer] EDMS Aisha Duran RN RN aj1 Cherri Olsen RN Cristhian Bautista MD MD cha Marinas, Patrick, FLOOR RENOVATOR FLOOR RENOVATOR pm1 Memo Buckley RN RN fu [place], MyKena mw2 Corrections: (The following items were deleted from the chart) 10/11 21:30 21:05 Hospitalization Ordered by A Micah ARRIETA for Inpatient Admission. Preliminary mw diagnosis is Chronic obstructive pulmonary disease with (acute) exacerbation; Hypoxia; End stage renal disease; Volume overload. Bed requested for Telemetry/MedSurg (Inpatient). Status is Inpatient Admission. Condition is Stable. Problem is new. Symptoms have improved. UTI on Admission? No. pm1 23:36 21:30 10/11/2019 21:05 Hospitalization Ordered by A Micah ARRIETA for Inpatient Admission. mw2 Preliminary diagnosis is Chronic obstructive pulmonary disease with (acute) exacerbation; Hypoxia; End stage renal disease; Volume overload. Bed requested for Telemetry/MedSurg (Inpatient). Status is Inpatient Admission. Condition is Stable. Problem is new. Symptoms have improved. UTI on Admission? No. mw
[2019-10-11] MEDS ORDERED: ONDANSETRON 4 MG/2 ML VIAL ONE (21:26)
[2019-10-11] MEDS ORDERED: IPRATROPIUM BROM 0.5MG/2.5ML NEB PRN (23:10)
[2019-10-11] MEDS ORDERED: ALBUTEROL 2.5 MG/3 ML NEB SOL NEB PRN (23:10)
[2019-10-12 02:25] VITALS: BMI 26.6
[2019-10-12 04:46] LABS: Absolute Lymphocytes (CBC) 0.2 K/uL (0.7-4.9)
[2019-10-12 04:51] LABS: Basophils % 0.4 % (0-1.3); Hematocrit 23.8 % (39.6-49.0)
[2019-10-12 04:54] LABS: Lymphocytes % 6.1 % (15.3-44.8); RBC Red Blood Cell Count 2.51 M/uL (4.33-5.43)
[2019-10-12 04:57] LABS: MPV 7.3 fL (7.6-11.3)
[2019-10-12 05:04] LABS: Potassium 5.7 mmol/L (3.5-5.1)
[2019-10-12 05:21] LABS: Platelet Estimate DECR
[2019-10-12 05:22] LABS: Anisocytosis 1+; Blood Morphology Comment NOTED (NOT SEEN)
[2019-10-12] MEDS ORDERED: METHYLPREDNISOLONE 40 MG INJ IV SCH (06:00)
--- NOTE | 2019-10-12 08:46 | EKG ---
Test Date: 2019-10-11 Test Time: 18:49:22 Sap Bobj Developer: AALIYAH MEASUREMENT RESULTS: Intervals: Rate: 70 VA: 142 QRSD: 130 QT: 436 QTc: 470 [place]: P: 49 VA: 142 QRS: -39 T: 79 INTERPRETIVE STATEMENTS: Normal sinus rhythm Possible Left atrial enlargement Left axis deviation Left ventricular hypertrophy with QRS widening and repolarization abnormality Abnormal ECG Compared to ECG 09/03/2019 08:57:51 Left-axis deviation now present Electronically Signed On 10-12-19 08:45:43 INFRASTRUCTURE DEVELOPER by Haresh Ledesma
[2019-10-12] MEDS ORDERED: FOLBIC 1 TAB PO SCH (09:00)
[2019-10-12] MEDS ORDERED: ASPIRIN EC 81 MG TAB PO SCH (09:00)
[2019-10-12] MEDS ORDERED: PNEUMOCOCCAL VACCINE 0.5 ML IMVAC ONE (09:00)
[2019-10-12] MEDS ORDERED: AMLODIPINE 10 MG TAB PO SCH (09:00)
[2019-10-12] MEDS ORDERED: LOSARTAN POTASSIUM 50 MG TABLET PO SCH (09:00)
[2019-10-12] MEDS ORDERED: AZITHROMYCIN IV 250 MG in NA CHLORIDE 0.9% 250 ML IVPB SCH (09:00)
[2019-10-12] MEDS ORDERED: HOME MED 1 EA UNK (Fluticasone/Umeclidin/Vilanter [Trelegy Ellipta 100-62.5-25] 1 PUFF) IH SCH (09:00)
[2019-10-12] MEDS ORDERED: carvediloL 6.25 MG TAB PO SCH (09:00)
[2019-10-12] MEDS ORDERED: MANNITOL 25% 12.5 GM/50 ML VIAL IV PRN (10:19)
[2019-10-12] MEDS ORDERED: NA CHLORIDE 0.9% 1,000 ML IV PRN (10:19)
[2019-10-12] MEDS ORDERED: EPOETIN ALFA 20,000 UNIT/1 ML VIAL SQ SCH (10:45)
[2019-10-12] MEDS ORDERED: ALBUMIN HUMAN 25% 50 ML IV SCH (11:00)
[2019-10-12] MEDS ORDERED: ALBUTEROL 2.5 MG/3 ML NEB SOL NEB PRN (15:00)
[2019-10-12] MEDS ORDERED: IPRATROPIUM BROM 0.5MG/2.5ML NEB PRN (15:00)
[2019-10-12 15:38] VITALS: O2SAT 94
[2019-10-12 16:17] VITALS: BP 118/60; TEMP 97.1
--- NOTE | 2019-10-12 19:29 | P.CNS ---
Date of Consult: 10/12/19 Reason for Consult: ESRD Requesting Physician: Ward Obrien Primary Care Provider: Dr. Obrien Chief Complaint: Dyspnea History of Present Illness: 74 yo WM CKD, HTN presents with 2-4 days of moderate, progressive dyspnea worse with activity. Similar symptoms in the past. Found to have hypoxia and improved with Oxygen. Allergies No Known Allergies Allergy (Verified 10/12/19 02:35) Home medications list reviewed: Yes Home Medications: Losartan Potassium [Cozaar] 1 tab PO DAILY 11/25/18 carvediloL [Coreg*] 6.25 mg PO BID 11/25/18 Amlodipine Besylate 1 tab PO BID 05/18/19 Fluticasone/Umeclidin/Vilanter [Trelegy Ellipta 100-62.5-25] 1 puff IH DAILY Amlodipine Besylate 10 mg PO BID 10/12/19 Vit D3/Folic Acid/B2/B6/B12 [Folgard Tablet] 1 cap PO DAILY 10/12/19 - Past Medical/Surgical History Diabetic: No -: renal cell carcinoma with mets lungs -: both kidneys removed 2006 -: htn -: dialysis mwf -: cysts on liver -: both kidneys removed -: graft L arm-not active. -: cholecystectomy -: tonsils removed and adnoids - Family History Mother Medical History: Hypertension, Cancer Notes: doesnt know what kind Father Medical History: Hypertension, Stroke, Other (see notes) Notes: circulatory problem-aneurysm - Social History Smoking Status: Never smoker Alcohol use: No CD- Drugs: No Caffeine use: No Place of Residence: Home Review of Systems 10-point ROS is otherwise unremarkable General: Weakness, Malaise Respiratory: SOB with Excertion Physical Examination Temp Pulse Resp BP Pulse Ox 97.1 F 66 16 118/60 94 10/12/19 16:00 10/12/19 16:00 10/12/19 16:00 10/12/19 16:10/12/19 16:00 General: In no apparent distress, Oriented x3, Cooperative HEENT: Atraumatic Neck: Supple Respiratory: Clear to auscultation bilaterally Cardiovascular: No edema, Regular rate/rhythm Gastrointestinal: Soft and benign, Non-distended Musculoskeletal: No clubbing, No contractures Integumentary: No rashes, No cyanosis Neurological: Normal speech Laboratory Data (last 24 hrs) 10/11/19 19:30: PT 11.5, INR 0.97, APTT 36.6 10/11/19 19:30: WBC 5.3, Hgb 8.5 L, Hct 25.3 L, Plt Count 67 L 10/11/19 19:30: Sodium 142, Potassium 5.0, BUN 43 H, Creatinine 8.82 H*, Glucose 96, Total Bilirubin 1.5 H, AST 20, ALT 21, Alkaline Phosphatase 83, Amylase 46, Lipase 74 Imagings Data: EXAM DESCRIPTION: RAD - Chest Single View - 10/11/2019 7:31 pm CLINICAL HISTORY: SOB COMPARISON: Chest Pa And Lat (2 Views) dated 09/04/2019 TECHNIQUE: AP portable chest image was obtained 10/11/2019 7:31 pm . FINDINGS: Bilateral pleural effusions are present new from the prior study. Heart size is enlarged. Vascular engorgement present. Left-sided Port-A-Cath is in place. Interstitial opacities are present in the mid and lower right lung field and to a lesser degree left lung base. Trachea is midline. No pneumothorax. No acute bony abnormality seen. No acute aortic findings suspected. IMPRESSION: CHF/volume overload pattern. Conclusions/Impression: A/ ESRD on HD. Hyperkalemia. HTN with CKD/CHF. Diastolic CHF, A/C. Acute hypoxic respiratory failure. Anemia in CKD. Pancytopenia. MANFRED/ Secondary HyperPTH. P/ Continue current POC and Medications. Acute HD with UF ordered. Seen and examined on HD. Restart home medications as indicated. Oxygen as needed. Encourage nutrition. No NSAIDs. AM labs. Daily weight. Thank you kindly for the consultation.
[2019-10-12] MEDS ORDERED: CEFTRIAXONE/SWI 1gm 1 GM/10 ML SYR IV SCH (21:00)
--- NOTE | 2019-10-13 04:25 | SS ---
Date of Discharge: 10/12/2019 Chief Complaint: Shortness of breath. History Of Present Illness: This is a 74-year-old male patient with multiple chronic comorbidities, came into emergency room with worsening shortness of breath for 2-3 days. Denies any fever, chills. No expectoration. No chest pain. After he came into emergency room yesterday, he reports that his oxygen level was on low side and he was placed on oxygen and within 10 minutes after he was started o n oxygen in the emergency room, he started feeling great and he has been feeling very well since that time. His dialysis is due today. Medications: List reviewed. Review of Systems: Respiratory: As mentioned above. All other systems reviewed and negative. Allergies: NO KNOWN ALLERGIES. Past Medical History: Significant for chronic systolic congestive heart failure, but last echocardio gram done in August 2019, showed normal ejection fraction. He also has COPD; end-stage renal disea se, on hemodialysis; kidney cancer; anemia due to chronic kidney disease; hypertension; hyperlipidemi a; thrombocytopenia; benign prostatic hypertrophy. Social History: Negative for smoking and alcohol use. Family History: Significant for COPD. Past Surgical History: Significant for bilateral nephrectomy in 2006 due to kidney cancer. Physical Examination: VITAL SIGNS: Temperature 97.7, pulse 72, respiratory rate 18, blood pressure 153/67, oxygen saturati on 99% on 2 L nasal cannula oxygen this morning. General: Awake, alert, oriented, not in distress. HEENT: Head atraumatic, normocephalic. Conjunctivae nonerythematous. Sclerae white. Mouth, no thr ush or edema noted. Ears/Nose, no mass, lesion, discharge noted. Neck: Supple. No JVD, lymph nodes, bruit, thyromegaly noted. Lungs: Bilateral good equal air entry. Clear to auscultation. No rhonchi. Very minimum basal rale s noted in both lungs. Heart: Normal heart sounds, no murmur or gallop. Abdomen: Soft, bowel sounds normal. No guarding, rigidity, tenderness, mass, hepatosplenomegaly, dis tention, or bruit noted. Extremities: No leg edema. No calf tenderness. Skin: No rash, ulcer, cellulitis. Lymphatics: No lymph node enlargement in neck, supraclavicular, infraclavicular region. Neuro: No focal neurological deficit. Chest: Unremarkable. External Genitalia: Deferred. Rectal: Deferred. Laboratory Data: Yesterday's white count 5.3, hemoglobin 8.5, lipase 67, today white count 4, hemogl obin 8, platelets . Yesterday, sodium 142, potassium 5, chloride 107, bicarb 27, BUN 43, c reatinine 8.82, glucose 96. Liver function tests unremarkable except total bilirubin 1.5. Troponin less than 0.02. Procalcitonin 0.32. Today, sodium 141, potassium 5.7, chloride 106, bicarb 25, BUN 48, creatinine 9.35, glucose . ProBNP 163,120. Chest x-ray, CHF/volume overload pattern. Hospital Course: After I saw patient, I discontinued his oxygen and we checked his oxygen saturation at rest. His oxygen saturation was around 87% to 88% and then when he got up to ambulate, it went u p to 90% to 93% and on room air oxygen saturation, he did not have any hypoxia, though we could demon strate today. What I am concerned about is that the patient probably has hypoxia that builds up over period of time to the extent that where he ends up having this admission that required him to come t o emergency room and within 10 minutes after oxygen was started in the emergency room, he started fee ling great and has felt very well since that time. We did outpatient pulmonary function test recentl y, which showed mild COPD, but severe diffusion abnormality. With that in mind, he has appointment t hat is coming up in the near future for him to see fish cleaner machine tender, but he will definitely benefit from home oxygen. Respiratory therapist tried to see if he can qualify for home oxygen, but he did not a nd I did talk to patient and his this morning whether he qualifies for home oxygen or not. My r ecommendation is for him to go home with oxygen. At the same time, I have also suggested rather made him aware of the option of getting oxygen device called [employer] and I explained it to them. They wer e willing to go ahead and pay out of pocket for that particular device and appropriate paperwork was initiated with help of social service. Meanwhile, he has received dialysis today. He has ambulated well in the hallway without any problem and I have recommended him to use oxygen 2 L/min nasal cannul a all night and p.r.n. during daytime and also suggested for him to buy pulse ox machine to check his O2 saturations during daytime and for him to use oxygen when need oxygen saturation drops less than 90% at home, but definitely throughout the night, he should use it. All these details were discussed with him and patient was discharged to go home in stable condition as we do not know when his home o xygen will be delivered and he is anxious to go home and wants to go home. Medically, he is stable f or discharge. Discharge Medication Instruction: 1.Continue all prior home medication. 2.Follow up at my office per scheduled appointment. Discharge Diagnoses: 1.Chronic obstructive pulmonary disease. 2.Congestive heart failure, chronic, systolic. 3.End-stage renal disease, on hemodialysis. 4.Anemia due to chronic kidney disease. 5.Thrombocytopenia, chronic. 6.Kidney cancer. 7.Hypertension. 8.Hyperlipidemia. 9.Hyperkalemia. 10.Benign prostatic hypertrophy. RYAN/MODL Voice ID: [id number] Report ID: [id number]
== END 2019-10-12 19:20 | disposition home or self-care (01) ==
LOC: ER 18:28 → INTOOBSV 21:24 → ERHOLD 21:24 → 4TH 22:51
PROVIDERS: ADMIT Internal Medicine; ATTEND Internal Medicine
DX: J44.9 Chronic obstructive pulmonary disease, unspecified (principal); I13.2 Hypertensive heart and chronic kidney disease with heart failure and with stage 5 chronic kidney disease, or end stage renal disease; I50.22 Chronic systolic (congestive) heart failure; N18.6 End stage renal disease; Z99.2 Dependence on renal dialysis; D63.1 Anemia in chronic kidney disease; D69.6 Thrombocytopenia, unspecified; Z85.528 Personal history of other malignant neoplasm of kidney; E78.5 Hyperlipidemia, unspecified; E87.5 Hyperkalemia; N40.0 Benign prostatic hyperplasia without lower urinary tract symptoms
CPT/HCPCS: 93005; 87040 ×2; 85025 ×2; 80048 ×2; 36415; 82150; 82550; 85610; 82947; 80076; 83605; 85730; 84484 ×3; 82553; 83690; 84145; 83880; 87804 ×2; 71045; 90935; 94640; 94760; 96375; 96374; 99285; J0456; J1644 ×2; J0696; J7030; J2930; J2405; J2920; G0378 ×2; J1940; Q4081

== ENCOUNTER 2021-06-11 00:22 | Observation (INO) | payer OTHER, BC ==
[2021-06-11] MEDS ORDERED: ALBUTEROL 2.5 MG/3 ML NEB SOL ONE ×2 (01:41→06:43)
[2021-06-11] MEDS ORDERED: IPRATROPIUM BROM 0.5MG/2.5ML ONE ×2 (01:42→06:43)
[2021-06-11 02:25] LABS: Absolute Lymphocytes (CBC) 0.7 K/uL (0.7-4.9); Basophils % 0.8 % (0-1.3); Hematocrit 22.8 % (39.6-49.0); Lymphocytes % 13.8 % (15.3-44.8); MPV 6.6 fL (7.6-11.3); RBC Red Blood Cell Count 2.45 M/uL (4.33-5.43)
[2021-06-11 02:26] LABS: Protime INR 1.01
[2021-06-11] MEDS ORDERED: HYDRALAZINE HCL 20 MG/ML VIAL ONE ×2 (02:31→04:24)
[2021-06-11 03:01] LABS: Albumin 3.5 g/dL (3.4-5.0); Bilirubin Direct 0.4 mg/dL (0-0.2); Bilirubin Total 1.7 mg/dL (0.2-1.0); Magnesium 2.3 mg/dL (1.8-2.4); Potassium 4.3 mmol/L (3.5-5.1); Protein, Total 6.1 g/dL (6.4-8.2); Troponin (Emerg Dept Use Only) 0.05 ng/mL (0.0-0.045)
[2021-06-11] MEDS ORDERED: METHYLPREDNISOLONE 125 MG INJ ONE (03:28)
[2021-06-11] MEDS ORDERED: LEVALBUTEROL 1.25 MG/3 ML NEB ONE (03:40)
--- NOTE | 2021-06-11 03:58 | ER ---
Nurse's Notes [facility] Name: Analilia Colby Age: 76 yrs Sex: Male : 1945 Arrival Date: 06/11/2021 Time: 00:23 Bed 6 Private MD: Diagnosis: COPD/ Chronic obstructive pulmonary disease with (acute) exacerbation;Acute pulmonary edema;End stage renal disease Presentation: 06/11 00:40 Chief complaint: Patient states: Worsening shortness of breath, reports O2 at home of lp1 88-96% on RA; Hx of "fluid on lungs". Coronavirus screen: At this time, the client does not indicate any symptoms associated with coronavirus-19. Ebola Screen: No symptoms or risks identified at this time. Initial Sepsis Screen: Does the patient meet any 2 criteria? No. Patient's initial sepsis screen is negative. Does the patient have a suspected source of infection? No. Patient's initial sepsis screen is negative. Risk Assessment: Do you want to hurt yourself or someone else? Patient reports no desire to harm self or others. Onset of symptoms was June 11, 2021. 00:40 Method Of Arrival: Wheelchair lp1 00:40 Acuity: RIVERA 3 lp1 Triage Assessment: 02:05 General: Appears uncomfortable, well groomed, well developed, Behavior is calm, wg cooperative, appropriate for age. Pain: Denies pain. Respiratory: Reports shortness of breath cough that is non-productive, Onset: The symptoms/episode began/occurred gradually, the patient has mild shortness of breath. Historical: - Allergies: 00:42 No Known Allergies; lp1 - Home Meds: 00:42 Betty-Rahul 0.8 mg oral tab daily [Active]; carvedilol 12.5 mg oral tab 2 times per day lp1 [Active]; losartan 100 mg Oral tab 1 tab once daily [Active]; amlodipine 10 mg tab 1 tab twice a day [Active]; - PMHx: 00:42 Cancer, Lung; Dialysis; Hypertension; Liver disease; Renal Cancer; lp1 - PSHx: 00:42 x2 Kidney removal; Bilateral fistulas; lp1 - Immunization history:: Adult Immunizations up to date. - Social history:: Smoking status: Patient denies any tobacco usage or history of. Screenin:43 Abuse screen: Denies threats or abuse. Denies injuries from another. Nutritional lp1 screening: No deficits noted. Tuberculosis screening: No symptoms or risk factors identified. Fall Risk None identified. Assessment: 02:09 Cardiovascular: Rhythm is sinus rhythm. Respiratory: Airway is patent Trachea midline wg Respiratory effort is even, unlabored, Respiratory pattern is regular, symmetrical, Breath sounds are clear the patient has mild shortness of breath. 04:04 Reassessment: Patient appears in no apparent distress at this time. No changes from wg previously documented assessment. Patient and/or family updated on plan of care and expected duration. Pain level reassessed. Patient is alert, oriented x 3, equal unlabored respirations, skin warm/dry/pink. Patient denies pain at this time. Patient states feeling better. 04:16 Reassessment: No changes from previously documented assessment. Patient and/or family wg updated on plan of care and expected duration. Pain level reassessed. Patient is alert, oriented x 3, equal unlabored respirations, skin warm/dry/pink. Patient denies pain at this time. Respiratory: Breath sounds are clear bilaterally. 04:41 Reassessment: Pt c/o burning sensation in the left side of his chest. Ryan Latham made wg aware. 2nd EKG obtained and provided to Ryan Latham. Pt given 4mg zofran and 2mg Morphine. 04:44 Reassessment: Pt states the chest pain/burning has gone away. wg 04:51 Reassessment: at beside. Pt resting comfortably stating his breathing and chest wg pain feels much better. Vital Signs: 00:40 BP 207 / 88; Pulse 72; Resp 20; Temp 97.8(O); Pulse Ox 96% on R/A; Weight 78.02 kg (R); lp1 Height 5 ft. 8 in. (172.72 cm); Pain 0/10; 02:08 BP 209 / 98; Pulse 73; Resp 20; Pulse Ox 100% on NC; Pain 0/10; wg 02:21 BP 208 / 93; Pulse 71; Resp 20; Pulse Ox 100% on R/A; Pain 0/10; wg 02:59 BP 184 / 75; Pulse 74; Resp 20; Pulse Ox 100% on R/A; Pain 0/10; wg 04:04 BP 196 / 76; Pulse 72; Resp 20; Pulse Ox 98% on R/A; Pain 0/10; wg 04:13 BP 181 / 69; Pulse 78; Resp 20; Pulse Ox 98% on R/A; Pain 0/10; wg 04:15 BP 189 / 70; Pulse 84; Resp 20; Pulse Ox 97% on R/A; Pain 5/10; wg 04:15 BP 181 / 63; Pulse 74; Resp 20; Pulse Ox 97% on R/A; Pain 0/10; wg 05:00 BP 169 / 77; Pulse 70; Resp 20; Pulse Ox 97% on R/A; Pain 0/10; wg 00:40 Body Mass Index 26.15 (78.02 kg, 172.72 cm) lp1 Vitals: 02:09 Cardiac Rhythm Assessment Regular. wg ED Course: 00:23 Patient arrived in ED. bp1 00:41 Triage completed. lp1 00:41 Arm band placed on. lp1 00:57 Cristhian Latham PA is PHCP. cp 00:57 Manuel Henry MD is Attending Physician. cp 01:46 XRAY Chest (1 view) In Process Unspecified. EDMS 02:04 Leroy Duran, RN is Primary Nurse. wg 02:04 Lactate Sent. wg 02:04 Procalcitonin Sent. wg 02:04 Basic Metabolic Panel Sent. wg 02:04 Basic Metabolic Panel Sent. wg 02:05 EKG completed in triage. Results shown to MD. wg 02:05 CBC with Diff Sent. wg 02:05 LFT's Sent. wg 02:05 Magnesium Sent. wg 02:05 NT PRO-BNP Sent. wg 02:05 PT-INR Sent. wg 02:05 Troponin (emerg Dept Use Only) Sent. wg 02:05 Blood Culture Adult (2) Sent. wg 02:06 Initial Neb Treatment Given as ordered Patient tolerated procedure well without adverse wg effect. Inserted Accessed left anterior chest port with a 20g. Cespedes Power Port. Good blood return and flushes with ease. 02:09 Patient has correct armband on for positive identification. site monitor on. Pulse wg ox on. NIBP on. 02:09 Patient maintains SpO2 saturation greater than 95% on room air. wg 03:09 Blood Culture Adult (2) Sent. wg 03:09 Procalcitonin Sent. wg 03:12 Notified ED physician of a critical lab result(s). creatinine of 8.23. Dr Carl kemp notified. 03:56 Alfreda Obrien MD is Hospitalizing Provider. cp Administered Medications: 01:27 Drug: Albuterol - atroVENT (ipratropium) (3:1) (2.5 mg - 0.5 mg) 3 ml Route: Nebulizer; cw2 04:53 Follow up: Response: No adverse reaction; Wheezing diminished 02:11 Drug: hydrALAZINE 10 mg Route: IVP; Site: Port-a-cath; 04:53 Follow up: Response: No adverse reaction 03:08 Drug: SOLU-Medrol (methylPrednisoLONE) 125 mg Route: IVP; Infused Over: 2 mins; Site: Port-a-cath; 04:53 Follow up: Response: No adverse reaction 03:16 Drug: Xopenex (levalbuterol) 1.25 mg Route: Inhalation; 04:03 Drug: hydrALAZINE 10 mg Route: IVP; Site: Port-a-cath; 04:53 Follow up: Response: No adverse reaction; Blood pressure is lowered 04:35 Drug: morphine 2 mg Route: IVP; Infused Over: 2 mins; Site: Port-a-cath; 04:41 Drug: morphine 2 mg Route: IVP; Infused Over: 2 mins; Site: Port-a-cath; 04:53 Follow up: Response: No adverse reaction; Pain is decreased wg 04:41 Drug: Zofran (Ondansetron) 4 mg Route: IVP; Infused Over: 2 mins; Site: Port-a-cath; 04:52 Follow up: Response: No adverse reaction Outcome: 03:58 Decision to Hospitalize by Provider. cp 05:42 Admitted to Med/surg accompanied by nurse, via stretcher, with chart, Report called to logan Ramos RN 05:43 Patient left the ED. Signatures: Dispatcher [employer] EDMS Nikole Nina, RN RN bb Kindra Mcgraw, RN RN lp1 Cristhian Latham PA PA cp Paniauga, Brittany bp1 Gamba, Liam, RN José Miguel Wynn RN RN cw2
--- NOTE | 2021-06-11 03:58 | EDPHYS ---
Physician Documentation [facility] Name: Analilia Colby Age: 76 yrs Sex: Male : 1945 Arrival Date: 06/11/2021 Time: 00:23 Bed 6 Private MD: ED Physician Manuel Henry HPI: 06/11 01:10 This 76 yrs old Male presents to ER via Wheelchair with complaints of cp Breathing Difficulty. 01:10 The patient has shortness of breath at rest. cp 01:10 Onset: The symptoms/episode began/occurred gradually, and became worse today. cp 01:10 Duration: The symptoms are continuous, and are steadily getting worse. Associated signs cp and symptoms: Pertinent positives: non-productive cough, Pertinent negatives: chest pain, diaphoresis, fever. Severity of symptoms: in the emergency department the symptoms are unchanged despite home interventions. Historical: - Allergies: 00:42 No Known Allergies; lp1 - Home Meds: 00:42 Betty-Rahul 0.8 mg oral tab daily [Active]; carvedilol 12.5 mg oral tab 2 times per day lp1 [Active]; losartan 100 mg Oral tab 1 tab once daily [Active]; amlodipine 10 mg tab 1 tab twice a day [Active]; - PMHx: 00:42 Cancer, Lung; Dialysis; Hypertension; Liver disease; Renal Cancer; lp1 - PSHx: 00:42 x2 Kidney removal; Bilateral fistulas; lp1 - Immunization history:: Adult Immunizations up to date. - Social history:: Smoking status: Patient denies any tobacco usage or history of. ROS: 01:15 Constitutional: Negative for body aches, chills, fever, poor PO intake. cp 01:15 Eyes: Negative for injury, pain, redness, and discharge. cp 01:15 ENT: Negative for ear pain, sore throat, difficulty swallowing, difficulty handling secretions. 01:15 Cardiovascular: Negative for chest pain, edema, palpitations. 01:15 Respiratory: Positive for cough, with no reported sputum, orthopnea, shortness of breath, at rest. 01:15 Abdomen/GI: Negative for abdominal pain, nausea, vomiting, and diarrhea. 01:15 Neuro: Negative for altered mental status, dizziness, headache, syncope, weakness. 01:15 All other systems are negative. Exam: 01:00 ECG was reviewed by the Attending Physician. cp 01:20 Constitutional: The patient appears in no acute distress, alert, awake, cp non-diaphoretic, non-toxic, well developed, well nourished. 01:20 Head/Face: Normocephalic, atraumatic. cp 01:20 Eyes: Periorbital structures: appear normal, Conjunctiva: normal, no exudate, no injection, Sclera: no appreciated abnormality, Lids and lashes: appear normal, bilaterally. 01:20 ENT: External ear(s): are unremarkable, Nose: is normal, Mouth: Lips: moist, Oral mucosa: moist, Posterior pharynx: Airway: no evidence of obstruction, patent, swelling, is not appreciated, erythema, is not appreciated, exudate, is not appreciated. 01:20 Neck: ROM/movement: is normal, is supple, without pain, no range of motions limitations, no nuchal rigidity. 01:20 Chest/axilla: Inspection: normal, Palpation: is normal, no crepitus, no tenderness. 01:20 Cardiovascular: Rate: normal, Rhythm: regular, Edema: ankle edema, that is mild, JVD: is not appreciated. 01:20 Respiratory: mild respiratory distress is noted, Respirations: labored breathing, that is mild, Breath sounds: bronchial sounds, that are moderate, are heard diffusely, stridor, is not appreciated, wheezing: that is mild, is heard diffusely. 01:20 Abdomen/GI: Inspection: abdomen appears normal, Palpation: abdomen is soft and non-tender, in all quadrants. 01:20 Back: pain, is absent, ROM is normal. 01:20 Skin: cellulitis, is not appreciated, no rash present. 01:20 Neuro: Orientation: to person, place \T\ time. Mentation: is normal, Motor: moves all fours, strength is normal. 04:34 ECG was reviewed by the Attending Physician. cp Vital Signs: 00:40 BP 207 / 88; Pulse 72; Resp 20; Temp 97.8(O); Pulse Ox 96% on R/A; Weight 78.02 kg (R); lp1 Height 5 ft. 8 in. (172.72 cm); Pain 0/10; 02:08 BP 209 / 98; Pulse 73; Resp 20; Pulse Ox 100% on NC; Pain 0/10; wg 02:21 BP 208 / 93; Pulse 71; Resp 20; Pulse Ox 100% on R/A; Pain 0/10; wg 02:59 BP 184 / 75; Pulse 74; Resp 20; Pulse Ox 100% on R/A; Pain 0/10; wg 04:04 BP 196 / 76; Pulse 72; Resp 20; Pulse Ox 98% on R/A; Pain 0/10; wg 04:13 BP 181 / 69; Pulse 78; Resp 20; Pulse Ox 98% on R/A; Pain 0/10; wg 04:15 BP 189 / 70; Pulse 84; Resp 20; Pulse Ox 97% on R/A; Pain 5/10; wg 04:15 BP 181 / 63; Pulse 74; Resp 20; Pulse Ox 97% on R/A; Pain 0/10; wg 05:00 BP 169 / 77; Pulse 70; Resp 20; Pulse Ox 97% on R/A; Pain 0/10; wg 00:40 Body Mass Index 26.15 (78.02 kg, 172.72 cm) lp1 MDM: 00:58 Patient medically screened. cp 02:00 Differential diagnosis: CHF exacerbation, pneumonia, Pneumothorax pulmonary edema, cp Pulmonary Embolism Sepsis Unstable Angina. 04:00 Data reviewed: vital signs, nurses notes, lab test result(s), EKG, radiologic studies, cp plain films. 04:00 Test interpretation: by ED physician or midlevel provider: ECG, plain radiologic cp studies. Counseling: I had a detailed discussion with the patient and/or guardian regarding: the historical points, exam findings, and any diagnostic results supporting the discharge/admit diagnosis, lab results, radiology results, the need for further work-up and treatment in the hospital. Response to treatment: the patient's symptoms have mildly improved after treatment, and as a result, I will admit patient. 06/11 01:05 Order name: Basic Metabolic Panel cp 06/11 01:05 Order name: CBC with Diff; Complete Time: 02:34 cp 06/11 02:34 Interpretation: Normal except: RBC 2.45; HGB 7.8; HCT 22.8; PLT 80; RDW 16.7; MPV 6.6; cp LYM% 13.8; EOSINOPHIL % 5.1. 06/11 01:05 Order name: LFT's; Complete Time: 03:24 cp 06/11 03:13 Interpretation: Normal except: AST 7; BILIT 1.7; BILID 0.4; TP 6.1. cp 06/11 01:05 Order name: Magnesium; Complete Time: 03:24 cp 06/11 01:05 Order name: NT PRO-BNP; Complete Time: 03:24 cp 06/11 03:24 Interpretation: Abnormal: NT PRO-BNP [id number]. cp 06/11 01:05 Order name: PT-INR; Complete Time: 02:53 cp 06/11 01:05 Order name: Troponin (emerg Dept Use Only); Complete Time: 03:24 cp 06/11 03:14 Interpretation: Abnormal: TROPED 0.05. cp 06/11 01:06 Order name: Basic Metabolic Panel; Complete Time: 03:24 EDMS 06/11 03:14 Interpretation: Normal except: CL 108; BUN 50; CRE 8.27; GFR 6. cp 06/11 01:13 Order name: Blood Culture Adult (2) cp 06/11 01:13 Order name: Lactate; Complete Time: 02:53 cp 06/11 02:53 Interpretation: Reviewed. cp 06/11 01:13 Order name: Procalcitonin; Complete Time: 03:53 cp 06/11 03:55 Interpretation: Abnormal: Procalcitonin 0.16. cp 06/11 02:44 Order name: SARS-COV-2 RT PCR; Complete Time: 02:53 EDMS 06/11 02:53 Interpretation: Results reviewed. cp 06/11 01:05 Order name: XRAY Chest (1 view) cp 06/11 01:05 Order name: EKG; Complete Time: 01:06 cp 06/11 01:05 Order name: Cardiac monitoring; Complete Time: 01:19 cp 06/11 01:05 Order name: EKG - Nurse/Tech; Complete Time: 02:04 cp 06/11 01:05 Order name: IV Saline Lock; Complete Time: 02:04 cp 06/11 04:24 Order name: CONS Physician Consult; Complete Time: 04:51 EDMS 06/11 04:24 Order name: Respiratory Therapy Consult; Complete Time: 04:51 EDMS 06/11 04:28 Order name: Renal; Complete Time: 04:51 EDMS 06/11 04:28 Order name: Dietitian Consult; Complete Time: 04:51 EDMS 06/11 01:05 Order name: Labs collected and sent; Complete Time: 02:04 cp 06/11 01:05 Order name: O2 Per Protocol; Complete Time: 02:04 cp 06/11 01:05 Order name: O2 Sat Monitoring; Complete Time: 02:04 cp EC:00 Rate is 72 beats/min. Rhythm is regular. SC interval is normal. QRS interval is cp prolonged at 140 msec. QT interval is normal. T waves are Inverted in lead aVR. Interpreted by me. Reviewed by me. 04:34 Rate is 79 beats/min. Rhythm is regular. SC interval is normal. QRS interval is cp prolonged at 130 msec. QT interval is normal. T waves are Inverted in lead aVR. Interpreted by me. Reviewed by me. Administered Medications: 01:27 Drug: Albuterol - atroVENT (ipratropium) (3:1) (2.5 mg - 0.5 mg) 3 ml Route: Nebulizer; cw2 04:53 Follow up: Response: No adverse reaction; Wheezing diminished wg 02:11 Drug: hydrALAZINE 10 mg Route: IVP; Site: Port-a-cath; wg 04:53 Follow up: Response: No adverse reaction wg 03:08 Drug: SOLU-Medrol (methylPrednisoLONE) 125 mg Route: IVP; Infused Over: 2 mins; Site: Port-a-cath; 04:53 Follow up: Response: No adverse reaction wg 03:16 Drug: Xopenex (levalbuterol) 1.25 mg Route: Inhalation; wg 04:03 Drug: hydrALAZINE 10 mg Route: IVP; Site: Port-a-cath; wg 04:53 Follow up: Response: No adverse reaction; Blood pressure is lowered wg 04:35 Drug: morphine 2 mg Route: IVP; Infused Over: 2 mins; Site: Port-a-cath; wg 04:41 Drug: morphine 2 mg Route: IVP; Infused Over: 2 mins; Site: Port-a-cath; wg 04:53 Follow up: Response: No adverse reaction; Pain is decreased wg 04:41 Drug: Zofran (Ondansetron) 4 mg Route: IVP; Infused Over: 2 mins; Site: Port-a-cath; wg 04:52 Follow up: Response: No adverse reaction Disposition: 07:06 Co-signature as Attending Physician, Manuel Henry MD. [email or web address] Disposition Summary: 06/11/21 03:58 Hospitalization Ordered Hospitalization Status: Inpatient Admission cp Provider: Alfreda Obrien cp Location: Telemetry/MedSurg (Inpatient) cp Condition: Stable cp Problem: new cp Symptoms: have improved cp Bed/Room Type: Standard cp Room Assignment: 216(06/11/21 05:00) tt3 Diagnosis - COPD/ Chronic obstructive pulmonary disease with (acute) exacerbation cp - Acute pulmonary edema cp - End stage renal disease cp Forms: - Medication Reconciliation Form cp - SBAR form cp Signatures: Dispatcher [employer] EDMS Kindra Mcgraw, RN RN lp1 Cristhian Latham PA PA cp Manuel Henry MD MD [id number] Silvana Micheleer tt3 Leroy Duran RN José Miguel Wynn RN RN cw2 Corrections: (The following items were deleted from the chart) 01:47 01:13 CORONAVIRUS+MR.LAB.BRZ ordered. EDMS EDMS 01:57 01:22 URINE --ANCILLARY+UC.LAB.BRZ ordered. EDMS EDMS 05:00 03:58 cp tt3
[2021-06-11] MEDS ORDERED: ONDANSETRON 4 MG/2 ML VIAL IV PRN (04:20)
[2021-06-11] MEDS ORDERED: MORPHINE 2 MG/ML SYR ONE ×2 (04:58→05:15)
[2021-06-11] MEDS ORDERED: ONDANSETRON 4 MG/2 ML VIAL ONE (04:59)
[2021-06-11] MEDS ORDERED: IPRATROPIUM BROM 0.5MG/2.5ML NEB SCH (05:00)
[2021-06-11] MEDS ORDERED: AMLODIPINE 10 MG TAB PO ONE (06:06)
[2021-06-11 06:18] VITALS: BMI 24.1
[2021-06-11] MEDS: ALBUTEROL 2.5 MG/3 ML NEB SOL NEB SCH ×4 (06:20→20:10)
--- NOTE | 2021-06-11 07:51 | RAD REPORT ---
EXAM DESCRIPTION: RAD - Chest Single View - 06/11/2021 1:46 am CLINICAL HISTORY: SOB COMPARISON: Chest Pa And Lat (2 Views) dated 05/11/2021; Chest Single View dated 10/11/2019; Chest Pa An d Lat (2 Views) dated 09/04/2019; Chest Single View dated 09/03/2019 FINDINGS: Lines: Left IJ approach Port-A-Cath. Lungs: Lateral pulmonary edema noted. Pleural: Bilateral layering pleural effusions. Cardiac: Cardiomegaly . Bones: No acute fractures. Other: IMPRESSION: Increasing pulmonary edema and layering pleural effusion.
[2021-06-11] MEDS: AZITHROMYCIN IV 500 MG in NA CHLORIDE 0.9% 250 ML IVPB SCH (09:00)
[2021-06-11] MEDS ORDERED: HOME MED 1 EA UNK (Losartan Potassium [Cozaar] 100 MG Tablet) PO SCH (10:00)
[2021-06-11] MEDS: METHYLPREDNISOLONE 40 MG INJ IV SCH ×2 (10:17→20:10)
[2021-06-11] MEDS: LOSARTAN POTASSIUM 50 MG TABLET PO SCH (10:17)
[2021-06-11] MEDS: cloNIDine HCL 0.1 MG TAB PO PRN (10:17)
[2021-06-11] MEDS: CEFTRIAXONE 1 GM/NS 50 ML 1 GM/50 ML BAG IV SCH ×2 (10:18→20:11)
[2021-06-11] MEDS: carvediloL 12.5 MG TAB PO SCH ×2 (10:29→18:00)
[2021-06-11] MEDS ORDERED: NA CHLORIDE 0.9% 250 ML ONE (10:52)
--- NOTE | 2021-06-11 11:19 | HP ---
Date of Admission: 06/11/2021 Chief Complaint: Shortness of breath. History Of Present Illness: This is a 76-year-old pleasant male patient, who has had recurrent probl em with shortness of breath problem, has responded well to antibiotic and steroid medications so far. Last time he took some steroid medication was about a month ago and after the first dose, he immedi ately started feeling better and he continued to feel good for approximately 2 weeks after he finishe d taking steroid medication and then slowly his shortness of breath started to get increasingly worse and last night he felt bad enough that he decided to come to emergency room. He has end-stage renal disease and goes to his dialysis on a regular basis. He denies any fever. No expectoration. Allergies: NO KNOWN ALLERGIES. Medications: List reviewed. Review of Systems: Respiratory: As mentioned above. All other systems reviewed and negative. Past Medical History: Significant for chronic systolic congestive heart failure, last echocardiogram done in August 2019 showed normal ejection fraction. Past medical history also significant for CO PD, end-stage renal disease, on hemodialysis, kidney cancer, anemia due to chronic kidney disease, hy pertension, hyperlipidemia, thrombocytopenia, benign prostatic hypertrophy. Social History: Negative for smoking, alcohol use. Family History: Significant for COPD. Past Surgical History: Bilateral nephrectomies in 2006 due to kidney cancer. Physical Examination: Vital Signs: Last vital signs; temperature 97.3, pulse 77, respiratory rate 24, blood pressure 199/9 9, oxygen saturation 93%. Height 5 feet 8 inches, weight 159 pounds. General: Awake, alert, oriented, not in distress. HEENT: Head atraumatic, normocephalic. Conjunctivae nonerythematous. Sclerae white. Mouth, no thr ush or edema noted. Ears/Nose, no mass, lesion, discharge noted. Neck: Supple. No JVD, lymph nodes, bruit, thyromegaly noted. Lungs: Bilateral equal entry with diminished air entry in the lower half of both lung armstrong. Not u sing any accessory muscles of respiration at rest. Heart: Presence of systolic murmur. No gallop. Abdomen: Soft, bowel sounds normal. No guarding, rigidity, tenderness, mass, hepatosplenomegaly, dis tention, or bruit noted. Extremities: No leg edema. No calf tenderness. Skin: No rash, ulcer, cellulitis. Lymphatics: No lymph node enlargement in neck, supraclavicular, infraclavicular region. Neuro: No focal neurological deficit. Chest: Unremarkable. External Genitalia: Deferred. Rectal: Deferred. Laboratory Data: White count 5, hemoglobin 7.8, platelets 88. Sodium 144, potassium 4.3, chloride 1 08, bicarb 29, BUN 50, creatinine 8.27, glucose 93. Liver function tests unremarkable except total b ilirubin 1.7, direct bilirubin 0.4. Troponin 0.05. BNP 1,50133. Procalcitonin 0.17. COVID-19 test negative. Chest x-ray shows bilateral pleural effusions and pulmonary edema pattern. Impression: 1.Pulmonary edema. 2.Acute exacerbation of chronic obstructive pulmonary disease. 3.End-stage renal disease, on hemodialysis. 4.Anemia due to chronic kidney disease. 5.Thrombocytopenia, chronic. 6.Kidney cancer, bilateral. 7.Hypertension. 8.Hyperlipidemia. 9.Benign prostatic hypertrophy. Plan: Admit the patient to hospital for further evaluation and management of this problem. The trent ent is appropriate for inpatient and is expected to spend 2 midnights in hospital. We will continue home medications per order, monitor blood pressure, continue antihypertensive medications per order, and if necessary make adjustment on blood pressure medications. The patient has a longstanding histo ry of thrombocytopenia, it is stable. We will not use any heparin for DVT prophylaxis, but SCD was o rdered and the patient was encouraged to move his legs while lying down in the bed and ambulation was advised as he tolerates. Consult infection control manager for dialysis support. We will give empiric antibioti cs per order as well as IV steroid per order. We will get a CAT scan of the chest done and I will se e him tomorrow for followup. The patient reports that his last CAT scan at [facility] in March is year was unchanged from before and currently he is not getting any treatment at [facility], excep t regular followup. RYAN/MODL Voice ID: [id number]
--- NOTE | 2021-06-11 12:20 | RAD REPORT ---
EXAM DESCRIPTION: CT - Thorax Wo Con - 06/11/2021 11:14 am CLINICAL HISTORY: dyspnea COMPARISON: Thorax Wo Con dated 08/15/2019; Thorax Wo Con dated 05/17/2019; Thorax Wo Con dated 11/27/19 19; Chest Pa And Lat (2 Views) dated 05/11/2021; Chest Single View dated 06/11/2021 FINDINGS: Chest Wall: No suspicious thyroid nodules or pathologic lymphadenopathy.Left upper chest w all Port-A-Cath. Lungs: Basilar atelectasis. No edema or evidence of pneumonia. Calcified right upper lobe nodule. Pleura: No significant effusions or pneumothorax. Mediastinum/rolando: Circumferentially calcified structure within the medial aspect of the right lower l obe measuring 3.4 cm is a benign finding and has been seen on multiple prior CTs. Pulmonary arteries/Aorta: No aneurysm. Heart: No significant pericardial effusion. Normal heart size. Multi-vessel coronary artery disease. Aortic valve calcifications. Upper abdomen: Multiple low-density liver lesions which are statistically benign. Bones: No acute abnormality. All CT scans are performed using dose optimization technique as appropriate and may include automated exposure control or mA/KV adjustment according to patient size. IMPRESSION: Small bilateral effusions without evidence of either akbar pulmonary edema or pneumonia.
[2021-06-11] MEDS: IPRATROPIUM BROM 0.5MG/2.5ML NEB SCH ×2 (14:00→20:10)
[2021-06-11] MEDS: AMLODIPINE 10 MG TAB PO SCH (20:09)
--- NOTE | 2021-06-11 20:49 | HP ---
Date of Admission: 06/11/2021 RYAN/MODL Voice ID: [id number] [id number]
[2021-06-12] MEDS: IPRATROPIUM BROM 0.5MG/2.5ML NEB SCH (02:20)
[2021-06-12] MEDS: ALBUTEROL 2.5 MG/3 ML NEB SOL NEB SCH (02:20)
[2021-06-12 04:46] LABS: Absolute Lymphocytes (CBC) 0.3 K/uL (0.7-4.9); Basophils % 0.1 % (0-1.3); Hematocrit 22.1 % (39.6-49.0); Lymphocytes % 5.4 % (15.3-44.8); RBC Red Blood Cell Count 2.37 M/uL (4.33-5.43)
[2021-06-12 05:17] LABS: Magnesium 2.1 mg/dL (1.8-2.4); Potassium 4.6 mmol/L (3.5-5.1)
[2021-06-12] MEDS: carvediloL 12.5 MG TAB PO SCH (05:27)
[2021-06-12 07:07] LABS: Blood Morphology Comment NOT SEEN (NOT SEEN); Platelet Estimate DECR; Platelets, Giant PRESENT
[2021-06-12] MEDS: AZITHROMYCIN IV 500 MG in NA CHLORIDE 0.9% 250 ML IVPB SCH (07:59)
[2021-06-12] MEDS: CEFTRIAXONE 1 GM/NS 50 ML 1 GM/50 ML BAG IV SCH (07:59)
[2021-06-12] MEDS: METHYLPREDNISOLONE 40 MG INJ IV SCH (08:00)
[2021-06-12] MEDS: AMLODIPINE 10 MG TAB PO SCH (08:00)
[2021-06-12] MEDS: LOSARTAN POTASSIUM 50 MG TABLET PO SCH (08:01)
[2021-06-12] MEDS: cloNIDine HCL 0.1 MG TAB PO PRN (08:10)
[2021-06-12 08:24] VITALS: O2SAT 98
[2021-06-12] MEDS ORDERED: HEPARIN 500 UNIT/5 ML SYR IV PRN (08:33)
[2021-06-12 09:29] VITALS: TEMP 97.9
[2021-06-12 09:50] VITALS: BP 131/65
--- NOTE | 2021-06-12 19:35 | DS ---
Date of Discharge: 06/12/2021 Disposition: Discharged to go home. Physical Examination: HEENT: Unremarkable. Lungs: Clear to auscultation. Heart: Sounds normal. Abdomen: Soft. Bowel sounds normal. No guarding, rigidity, tenderness, distention. Extremity: No leg edema. Laboratory Data: Today's blood work; white count 5, hemoglobin 7.5, platelets 86. Chemistry today; sodium 140, potassium 4.6, chloride 104, bicarb 30, BUN 36, creatinine 5.54, glucose 158. Hospital Course: A 76-year-old pleasant male patient, admitted to the hospital with complaints of sh ortness of breath. Please see dictated H and P for more information. After the patient was evaluate d in the emergency room, he was admitted to the hospital. After his admission to the hospital, he wa s started on IV antibiotic, IV steroid and Nephrology consultation was requested. The patient had hi s dialysis yesterday. This morning, he is feeling great, back to his normal self, and no complaints reported. His was present with him at bedside. The patient's condition has improved significan tly overnight and he was discharged to go home in stable condition. He has Trelegy inhaler, which wa s given to him in the past, but has not been using it and I have asked him to start using it. Discharge Diagnoses: 1.Pulmonary edema. 2.Acute exacerbation of chronic obstructive pulmonary disease. 3.End-stage renal disease, on hemodialysis. 4.Anemia due to chronic kidney disease. 5.Thrombocytopenia, chronic. 6.Kidney cancer, bilateral. 7.Hypertension. 8.Hyperlipidemia. 9.Benign prostatic hypertrophy. Discharge Medications And Instructions: 1.Continue all prior home medications. 2.Take Trelegy inhaler 1 puff daily and I will send a prescription to his pharmacy. 3.Prednisone 10 mg. The patient to take 3 tablets daily for 3 days, then 2 tablets daily for 3 days , then 1 tablet daily for 3 days, then stop. 4.Follow up at my office on 06/19/2021 at 10 a.m. RYAN/MODL Voice ID: [id number] Report ID: [id number]
--- NOTE | 2021-06-13 18:16 | EKG ---
Test Date: 2021-06-11 Test Time: 04:30:06 Arts Administrator Or Manager: CADY MEASUREMENT RESULTS: Intervals: Rate: 79 SD: 162 QRSD: 130 QT: 434 QTc: 497 [place]: P: 59 SD: 162 QRS: -39 T: 72 INTERPRETIVE STATEMENTS: Normal sinus rhythm Possible Left atrial enlargement Left axis deviation Left ventricular hypertrophy with QRS widening and repolarization abnormality Septal infarct, age undetermined Abnormal ECG Compared to ECG 06/11/2021 04:29:28 Left ventricular hypertrophy now present Early repolarization now present Myocardial infarct finding now present Left bundle-branch block no longer present Electronically Signed On 06-13-21 18:06:45 CDT by Kendrick Gomez
--- NOTE | 2021-06-13 18:17 | EKG ---
Test Date: 2021-06-11 Test Time: 04:29:28 Title Checker: CADY MEASUREMENT RESULTS: Intervals: Rate: 79 W[place]: 170 QRSD: 132 QT: 426 QTc: 488 [place]: P: 52 W[place]: 170 QRS: -40 T: 58 INTERPRETIVE STATEMENTS: Normal sinus rhythm Possible Left atrial enlargement Left axis deviation Left bundle branch block Abnormal ECG Compared to ECG 10/11/2019 18:49:22 Left bundle-branch block now present Left ventricular hypertrophy no longer present Early repolarization no longer present Electronically Signed On 06-13-21 18:06:46 CDT by Kendrick Gomez
[2021-06-15 04:11] LABS: HBsAG Nonreactive (Nonreactive)
== END 2021-06-12 10:24 | disposition home or self-care (01) ==
LOC: ER 00:22 → ERHOLD 04:29 → INTOOBSV 04:29 → 2ND 05:12
PROVIDERS: ADMIT Internal Medicine; ATTEND Internal Medicine
DX: J44.1 Chronic obstructive pulmonary disease with (acute) exacerbation (principal); I13.2 Hypertensive heart and chronic kidney disease with heart failure and with stage 5 chronic kidney disease, or end stage renal disease; I50.22 Chronic systolic (congestive) heart failure; N18.6 End stage renal disease; Z99.2 Dependence on renal dialysis; D63.1 Anemia in chronic kidney disease; D69.6 Thrombocytopenia, unspecified; E78.5 Hyperlipidemia, unspecified; N40.0 Benign prostatic hyperplasia without lower urinary tract symptoms; K76.9 Liver disease, unspecified; Z85.528 Personal history of other malignant neoplasm of kidney; Z90.5 Acquired absence of kidney; Z85.118 Personal history of other malignant neoplasm of bronchus and lung; Z20.822 Contact with and (suspected) exposure to COVID-19
CPT/HCPCS: 93005 ×2; 87040 ×2; 85025 ×2; 80048 ×2; 36415 ×2; 83735 ×2; 85610; 80076; 83605; 84484; 86704; 84145; 83880; 87340; 86706; 86803; 71250; 71045; 94640; 96375; 96374; 99285; U0003; J0360 ×2; J0456; J2270 ×2; J1642; J7050 ×2; J0696 ×2; J2930; J2405; J2920 ×3; G0378 ×3

== ENCOUNTER 2021-08-21 04:07 | Observation (INO) | payer OTHER, BC ==
--- OUTSIDE RECORDS SUMMARY | 2021-08-21 04:10 | XMS REPORT | Continuity of Care Document ---
:1945 Author Organization [facility] t Address [address] [place] [address] Care Team Providers Name Role Phone [phone] Primary Care Physician Unavailable SYSTEM, NOT IN Attending Clinician Unavailable CASSANDRA Attending Clinician Unavailable Dwight JOHNSON Attending Clinician Unavailable Roxanna Attending Clinician Unavailable DIAZ Attending Clinician Unavailable JIGNESH Attending Clinician Unavailable MD JOSE LUIS PERALES Attending Clinician Unavailable MELISSA Attending Clinician Unavailable STEPHIE Attending Clinician Unavailable Tate_A Admitting Clinician Unavailable DIAZ Admitting Clinician Unavailable MD JOSE LUIS PERALES Admitting Clinician Unavailable STEPHIE Admitting Clinician Unavailable Payers Payer Name Policy Type Policy Number Effective Date Expiration Date S damon MEDICARE PART A [id number] 2007 AND B 00:00:00 [place] [id number] 2017 00:00:00 [place]: [id number] 2020 [employer] 00:00:00 Problems This patient has no known problems. Allergies, Adverse Reactions, Alerts This patient has no known allergies or adverse reactions. Medications Ordered Filled Start Stop Current Ordering Indication Dosage Frequency Signature Comments Components Source Medication Medication Date Date Medication? Clinician (SIG) Name Name amlodipine amlodipine No amlodipine [facility] 10 mg 10 mg 10 mg Family tablet TAKE tablet TAKE tablet Practic 1 TABLET BY 1 TABLET BY TAKE 1 e MOUTH TWICE MOUTH TWICE TABLET BY DAILY DAILY MOUTH TWICE DAILY carvedilol carvedilol No carvedilol [place] 6.25 mg 6.25 mg 6.25 mg Family tablet TK 1 tablet TK 1 tablet TK Practic T PO BID T PO BID 1 T PO BID e cholecalcif cholecalcif No cholecalci [place] raman raman ferol Family (vitamin (vitamin (vitamin Pra ctic D3) 125 mcg D3) 125 mcg D3) 125 e (5,000 (5,000 mcg (5,000 unit) unit) unit) capsule TK capsule TK capsule TK ONE C PO D ONE C PO D ONE C PO D hydrocodone hydrocodone No hydrocodon [facility] 5 5 e 5 Family mg-acetamin mg-acetamin mg-acetami Practic ophen 325 ophen 325 nophen 325 e mg tablet mg tablet mg tablet TK ONE T PO TK ONE T PO TK ONE T Q 6 H PRN P Q 6 H PRN P PO Q 6 H PRN P losartan losartan No losartan Willie carline 100 mg 100 mg 100 mg Family tablet TK 1 tablet TK 1 tablet TK Practic T PO D T PO D 1 T PO D e nystatin nystatin No nystatin Willie carline 100,000 100,000 100,000 Family unit/gram unit/gram unit/gram Practic topical topical topical e cream APPLY cream APPLY cream TO AFFECTED TO AFFECTED APPLY TO AREA BID. AREA BID. AFFECTED AREA BID. Betty-Rahul Betty-Rahul No BettyRahul [facility] 0.8 mg 0.8 mg 0.8 mg Family tablet TK 1 tablet TK 1 tablet TK Practic T PO D T PO D 1 T PO D e sevelamer sevelamer No [facility] carbonate carbonate carbonate Family 800 mg 800 mg 800 mg Practic tablet TK 4 tablet TK 4 tablet TK e TS PO TID TS PO TID 4 TS PO WITH MEALS WITH MEALS TID WITH MEALS testosteron testosteron No testostero [facility] e cypionate e cypionate ne F amily 200 mg/mL 200 mg/mL cypionate Practic intramuscul intramuscul 200 mg/mL e ar oil TK ar oil TK intramuscu 0.5ML IM Q 0.5ML IM Q lar oil TK WEEK WEEK 0.5ML IM Q WEEK Trelegy Trelegy No Trelegy [place] Ellipta 100 Ellipta 100 Ellipta Family mcg-62.5 mcg-62.5 100 Practic mcg-25 mcg mcg-25 mcg mcg-62.5 e powder for powder for mcg-25 mcg inhalation inhalation powder for INL 1 PUFF INL 1 PUFF inhalation PO DAILY. PO DAILY. INL 1 PUFF RM WITH RM WITH PO DAILY. WATER AFTER WATER AFTER RM WITH U U WATER AFTER U Immunizations Ordered Immunization Filled Immunization Date Status Commen ts Source Name Name COVID-19, mRNA, COVID-19, mRNA, 2020-10-10 Completed [facility] Family LNP-S, PF, 100 LNP-S, PF, 100 12:18:14 Practi ce mcg/0.5 mL dose mcg/0.5 mL dose COVID-19, mRNA, COVID-19, mRNA, 2020-09-12 Completed Vill age Family LNP-S, PF, 100 LNP-S, PF, 100 16:33:54 Practi ce mcg/0.5 mL dose mcg/0.5 mL dose Procedures This patient has no known procedures. Encounters Start End Encounter Admission Attending Care Care Encounter Source Date/Time Date/Time Type Type Clinicians Facility Department ID 2021-08-14 Outpatient SYSTEM, ITZ MDA [id number] 08:07:45 PROVIDER Dawit elias 2021-07-03 Outpatient SYSTEM, ITZ MOBLEY [id number] 07:21:04 PROVIDER Dawit elias 2021-05-18 Outpatient SYSTEM, ITZ MOBLEY [id number] 08:35:53 PROVIDER Dawit elias 2021-04-13 Outpatient SYSTEM, ITZ MOBLEY [id number] 07:28:58 PROVIDER Dawit elias 2021-07-27 2021-07-27 Outpatient SKY GIORDANO MDA MDA [id number] 08:19:08 09:39:56 Dawit elias 2021-07-25 2021-07-25 Outpatient SKY GIORDANO MDA ITZ [id number] 11:07:13 11:07:13 Dawit elias 2021-07-25 2021-07-25 Outpatient SKY GIORDANO MDA ITZ [id number] 10:06:42 11:01:38 Dawit elias 2021-03-23 2021-03-23 Outpatient NISHA JOHNSON MDA MDA [id number] 07:58:36 23:59:00 YEIMI elias 2021-03-23 2021-03-23 Outpatient SKY GIORDANO MDA ITZ [id number] 09:32:32 12:46:59 Dawit elias 2021-03-23 2021-03-23 Outpatient NISHA JOHNSON MDA MDA [id number] 08:33:10 08:33:10 YEIMI elias 2020-10-11 2020-10-11 Outpatient Ray_A VFP VFP [id number] [facility] 01:33:00 01:33:00 [id number] Family Practic e 2020-10-10 2020-10-10 Outpatient Ray_A VFP VFP [id number] [facility] 02:00:00 02:00:00 [id number] Family Practic e 2020-10-10 2020-10-10 Nicci VFP [place] - [id number] [place] 00:00:00 00:00:00 [facility] Cholo Machado Medical - Prac josh MD: [id number]ight Anna mckeeyadira [facility], [address] [address] , Ph. 2020-09-13 2020-09-13 Outpatient Ray_A VFP VFP [id number] [facility] 03:27:00 03:27:00 [id number] Family Practic e 2020-09-12 2020-09-12 Outpatient Ray_A VFP VFP [id number] [facility] 03:46:00 03:46:00 [id number] Family Practic e 2020-09-12 2020-09-12 Yanelis VFP [place] - [id number] [place] 00:00:00 00:00:00 [facility] Gary Nayak Medical - Pracjudith rainey MD: [id number] [facility] [address], [place] [address] , Ph. 2020-05-19 2020-05-19 Outpatient [facility] [id number] [place] 00:00:00 00:00:00 AYALA [address] 2020-05-12 2020-05-12 Outpatient [facility] [id number] [place] 00:00:00 00:00:00 AYALA [address] 2020-04-29 2020-04-30 Outpatient EGAN, [facility] [id number] [place] 00:00:00 00:00:[address] 2020-04-28 2020-04-28 Outpatient EL MDA MDA [id number] 08:14:10 08:14:10 Dawit o n 2020-04-27 2020-04-27 Outpatient [facility] [id number] [place] 00:00:00 00:00:00 AYALA 291 [facility] i 2020-04-27 2020-04-27 Outpatient DIAZ [facility] [id number] [place] 00:00:00 00:00:00 AYALA [address] 2020-04-27 2020-04-27 Outpatient WOJCIECHOWS [facility] [id number] [place] 00:00:00 00:00:00 TALHA, Jolene Method i BRIDGETTE 2020-04-19 2020-04-19 Outpatient [facility] [id number] [place] 00:00:00 00:00:00 312 [facility] i 2020-04-19 2020-04-19 Outpatient DIAZ [facility] [id number] [place] 00:00:00 00:00:00 AYALA 632 Method i 2019-11-03 2019-11-05 Outpatient STEPHIE, [facility] [id number] [place] 00:00:00 00:00:00 TATA [address] Results Test Description Test Time Test Comments Results Result Comments Source SARS-CoV-2 (COVID-19) RNA [Presence] in Respiratory sp ecimen by 2020-04-28 02:48:05 LIT with probe detection Test Item Value Reference Range Interpretation Comme nts SARS-CoV-2 (COVID-19) RNA [Presence] in Respiratory Not detected No t-Detected specimen by LIT with probe detection (test code = 28570-5) CT, CHEST, WITHOUT [id number] 21:56:00FINAL REPORT CT of the Chest dated 10/16/2019 CLINICAL INFORMATION: r06.00 r06.89 Comment: Axial images of the chest were obtained from thoracic inlet to the upper abdomen without intravenous contrast. This exam was performed according to our departmental dose-optimization program, which includes automated exposure control, adjustment of the mA and/or kV according to patient size and/or use of interactive reconstruction technique. Heart is enlarged. Atherosclerotic calcification seen in the thoracic aorta and coronary arteries. There is decreased attenuation of intravascular fluid consistent with anemia. Great vessels are unremarkable. No adenopathy in the mediastinum orperihilar region. Trachea and mainstem bronchi are patent. Trace loculated pleural effusion is seenbilaterally. There is lingula and bibasilar subsegmental atelectasis. The rest of the lungs are clear. A pleural-based calcified nodule is seen in the medial lower right chest measuring 2.6 x 3.4 cm adjacent to the right atrium. Visualized upper abdomen demonstrates dense liver suggestive of amiodarone toxicity. Several cysts are seen in the liver measuring up to 3 cm. Impression: 1. Cardiomegaly.2. Anemia.3. Loculated bilateral pleural effusion with bibasilar and lingular subsegmental atelectasis.4. Dense liver suggestive of amiodarone toxicity. Signed: Tata Rosenberg MDReport Verified Date/Time: 03/2020 21:56:50 Reading Location: [facility] C013 Consult Reading Room [facility], [facility], [id number] 17:25:00FINAL REPORT PROCEDURE: V/Q LUNG SCAN CPT CODE: 81086 INDICATION: R06.00, R06.89 PROTOCOL: 10.9 mCi of Xe-133 gas was administered by inhalation. Single breath and rebreathing/washout images were obtained in the anterior and the posterior projections. 4.3 mCi of Tc-99m MAA was then injected intravenously, and static perfusion images were obtained in multiple projections. FINDINGS: Ventilation: Initial tracer distribution is irregular in bothlungs and further moderately decreased in the left lung generally. Washout proceeds normally. Perfusion: Tracer distribution is nonsegmentally, irregularly decreased in both lungs. There is prominence of the left major fissure and focal increase along the right major fissure posteriorly. IMPRESSION: 1. Low probability of acute pulmonary embolization.2. Bilateral parenchymal abnormalitywith additional focal decrease in the right lower lung field.3. Left pleural abnormality. Signed: Daren Cox MDReport Verified Date/Time: 10/16/2019 17:25:16 Reading Location: [address] [address] Med Reading Room
[2021-08-21] MEDS ORDERED: IPRATROPIUM BROM 0.5MG/2.5ML ONE (04:56)
[2021-08-21] MEDS ORDERED: LEVALBUTEROL 1.25 MG/3 ML NEB ONE (04:56)
[2021-08-21] MEDS ORDERED: METHYLPREDNISOLONE 125 MG INJ ONE ×3 (05:16→16:32)
[2021-08-21 05:49] LABS: Absolute Lymphocytes (CBC) 0.5 K/uL (0.7-4.9); Basophils % 0.6 % (0-1.3); Hematocrit 29.2 % (39.6-49.0); MPV 7.1 fL (7.6-11.3); RBC Red Blood Cell Count 2.97 M/uL (4.33-5.43)
[2021-08-21 05:51] LABS: Protime INR 1.06
[2021-08-21 06:10] LABS: SARS-COV-2 RT PCR NEGATIVE (NEGATIVE)
--- NOTE | 2021-08-21 06:10 | EDPHYS ---
Physician Documentation [facility] Name: Analilia Colby Age: 76 yrs Sex: Male : 1945 Arrival Date: 08/21/2021 Time: 04:11 Bed 28 Private MD: DIVYA Physician Cristhian Garcia HPI: 08/21 06:01 This 76 yrs old Male presents to ER via Ambulatory with complaints of anh Breathing Difficulty. 06:01 The patient has shortness of breath at rest, with light activity. Onset: The anh symptoms/episode began/occurred 3 day(s) ago. Duration: The symptoms are continuous, and are steadily getting worse. The patient's shortness of breath is aggravated by light activity, prone position. Associated signs and symptoms: Pertinent positives: non-productive cough. Severity of symptoms: At their worst the symptoms were mild moderate in the emergency department the symptoms are unchanged. The patient has experienced similar episodes in the past, multiple times. 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 - Social history:: Smoking status: Patient denies any tobacco usage or history of. - Family history:: not pertinent. ROS: 06:03 Constitutional: Negative for fever, chills, and weight loss, Eyes: Negative for injury, anh pain, redness, and discharge, ENT: Negative for injury, pain, and discharge, Neck: Negative for injury, pain, and swelling, Cardiovascular: Negative for chest pain, palpitations, and edema, Abdomen/GI: Negative for abdominal pain, nausea, vomiting, diarrhea, and constipation, Back: Negative for injury and pain, : Negative for injury, bleeding, discharge, and swelling, MS/Extremity: Negative for injury and deformity, Skin: Negative for injury, rash, and discoloration, Neuro: Negative for headache, weakness, numbness, tingling, and seizure, Psych: Negative for depression, anxiety, suicide ideation, homicidal ideation, and hallucinations, Allergy/Immunology: Negative for hives, rash, and allergies, Endocrine: Negative for neck swelling, polydipsia, polyuria, polyphagia, and marked weight changes, Hematologic/Lymphatic: Negative for swollen nodes, abnormal bleeding, and unusual bruising. 06:03 Respiratory: Positive for cough, shortness of breath, at rest. Exam: 06:03 Constitutional: This is a well developed, well nourished patient who is awake, alert, anh and in no acute distress. Head/Face: Normocephalic, atraumatic. Eyes: Pupils equal round and reactive to light, extra-ocular motions intact. Lids and lashes normal. Conjunctiva and sclera are non-icteric and not injected. Cornea within normal limits. Periorbital areas with no swelling, redness, or edema. ENT: Nares patent. No nasal discharge, no septal abnormalities noted. Tympanic membranes are normal and external auditory canals are clear. Oropharynx with no redness, swelling, or masses, exudates, or evidence of obstruction, uvula midline. Mucous membranes moist. Neck: Trachea midline, no thyromegaly or masses palpated, and no cervical lymphadenopathy. Supple, full range of motion without nuchal rigidity, or vertebral point tenderness. No Meningismus. Chest/axilla: Normal chest wall appearance and motion. Nontender with no deformity. No lesions are appreciated. Cardiovascular: Regular rate and rhythm with a normal S1 and S2. No gallops, murmurs, or rubs. Normal PMI, no JVD. No pulse deficits. Abdomen/GI: Soft, non-tender, with normal bowel sounds. No distension or tympany. No guarding or rebound. No evidence of tenderness throughout. Back: No spinal tenderness. No costovertebral tenderness. Full range of motion. Male : Normal genitalia with no discharge or lesions. Skin: Warm, dry with normal turgor. Normal color with no rashes, no lesions, and no evidence of cellulitis. MS/ Extremity: Pulses equal, no cyanosis. Neurovascular intact. Full, normal range of motion. Neuro: Awake and alert, GCS 15, oriented to person, place, time, and situation. Cranial nerves II-XII grossly intact. Motor strength 5/5 in all extremities. Sensory grossly intact. Cerebellar exam normal. Normal gait. Psych: Awake, alert, with orientation to person, place and time. Behavior, mood, and affect are within normal limits. 06:03 ECG was reviewed by the Attending Physician. 06:03 Respiratory: the patient does not display signs of respiratory distress, Respirations: labored breathing, that is mild, Breath sounds: bronchial sounds, that are mild, that are moderate, are heard in the right posterior middle lobe and right posterior lower lobe. Vital Signs: 04:14 BP 186 / 88; Pulse 80; Resp 22; Temp 98.5; Pulse Ox 91% on R/A; Weight 79.38 kg; Height da3 5 ft. 8 in. (172.72 cm); 06:49 BP 188 / 80; Pulse 83; Resp 20; Pulse Ox 96% 0 lpm ; sv1 07:10 BP 186 / 79; Pulse 77; Resp 20; Temp 98.6; Pulse Ox 95% ; al4 07:30 BP 196 / 89; Pulse 75; Resp 22 S; Pulse Ox 95% on R/A; al4 08:05 BP 196 / 94; Pulse 74; Resp 19; Pulse Ox 97% ; Pain 0/10; al4 09:00 BP 183 / 95; Pulse 75; Resp 22; Pulse Ox 97% ; Pain 0/10; al4 09:30 BP 198 / 96; Pulse 72; Resp 20; Pulse Ox 97% ; al4 10:00 BP 189 / 92; Pulse 71; Resp 19; Pulse Ox 95% ; al4 04:14 Body Mass Index 26.61 (79.38 kg, 172.72 cm) da3 MDM: 04:32 Patient medically screened. anh 06:12 Differential diagnosis: Bronchitis CHF exacerbation, Chronic Obstructive Pulmonary anh Disease Myocardial Infarction Pneumothorax pulmonary edema, reactive airway disease, Sepsis. Antibiotic administration: ROCEPHIN . The patient's Wells Deep Vein Thrombosis Score was calculated as follows: Total Score: 0-2 Pts- Low Risk. The patient's pulmonary embolism risk score was calculated as follows: Total Score: 0-2 points. This patient was found to be at low risk for a pulmonary embolism by using the Well's assessment criteria. Immunization status: Pneumococcal vaccine: Influenza vaccine: Data reviewed: vital signs, nurses notes, lab test result(s), EKG, radiologic studies, CT scan, plain films. Data interpreted: radiation monitor: rate is 80 beats/min, rhythm is regular, Pulse oximetry: on room air is 91 %. Test interpretation: by ED physician or midlevel provider: ECG, plain radiologic studies. Counseling: I had a detailed discussion with the patient and/or guardian regarding: the historical points, exam findings, and any diagnostic results supporting the discharge/admit diagnosis, lab results, radiology results, the need for further work-up and treatment in the hospital. 08/21 04:35 Order name: Basic Metabolic Panel [facility] 08/21 04:35 Order name: CBC with Diff [facility] 08/21 04:35 Order name: LFT's; Complete Time: 06:38 [facility] 08/21 04:35 Order name: Magnesium; Complete Time: 06:38 [facility] 08/21 04:35 Order name: NT PRO-BNP; Complete Time: 06:38 [facility] 08/21 04:35 Order name: PT-INR; Complete Time: 06:01 [facility] 08/21 04:35 Order name: Troponin (emerg Dept Use Only); Complete Time: 06:38 [facility] 08/21 04:35 Order name: Blood Culture Adult (2) [facility] 08/21 04:35 Order name: Lactate; Complete Time: 06:38 [facility] 08/21 04:35 Order name: COVID-19/FLU A+B/RSV (Document "Date of Onset" if Symptomatic); Complete [facility] Time: 06:38 08/21 04:35 Order name: Urine Culture [facility] 08/21 04:36 Order name: Basic Metabolic Panel; Complete Time: 06:38 [facility] 08/21 06:39 Order name: Manual Differential [facility] 08/21 12:05 Order name: Troponin I [facility] 08/21 04:35 Order name: XRAY Chest (1 view) [facility] 08/21 04:35 Order name: EKG; Complete Time: 04:36 [facility] 08/21 04:35 Order name: Cardiac monitoring; Complete Time: 06:48 [facility] 08/21 04:35 Order name: EKG - Nurse/Tech; Complete Time: 06:48 [facility] 08/21 04:35 Order name: IV Saline Lock; Complete Time: 06:48 [facility] 08/21 04:35 Order name: Labs collected and sent; Complete Time: 06:49 [facility] 08/21 04:35 Order name: O2 Per Protocol; Complete Time: 06:49 anh 08/21 04:35 Order name: O2 Sat Monitoring; Complete Time: 06:49 [facility] 08/21 06:19 Order name: CONS Physician Consult EDMS Administered Medications: 05:00 Drug: SOLU-Medrol (methylPrednisoLONE) 125 mg Route: IVP; Site: left antecubital; sv1 05:12 Drug: Xopenex (levalbuterol) 3.75 mg Route: Inhalation; bb 05:12 Drug: AtroVENT (ipratropium) Aerosol 0.5 mg Route: Inhalation; bb 07:04 Drug: Rocephin (cefTRIAXone) 1 grams Route: IV; Rate: per protocol; Site: left sv1 antecubital; 08:04 Follow up: Response: No adverse reaction; IV Status: Completed infusion al4 Disposition Summary: 08/21/21 06:09 Hospitalization Ordered Hospitalization Status: Observation anh Provider: Alfreda Obrien cha Location: Telemetry/MedSurg (observation) anh Condition: Stable anh Problem: new anh Symptoms: have improved anh Bed/Room Type: Standard anh Room Assignment: [id number](08/21/21 16:52) ja1 Diagnosis - COPD/ Chronic obstructive pulmonary disease with (acute) exacerbation anh - Essential (primary) hypertension anh - End stage renal disease - on HD anh - Hypoxemia anh Forms: - Medication Reconciliation Form anh - SBAR form anh Signatures: Dispatcher [employer] EDMS Cristhian Garcia MD MD cha Ballard, Brenda RN RN Vinod Perez RN RN ja1 Cirilo Ohara RN RN sean3 Romeo Sol Steven, RN RN sv1 Corrections: (The following items were deleted from the chart) 07:08 04:35 Urine Dipstick-Ancillary ordered. anh [email or web address] 16:52 06:09 anh [email or web address]
--- NOTE | 2021-08-21 06:10 | ER ---
Nurse's Notes [facility] Name: Analilia Colby Age: 76 yrs Sex: Male : 1945 Arrival Date: 08/21/2021 Time: 04:11 Bed 28 Private MD: Diagnosis: COPD/ Chronic obstructive pulmonary disease with (acute) exacerbation;Essential (primary) hypertension;End stage renal disease-on HD;Hypoxemia Presentation: 08/21 04:14 Chief complaint: Patient states: short of breath 1 week. Coronavirus screen: Vaccine da3 status: Patient reports receiving the 2nd dose of the covid vaccine. Ebola Screen: No symptoms or risks identified at this time. Initial Sepsis Screen: Does the patient meet any 2 criteria? No. Patient's initial sepsis screen is negative. Does the patient have a suspected source of infection? No. Patient's initial sepsis screen is negative. Risk Assessment: Do you want to hurt yourself or someone else? Patient reports no desire to harm self or others. Onset of symptoms was August 13, 2021. 04:14 Method Of Arrival: Ambulatory da3 04:14 Acuity: RIVERA 2 da3 Triage Assessment: 04:14 General: Appears in no apparent distress. comfortable, Behavior is calm, cooperative. da3 Pain: Denies pain. Respiratory: Reports shortness of breath cough that is Onset: The symptoms/episode began/occurred gradually. 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 - Social history:: Smoking status: Patient denies any tobacco usage or history of. - Family history:: not pertinent. Screenin:23 Abuse screen: Denies threats or abuse. Nutritional screening: No deficits noted. al4 Tuberculosis screening: No symptoms or risk factors identified. Fall Risk No fall in past 12 months (0 pts). IV access (20 points). Ambulatory Aid- None/Bed Rest/Nurse Assist (0 pts). Gait- Weak (10 pts.). Mental Status- Oriented to own ability (0 pts). Total Wallace Fall Scale indicates Low Risk Score (25-44 pts). Fall prevention measures have been instituted. Side Rails Up X 2 Placed close to Nursing Station Frequent Obs/Assesments occuring Family Present and informed to notify staff if they need to leave bedside As available Patient and Family Educated on Fall Prevention Program and strategies. Assessment: 06:50 Cardiovascular: Rhythm is regular. Respiratory: Breath sounds with crackles Breath sv1 sounds are diminished bilaterally. 06:51 General: All labs completed. Pt is resting quietly. Ekg completed.. sv1 07:50 General: Appears in no apparent distress. comfortable, Behavior is calm, cooperative. al4 Pain: Denies pain. Neuro: Level of Consciousness is awake, alert, obeys commands, Oriented to person, place, time, situation. Cardiovascular: Heart tones present Capillary refill < 3 seconds Patient's skin is warm and dry. Respiratory: Airway is patent Respiratory effort is even, unlabored, Respiratory pattern is regular, symmetrical, Breath sounds are diminished the patient has moderate shortness of breath. GI: No signs and/or symptoms were reported involving the gastrointestinal system. : No signs and/or symptoms were reported regarding the genitourinary system. EENT: No signs and/or symptoms were reported regarding the EENT system. Derm: No signs and/or symptoms reported regarding the dermatologic system. Musculoskeletal: No signs and/or symptoms reported regarding the musculoskeletal system. 08:21 Reassessment: No changes from previously documented assessment. Patient and/or family al4 updated on plan of care and expected duration. Pain level reassessed. Patient is alert, oriented x 3, equal unlabored respirations, skin warm/dry/pink. 09:30 Reassessment: No changes from previously documented assessment. Patient and/or family al4 updated on plan of care and expected duration. Pain level reassessed. Patient is alert, oriented x 3, equal unlabored respirations, skin warm/dry/pink. 10:22 Reassessment: No changes from previously documented assessment. Patient and/or family al4 updated on plan of care and expected duration. Pain level reassessed. Patient is alert, oriented x 3, equal unlabored respirations, skin warm/dry/pink. Patient denies pain at this time. 10:22 Reassessment: Charting continued in [facility]. patient admitted to ER HOLD. al4 Vital Signs: 04:14 BP 186 / 88; Pulse 80; Resp 22; Temp 98.5; Pulse Ox 91% on R/A; Weight 79.38 kg; Height da3 5 ft. 8 in. (172.72 cm); 06:49 BP 188 / 80; Pulse 83; Resp 20; Pulse Ox 96% 0 lpm ; sv1 07:10 BP 186 / 79; Pulse 77; Resp 20; Temp 98.6; Pulse Ox 95% ; al4 07:30 BP 196 / 89; Pulse 75; Resp 22 S; Pulse Ox 95% on R/A; al4 08:05 BP 196 / 94; Pulse 74; Resp 19; Pulse Ox 97% ; Pain 0/10; al4 09:00 BP 183 / 95; Pulse 75; Resp 22; Pulse Ox 97% ; Pain 0/10; al4 09:30 BP 198 / 96; Pulse 72; Resp 20; Pulse Ox 97% ; al4 10:00 BP 189 / 92; Pulse 71; Resp 19; Pulse Ox 95% ; al4 04:14 Body Mass Index 26.61 (79.38 kg, 172.72 cm) da3 ED Course: 04:11 Patient arrived in ED. bp1 04:14 Arm band placed on right wrist. da3 04:17 Triage completed. da3 04:32 Cristhian Garcia MD is Attending Physician. anh 04:54 XRAY Chest (1 view) In Process Unspecified. EDMS 04:55 Nikole Nina, ALEK is Primary Nurse. bb 06:08 Alfreda Obrien MD is Hospitalizing Provider. anh 06:48 Basic Metabolic Panel Sent. sv1 10:23 Patient has correct armband on for positive identification. Bed in low position. Call al4 light in reach. Side rails up X2. lunchroom monitor on. Pulse ox on. NIBP on. 10:23 No provider procedures requiring assistance completed. al4 10:26 Inserted saline lock: 20 gauge in left antecubital area, using aseptic technique. al4 ,using aseptic technique. started by night auditor RN. 10:32 Patient admitted, IV remains in place. al4 Administered Medications: 05:00 Drug: SOLU-Medrol (methylPrednisoLONE) 125 mg Route: IVP; Site: left antecubital; sv1 05:12 Drug: Xopenex (levalbuterol) 3.75 mg Route: Inhalation; bb 05:12 Drug: AtroVENT (ipratropium) Aerosol 0.5 mg Route: Inhalation; bb 07:04 Drug: Rocephin (cefTRIAXone) 1 grams Route: IV; Rate: per protocol; Site: left sv1 antecubital; 08:04 Follow up: Response: No adverse reaction; IV Status: Completed infusion al4 Outcome: 06:09 Decision to Hospitalize by Provider. anh 10:30 Admitted to ER Hold. Please see [facility] for further documentation. al4 10:30 Condition: stable 10:30 Instructed on the need for admit. 22:42 Patient left the ED. mw2 Signatures: Dispatcher [employer] EDMS Cristhian Garcia MD MD cha Ballard, Brenda, RN RN Pham Giordano mw2 Ashwini Fuentes David, RN RN sean3 Romeo Sol al4 Merritt Juárez, RN RN sv1 Corrections: (The following items were deleted from the chart) 07:50 07:10 BP 186 / 79; Pulse 77bpm; Resp 20bpm; Pulse Ox 95%; al4 al4 10:33 07:50 Respiratory: Airway is patent Respiratory effort is even, unlabored, Respiratory al4 pattern is regular, symmetrical, Breath sounds are diminished al4 10:34 08:04 Response: No adverse reaction al4 al4
[2021-08-21 06:28] LABS: ALT/SGPT 16 U/L (12-78); AST/SGOT 8 U/L (15-37); Albumin 3.5 g/dL (3.4-5.0); Alkaline Phosphatase 93 U/L (45-117); BUN Blood Urea Nitrogen 59 mg/dL (7-18); Bicarbonate 24 mmol/L (21-32); Bilirubin Direct 0.5 mg/dL (0-0.2); Bilirubin Total 2.2 mg/dL (0.2-1.0); Glucose Level 98 mg/dL (74-106); Magnesium 2.4 mg/dL (1.8-2.4); Protein, Total 6.4 g/dL (6.4-8.2); Sodium Level 143 mmol/L (136-145); Troponin (Emerg Dept Use Only) < 0.02 ng/mL (0.0-0.045)
[2021-08-21 06:29] LABS: NT PRO-BNP > 175000 pg/mL (<125)
[2021-08-21 06:39] LABS: Blood Morphology Comment NOT SEEN (NOT SEEN); Platelet Estimate ADEQ
[2021-08-21] MEDS ORDERED: CEFTRIAXONE 1000 MG/VIAL ONE (06:55)
--- NOTE | 2021-08-21 08:02 | RAD REPORT ---
EXAM DESCRIPTION: Hema Single View08/21/2021 4:54 am CLINICAL HISTORY: Cough COMPARISON: June 2021 FINDINGS: Small bilateral pleural effusions. Mild bibasilar atelectasis. Upper lobes appear clear. Heart remains enlarged. A central venous line has its tip in the SVC
[2021-08-21] MEDS: CEFTRIAXONE 1,000 MG in NA CHLORIDE 0.9% 50 ML IVPB SCH (10:15)
[2021-08-21] MEDS ORDERED: ACETAMINOPHEN 325 MG TABLET PO PRN (10:15)
[2021-08-21] MEDS ORDERED: IPRATROPIUM BROM 0.5MG/2.5ML NEB PRN (10:15)
[2021-08-21] MEDS ORDERED: ONDANSETRON 4 MG/2 ML VIAL IV PRN (10:15)
[2021-08-21] MEDS ORDERED: ALBUTEROL 2.5 MG/3 ML NEB SOL NEB PRN (10:15)
[2021-08-21] MEDS ORDERED: NA CHLORIDE 0.9% 1,000 ML IV PRN (10:43)
[2021-08-21] MEDS ORDERED: MANNITOL 25% 12.5 GM/50 ML VIAL IV PRN (10:43)
--- NOTE | 2021-08-21 10:43 | P.CNS ---
Date of Consult: 08/21/21 Reason for Consult: ESRD Requesting Physician: Cristhian Garcia Primary Care Provider: Dr. Obrien Chief Complaint: Worsening GILLIAM History of Present Illness: 76 yo WM CKD, CHF presented to the ER with severe, progressive GILLIAM with associated weakness in the setting of CHF. 06:01 This 76 yrs old Male presents to ER via Ambulatory with complaints of anh Breathing Difficulty. 06:01 The patient has shortness of breath at rest, with light activity. Onset: The anh symptoms/episode began/occurred 3 day(s) ago. Duration: The symptoms are continuous, and are steadily getting worse. The patient's shortness of breath is aggravated by light activity, prone position. Associated signs and symptoms: Pertinent positives: non-productive cough. Severity of symptoms: At their worst the symptoms were mild moderate in the emergency department the symptoms are unchanged. The patient has experienced similar episodes in the past, multiple times. Allergies No Known Allergies Allergy (Verified 10/12/19 02:35) Home medications list reviewed: Yes Home Medications: Losartan Potassium [Cozaar] 1 tab PO DAILY 11/25/18 Amlodipine Besylate 10 mg PO BID 10/12/19 Carvedilol [Coreg] 12.5 mg PO BID 06/11/21 Cholecalciferol (Vitamin D3) [Vitamin D 5,000 Iu Cap] 5,000 unit PO DAILY 06/11/21 Folic Acid/Vit B Complex and C [Betty-Rahul Tablet] 1 tab PO DAILY 06/11/21 Albuterol Sulfate [Albuterol Sulfate Hfa] 2 puff IH Q4H PRN 08/21/21 Fluticasone/Umeclidin/Vilanter [Trelegy Ellipta 100-62.5-25] 1 puff IH DAILY 08/21/21 - Past Medical/Surgical History Diabetic: No -: renal cell carcinoma with mets lungs -: both kidneys removed 2006 -: htn -: dialysis mwf -: cysts on liver -: both kidneys removed -: graft L arm-not active. -: cholecystectomy -: tonsils removed and adnoids - Family History Mother Medical History: Hypertension, Cancer Notes: doesnt know what kind Father Medical History: Hypertension, Stroke, Other (see notes) Notes: circulatory problem-aneurysm - Social History Smoking Status: Never smoker Alcohol use: No CD- Drugs: No Caffeine use: No Review of Systems 10-point ROS is otherwise unremarkable General: Weakness, Malaise Respiratory: SOB with Excertion Neurological: Weakness Physical Examination General: In no apparent distress, Oriented x3, Cooperative HEENT: Atraumatic Neck: Supple Respiratory: Clear to auscultation bilaterally Cardiovascular: No edema, Regular rate/rhythm Gastrointestinal: Soft and benign, Non-distended Musculoskeletal: No clubbing, No contractures Integumentary: No rashes, No cyanosis Neurological: Normal speech Laboratory Data (last 24 hrs) 08/21/21 05:20: PT 12.2, INR 1.06 08/21/21 05:20: WBC 6.30, Hgb 9.9 L, Hct 29.2 L, Plt Count 65 L 08/21/21 05:20: Sodium 143, Potassium 5.0, BUN 59 H, Creatinine 10.30 H*, Glucose 98, Magnesium 2.4, Total Bilirubin 2.2 H, AST 8 L, ALT 16, Alkaline Phosphatase 93 Imagings Data: EXAM DESCRIPTION: RADChest Single View08/21/2021 4:54 am CLINICAL HISTORY: Cough COMPARISON: June 2021 FINDINGS: Small bilateral pleural effusions. Mild bibasilar atelectasis. Upper lobes appear clear. Heart remains enlarged. A central venous line has its tip in the SVC Conclusions/Impression: ESRD -Acute HD ordered Hyperkalemia -Acute HD HTN with CKD/ CHF -Continue Losartan & Amlodipine Diastolic CHF, A/C -Acute HD with UF -Continue Coreg -Consult Cardiology Anemia in CKD -Retacrit X1 CKD MBD -Start Calcitriol COPD Exacerbation -Continue steroids -Continue Rocephin Thank you kindly for the consultation.
[2021-08-21] MEDS ORDERED: ALBUMIN HUMAN 25% 50 ML IV SCH (11:00)
[2021-08-21] MEDS ORDERED: EPOETIN ALFA-EPBX 10,000 UNIT/ML VIAL SQ ONE (11:00)
[2021-08-21] MEDS ORDERED: LOSARTAN POTASSIUM 50 MG TABLET ONE (11:38)
[2021-08-21] MEDS ORDERED: AMLODIPINE 10 MG TAB ONE (11:38)
[2021-08-21] MEDS ORDERED: ASPIRIN EC 81 MG TAB PO ONE (11:39)
[2021-08-21] MEDS: AMLODIPINE 10 MG TAB PO SCH (11:45)
[2021-08-21] MEDS: LOSARTAN POTASSIUM 50 MG TABLET PO SCH (11:45)
[2021-08-21] MEDS: METHYLPREDNISOLONE 125 MG INJ IV SCH ×2 (11:45→16:43)
[2021-08-21] MEDS: ASPIRIN EC 81 MG TAB PO SCH (11:45)
[2021-08-21 13:04] VITALS: BMI 26.1
[2021-08-21] MEDS ORDERED: INFLUENZA VACCINE (for 6+ mo) 0.5 ML DOSE IMVAC ONE (14:00)
[2021-08-21] MEDS ORDERED: carvediloL 6.25 MG TAB ONE (16:33)
[2021-08-21] MEDS: carvediloL 12.5 MG TAB PO SCH (16:42)
[2021-08-21] MEDS: DOCUSATE NA 100 MG CAP PO SCH (21:00)
[2021-08-21 21:37] VITALS: O2SAT 99
--- NOTE | 2021-08-21 23:20 | HP ---
Date of Admission: 08/21/2021 Chief Complaint: Shortness of breath. History Of Present Illness: This is a 76-year-old very pleasant male patient who was doing fine in h is normal usual state of health until day before yesterday started to have some cough and shortness o f breath. His symptoms have progressively got worse, so that is why he came into the emergency room today. He has been using Trelegy inhaler on a regular basis. Denies any other complaints. After he was evaluated in ER, he was admitted to the hospital. I saw him in the emergency room this morning. Allergies: NO KNOWN ALLERGIES. Medications: List reviewed. Review of Systems: Respiratory: As mentioned above. All other systems reviewed and negative. Past Medical History: Significant for chronic systolic congestive heart failure. Last echocardiogra m done, August 2019 showed normal ejection fraction. The patient also has COPD, end-stage renal di sease, on hemodialysis, kidney cancer, anemia due to chronic kidney disease, hypertension, hyperlipid emia, thrombocytopenia, benign prostatic hypertrophy. Social History: Negative for smoking, alcohol use. Family History: Significant for COPD. Past Surgical History: nephrectomy done in 2006 due to kidney cancer. Physical Examination: General: Awake, alert, oriented, not in distress. HEENT: Head atraumatic, normocephalic. Conjunctivae nonerythematous. Sclerae white. Mouth, no thr ush or edema noted. Ears/Nose, no mass, lesion, discharge noted. Neck: Supple. No JVD, lymph nodes, bruit, thyromegaly noted. Lungs: The patient has some rales and rhonchi noted in lower lung armstrong, not using any accessory mu cles of respiration. Heart: Normal heart sounds, no murmur or gallop. Abdomen: Soft, bowel sounds normal. No guarding, rigidity, tenderness, mass, hepatosplenomegaly, dis tention, or bruit noted. Extremities: No leg edema. No calf tenderness. Skin: No rash, ulcer, cellulitis. Lymphatics: No lymph node enlargement in neck, supraclavicular, infraclavicular region. Neuro: No focal neurological deficit. Chest: Unremarkable. External Genitalia: Deferred. Rectal: Deferred. Vital Signs: Temperature 98.1, pulse 76, respiratory rate 18, blood pressure 181/85, oxygen saturati on 98%, height 5 feet 8 inches, weight 172 pounds. Laboratory Data: White count 6.3, hemoglobin 9.9, platelets 65. INR 1.06. Sodium 143, potassium 5, chloride 106, bicarb 24, BUN 59, creatinine 10.3, glucose 98, total bilirubin 2.2, direct bilirubin 0.5. Troponin less than 0.02. COVID-19 test negative. Influenza A and B negative. RSV negative. Chest x-ray shows mild basilar atelectasis, small bilateral pleural effusion. Impression: 1.Acute exacerbation of chronic obstructive pulmonary disease. 2.End-stage renal disease, on hemodialysis. 3.Anemia due to chronic kidney disease. 4.Thrombocytopenia, chronic. 5.Hypertension. 6.Kidney cancer, bilateral. 7.Hyperlipidemia. 8.Benign prostatic hypertrophy. Plan: We will go ahead and admit the patient to hospital for further evaluation and management of th is problem. The patient is appropriate for inpatient and is expected to spend 2 [facility] the [facility]. We will continue current medications. Home medications will be continued per order. We will also continue empiric antibiotic, which was started in emergency room. We will start IV steroids, S david-Medrol per order. Continue the patient's Trelegy inhaler. [facility] and the patient's will bring his home inhaler and he will use it while in the hospital. I will see him tomorrow for followup. RYAN/MODL Voice ID: [id number]
[2021-08-22] MEDS: METHYLPREDNISOLONE 125 MG INJ IV SCH ×2 (00:30→07:45)
[2021-08-22 04:18] LABS: Absolute Lymphocytes (CBC) 0.3 K/uL (0.7-4.9); Basophils % 0.1 % (0-1.3); Hematocrit 28.1 % (39.6-49.0); Lymphocytes % 4.7 % (15.3-44.8); MPV 7.9 fL (7.6-11.3); RBC Red Blood Cell Count 2.87 M/uL (4.33-5.43)
[2021-08-22 04:45] LABS: BUN Blood Urea Nitrogen 41 mg/dL (7-18); Bicarbonate 28 mmol/L (21-32); Glucose Level 180 mg/dL (74-106); Potassium 4.4 mmol/L (3.5-5.1); Sodium Level 140 mmol/L (136-145)
[2021-08-22 04:48] LABS: NT PRO-BNP > 175000 pg/mL (<125)
[2021-08-22 05:24] LABS: Blood Morphology Comment NOTED (NOT SEEN); Platelet Estimate DECR; Polychromasia 1+
[2021-08-22] MEDS: carvediloL 12.5 MG TAB PO SCH (05:26)
--- NOTE | 2021-08-22 07:07 | RAD REPORT ---
EXAM DESCRIPTION: RAD - Chest Single View - 08/22/2021 5:39 am CLINICAL HISTORY: Chest Pain COMPARISON: August 21 portable imaging TECHNIQUE: AP portable chest image was obtained 08/22/2021 5:39 am . FINDINGS: No new mass or consolidation. Interstitial markings remain mildly prominent. Left-sided Po rt-A-Cath unchanged in positioning. No new tube or line identified. Cardiomegaly has improved but not fully resolved. Central vasculature has decreased in prominence. B ilateral costophrenic angle blunting is present. No acute bony abnormality seen. No acute aortic find ings suspected. IMPRESSION: CHF/volume overload findings the prior study have improved. This needs correlation with clinical presentation. Small bilateral pleural effusions are evident. No new or progressive cardiopulmonary finding.
[2021-08-22] MEDS: ASPIRIN EC 81 MG TAB PO SCH (07:46)
[2021-08-22] MEDS: DOCUSATE NA 100 MG CAP PO SCH (07:46)
[2021-08-22] MEDS: AMLODIPINE 10 MG TAB PO SCH (07:46)
[2021-08-22] MEDS: LOSARTAN POTASSIUM 50 MG TABLET PO SCH (07:46)
[2021-08-22] MEDS: CEFTRIAXONE 1,000 MG in NA CHLORIDE 0.9% 50 ML IVPB SCH (07:47)
[2021-08-22 08:02] VITALS: TEMP 97.3
[2021-08-22] MEDS ORDERED: CALCITROL 0.25 MCG CAP PO SCH (09:00)
[2021-08-22 09:17] VITALS: BP 160/66
--- NOTE | 2021-08-23 06:48 | DS ---
Date of Discharge: 08/22/2021 Disposition: Discharged to go home. Physical Examination: HEENT: Unremarkable. Lungs: Clear to auscultation. No wheezing, no rales, not in any respiratory distress. Heart: Sounds normal. Abdomen: Soft. Bowel sounds normal. No guarding, rigidity, tenderness, or distention. Extremities: No leg edema. Laboratory Data: Upon admission, white count 6.3, hemoglobin 9.9, platelets 65, and today white coun t 5.8, hemoglobin 9.5, platelets 74. Upon admission, sodium 143, potassium 5, chloride 106, bicarb 2 4, BUN 59, creatinine 10.3, glucose 98, total bilirubin 2.2. Rest of the liver function tests unrema rkable. Troponin less than 0.02 and proBNP more than 175,000. Repeat BUN today 41, creatinine 7.08. Hospital Course: A 76-year-old pleasant male patient, admitted to the hospital with shortness of kaitlynn ath. Please see dictated H and P for more information. The patient was admitted to the hospital wit h acute exacerbation of COPD. He was kept in hospital overnight, given IV steroid, and overall his c ondition has improved significantly. He had his dialysis yesterday. This morning when I saw him, he reported that he is feeling much better and feels like he is ready to go home. Medically, he is sta ble for discharge. He does have Trelegy inhaler that he uses on a daily basis as a maintenance inhal er, and he also has albuterol inhaler as a rescue inhaler for p.r.n. use. He was advised to continue to use both of these medications as prescribed. I have also instructed him to start using prednison e when he first started to have any symptom of worsening of his shortness of breath, and the way I lopez ve advised him to use prednisone will be to use 10 mg tablet, and the patient to take 3 tablets daily for 3 days, then 2 tablets daily for 3 days, then 1 tablet daily for 3 days, then stop. The patient was also instructed that moment he starts using prednisone, he should call office and come see me wi thin 2-3 days. The patient to come to emergency room obviously if his symptoms do not improve or he has more severe symptoms. His prednisone prescription that was sent to pharmacy was for 10 mg tablet . The patient to take 2 tablets daily. 100 tablet prescription was sent, but once again the patient will use prednisone only when he has acute exacerbation of his COPD with instruction as outlined abo ve. The patient was seen by Dr. Gomez from Cardiology and he has ordered echocardiogram which has not b een done during this hospitalization so far and the patient will follow up with him at his office and they will get the outpatient echocardiogram with office of Dr. Gomez and I also talked to Dr. Roula montano today about this. The patient will follow up at my office week after next. Final Diagnoses: 1.Acute exacerbation of chronic obstructive pulmonary disease. 2.End-stage renal disease, on hemodialysis. 3.Hypertension. 4.Kidney cancer. 5.Thrombocytopenia, chronic. RYAN/MODL Voice ID: [id number] Report ID: [id number]
== END 2021-08-22 09:30 | disposition home or self-care (01) ==
LOC: ER 04:07 → INTOOBSV 06:21 → ERHOLD 06:21 → 4TH 20:33
PROVIDERS: ADMIT Internal Medicine; ATTEND Internal Medicine
PROC: 5A1D70Z Performance of Urinary Filtration, Intermittent, Less than 6 Hours Per Day (ICD-10-PCS; principal; 2021-08-21)
DX: J44.1 Chronic obstructive pulmonary disease with (acute) exacerbation (principal); I13.2 Hypertensive heart and chronic kidney disease with heart failure and with stage 5 chronic kidney disease, or end stage renal disease; N18.6 End stage renal disease; D69.6 Thrombocytopenia, unspecified; I50.22 Chronic systolic (congestive) heart failure; N40.0 Benign prostatic hyperplasia without lower urinary tract symptoms; E78.5 Hyperlipidemia, unspecified; E87.5 Hyperkalemia; D63.1 Anemia in chronic kidney disease; C64.2 Malignant neoplasm of left kidney, except renal pelvis; C64.1 Malignant neoplasm of right kidney, except renal pelvis; Z99.2 Dependence on renal dialysis; Z20.822 Contact with and (suspected) exposure to COVID-19
CPT/HCPCS: 96365; 93005; 87040 ×2; 85025 ×2; 80048 ×2; 36415; 83735; 85610; 80076; 83605; 84484 ×2; 83880 ×2; 0241U; 71045 ×2; 90935 ×2; 94760 ×3; 96375; 99285; J1644; Q5106; J2930 ×5; G0378 ×3

== ENCOUNTER 2023-04-28 18:00 | Inpatient (IN) | payer OTHER, BC ==
--- OUTSIDE RECORDS SUMMARY | 2023-04-28 18:05 | XMS REPORT | Continuity of Care Document ---
:[address] [facility] [place], [place] t Address [address] [place] [address] [address] [place] [address] Care Team Providers Name Role Phone Annie Obrien Primary Care Physician SYSTEM, PROVIDER NOT IN Attending Clinician Unavailable YEIMI JOHNSON Attending Clinician Unavailable SKY TRUJILLO Attending Clinician Unavailable Scott Garcia MD Attending Clinician [phone] BRIDGETTE TORRES Attending Clinician Unavailable KRISTY WASHINGTON Attending Clinician Unavailable MD LEONA MEDINA Attending Clinician UnaYamileth Ortiz RN Attending Clinician Unavailable Only, Ang Db Test Attending Clinician Unavailable Kathia Damon Attending Clinician KATHIA PIMENTEL Attending Clinician Unavailable Doctor Unassigned, [place] Attending Clinician Unavailable Ray_A Attending Clinician Unavailable JABIER EGAN Attending Clinician Unavailable MD SCOTT GARCIA Attending Clinician Unavailable SAURAV CARD Attending Clinician Unavailable SCOTT GARCIA Admitting Clinician Unavailable LEONA MEDINA Admitting Clinician Unavailable MD LEONA MEDINA Admitting Clinician Lucille Mcknight Admitting Clinician Unavailable MD SCOTT GARCIA Admitting Clinician Unavailable SAURAV CARD Admitting Clinician Unavailable Payers Payer Name Policy Type Policy Number Effective Date Expiration Date S ource MEDICARE PART A [id number] 2007 AND B 00:00:00 [place] [id number] 2017 00:00:00 [place]: [id number] 2020 [employer] 00:00:00 Problems Condition Condition Condition Status Onset Resolution Last Treating Co mments Source Name Details Category Date Date Treatment Clinician Date Hypertensi Hypertensi Disease Active M ethodi ve urgency ve urgency 2-03 st 00:00: Hospita 00 l Ischemia Ischemia Disease Active Metho di of hand of hand 10-09 st 00:00: Hospita 00 l Acute Acute Disease Active Methodi blood loss blood loss 04-30 st anemia anemia 00:00: Hospita 00 l ESRD (end ESRD (end Disease Active Overview: Methodi stage stage 8-[address] renal renal 00:00: g of this Hospita disease) disease) 00 note l might be different from the original. 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 00:00: Ho spita n n 00 l No known No known Disease Unive rs active active ity of problems problems [facility] Allergies, Adverse Reactions, Alerts Allergy Allergy Status Severity Reaction(s) Onset Inactive Treating Comm ents Source Name Type Date Date Clinician Cefepime Propensi Active Rash Method i ty to 10-09 st adverse 00:00: Hospita reaction 00 l s to drug Cephalos Propensi Active Rash Method i porins ty to 10-09 st adverse 00:00: Hospita reaction 00 l s to drug POVIDONE DRUG Active High Rash MD -IODINE INGREDI 03-14 Anderso 00:00: n 00 POVIDONE DRUG Active High Rash 2021-0 MD -IODINE INGREDI 7-06 Anderso 00:00: n 00 POVIDONE DRUG Active High Rash 2021-0 MD -IODINE INGREDI 7- Anderso 00:00: n 00 POVIDONE DRUG Active High Rash 2021-0 MD -IODINE INGREDI 7- Anderso 00:00: n 00 POVIDONE DRUG Active High Rash 2021-0 MD -IODINE INGREDI 7- Anderso 00:00: n 00 POVIDONE DRUG Active High Rash 2021-0 MD -IODINE INGREDI 7- Anderso 00:00: n 00 POVIDONE DRUG Active High Rash 2021-0 MD -IODINE INGREDI - Anderso 00:00: n 00 POVIDONE DRUG Active High Rash 2021-0 MD -IODINE INGREDI - Anderso 00:00: n 00 POVIDONE DRUG Active High Rash 2021-0 MD -IODINE INGREDI - Anderso 00:00: n 00 POVIDONE DRUG Active High Rash 2021-0 MD -IODINE INGREDI - Anderso 00:00: n 00 POVIDONE DRUG Active High Rash 2021-0 MD -IODINE INGREDI - Anderso 00:00: n 00 POVIDONE DRUG Active High Rash 2021-0 MD -IODINE INGREDI - Anderso 00:00: n 00 POVIDONE DRUG Active High Rash 2021-0 MD -IODINE INGREDI - Anderso 00:00: n 00 POVIDONE DRUG Active High Rash 2021-0 MD -IODINE INGREDI - Anderso 00:00: n 00 POVIDONE DRUG Active High Rash 2021-0 MD -IODINE INGREDI - Anderso 00:00: n 00 POVIDONE DRUG Active High Rash 2021-0 MD -IODINE INGREDI - Anderso 00:00: n 00 POVIDONE DRUG Active High Rash 2021-0 MD -IODINE INGREDI 7- Anderso 00:00: n 00 POVIDONE DRUG Active High Rash 2021-0 MD -IODINE INGREDI 7- Anderso 00:00: n 00 POVIDONE DRUG Active High Rash 2021-0 MD -IODINE INGREDI 7- Anderso 00:00: n 00 POVIDONE DRUG Active High Rash 2021-0 MD -IODINE INGREDI 7- Anderso 00:00: n 00 POVIDONE DRUG Active High Rash 2021-0 MD -IODINE INGREDI - Anderso 00:00: n 00 POVIDONE DRUG Active High Rash 2021-0 MD -IODINE INGREDI - Anderso 00:00: n 00 POVIDONE DRUG Active High Rash 2021-0 MD -IODINE INGREDI 03-14 Anderso 00:00: n 00 POVIDONE DRUG Active High Rash 2021-0 MD -IODINE INGREDI 03-14 Anderso 00:00: n 00 POVIDONE DRUG Active High Rash 2021-0 MD -IODINE INGREDI 03-14 Anderso 00:00: n 00 POVIDONE DRUG Active High Rash 2021-0 MD -IODINE INGREDI 03-14 Anderso 00:00: n 00 POVIDONE DRUG Active High Rash 2021-0 MD -IODINE INGREDI 03-14 Anderso 00:00: n 00 POVIDONE DRUG Active High Rash 2021-0 MD -IODINE INGREDI 03-14 Anderso 00:00: n 00 POVIDONE DRUG Active High Rash 2021-0 MD -IODINE INGREDI 03-14 Anderso 00:00: n 00 POVIDONE DRUG Active High Rash 2021-0 MD -IODINE INGREDI - Anderso 00:00: n 00 POVIDONE DRUG Active High Rash 2021-0 MD -IODINE INGREDI 03-14 Anderso 00:00: n 00 POVIDONE DRUG Active High Rash 2021-0 MD -IODINE INGREDI 03-14 Anderso 00:00: n 00 POVIDONE DRUG Active High Rash 2021-0 MD -IODINE INGREDI 03-14 Anderso 00:00: n 00 POVIDONE DRUG Active High Rash 2021-0 MD -IODINE INGREDI 03-14 Anderso 00:00: n 00 POVIDONE DRUG Active High Rash 2021-0 MD -IODINE INGREDI 03-14 Anderso 00:00: n 00 POVIDONE DRUG Active High Rash 2021-0 MD -IODINE INGREDI 03-14 Anderso 00:00: n 00 POVIDONE DRUG Active High Rash 2021-0 MD -IODINE INGREDI 03-14 Anderso 00:00: n 00 POVIDONE DRUG Active High Rash 2021-0 MD -IODINE INGREDI 03-14 Anderso 00:00: n 00 POVIDONE DRUG Active High Rash 2021-0 MD -IODINE INGREDI 03-14 Anderso 00:00: n 00 Povidone Propensi Active Rash 2021-0 Reaction Meth jessica -Iodine ty to 03-[address] adverse 00:00: topical Hospita reaction 00 iodine. l s to As per drug patient No problems from CT contrast OFATUMUM DRUG Active Low Itching 2018-0 MD AB INGREDI 2-22 Anderso 00:00: n 00 OFATUMUM DRUG Active Low Itching 2018-0 MD AB INGREDI 2-22 Anderso 00:00: n 00 OFATUMUM DRUG Active Low Itching 2018-0 MD AB INGREDI 2-22 Anderso 00:00: n 00 OFATUMUM DRUG Active Low Itching 2018-0 MD AB INGREDI 2-22 Anderso 00:00: n 00 OFATUMUM DRUG Active Low Itching 2018-0 MD AB INGREDI 2-22 Anderso 00:00: n 00 OFATUMUM DRUG Active Low Itching 2018-0 MD AB INGREDI 2-22 Anderso 00:00: n 00 OFATUMUM DRUG Active Low Itching 2018-0 MD AB INGREDI 2-22 Anderso 00:00: n 00 OFATUMUM DRUG Active Low Itching 2018-0 MD AB INGREDI 2-22 Anderso 00:00: n 00 OFATUMUM DRUG Active Low Itching 2018-0 MD AB INGREDI 2-22 Anderso 00:00: n 00 OFATUMUM DRUG Active Low Itching 2018-0 MD AB INGREDI 2-22 Anderso 00:00: n 00 OFATUMUM DRUG Active Low Itching 2018-0 MD AB INGREDI 2-22 Anderso 00:00: n 00 OFATUMUM DRUG Active Low Itching 2018-0 MD AB INGREDI 2-22 Anderso 00:00: n 00 OFATUMUM DRUG Active Low Itching 2018-0 MD AB INGREDI 2-22 Anderso 00:00: n 00 OFATUMUM DRUG Active Low Itching 2018-0 MD AB INGREDI 2-22 Anderso 00:00: n 00 OFATUMUM DRUG Active Low Itching 2018-0 MD AB INGREDI 2-22 Anderso 00:00: n 00 OFATUMUM DRUG Active Low Itching 2018-0 MD AB INGREDI 2-22 Anderso 00:00: n 00 OFATUMUM DRUG Active Low Itching 2018-0 MD AB INGREDI 2-22 Anderso 00:00: n 00 OFATUMUM DRUG Active Low Itching 2018-0 MD AB INGREDI 2-22 Anderso 00:00: n 00 OFATUMUM DRUG Active Low Itching 2018-0 MD AB INGREDI 2-22 Anderso 00:00: n 00 OFATUMUM DRUG Active Low Itching 2018-0 MD AB INGREDI 2-22 Anderso 00:00: n 00 OFATUMUM DRUG Active Low Itching 2018-0 MD AB INGREDI 2-22 Anderso 00:00: n 00 OFATUMUM DRUG Active Low Itching 2018-0 MD AB INGREDI 2-22 Anderso 00:00: n 00 OFATUMUM DRUG Active Low Itching 2018-0 MD AB INGREDI 2-22 Anderso 00:00: n 00 OFATUMUM DRUG Active Low Itching 2018-0 MD AB INGREDI 2-22 Anderso 00:00: n 00 OFATUMUM DRUG Active Low Itching 2018-0 MD AB INGREDI 2-22 Anderso 00:00: n 00 OFATUMUM DRUG Active Low Itching 2018-0 MD AB INGREDI 2-22 Anderso 00:00: n 00 OFATUMUM DRUG Active Low Itching 2018-0 MD AB INGREDI 2-22 Anderso 00:00: n 00 OFATUMUM DRUG Active Low Itching 2018-0 MD AB INGREDI 2-22 Anderso 00:00: n 00 OFATUMUM DRUG Active Low Itching 2018-0 MD AB INGREDI 2-22 Anderso 00:00: n 00 OFATUMUM DRUG Active Low Itching 2018-0 MD AB INGREDI 2-22 Anderso 00:00: n 00 OFATUMUM DRUG Active Low Itching 2018-0 MD AB INGREDI 2-22 Anderso 00:00: n 00 OFATUMUM DRUG Active Low Itching 2018-0 MD AB INGREDI 2-22 Anderso 00:00: n 00 OFATUMUM DRUG Active Low Itching 2018-0 MD AB INGREDI 2-22 Anderso 00:00: n 00 OFATUMUM DRUG Active Low Itching 2018-0 MD AB INGREDI 2-22 Anderso 00:00: n 00 OFATUMUM DRUG Active Low Itching 2018-0 MD AB INGREDI 2-22 Anderso 00:00: n 00 OFATUMUM DRUG Active Low Itching 2018-0 MD AB INGREDI 222 Anderso 00:00: n 00 OFATUMUM DRUG Active Low Itching 2018-0 MD AB INGREDI 2-22 Anderso 00:00: n 00 OFATUMUM DRUG Active Low Itching 2018-0 MD AB INGREDI 2-22 Anderso 00:00: n 00 OFATUMUM DRUG Active Low Itching 2018-0 MD AB INGREDI 222 Anderso 00:00: n 00 NO KNOWN Drug Active Univers ALLERGIE Class ity of S [facility] Family History Family Member Diagnosis Comments Start Date Stop Date Source Natural mother Cancer Mandaen [facility] Social History Social Habit Start Date Stop Date Quantity Comments Source Gender identity [facility] Sexual orientation [facility] Exposure to Not sure University of SARS-CoV-2 (event) [facility] History of Social 2022-11-12 2022-11-[address] function 00:00:00 00:00:00 Hospital Alcohol intake 2022-03-20 2022-03-20 Ex-drinker Mandaen 00:00:00 00:00:00 (finding) Hospital Tobacco use and 2018-12-03 2018-12-03 Smokeless Mandaen exposure 00:00:00 00:00:00 tobacco non-user Hospital Sex Assigned At [address] [facility] Smoking Status Start Date Stop Date Source [facility] Never smoked tobacco Mandaen H [facility]spital Medications Ordered Filled Start Stop Current Ordering Indication Dosage Frequency Signature Comments Components Source Medication Medication Date Date Medication? Clinician (SIG) Name Name losartan 2022- No 100mg QD Take 100 Met hodi (COZAAR) 3-30 03-[address] 100 MG 11:44: 00:00 mouth Hospita tablet 27 :00 daily. l cholecalcif 2022-0 202- No 5000U QD Take 5,000 Methodi raman, 3-30 03-[address] vitamin D3, 11:44: 00:00 mouth Hosp mayra 125 mcg 20 :00 daily. l (5,000 unit) tablet sevelamer Yes 2400mg Q.[id number] Take 3 Methodi (RENVELA) 3-30 [id number] tablets s t 800 mg 09:36: 3D (2,400 mg Hospit a tablet 12 total) by l mouth 3 (three) times a day with meals. amLODIPine Yes 10mg Q.5D Take 1 Metho di (NORVASC) 3-30 tablet (10 st 10 mg 09:36: mg total) Hospita tablet 12 by mouth 2 l (two) times a day. fluticasone Yes QD Inhale 1 Me thodi -umeclidin- 3-[address] vilanter 09:36: s daily. Hospi ta (Trelegy 12 l Ellipta) 100-62.5-25 mcg blister with device powder for inhalation albuterol Yes 1{puff} Inhale 1 M ethodi (PROAIR 3-[address] HFA) 90 09:36: needed for Hosp mayra mcg/actuati 12 wheezing l on inhaler or shortness of breath. carvediloL Yes 12.5mg Q.5D Take 1 Met hodi (COREG) 3-[address] 12.5 MG 09:36: (12.5 mg Hospit a tablet 12 total) by l mouth 2 (two) times a day with meals. folic Yes Take by Methodi acid/vit B 3-[address] complex and 09:36: Hospit a C 12 l (JUAN JOSÉ-RAHUL ORAL) carvedilol Yes 80mg Take 80 mg U nivers (COREG CR) 8-11 by mouth. ity of 80 mg 24 hr 07:52: [place] capsule [facility] valsartan Yes 320{tbl Take 320 U nivers (DIOVAN) 8-11 } tablets by ity o f 320 mg 07:52: mouth. [place] tablet 14 Medical Branch amLODIPine Yes 10mg Take 10 mg U nivers (NORVASC) 8-11 by mouth. ity o f 10 mg 07:52: [place] tablet 14 Medical Branch sevelamer Yes 400{tbl Take 400 U nivers (RENAGEL) 8-11 } tablets by ity of 400 mg 07:52: mouth. [place] tablet 14 Medical Branch LACTOSE-RED Yes Take by Uni vers UCED FOOD 8-11 mouth. ity of (NUTRITIONA 07:52: Indication [place] L SHAKE 14 s: [facility] [facility] ORAL) fortify Branch original shake ERGOCALCIFE Yes Take by Uni vers ROL, 8-11 mouth. ity of VITAMIN D2, 07:52: Indication [place] (VITAMIN D 14 s: vitamin Med ical ORAL) d pill 2 Branch tabs at dyalisis DIPHENHYDRA Yes Take by Uni vers MINE HCL 8-11 mouth. ity of (ANTIHISTAM 07:52: [place] INE ORAL) 14 Medical Branch carvedilol Yes 80mg Take 80 mg U nivers (COREG CR) 8-11 by mouth. ity of 80 mg 24 hr 07:52: [place] capsule 14 Medical Branch valsartan Yes 320{tbl Take 320 U nivers (DIOVAN) 8-11 } tablets by ity o f 320 mg 07:52: mouth. [place] tablet 14 Medical Branch amLODIPine Yes 10mg Take 10 mg U nivers (NORVASC) 8-11 by mouth. ity o f 10 mg 07:52: [place] tablet 14 Medical Branch sevelamer Yes 400{tbl Take 400 U nivers (RENAGEL) 8-11 } tablets by ity of 400 mg 07:52: mouth. [place] tablet 14 Medical Branch LACTOSE-RED Yes Take by Uni vers UCED FOOD 8-11 mouth. ity of (NUTRITIONA 07:52: Indication [place] L SHAKE 14 s: [employer] [facility] ORAL) fortify Branch original shake ERGOCALCIFE Yes Take by Uni vers ROL, 8-11 mouth. ity of VITAMIN D2, 07:52: Indication [place] (VITAMIN D 14 s: vitamin Med ical ORAL) d pill 2 Branch tabs at dyalisis DIPHENHYDRA Yes Take by Uni vers MINE HCL 8-11 mouth. ity of (ANTIHISTAM 07:52: [place] INE ORAL) 14 Medical Branch carvedilol Yes 80mg Take 80 mg U nivers (COREG CR) 8-11 by mouth. ity of 80 mg 24 hr 07:52: [place] capsule 14 Medical Branch valsartan Yes 320{tbl Take 320 U nivers (DIOVAN) 8-11 } tablets by ity o f 320 mg 07:52: mouth. [place] tablet 14 Medical Branch amLODIPine Yes 10mg Take 10 mg U nivers (NORVASC) 8-11 by mouth. ity o f 10 mg 07:52: [place] tablet 14 Medical Branch sevelamer Yes 400{tbl Take 400 U nivers (RENAGEL) 8-11 } tablets by ity of 400 mg 07:52: mouth. [place] tablet 14 Medical Branch LACTOSE-RED Yes Take by Uni vers UCED FOOD 8-11 mouth. ity of (NUTRITIONA 07:52: Indication [place] L SHAKE 14 s: [employer] [facility] ORAL) fortify Branch original shake ERGOCALCIFE Yes Take by Uni vers ROL, 8-11 mouth. ity of VITAMIN D2, 07:52: Indication [place] (VITAMIN D 14 s: vitamin Med ical ORAL) d pill 2 Branch tabs at dyalisis DIPHENHYDRA Yes Take by Uni vers MINE HCL 8-11 mouth. ity of (ANTIHISTAM 07:52: [place] INE ORAL) 14 Medical Branch triamcinolo Yes Apply to Un [place] 8-11 area(s) 2 ity of (KENALOG) 00:00: (two) [place] 0.5 % cream 00 times Medical daily as Branch needed for Rash or Itching. triamcinolo Yes Apply to Un [place] 8-11 area(s) 2 ity of (KENALOG) 00:00: (two) [place] 0.5 % cream 00 times Medical daily as Branch needed for Rash or Itching. triamcinolo Yes Apply to Un [place] 8-11 area(s) 2 ity of (KENALOG) 00:00: (two) [place] 0.5 % cream 00 times Medical daily as Branch needed for Rash or Itching. COMETRIQ 60 2015-0 Yes Univer s mg/day (20 5-11 ity of mg [3]/day) 00:00: [address] Branch COMETRIQ 60 2015-0 Yes Univer s mg/day (20 5-11 ity of mg [3]/day) 00:00: [address] Branch COMETRIQ 60 2015-0 Yes Univer s mg/day (20 5-11 ity of mg [3]/day) 00:00: [address] amlodipine amlodipine No amlodipine [place] 10 mg 10 mg 10 mg Family [...] C PO D hydrocodone hydrocodone No hydrocodon [facility] 5 5 e 5 Family mg-acetamin [...] AREA BID. AREA BID. AFFECTED AREA BID. [place]ahul Juan [place]ahul No [place] 0.8 mg 0.8 mg 0.8 mg Family tablet TK 1 tablet TK 1 tablet TK Practic T PO D T PO D 1 T PO D e sevelamer sevelamer No sevelamer [place] carbonate carbonate carbonate Family 800 mg 800 mg 800 mg Practic tablet TK 4 tablet TK 4 tablet TK e TS PO TID TS PO TID 4 TS PO WITH MEALS WITH MEALS TID WITH MEALS testosteron testosteron No testostero [facility] e cypionate e cypionate ne F [...] Ordered Immunization Filled Immunization Date Status Commen Source Name Name ISABELL COVID-19 2021-04-22 Completed Methodis t MRNA VACCINATION 00:00:00 [facility] COVID-19, mRNA, COVID-19, mRNA, 2020-10-10 Completed Vill age Family LNP-S, PF, 100 LNP-S, PF, 100 12:18:14 Practi ce mcg/0.5 mL dose mcg/0.5 mL dose MODERNA COVID-19 2020-10-10 Completed Methodis t MRNA VACCINATION 00:00:00 [facility] COVID-19, mRNA, COVID-19, mRNA, 2020-09-12 Completed Vill age Family LNP-S, PF, 100 LNP-S, PF, 100 16:33:54 Practi ce mcg/0.5 mL dose mcg/0.5 mL dose MODERNA COVID-19 2020-09-12 Completed Methodis t MRNA VACCINATION 00:00:00 Hospital Vital Signs Vital Name Observation Time Observation Value Comments Source Systolic blood 2022-12-06 14:33:00 172 mm[Hg] Method ist Hospital pressure Diastolic blood 2022-12-06 14:33:00 97 mm[Hg] Metho dist Hospital pressure Heart rate 2022-12-06 14:33:00 67 /min Method[facility] t Hospital Body temperature 2022-12-06 14:33:00 36.17 Francisca Meth [facility] Body height 2022-12-06 14:33:00 172.7 cm [facility] Body weight 2022-12-06 14:33:00 83.462 kg [facility] BMI 2022-12-06 14:33:00 27.98 kg/m2 [facility] Oxygen saturation in 2022-12-06 14:33:00 99 /min [facility] Arterial blood by Pulse oximetry Procedures Procedure Date / Time Performed Performing Clinician Sour e ASSIGNMENT OF BENEFITS 2021-09-20 15:08:50 Doctor Unassigned, No [facility] Plan of Care Planned Activity Planned Date Details Comments Source Future Scheduled 2023-04-10 65+ PNEUMOCOCCAL [facility] Test 05:55:47 VACCINE (1 - PCV) [code = 65+ PNEUMOCOCCAL VACCINE (1 - PCV)] Future Scheduled 2023-04-10 Hepatitis C screening [facility] Test 05:55:47 (procedure) [code = 840840967] Future Scheduled 2023-04-10 SHINGLES VACCINES (1 Met [facility] Test 05:55:47 of 2) [code = SHINGLES VACCINES (1 of 2)] Future Scheduled 2023-04-10 COVID-19 VACCINE (4 - [facility] Test 05:55:47 Moderna series) [code = COVID-19 VACCINE (4 - Moderna series)] Future Scheduled 2023-04-10 INFLUENZA VACCINE Method [facility] Test 05:55:47 [code = INFLUENZA VACCINE] Encounters Start End Encounter Admission Attending Care Care Encounter Source Date/Time Date/Time Type Type Clinicians Facility Department ID 2022-08-18 Outpatient SYSTEM, ITZ MOBLEY [id number] 09:12:34 PROVIDER Dawit o n 2022-07-11 Outpatient SYSTEM, ITZ MOBLEY [id number] 08:15:03 PROVIDER Dawit o n 2022-06-05 Outpatient SYSTEM, ITZ MOBLEY [id number] 14:46:23 PROVIDER Dawit o n 2022-04-27 Outpatient SYSTEM, ITZ MOBLEY [id number] 13:34:12 PROVIDER Dawit o n 2022-03-19 Outpatient SYSTEM, ITZ MOBLEY [id number] 08:40:38 PROVIDER Dawit o n 2022-01-01 Outpatient SYSTEM, MDA MDA [id number] MD 07:33:30 PROVIDER Dawit o n 2021-12-02 Outpatient SYSTEM, MDA MDA [id number] MD 07:51:27 PROVIDER Dawit o n 2021-10-31 Outpatient SYSTEM, MDA MDA [id number] MD 07:40:52 PROVIDER Dawit o n 2021-09-19 Outpatient SYSTEM, MDA MDA [id number] MD 11:15:11 PROVIDER Dawit o n 2021-08-14 Outpatient SYSTEM, MDA MDA [id number] MD 08:07:45 PROVIDER Daiwt o n 2021-07-03 Outpatient SYSTEM, MDA MDA [id number] MD 07:21:04 PROVIDER Dawit o n 2021-05-18 Outpatient SYSTEM, MDA MDA [id number] MD 08:35:53 PROVIDER Dawit o n 2021-04-13 Outpatient SYSTEM, MDA MDA [id number] MD 07:28:58 PROVIDER Dawit o n 2023-02-28 2023-02-28 Outpatient NISHA JOHNSON, ITZ MDA [id number] 06:27:23 23:59:00 YEIMI Dawit o ajda 2023-02-28 2023-02-28 Outpatient NISHA SKY TRUJILLO MDA MDA [id number] 10:41:09 12:31:29 Dawit o n 2023-02-28 2023-02-28 Outpatient NISHA JOHNSONITZ MDA [id number] 06:47:53 06:47:53 YEIMI Dawit o jada 2022-12-06 2022-12-06 Office Jose, 1.2.840.1 [id number] Methodi 09:45:00 10:23:22 Visit Scott [id number] [facility] 3.430.2.7 Hosp mayra .[id number] l .8 2022-12-06 2022-12-06 Outpatient [facility] [id number] [place] 00:00:00 00:00:00 SCOTT [address] 2022-12-06 2022-12-06 Travel 1.2.840.1 [id number] Methodi 00:00:00 00:00:00 [id number] [id number] [facility] 3.430.2.7 [id number] Ho spita .[id number] 084.8 l .8 2022-10-25 2022-10-25 Outpatient NISHA JOHNSON MDA MDA [id number] 08:57:17 23:59:00 YEIMI elias 2022-10-25 2022-10-25 Outpatient SKY GIORDANO MDA MDA [id number] 10:02:14 12:06:43 Dawit o jada 2022-10-25 2022-10-25 Outpatient NISHA JOHNSON MDA MDA [id number] 09:09:32 09:09:32 YEIMI elias 2022-06-22 2022-06-22 Outpatient NISHA JOHNSON MDA MDA [id number] 06:01:50 06:01:50 YEIMI elias 2022-06-21 2022-06-21 Outpatient NISHA JOHNSON MDA MDA [id number] 06:12:45 23:59:00 YEIMI elias 2022-06-21 2022-06-21 Outpatient SKY GIORDANO MDA MDA [id number] 06:54:00 10:52:54 Dawit elias 2022-04-19 2022-04-19 Outpatient [facility] [id number] [place] 00:00:00 00:00:00 SCOTT 080 Method i 2022-03-19 2022-03-[address] [facility] [id number] [place] 00:00:00 00:00:00 SCOTT 647 Method i 2022-03-15 2022-03-15 Outpatient [facility] [id number] [place] 00:00:00 00:00:00 SCOTT 616 Method i 2022-03-15 2022-03-15 Outpatient WOJCGUANAKITOCHOJAIR [facility] [id number] [place] 00:00:00 00:00:00 TALHA, 656 Method i BRIDGETTE 2022-03-07 2022-03-07 Outpatient [facility] [id number] [place] 00:00:00 00:00:00 SCOTT 797 Method i 2021-12-28 2021-12-28 Outpatient SKY GIORDANO MDA MDA [id number] 10:23:40 11:26:25 Dawit o jada 2021-12-28 2021-12-28 Outpatient SKY GIORDANO MDA MDA [id number] 06:59:04 06:59:04 Dawit o jada 2021-12-28 2021-12-28 Outpatient SKY GIORDANO MDA MDA [id number] 06:33:32 06:48:14 Dawit o jada 2021-11-30 2021-11-30 Outpatient NISHA JOHNSON MDA MDA [id number] 07:48:11 23:59:00 YEIMI Pérezers o jada 2021-11-30 2021-11-30 Outpatient SKY GIORDANO MDA MDA [id number] 10:34:03 14:17:10 Dawit o jada 2021-11-30 2021-11-30 Outpatient NISHA JOHNSON MDA MDA [id number] 08:17:01 08:17:01 YEIMI Dawit o jada 2021-11-09 2021-11-09 [facility] [id number] [place] 00:00:00 00:00:00 SCOTT 973 Method i 2021-10-26 2021-10-26 [facility] [id number] [place] 00:00:00 00:00:00 SCOTT 710 Method i 2021-10-09 2021-10-12 [facility] [id number] [place] 00:00:00 00:00:00 KRISTY 999 Method i 2021-09-21 2021-09-21 Letter YARIEL Mccord [id number] [facility] 00:00:00 00:00:00 (Out) Yamileth VIVAR [id number] it y of [facility] 4.2.7.2.686 [place] [phone] [place] [address] Branch 2021-09-20 2021-09-20 Laboratory Only, Ang Db Test [facility] 1.2.8 [id number] [id number] Univers 09:30:00 09:45:00 Only [place] [facility] [id number] ity [facility] 4.2.7.2.686 [place] as SHADI?BLEA [id number] Md max [address] MEDICAL OFFICE BUILDING 2021-09-20 2021-09-20 Outpatient Amanda PIMENTEL [facility] [id number] [facility] 09:30:00 09:30:00 KATHIA ity of [facility] 2021-09-20 2021-09-20 Orders Doctor YARIEL 1.2.840.114 [id number] Univers 00:00:00 00:00:00 Only Unassigned, GHAZALA 350.1.13.10 ity of [place] [facility] 4.2.7.2.686 [place] [phone] [address] 2021-07-27 2021-07-27 Outpatient SKY GIORDANO MDA MDA [id number] 08:19:08 09:39:56 Dawit elias 2021-07-25 2021-07-25 Outpatient SKY GIORDANO MDA MDA [id number] 11:07:13 11:07:13 Dawit elias 2021-07-25 2021-07-25 Outpatient SKY GIORDANO MDA MDA [id number] 10:06:42 11:01:38 Dawit elias 2021-03-23 2021-03-23 Outpatient NISHA JOHNSON MDA MDA [id number] 07:58:36 23:59:00 YEIMI elias 2021-03-23 2021-03-23 Outpatient SKY GIORDANO MDA MDA [id number] 09:32:32 12:46:59 Dawit elias 2021-03-23 2021-03-23 Outpatient NISHA JOHNSON MDA MDA [id number] 08:33:10 08:33:10 YEIMI elias 2020-12-22 2020-12-22 Outpatient NISHA JOHNSON MDA MDA [id number] 09:03:49 09:03:49 YEIMI elias 2020-10-11 2020-10-11 Outpatient Ray_A VFP VFP [id number] [facility] 01:33:00 01:33:00 [id number] Family Practic e 2020-10-10 2020-10-10 Outpatient Ray_A VFP VFP [id number] [facility] 02:00:00 02:00:00 [id number] Family Practic e 2020-10-10 2020-10-10 Nicci VFP [place] - [id number] [place] 00:00:00 00:00:00 [facility] Cholo hyman alexa [facility] - Prac josh MD: [id number] Anna dos santos [facility], [address], [place] [address] , Ph. 2020-09-13 2020-09-13 Outpatient Ray_A VFP VFP [id number] [facility] 03:27:00 03:27:00 [id number] Family Practic e 2020-09-12 2020-09-12 Outpatient Ray_A VFP VFP [id number] [facility] 03:46:00 03:46:00 [id number] Family Practic e 2020-09-12 2020-09-12 Yanelis VFP [place] - [id number] [place] 00:00:00 00:00:00 [facility] Gary Nayak [facility] - Practi redd MD: [id number] [facility], [address], [place] [address] , Ph. 2020-05-19 2020-05-19 Outpatient [facility] [id number] [address] [place] 00:00:00 00:00:00 SCOTT 503 Method i 2020-05-12 2020-05-12 Outpatient [facility] [id number] [place] 00:00:00 00:00:00 SCOTT 083 Method i 2020-04-29 2020-04-30 Outpatient [place], [place] [facility] [id number] [place] 00:00:00 00:00:00 513 Method i 2020-04-28 2020-04-28 Outpatient EL MDA MDA [id number] 08:14:10 08:14:10 Dawit o n 2020-04-27 2020-04-27 Outpatient [facility] [id number] [address] [place] 00:00:00 00:00:00 SCOTT 291 Method i 2020-04-27 2020-04-27 Outpatient [facility] [id number] [place] 00:00:00 00:00:00 SCOTT [address] 2020-04-27 2020-04-27 Outpatient WOJCIECHOWS [facility] [id number] [place] 00:00:00 00:00:00 Jolene PALENCIA Method i BRIDGETTE 2020-04-19 2020-04-19 Outpatient [facility] [id number] [place] 00:00:00 00:00:[address] 2020-04-19 2020-04-19 Outpatient JOSE, [facility] [id number] [address] [place] 00:00:00 00:00:00 SCOTT Ortega[address] [facility] 2019-11-03 2019-11-05 Outpatient MCCARTAN, [facility] [id number] [place] 00:00:00 00:00:00 SAURAV [address] Results Test Description Test Time Test Comments Results Result Comments Source SARS-CoV-2 (COVID-19) RNA [Presence] in Respiratory sp ecimen by 2021-10-09 11:15:23 LIT with probe detection Test Item Value Reference Range Interpretation Comme nts SARS-CoV-2 (COVID-19) RNA [Presence] in Respiratory Not detected No t-Detected specimen by LIT with probe detection (test code = 71624-6) Whether patient is employed in a healthcare setting (test code = 17496-6) Whether the patient has symptoms related to condition of interest (test code = 02512-3) Patient was hospitalized because of this condition (test code = 13354-4) Whether the patient was admitted to intensive care unit (ICU) for condition of interest (test code = 13484-6) Whether patient resides in a congregate care setting (test code = 69392-9) [facility] [Presence] in Respiratory specimen by LIT with probe [id number] 02:48:05 Test Item Value Reference Range Interpretation Comments SARS-CoV-2 (COVID-19) RNA Not detected Not-Detected [Presence] in Respiratory specimen by LIT with probe detection (test code = 01660-4) [facility], WITHOUT [id number] 21:56:00FINAL REPORT CT of the Chest dated 10/16/2019 CLINICAL INFORMATION: r06.00 r06.89Comment: Axial images of the chest were obtained [...] are unremarkable. No adenopathy in the mediastinum or perihilar region. Trachea and mainstem bronchi are patent. Trace loculated pleural effusion is seen bilaterally. There is lingula and bibasilar subsegmental atelectasis. The rest of the lungs are clear. A pleural-based calcified nodule is seen in the medial lower right chest measuring 2.6 x 3.4 cm adjacent tothe right atrium. Visualized upper abdomen demonstrates dense liver suggestive of amiodarone toxicity. Several cysts are seen in the liver measuring up to 3 cm. Impression: 1. Cardiomegaly.2. Anemia.3.Loculated bilateral pleural effusion with bibasilar and lingular subsegmental atelectasis.4. Dense liver suggestive of amiodarone toxicity. Signed: Saurav Rosenberg [facility] Verified Date/Time: 10/16/2019 21:56:50 Reading Location: [address] Consult Reading Room [facility], [id number] 17:25:00FINAL REPORT PROCEDURE: V/Q LUNG SCAN CPT CODE: 98916 INDICATION: R06.00, R06.89 PROTOCOL: 10.9 mCi of Xe-133 gas was administered by inhalation. Single breath and rebreathing/washout images were obtained in the anterior and the posterior projections. 4.3 mCi of Tc-99m MAA was then injected intravenously, and static perfusion images were obtained in multiple projections. FINDINGS: Ventilation: Initial tracer distribution is irregular in both lungs and further moderately decreased in the left lung generally. Washout proceeds normally. Perfusion: Tracer distribution is nonsegmentally, irregularly decreased in both lungs. There is prominence of the left major fissure and focal increase along the right major fissure posteriorly. IMPRESSION: 1. Low probability of acute pulmonary em bolization.2. Bilateral parenchymal abnormality with additional focal decrease in the right lower lung field.3. Left pleural abnormality. Signed: Daren Espinosa [facility] Verified Date/Time: 10/16/2019 17:25:16 Reading Location: [address] Reading Room
[2023-04-28 18:32] LABS: Absolute Lymphocytes (CBC) 0.7 K/uL (0.7-4.9); Hematocrit 31.8 % (39.6-49.0); MCV 96.3 fL (80-100); MPV 6.5 fL (7.6-11.3); Platelets 80 thou/uL (152-406)
[2023-04-28] MEDS ORDERED: ALBUTEROL 2.5 MG/3 ML NEB SOL ONE (18:35)
[2023-04-28] MEDS ORDERED: METHYLPREDNISOLONE 125 MG INJ ONE (18:35)
[2023-04-28] MEDS ORDERED: IPRATROPIUM BROM 0.5MG/2.5ML ONE (18:36)
[2023-04-28 18:50] LABS: Magnesium 2.5 mg/dL (1.6-2.4); Potassium 5.7 mEq/L (3.5-5.1)
[2023-04-28 18:55] LABS: Troponin High Sensitivity 110.8 pg/mL (<58.9)
--- NOTE | 2023-04-28 19:03 | RAD REPORT ---
EXAM DESCRIPTION: RAD - Chest Single View - 04/28/2023 6:50 pm CLINICAL HISTORY: COPD COMPARISON: Chest Pa And Lat (2 Views) dated 02/12/2023; Chest Single View dated 08/22/2021; Chest Sin gle View dated 08/21/2021; Chest Single View dated 06/11/2021 FINDINGS: Lines: Left IJ approach Port-A-Cath with tip overlying the SVC. Lungs: Diffuse prominence of the pulmonary interstitium. Pleural: Bilateral pleural effusions. Cardiac: Cardiomegaly. Mediastinum: Within normal limits. Bones: No acute fractures. Other: None IMPRESSION: Findings most consistent with pulmonary edema with effusions.
[2023-04-28 19:11] LABS: Blood Morphology Comment NOT SEEN (NOT SEEN); Platelet Estimate DECR; White Blood Cell Scan OK (OK)
--- NOTE | 2023-04-28 20:03 | ER ---
Nurse's Notes [facility] Name: Analilia Colby Age: 77 yrs Sex: Male : 1945 Arrival Date: 04/28/2023 Time: 18:00 Bed 8 Private MD: Alfreda Obrien C Diagnosis: End-stage renal disease;Hypoxia;Hyperkalemia Presentation: 04/28 18:06 Chief complaint: Patient states: Trouble breathing since yesterday, has worsen. Does HD nj1 MWF, did not get treatment Saturday because dialysis unit was having problems. Pt states his oxygen level was in the low 80's at home. Does not use any oxygen at home. 18:06 Coronavirus screen: Vaccine status: Patient reports receiving the 2nd dose of the covid nj1 vaccine. Ebola Screen: Patient denies travel to an Ebola-affected area in the 21 days before illness onset. Initial Sepsis Screen: Does the patient meet any 2 criteria? RR > 20 per min. No. Patient's initial sepsis screen is negative. Does the patient have a suspected source of infection? No. Patient's initial sepsis screen is negative. Risk Assessment: Do you want to hurt yourself or someone else? Patient reports no desire to harm self or others. Onset of symptoms was April 27, 2023. 18:06 Method Of Arrival: Ambulatory [facility] 18:06 Acuity: RIVERA 2 nj1 Triage Assessment: 21:32 General: Appears in no apparent distress. uncomfortable, Behavior is calm, cooperative. jw7 Historical: - Allergies: 18:29 No Known Allergies; nj1 - PMHx: 18:17 Cancer, Lung; Dialysis; Hypertension; Liver disease; Renal Cancer; nj1 - PSHx: 18:17 Bilateral fistulas; x2 Kidney removal; nj1 - Immunization history:: Client reports receiving the 2nd dose of the Covid vaccine. - Social history:: Smoking status: Patient denies any tobacco usage or history of. Screenin:29 [facility] ED Fall Risk Assessment (Adult) Score/Fall Risk Level 0 - 2 = Low Risk. Abuse as6 screen: Denies threats or abuse. Denies injuries from another. Nutritional screening: No deficits noted. Tuberculosis screening: No symptoms or risk factors identified. Vital Signs: 18:06 BP 196 / 100; Pulse 80; Resp 22; Temp 97.6(O); Pulse Ox 82% on R/A; Weight 82.55 kg; nj1 Height 5 ft. 8 in. ; 18:10 Pulse Ox 94% on 2 lpm NC; nj1 19:00 BP 177 / 89; Pulse 79; Resp 21; Pulse Ox 93% on 2 lpm NC; jw7 20:00 BP 191 / 97; Pulse 77; Resp 22 S; Pulse Ox 97% on 2 lpm NC; jw7 18:06 Body Mass Index 27.67 (82.55 kg, 172.72 cm) ms1 ED Course: 18:02 Patient arrived in ED. mr 18:03 Alfreda Obrien MD is Private Physician. mr 18:05 Damien Morales, ALEK is Primary Nurse. bp 18:12 Calvin Montenegro MD is Attending Physician. sp3 18:16 Triage completed. nj1 18:17 Arm band placed on. nj1 18:21 Inserted saline lock: 22 gauge in left antecubital area, using aseptic technique. Blood bp collected. 18:52 XRAY Chest (1 view) In Process Unspecified. EDMS 18:54 Notified ED physician of a critical lab result(s). TROP 110.8. hb 19:09 Attending Physician role handed off by Calvin Montenegro MD rt 19:09 Ryland Pinto MD is Attending Physician. rt 20:01 Alfreda Obrien MD is Hospitalizing Provider. rt 21:29 Bed in low position. Call light in reach. as6 21:30 Provided Education on: need for admit. as6 21:30 No provider procedures requiring assistance completed. Patient admitted, IV remains in as6 place. Administered Medications: 18:15 Drug: DuoNeb Nebulize (3:1) (2.5 mg - 0.5 mg) 3 ml Route: Nebulizer; bp 21:32 Follow up: Response: No adverse reaction jw7 18:15 Drug: DuoNeb Nebulize (3:1) (2.5 mg - 0.5 mg) 3 ml Route: Nebulizer; bp 21:33 Follow up: Response: No adverse reaction jw7 18:15 Drug: MethylPrednisoLONE IVP 125 mg Route: IVP; Site: left antecubital; bp 21:33 Follow up: Response: No adverse reaction jw7 20:48 Drug: Calcium Gluconate IVPB 1 grams Route: IVPB; Infused Over: 60 mins; Site: left jw7 antecubital; 23:03 Follow up: IV Status: Completed infusion; IV Intake: 50ml jw7 23:03 Follow up: Response: No adverse reaction jw7 20:49 Drug: Furosemide IVP 80 mg Route: IVP; Site: left antecubital; jw7 23:04 Follow up: Response: No adverse reaction jw7 20:49 Drug: Kayexalate PO 45 grams Route: PO; jw7 23:03 Follow up: Response: No adverse reaction jw7 Medication: 21:29 VIS not applicable for this client. as6 Intake: 23:03 IV: 50ml; Total: 50ml. jw7 Outcome: 20:01 Decision to Hospitalize by Provider. rt 21:30 Admitted to ER Hold. Please see [facility] for further documentation. as6 21:30 Condition: stable 21:30 Instructed on the need for admit. 04/29 01:27 Patient left the ED. as6 Signatures: Dispatcher [employer] DMITRI YinAlessandra richards Heather, RN RN Damien Rollins, RN RN bp Calvin Montenegro MD MD sp3 Jaden Mayers RN RN as6 Fatimah Anderson RN RN jw7 Ryland Pinto MD MD rt Eloise Arenas RN RN nj1
--- NOTE | 2023-04-28 20:03 | EDPHYS ---
Physician Documentation [facility] Name: Analilia Colby Age: 77 yrs Sex: Male : 1945 Arrival Date: 04/28/2023 Time: 18:00 Bed 8 Private MD: Alfreda Obrien C ED Physician Ryland Pinto HPI: 04/28 18:29 This 77 yrs old Male presents to ER via Ambulatory with complaints of Breathing sp3 Difficulty. 18:29 77-year-old male with a history of end-stage renal disease on dialysis, hypertension, sp3 COPD, prior renal cancer who is a patient Dr. Obrien now presents to the ED with chief complaint difficulty breathing for 2 days. Patient did miss his last dialysis however states he only gained approximately 1 kg and he does not believe it is fluid overload. Dr. Obrien is also at the bedside and requested respiratory work-up with possible admission if required. Patient denies fever, cough, chest pain, back pain, abdominal pain, nausea, vomiting, diarrhea, rash, known sick contacts, travel history, or any other signs or symptoms ROS at this time. He states he is short of breath and he feels like it is a COPD that is acting up.. Historical: - Allergies: 18:29 No Known Allergies; nj1 - PMHx: 18:17 Cancer, Lung; Dialysis; Hypertension; Liver disease; Renal Cancer; nj1 - PSHx: 18:17 Bilateral fistulas; x2 Kidney removal; nj1 - Immunization history:: Client reports receiving the 2nd dose of the Covid vaccine. - Social history:: Smoking status: Patient denies any tobacco usage or history of. ROS: 18:30 Constitutional: Negative for fever, chills, and weight loss, Eyes: Negative for injury, sp3 pain, redness, and discharge, Neck: Negative for injury, pain, and swelling, Cardiovascular: Negative for chest pain, palpitations, and edema, Abdomen/GI: Negative for abdominal pain, nausea, vomiting, diarrhea, and constipation, Back: Negative for injury and pain, MS/Extremity: Negative for injury and deformity, Skin: Negative for injury, rash, and discoloration, Neuro: Negative for headache, weakness, numbness, tingling, and seizure, Psych: Negative for depression, anxiety, suicide ideation, homicidal ideation, and hallucinations, Allergy/Immunology: Negative for hives, rash, and allergies, Endocrine: Negative for neck swelling, polydipsia, polyuria, polyphagia, and marked weight changes. 18:30 All other systems are negative. Exam: 18:30 Constitutional: This is a well developed, well nourished patient who is awake, alert, sp3 and in no acute distress. Head/Face: Normocephalic, atraumatic. Eyes: Pupils equal round and reactive to light, extra-ocular motions intact. Lids and lashes normal. Conjunctiva and sclera are non-icteric and not injected. Cornea within normal limits. Periorbital areas with no swelling, redness, or edema. Neck: Trachea midline, no thyromegaly or masses palpated, and no cervical lymphadenopathy. Supple, full range of motion without nuchal rigidity, or vertebral point tenderness. No Meningismus. Chest/axilla: Normal chest wall appearance and motion. Nontender with no deformity. No lesions are appreciated. Cardiovascular: Regular rate and rhythm with a normal S1 and S2. No gallops, murmurs, or rubs. Normal PMI, no JVD. No pulse deficits. Back: No spinal tenderness. No costovertebral tenderness. Full range of motion. Skin: Warm, dry with normal turgor. Normal color with no rashes, no lesions, and no evidence of cellulitis. MS/ Extremity: Pulses equal, no cyanosis. Neurovascular intact. Full, normal range of motion. Neuro: Awake and alert, GCS 15, oriented to person, place, time, and situation. Cranial nerves II-XII grossly intact. Motor strength 5/5 in all extremities. Sensory grossly intact. Cerebellar exam normal. Normal gait. Psych: Awake, alert, with orientation to person, place and time. Behavior, mood, and affect are within normal limits. 18:41 ECG was reviewed by the Attending Physician. EKG demonstrates normal sinus rhythm 73 sp3 bpm with left bundle branch block and a first-degree AV block with NV interval of 208. Vital Signs: 18:06 BP 196 / 100; Pulse 80; Resp 22; Temp 97.6(O); Pulse Ox 82% on R/A; Weight 82.55 kg; nj1 Height 5 ft. 8 in. ; 18:10 Pulse Ox 94% on 2 lpm NC; nj1 19:00 BP 177 / 89; Pulse 79; Resp 21; Pulse Ox 93% on 2 lpm NC; jw7 20:00 BP 191 / 97; Pulse 77; Resp 22 S; Pulse Ox 97% on 2 lpm NC; jw7 18:06 Body Mass Index 27.67 (82.55 kg, 172.72 cm) nj1 MDM: 18:20 Patient medically screened. sp3 18:31 Data reviewed: vital signs, nurses notes, lab test result(s), EKG, radiologic studies. sp3 ED course: 77-year-old male with multiple medical problems now with difficulty breathing. We will start COPD work-up with chest x-ray, EKG, laboratory values, nebulizers and Solu-Medrol IV. Patient be signed out to night physician who reassess and start antibiotics and admit to Dr. Obrien if indicated. Patient requests discharge home if possible so he can make his a.m. dialysis. Ultimate disposition defer to night physician.. 20:23 ED course: Assumed care at shift change. Patient presents with dyspnea. Is found to rt have pulmonary edema with elevated BNP, BUN, potassium, slightly elevated potassium. He missed his last dialysis session. I discussed with Dr. Obrien, with hyperkalemia medications, will admit to the hospital. I informed Dr. Le with the patient being admitted, will see patient in the hospital.. 04/28 18:13 Order name: Basic Metabolic Panel; Complete Time: 19:17 sp3 04/28 18:13 Order name: CBC with Diff; Complete Time: 19:17 sp3 04/28 18:13 Order name: Magnesium; Complete Time: 19:17 sp3 04/28 18:13 Order name: NT PRO-BNP; Complete Time: 19:17 sp3 04/28 18:13 Order name: Troponin HS; Complete Time: 19:17 sp3 04/28 18:36 Order name: CBC Smear Scan; Complete Time: 19:17 EDMS 04/28 20:07 Order name: Urinalysis w/ reflexes EDMS 04/28 20:07 Order name: Troponin High Sensitivity EDMS 04/28 20:07 Order name: Troponin High Sensitivity EDMS 04/28 20:07 Order name: Troponin High Sensitivity EDMS 04/28 20:07 Order name: Troponin High Sensitivity EDMS 04/28 18:13 Order name: XRAY Chest (1 view); Complete Time: 19:17 sp3 04/28 18:13 Order name: EKG; Complete Time: 18:14 sp3 04/28 20:05 Order name: CONS Physician Consult EDLA 04/28 20:07 Order name: Renal EDMS 04/28 18:13 Order name: Cardiac monitoring; Complete Time: 18:14 sp3 04/28 18:13 Order name: EKG - Nurse/Tech; Complete Time: 18:42 sp3 04/28 18:13 Order name: IV Saline Lock; Complete Time: 18:21 sp3 04/28 18:13 Order name: Labs collected and sent; Complete Time: 18:21 sp3 04/28 18:13 Order name: O2 Per Protocol; Complete Time: 18:14 sp3 04/28 18:13 Order name: O2 Sat Monitoring; Complete Time: 18:14 sp3 Administered Medications: 18:15 Drug: DuoNeb Nebulize (3:1) (2.5 mg - 0.5 mg) 3 ml Route: Nebulizer; bp 21:32 Follow up: Response: No adverse reaction jw7 18:15 Drug: DuoNeb Nebulize (3:1) (2.5 mg - 0.5 mg) 3 ml Route: Nebulizer; bp 21:33 Follow up: Response: No adverse reaction jw7 18:15 Drug: MethylPrednisoLONE IVP 125 mg Route: IVP; Site: left antecubital; bp 21:33 Follow up: Response: No adverse reaction jw7 20:48 Drug: Calcium Gluconate IVPB 1 grams Route: IVPB; Infused Over: 60 mins; Site: left jw7 antecubital; 23:03 Follow up: IV Status: Completed infusion; IV Intake: 50ml jw7 23:03 Follow up: Response: No adverse reaction jw7 20:49 Drug: Furosemide IVP 80 mg Route: IVP; Site: left antecubital; jw7 23:04 Follow up: Response: No adverse reaction jw7 20:49 Drug: Kayexalate PO 45 grams Route: PO; jw7 23:03 Follow up: Response: No adverse reaction jw7 Disposition Summary: 04/28/23 20:01 Hospitalization Ordered Hospitalization Status: Observation rt Provider: Alfreda Obrien Condition: Fair rt Problem: an acute exacerbation rt Symptoms: have improved rt Bed/Room Type: Standard rt Location: Telemetry/MedSurg (observation)(04/28/23 23:50) cg Room Assignment: 214(04/29/23 00:22) cg Diagnosis - End-stage renal disease rt - Hypoxia rt - Hyperkalemia rt Forms: - Medication Reconciliation Form rt - SBAR form rt - Leadership Thank You Letter rt Signatures: Dispatcher [employer] Kath Loya RN RN cg Damien Morales RN RN Calvin Sterling MD MD sp3 Erica Duran RN RN kd3 Fatimah Anderson RN RN jw7 Ryland Pinto MD MD rt Eloise Arenas RN RN nj1 Corrections: (The following items were deleted from the chart) 21: 20:01 Telemetry/MedSurg (observation) rt cg 21: 20:01 rt cg 23:50 21:01 [facility] ER HOLD cg cg 23:50 21:01 ERHOLD- cg cg 04/29 00:22 04/28 23:50 cg cg
[2023-04-28] MEDS ORDERED: SOD POLYSTYREN SUL 15 GM/60 ML UCUP ONE (20:39)
[2023-04-28] MEDS ORDERED: CALCIUM GLUCONATE 1 GM IVPB 1 GM/50 ML BAG IV ONE (20:39)
[2023-04-28] MEDS ORDERED: FUROSEMIDE 100 MG/10 ML VIAL IV ONE (20:39)
[2023-04-28] MEDS ORDERED: MANNITOL 25% 12.5 GM/50 ML VIAL IV PRN (21:09)
[2023-04-28] MEDS ORDERED: NA CHLORIDE 0.9% 1,000 ML IV PRN (21:09)
[2023-04-28] MEDS ORDERED: EPOETIN ALFA 10,000 UNIT/ML VIAL IV SCH (21:15)
[2023-04-28 21:31] VITALS: BMI 27.6
[2023-04-28] MEDS ORDERED: ALBUMIN HUMAN 25% 50 ML IV SCH (22:00)
[2023-04-29] MEDS: IPRATROPIUM BROM 0.5MG/2.5ML NEB SCH ×4 (01:30→20:00)
[2023-04-29] MEDS: ALBUTEROL 2.5 MG/3 ML NEB SOL NEB SCH ×4 (01:30→20:00)
[2023-04-29] MEDS ORDERED: METHYLPRED NA SUC 60 MG in NA CHLORIDE 0.9% 100 ML IV SCH (02:00)
[2023-04-29] MEDS: METHYLPREDNISOLONE 40 MG INJ IV SCH ×4 (04:11→20:47)
--- NOTE | 2023-04-29 08:12 | HP ---
Date of Admission: 04/28/2023 Chief Complaint: Shortness of breath. History Of Present Illness: This is a 77-year-old very pleasant male patient, came into emergency ro om with 2 days' history of shortness of breath. He has end-stage renal disease, on hemodialysis and he goes to dialysis on Saturday, Saturday, Saturday and his last dialysis was on Saturday. The patient says that Dialysis Center has some problems, so he could not get his dialysis on Saturday. He comes i [facility] emergency room with 2 days' history of shortness of breath, wheezing, has some clear nasal discha rge. Denies any fever and not coughing up any colored mucus. After he came into ER, he was evaluate d and admitted to the hospital. I saw him in emergency room and his was with him at bedside. Physical Examination: Vital Signs: Height 5 feet 8 inches, weight 181 pounds, temperature 97.6, pulse 80, respiratory rate 22, blood pressure 196/100, oxygen saturation was 82%. General: Awake, alert, oriented, not in distress. HEENT: Head atraumatic, normocephalic. Conjunctivae nonerythematous. Sclerae white. Mouth, no thr ush or edema noted. Ears/Nose, no mass, lesion, discharge noted. Neck: Supple. No JVD, lymph nodes, bruit, thyromegaly noted. Lungs: Presence of scattered wheezing in bilateral lung armstrong. Not using any accessory muscles of respiration. Heart: Normal heart sounds, no murmur or gallop. Abdomen: Soft, bowel sounds normal. No guarding, rigidity, tenderness, mass, hepatosplenomegaly, dis tention, or bruit noted. Extremities: No leg edema. No calf tenderness. Skin: No rash, ulcer, cellulitis. Lymphatics: No lymph node enlargement in neck, supraclavicular, infraclavicular region. Neuro: No focal neurological deficit. Chest: Unremarkable. External Genitalia: Deferred. Rectal: Deferred. Laboratory Data: White count 7, hemoglobin 10.5, platelets 80. Sodium 141, potassium 5.7, chloride 111, bicarb 22, BUN 80, creatinine 13, glucose 116. Initial troponin 110, second troponin 87, third troponin 72. ProBNP 145,706. Chest x-ray shows pulmonary edema with pleural effusion. Impression: 1.Acute pulmonary edema. 2.Pleural effusion. 3.Acute exacerbation of chronic obstructive pulmonary disease. 4.End-stage renal disease, on hemodialysis. 5.Hyperkalemia. 6.Anemia due to chronic kidney disease. 7.Thrombocytopenia, chronic. 8.Hypertension. 9.Kidney cancer, bilateral. 10.Hyperlipidemia. 11.Benign prostatic hypertrophy. Plan: Admit the patient to hospital for further evaluation and management of this problem. The trent ent is appropriate for inpatient and is expected to spend 2 midnights in hospital. We will go ahead and consult machine clerical verifier for the patient's dialysis port. For hyperkalemia, we will go ahead and hav e the patient get Kayexalate 45 g and calcium gluconate 1 dose IV. 80 mg of IV Lasix was ordered in the emergency room for this pulmonary edema problem and we will start 60 mg every 8 hours and nebulizer treatment per order. For blood pressure control, we will continue his antihypertensive medication per order and we will also order his inhaler. Details and plan of treatment discussed wi th the patient. RYAN/MODVeronika Voice ID: [id number]
[2023-04-29] MEDS: Fluticasone/Umeclidin/Vilanter [Trelegy Ellipta 100-62.5-25] Blst.W.Dev IH SCH (09:00)
[2023-04-29] MEDS: AMLODIPINE 10 MG TAB PO SCH ×2 (09:47→20:50)
[2023-04-29] MEDS: carvediloL 12.5 MG TAB PO SCH ×2 (09:48→16:33)
[2023-04-29] MEDS: HEPARIN 5000 UNIT/ML 1 ML VIAL SQ SCH ×2 (09:49→20:49)
[2023-04-29] MEDS ORDERED: MANNITOL 25% 12.5 GM/50 ML VIAL IV PRN (10:59)
[2023-04-29 14:10] LABS: Hepatitis B Surface Ab - Quant 208.42 mIU/mL (<8.0); Hepatitis B surface AG Interp. Nonreactive (Nonreactive)
--- NOTE | 2023-04-29 18:04 | P.CNS ---
Date of Consult: 04/29/23 Reason for Consult: ESRD Requesting Physician: Ward Obrien Primary Care Provider: Dr. Obrien Chief Complaint: Dyspnea History of Present Illness: [id number] This is a 77-year-old very pleasant male patient, came into emergency room with 2 days' history of shortness of breath. He has end-stage renal disease, on hemodialysis and he goes to dialysis on Saturday, Saturday, Saturday and his last dialysis was on Saturday. The patient says that Dialysis Center has some problems, so he could not get his dialysis on Saturday. He comes into emergency room with 2 days' history of shortness of breath, wheezing, has some clear nasal discharge. Denies any fever and not coughing up any colored mucus. After he came into ER, he was evaluated and admitted to the hospital. [id number] 18:29 This 77 yrs old Male presents to ER via Ambulatory with complaints of Breathing sp3 Difficulty. 18:29 77-year-old male with a history of end-stage renal disease on dialysis, hypertension, sp3 COPD, prior renal cancer who is a patient Dr. Obrien now presents to the ED with chief complaint difficulty breathing for 2 days. Patient did miss his last dialysis however states he only gained approximately 1 kg and he does not believe it is fluid overload. Dr. Obrien is also at the bedside and requested respiratory work-up with possible admission if required. Patient denies fever, cough, chest pain, back pain, abdominal pain, nausea, vomiting, diarrhea, rash, known sick contacts, travel history, or any other signs or symptoms ROS at this time. He states he is short of breath and he feels like it is a COPD that is acting up.. Allergies No Known Allergies Allergy (Verified 10/12/19 02:35) Home medications list reviewed: Yes Home Medications: Amlodipine Besylate 10 mg PO BID 10/12/19 Carvedilol [Coreg] 12.5 mg PO BID 06/11/21 Albuterol Sulfate [Albuterol Sulfate Hfa] 2 puff IH Q4H PRN 08/21/21 Fluticasone/Umeclidin/Vilanter [Trelegy Ellipta 100-62.5-25] 1 puff IH DAILY 08/21/21 Doxepin HCl [Sinequan] 50 mg PO BEDTIME 04/29/23 - Past Medical/Surgical History Diabetic: No -: renal cell carcinoma with mets lungs -: both kidneys removed 2006 -: htn -: dialysis [facility] -: cysts on liver -: both kidneys removed -: graft L arm-not active. -: cholecystectomy -: tonsils removed and adnoids - Family History Mother Medical History: Hypertension, Cancer Notes: doesnt know what kind Father Medical History: Hypertension, Stroke, Other (see notes) Notes: circulatory problem-aneurysm - Social History Smoking Status: Never smoker Alcohol use: No CD- Drugs: No Caffeine use: No Review of Systems 10-point ROS is otherwise unremarkable Respiratory: SOB with Excertion Physical Examination Temp Pulse Resp BP Pulse Ox 97.2 F 76 16 171/80 H 92 04/29/23 08:00 04/29/23 08:00 04/29/23 08:00 04/29/23 08:00 04/29/23 08:00 General: Oriented x3, Cooperative HEENT: Atraumatic Neck: Supple Respiratory: Diminished Cardiovascular: Regular rate/rhythm Gastrointestinal: Soft and benign, Non-distended Musculoskeletal: No clubbing, No contractures Integumentary: No rashes, No cyanosis Neurological: Normal speech Laboratory Data (last 24 hrs) 04/28/23 04/28/23 18:20 18:20 WBC 7.70 Hgb 10.5 L Hct 31.8 L Plt Count 80 L Sodium 141 Potassium 5.7 H BUN 80 H Creatinine 13.00 H Glucose 116 H Magnesium 2.5 H Imagings Data: [id number] EXAM DESCRIPTION: RAD - Chest Single View - 04/28/2023 6:50 pm CLINICAL HISTORY: COPD COMPARISON: Chest Pa And Lat (2 Views) dated 02/12/2023; Chest Single View dated 08/22/2021; Chest Single View dated 08/21/2021; Chest Single View dated 06/11/2021 FINDINGS: Lines: Left IJ approach Port-A-Cath with tip overlying the SVC. Lungs: Diffuse prominence of the pulmonary interstitium. Pleural: Bilateral pleural effusions. Cardiac: Cardiomegaly. Mediastinum: Within normal limits. Bones: No acute fractures. Other: None IMPRESSION: Findings most consistent with pulmonary edema with effusions. Conclusions/Impression: ESRD on HD -Acute HD today Hyperkalemia -Acute HD today -Kayexalate as ordered HTN with CKD/ CHF -Continue Amlodipine -Continue Coreg Diastolic CHF, A/C -Acute HD with UF Anemia in CKD -Retacrit qHD CKD MBD -Start Ergo -Start Geraldo Thank you kindly for the consultation
--- NOTE | 2023-04-29 18:12 | EKG ---
Test Date: 2023-04-28 Test Time: 18:37:13 Permit Specialist: BP MEASUREMENT RESULTS: Intervals: Rate: 78 TN: 208 QRSD: 144 QT: 432 QTc: 492 [place]: P: 53 TN: 208 QRS: -36 T: 97 INTERPRETIVE STATEMENTS: Normal sinus rhythm Left axis deviation Left bundle branch block Abnormal ECG Compared to ECG 08/21/2021 06:09:08 Left bundle-branch block now present Left ventricular hypertrophy no longer present Early repolarization no longer present Electronically Signed On 04-29-23 18:02:30 CDT by Abhinav Mcdaniel
[2023-04-29] MEDS: NEPRO SHAKE 237 ML CAN PO SCH (20:51)
[2023-04-29] MEDS: DOCUSATE NA 100 MG CAP PO SCH (20:56)
[2023-04-29] MEDS ORDERED: DOXEPIN HCL 50 MG PO SCH (21:00)
[2023-04-29 22:18] VITALS: TEMP 96.9
[2023-04-30] MEDS: IPRATROPIUM BROM 0.5MG/2.5ML NEB SCH ×2 (02:00→07:30)
[2023-04-30] MEDS: ALBUTEROL 2.5 MG/3 ML NEB SOL NEB SCH ×2 (02:00→07:30)
--- NOTE | 2023-04-30 02:20 | PN ---
Date of Progress Note: 04/29/2023 Subjective: The patient was seen this morning for followup. Overall, he feels better this morning t goldman yesterday. Objective: Vital Signs: Reviewed. HEENT: Unremarkable. Lungs: Clear to auscultation. No wheezing. No rales. Not in respiratory distress. Heart: Sounds normal. Abdomen: Soft. Bowel sounds normal. No guarding, rigidity, tenderness, distention. Extremities: No leg edema. Impression: 1.Acute pulmonary edema. 2.End-stage renal disease, on hemodialysis. 3.Hypertension. 4.Acute exacerbation of chronic obstructive pulmonary disease. Plan: The patient still gets short of breath with ambulation, which is different than his baseline. We will continue his IV steroid nebulizer treatment. Follow up with member services representative for dialysis suppo rt. Continue current antihypertensive medication and I will see him tomorrow for followup, possible discharge to go home tomorrow depending on his condition. RYAN/MODL Voice ID: [id number] Report ID: [id number]
[2023-04-30] MEDS: METHYLPREDNISOLONE 40 MG INJ IV SCH ×2 (02:24→08:25)
[2023-04-30 03:55] LABS: Absolute Lymphocytes (CBC) 0.2 K/uL (0.7-4.9); Hematocrit 28.1 % (39.6-49.0); Lymphocytes % 3.4 % (15.3-44.8); MCV 95.6 fL (80-100); MPV 7.3 fL (7.6-11.3); Platelets 85 thou/uL (152-406); RBC Red Blood Cell Count 2.94 M/uL (4.33-5.43)
[2023-04-30 04:24] LABS: Potassium 4.2 mEq/L (3.5-5.1)
[2023-04-30 04:44] LABS: Blood Morphology Comment NOT SEEN (NOT SEEN); Platelet Estimate DECR
[2023-04-30 04:53] VITALS: BP 140/72
[2023-04-30] MEDS ORDERED: SEVELAMER CARBONATE 800 MG TABLET PO SCH (08:00)
[2023-04-30] MEDS: AMLODIPINE 10 MG TAB PO SCH (08:26)
[2023-04-30] MEDS: DOCUSATE NA 100 MG CAP PO SCH (08:27)
[2023-04-30] MEDS: carvediloL 12.5 MG TAB PO SCH (08:27)
[2023-04-30] MEDS: HEPARIN 5000 UNIT/ML 1 ML VIAL SQ SCH (08:28)
[2023-04-30] MEDS: Fluticasone/Umeclidin/Vilanter [Trelegy Ellipta 100-62.5-25] Blst.W.Dev IH SCH (08:28)
[2023-04-30] MEDS: NEPRO SHAKE 237 ML CAN PO SCH (08:29)
[2023-04-30] MEDS ORDERED: DRISDOL (VITAMIN D=ERGOCALCIFEROL) 50000 UNIT CAP PO SCH (09:00)
[2023-04-30 09:06] VITALS: O2SAT 96
--- NOTE | 2023-04-30 21:48 | DS ---
Date of Discharge: 04/30/2023 Disposition: Discharged to go home. Physical Examination: HEENT: Unremarkable. Lungs: Clear to auscultation. Heart: Sounds normal. Abdomen: Soft. Bowel sounds normal. No guarding, rigidity, tenderness, distention. Extremities: No leg edema. Discharge Medications And Instructions: 1.Continue all prior home medication. 2.Take prednisone 10 mg take 3 tablets daily for 3 days, then 2 tablets daily for 3 days, then 1 tab let daily for 3 days, then stop. 3.Follow up at my office next week. Hospital Course: A 77-year-old pleasant male patient admitted to the hospital with cough, congestion , shortness of breath, and wheezing. Please see dictated H and P for more information. After jaqueline unger was evaluated in the emergency room, he was admitted to the hospital and after he was admitted, he was given oxygen nebulizer treatment, IV steroid. Nephrology consultation was requested from his nep hrologist for dialysis support. Patient goes for dialysis on Saturday, Saturday, Saturday, but the past Saturday, he did not get his dialysis because of dialysis center where he goes for dialysis, has some problem, so he did not get his dialysis. When he came in over the weekend on Saturday, his potassium l evel was elevated at 5.7. We gave him 1 dose of calcium gluconate as well as Kayexalate. Nephrologi st was consulted and the patient had his dialysis yesterday. Overall, the patient's condition has im proved. He started to ambulate very well and he feels a lot better. Today, he was discharged to go home in stable condition. Final Diagnoses: 1.Acute pulmonary edema. 2.Acute exacerbation of chronic obstructive pulmonary disease. 3.End-stage renal disease, on hemodialysis. 4.Hypertension. 5.Anemia due to chronic kidney disease. RYAN/MODL Voice ID: [id number] Report ID: [id number]
== END 2023-04-30 09:55 | disposition home or self-care (01) | DRG 291 ==
LOC: ER 18:00 → ERHOLD 20:02 → 2ND 04-29 00:34 → OBSVTOIN 04-29 07:05
PROVIDERS: ADMIT Internal Medicine; ATTEND Internal Medicine
PROC: 5A1D70Z Performance of Urinary Filtration, Intermittent, Less than 6 Hours Per Day (ICD-10-PCS; principal; 2023-04-29)
DX: I13.2 Hypertensive heart and chronic kidney disease with heart failure and with stage 5 chronic kidney disease, or end stage renal disease (principal); I50.33 Acute on chronic diastolic (congestive) heart failure; N18.6 End stage renal disease; J44.1 Chronic obstructive pulmonary disease with (acute) exacerbation; E87.5 Hyperkalemia; D63.1 Anemia in chronic kidney disease; D69.6 Thrombocytopenia, unspecified; E78.5 Hyperlipidemia, unspecified; R09.02 Hypoxemia; N40.0 Benign prostatic hyperplasia without lower urinary tract symptoms; K76.89 Other specified diseases of liver; Z99.2 Dependence on renal dialysis; Z79.899 Other long term (current) drug therapy; Z85.528 Personal history of other malignant neoplasm of kidney; Z90.5 Acquired absence of kidney; Z90.49 Acquired absence of other specified parts of digestive tract; Z82.49 Family history of ischemic heart disease and other diseases of the circulatory system; Z82.3 Family history of stroke
CPT/HCPCS: 36415; 71045; 80048; 83735; 83880; 84484; 85025; 86706; 87340; 90935; 93005; 94640; 96365; 96366; 96375; 99285; G0378; J0612; J1644; J2150; J2920; J2930; J7613; J7644; Q4081

== ENCOUNTER 2024-01-10 16:16 | Inpatient (IN) | payer OTHER, BC ==
[2024-01-10] MEDS: Levofloxacin500mg IV 500 MG/100 ML BAG IV ONE ×2 (17:25→18:14)
[2024-01-10] MEDS ORDERED: ACETAMINOPHEN 500 MG TAB PO PRN ×3 (17:33→21:15)
[2024-01-10] MEDS ORDERED: GUAIFENESIN/DM 5 ML UCUP PO PRN ×2 (17:33→17:49)
[2024-01-10] MEDS: METHYLPREDNISOLONE 40 MG INJ IV SCH ×2 (18:00→18:14)
[2024-01-10] MEDS ORDERED: ALBUTEROL 2.5 MG/3 ML NEB SOL IH SCH (19:00)
[2024-01-10] MEDS: ALBUTEROL 2.5 MG/3 ML NEB SOL NEB SCH (19:00)
[2024-01-10] MEDS ORDERED: IPRATROPIUM BROM 0.5MG/2.5ML IH SCH (19:00)
[2024-01-10 19:55] LABS: Absolute Eosinophils 0.4 K/uL (0-0.5); Absolute Lymphocytes (CBC) 0.6 K/uL (0.7-4.9); Absolute Monocytes 0.3 K/uL (0.1-1.3); Absolute Neutrophil 3.2 K/uL (1.8-8.0); Eosinophils % 8.3 % (0-4.4); Hematocrit 27.8 % (39.6-49.0); Hemoglobin 9.4 g/dL (13.6-17.9); Lymphocytes % 12.6 % (15.3-44.8); MCH 33.8 pg (27.0-35.0); MCV 99.6 fL (80-100); MPV 7.1 fL (7.6-11.3); Monocytes % 6.8 % (3.3-12.3); Neutrophils % 71.3 % (41.7-73.7); Platelets 87 thou/uL (152-406); RBC Red Blood Cell Count 2.79 M/uL (4.33-5.43); Red Cell Distribution Width 16.4 % (12.1-15.2)
[2024-01-10] MEDS: HEPARIN 5000 UNIT/ML 1 ML VIAL SQ SCH (20:32)
[2024-01-10 20:34] LABS: AST/SGOT 12 U/L (15-37); Albumin/Globulin Ratio 1.2 (1.1-1.8); Alkaline Phosphatase 103 U/L (45-117); BUN Blood Urea Nitrogen 13 mg/dL (7-18); Bicarbonate 26 mEq/L (21-32); Bilirubin Total 1.1 mg/dL (0.2-1.0); Globulin 2.6 g/dL (2.3-3.5); Glomerular Filtration Rate 15 ml/min (=/>90); Glucose Level 101 mg/dL (74-106); Protein, Total 5.6 g/dL (6.4-8.2); Sodium Level 138 mEq/L (136-145)
[2024-01-10 20:35] LABS: ALT/SGPT < 10 U/L (16-61); NT PRO-BNP > 175000 pg/mL (<450)
[2024-01-10] MEDS: IPRATROPIUM BROM 0.5MG/2.5ML NEB SCH (20:43)
[2024-01-10] MEDS ORDERED: HEPARIN 5000 UNIT/ML 1 ML VIAL SQ SCH (21:00)
--- NOTE | 2024-01-10 21:34 | RAD REPORT ---
EXAM DESCRIPTION: CT - Thorax Wo Con - 01/10/2024 9:17 pm CLINICAL HISTORY: Pnue, CHF COMPARISON: Thorax Wo Con dated 06/11/2021; Thorax Wo Con dated 08/15/2019; Thorax Wo Con dated 05/17/20; Thorax Wo Con dated 11/26/2018; Chest Pa And Lat (2 Views) dated 01/07/2024 FINDINGS: Chest Wall: No suspicious thyroid nodules or pathologic lymphadenopathy. Left upper chest wall Port-A-Cath with tip in the distal SVC . Lungs: Scarring architectural distortion in the lung bases likely chronic and as result of the chroni c pleural effusions. Mild bronchiectasis and volume loss in the right lower lobe. Calcified right upp er lobe nodule. A peripherally calcified 3.4 cm structure in the medial right lung base is again iden tified and unchanged. Pleura: Small pleural effusions bilaterally which are favored chronic. These have been present on luigi or exams as well. Mediastinum/rolando: No pathologic lymphadenopathy. Pulmonary arteries/Aorta: Limited evaluation without contrast. No aortic aneurysm. Heart: No significant pericardial effusion. Cardiomegaly. Mitral annular, aortic valve, and coronary artery calcifications. Upper abdomen: Generalized high attenuation of the liver could be from amiodarone deposition. Several low-density liver lesions which are unchanged and benign. Cholecystectomy. Bones: No acute abnormality. All CT scans are performed using dose optimization technique as appropriate and may include automated exposure control or mA/KV adjustment according to patient size. IMPRESSION: Small chronic pleural effusions and underlying scarring/round atelectasis suspected. No definite acute process identified. Some of the findings at the right lung base could be secondary to chronic aspiration.
[2024-01-10 21:56] LABS: Blood Morphology Comment NOT SEEN (NOT SEEN); Platelet Estimate DECR; White Blood Cell Scan OK (OK)
[2024-01-10] MEDS: Levofloxacin 250mg IV 250 MG/50 ML BAG IV ONE (23:42)
[2024-01-11] MEDS: **PT MED**Fluticasone/Umeclidin/Vilanter [Trelegy Ellipta 100-62.5-25] Blst.W.Dev IH SCH (10:00)
[2024-01-11] MEDS: DOCUSATE NA/SENNA CONC 1 TAB PO SCH (10:23)
[2024-01-11] MEDS: POLYETHYL GLY 3350 17 GM/DOSE PO ONE (10:23)
[2024-01-11] MEDS: PNEUMOCOCCAL VACCINE 0.5 ML IMVAC ONE (10:29)
--- NOTE | 2024-01-11 12:30 | HP ---
Date of Admission: 01/11/2024 Chief Complaint: Shortness of breath. History Of Present Illness: This is a 78-year-old very pleasant male patient who came in to see me at office earlier this week with complaints of worsening shortness of breath for almost 2 weeks. Denies any fever, chills. No expectoration. He has some dry cough from time to time. The patient has end- stage renal disease and he is on hemodialysis and goes for hemodialysis regularly, and his weight has not gone up lately. There is no evidence of any leg swelling lately. His outpatient chest x-ray was done, which showed some increased density in the right lower medial lung region, could be atelectasis or pneumonia, but clinically I was not concerned about pneumonia. So yesterday, I did communicate with the patient's and the patient, and since his symptoms are progressively getting worse over last now 2 to 3 weeks, decision was made to admit him to the hospital for further evaluation and management of this problem. The patient gets short of breath even walking across the room. Denies any chest pain. Allergies: NO KNOWN ALLERGIES. Medications: List reviewed and that is Trelegy 1 puff daily and amlodipine 10 mg 2 times a day. Review of Systems: Respiratory: As mentioned above. All other systems reviewed and negative. Past Medical History: Significant for chronic systolic heart failure. His last echocardiogram although had shown normal ejection fraction. Past medical history also significant for COPD; end-stage renal disease, on hemodialysis; kidney cancer; anemia due to chronic kidney disease; hypertension; hyperlipidemia; thrombocytopenia; benign prostatic hypertrophy. Past Surgical History: Significant for bilateral nephrectomy done in 2006 due to kidney cancer. Family History: Significant for COPD. Social History: Negative for smoking and alcohol use. Physical Examination: Vital Signs: Temperature 98.2, pulse 86, respiratory rate 16, blood pressure 120/67, oxygen saturation 99%, height 5 feet 10 inches, weight 161 pounds. General: Awake, alert, oriented, not in distress. HEENT: Head atraumatic, normocephalic. Conjunctivae nonerythematous. Sclerae white. Mouth, no thrush or edema noted. Ears/Nose, no mass, lesion, discharge noted. Neck: Supple. No JVD, lymph nodes, bruit, thyromegaly noted. Lungs: Minimal bilateral basal rales. Heart: Normal heart sounds, no murmur or gallop. Abdomen: Soft, bowel sounds normal. No guarding, rigidity, tenderness, mass, hepatosplenomegaly, distention, or bruit noted. Extremities: Right forearm has surgical sutures present with recent placement of a graft for dialysis. Overlying skin is normal in color. No evidence of any redness, discharge, gapping, oozing, etc. Skin: No rash, ulcer, cellulitis. Lymphatics: No lymph node enlargement in neck, supraclavicular, infraclavicular region. Neuro: No focal neurological deficit. Chest: Unremarkable. External Genitalia: Deferred. Rectal: Deferred. Laboratory Data: White count 4.4, hemoglobin 9.4, platelets 87. Sodium 138, potassium 4, chloride 107, bicarb 26, BUN 13, creatinine 4.06, glucose 101. Liver function tests unremarkable. ProBNP more than 175,000. TSH 10.20. Chest x-ray from 01/07/2024 showed mild right basilar opacity. CAT scan of the chest done yesterday shows no evidence of any acute lung findings; no evidence of any pneumonia; has a small chronic bilateral pleural effusion in the basal region with some underlying scarring and atelectasis; has a 3.4 cm, very fairly calcified structure in the right lung base, unchanged from before. Coronary artery calcification present as noted on prior CAT scan and current CAT scan. Impression: 1. Acute exacerbation of chronic obstructive pulmonary disease. 2. Coronary artery disease. 3. Chronic systolic heart failure. 4. Bilateral pleural effusion. 5. End-stage renal disease, on hemodialysis. 6. Anemia due to chronic kidney disease. 7. Thrombocytopenia, chronic. 8. Kidney cancer, bilateral. 9. Hypertension. 10. Hyperlipidemia. 11. Benign prostatic hypertrophy. Plan: We will go ahead and admit the patient to hospital for further evaluation and management of this problem. The patient is appropriate for inpatient and is expected to spend 2 midnights in hospital. For end-stage renal disease, we will consult his unit tender and no need for any further intervention. The patient is keeping his dry weight under very good control as he tells me and I really do not see any obvious signs of fluid overload at this point requiring any more adjustment on dialysis at this time at least. His proBNP is extremely high, but that is expected with his chronic conditions. For his COPD exacerbation, we will go ahead and treat it with antibiotic Levaquin and IV steroids, which is Solu-Medrol per order. Heparin was ordered for DVT prophylaxis. For his hypertension, we will continue antihypertensive medication, hold if systolic blood pressure less than 130. The patient reports having constipation problem and has not had a bowel movement in the last 3 to 4 days, and we will go ahead and give Senokot-S 2 tablets 2 times a day along with MiraLAX 1-time dose today. We will continue his inhaler for COPD. We will go ahead and give nebulizer treatment per order as well. I had a long discussion with him and his today regarding his multiple chronic problems including his recurrent problems with his shortness of breath and so far, he has taken oral prednisone at home as I have prescribed to him when he gets into trouble with this kind of shortness of breath, but at this time in the last 2 to 3 weeks, he has not taken any steroids, and I have instructed him that in the future when he starts to have shortness of breath, he should use his judgment to start oral prednisone and should not wait more than 2 to 3 days after the onset of any symptoms of shortness of breath and then he should come to see me at office for evaluation to make sure that no further intervention needs to be done at that time. We also talked about having outpatient Pulmonary and Cardiology consultation and evaluation to see if workplace trainer and assessor has any other recommendation to help provide him modeling with his shortness of breath that he has from [id number] and also cardiac evaluation. We have seen coronary artery calcification on the CAT scan, so we definitely know that he has some atherosclerosis of coronary arteries, but if that has resulted in any significant stenotic lesions or not, obviously we will require further cardiac data and he has a vascular surgeon, Dr. Scott at [facility] in [place], and he has appointment to see him within next 2 to 3 weeks and at that time, he will ask him to provide recommendation for workplace trainer and assessor and hotel services supervisor at [facility], so that way they can all work together as a team. All of his questions were answered today. I will see him tomorrow for followup. Total time spent 90 minutes including talking to patient on phone prior to admission, reviewing outpatient medical records, communication with hospital to arrange for hospital admission, providing admission orders for evaluation and treatment and performing evaluation today and discussion with patient and regarding treatment plan, test results from this admission and reviewing prior radiology reports and blood test results etc. RYAN/WATSON Voice ID: [id number]
[2024-01-11 14:50] VITALS: BMI 23.1
--- NOTE | 2024-01-11 16:11 | HP ---
Date of Admission: 01/10/2024 RYAN/MODL Voice ID: [id number]
[2024-01-11] MEDS ORDERED: Levofloxacin 250mg IV 250 MG/50 ML BAG IV SCH (18:00)
[2024-01-11] MEDS: AMLODIPINE 5 MG TAB PO SCH (20:35)
[2024-01-12 06:24] VITALS: O2SAT 98
[2024-01-12 11:47] VITALS: BP 132/76; TEMP 97.2
--- NOTE | 2024-01-12 15:33 | DS ---
Date of Discharge: 01/12/2024 Disposition: Discharged to go home. Physical Examination: HEENT: Unremarkable. Lungs: Bilateral good equal air entry with minimal basal rales noted, slightly less today than yeste rday. Patient not using any accessory muscles of respiration. Heart: Sounds normal. Presence of systolic murmur unchanged. Abdomen: Soft. Bowel sounds normal. No guarding, rigidity, tenderness, or distention. Extremities: No leg edema. Vital Signs: Today, temperature 97.7, pulse 80, respiratory rate 16, blood pressure 117/65, oxygen s aturation 98% on room air. Laboratory Data: Done during this hospitalization: TSH 10.2, sodium 138, potassium 4, chloride 107, bicarb 26, BUN 13, creatinine 4.06, glucose 101, white count 4.4, hemoglobin 9.4, platelets 87. Discharge Medications And Instructions: 1.Continue all prior home medications. 2.Take prednisone 10 mg tablet, patient to take 3 tablets by mouth daily for 3 days, then 2 tablets daily for 3 days, then 1 tablet daily for 3 days, then stop, take it with food and patient has this p rescription at home. 3.Follow up at my office a week after next. 4.Go for your dialysis as per schedule. 5.Patient to follow up with hot box spotter and underwriter in [place] as per our discussion during t his hospitalization. Hospital Course: This is a 78-year-old pleasant male patient who was admitted to the hospital with c omplaints of shortness of breath. Please see dictated H and P for more information. The patient was admitted to the hospital with acute exacerbation of COPD and he was treated with empiric antibiotics and IV steroids. Overall, his condition has improved. Yesterday, he showed some improvement and to day he reported more improvement compared to yesterday. Overall, his vital signs are stable and his CAT scan of the chest done during this hospitalization shows a small bilateral pleural effusion. No evidence of any acute lung changes. Patient does have some evidence of areas of scarring in the righ t lung base with some possibility of bronchiectasis type of changes and atelectasis. There is 3.4 cm calcified structure in the right lung base. This is unchanged from multiple prior CAT scans and no need for any further intervention on this. Yesterday, I had a long discussion with the patient and h is and recommended for him to have a followup with hot box spotter and underwriter on an outpatie nt basis to see if there is any other possible intervention that can be provided. His CAT scan of th e chest has shown evidence of coronary artery calcification and all these details were discussed with him. We do not know whether this has resulted in any significant stenotic lesion or not, but kaycee boss he will benefit from further outpatient cardiac evaluation and also suggested him to have a pulmo nary evaluation for his shortness of breath and he has a Vascular surgeon in [place], Dr. Scott and he has followup appointment with him in about 2 to 3 weeks and at that time, he will communicate with h im to see if we can provide recommendation for hot box spotter and pulmonary physician at [facility] in [facility]. The patient has prednisone prescription at home which I have provided to him in t he past and he was instructed to always keep prednisone on hand for future use and anytime he starts to use it to come and see me within matter of 2-3 days, so I can evaluate him at our office. His eliza m air oxygen saturation is normal and we do not know whether he dropped his oxygen saturation low shanna ugh to qualify for home oxygen or not, so today I did ask nursing staff to perform 6-minute walk test at the hospital and the result is as below. Room air oxygen saturation at rest %. Lowest oxygen saturation with ambulation % after walking minutes without using o xygen. After patient was placed back in bed, oxygen 2 L/minute per nasal cannula was started with ox ygen saturation improving at %. Total time spent today 40 minutes. Final Diagnoses: 1.Acute exacerbation of chronic obstructive pulmonary disease. 2.Coronary artery disease. 3.Chronic systolic heart failure. 4.Bilateral pleural effusion. 5.End-stage renal disease, on hemodialysis. 6.Anemia due to chronic kidney disease. 7.Thrombocytopenia, chronic. 8.Kidney cancer, bilateral. 9.Hypertension. 10.Hyperlipidemia. 11.Benign prostatic hypertrophy. RYAN/MODL Voice ID: [id number] Report ID: [id number]
[2024-01-12] MEDS ORDERED: Levofloxacin500mg IV 500 MG/100 ML BAG IV SCH (21:00)
== END 2024-01-12 12:51 | disposition home or self-care (01) | DRG 190 ==
LOC: 2ND 16:16
PROVIDERS: ADMIT Internal Medicine; ATTEND Internal Medicine
PROC: 5A1D70Z Performance of Urinary Filtration, Intermittent, Less than 6 Hours Per Day (ICD-10-PCS; principal; 2024-01-10)
DX: J44.1 Chronic obstructive pulmonary disease with (acute) exacerbation (principal); N18.6 End stage renal disease; I13.2 Hypertensive heart and chronic kidney disease with heart failure and with stage 5 chronic kidney disease, or end stage renal disease; I50.22 Chronic systolic (congestive) heart failure; D63.1 Anemia in chronic kidney disease; E78.5 Hyperlipidemia, unspecified; D69.6 Thrombocytopenia, unspecified; K59.00 Constipation, unspecified; J47.9 Bronchiectasis, uncomplicated; N40.0 Benign prostatic hyperplasia without lower urinary tract symptoms; I25.10 Atherosclerotic heart disease of native coronary artery without angina pectoris; Z90.5 Acquired absence of kidney; Z99.2 Dependence on renal dialysis; Z85.528 Personal history of other malignant neoplasm of kidney
CPT/HCPCS: 36415; 71250; 80053; 83880; 84439; 84443; 85025; 94640; J1644; J2920; J7613; J7644

== ENCOUNTER 2024-02-19 11:19 | Emergency (ER) | payer OTHER, BC ==
[2024-02-19] MEDS ORDERED: METOCLOPRAMIDE 10 MG/2mL INJ ONE (11:51)
[2024-02-19] MEDS ORDERED: GLUCAGON 1 MG/VIAL ONE ×2 (11:51→12:46)
--- NOTE | 2024-02-19 15:27 | EDPHYS ---
Physician Documentation [facility] Name: Analilia Colby Age: 78 yrs Sex: Male : 1945 Arrival Date: 02/19/2024 Time: 11:19 Bed 6 Private MD: ED Physician Brenden Bonilla HPI: 02/18 11:35 This 78 yrs old Male presents to ER via Ambulatory with complaints of Choked/Choking. rn 11:35 The patient or guardian reports the patient has a suspected foreign body, of the rn throat. The reported likely foreign body is piece of meat. Onset: The symptoms/episode began/occurred this morning. Current symptoms: foreign body sensation. The patient has experienced similar episodes in the past. Patient reports eating a hamburger this AM, did not go down, still feels foreign body sensation, and unable to drink fluids. . Historical: - Allergies: 15:47 No Known Allergies; ld1 - Home Meds: 11:23 amlodipine 10 mg tab 1 tab twice a day [Active]; carvedilol 12.5 mg Oral tab 2 times mb9 per day [Active]; losartan 100 mg Oral tab 1 tab once daily [Active]; Betty-Rahul 0.8 mg Oral tab daily [Active]; - PMHx: 11:23 Cancer; Dialysis; Hypertension; Liver disease; Renal Cancer; mb9 - PSHx: 11:23 x2 Kidney removal; Bilateral fistulas; mb9 - Immunization history:: Client reports receiving the 2nd dose of the Covid vaccine. - Infectious Disease History:: Denies. - Family history:: not pertinent. - Social history:: Smoking status: Patient denies any tobacco usage or history of. - Hospitalizations: : No recent hospitalization is reported. ROS: 11:35 Constitutional: Negative for fever, chills, and weight loss, Neck: Negative for injury, rn pain, and swelling, Cardiovascular: Negative for chest pain, palpitations, and edema, Respiratory: Negative for shortness of breath, cough, wheezing, and pleuritic chest pain, Abdomen/GI: Negative for abdominal pain, nausea, vomiting, diarrhea, and constipation, Back: Negative for injury and pain, MS/Extremity: Negative for injury and deformity, Neuro: Negative for headache, weakness, numbness, tingling, and seizure, Exam: 11:35 Constitutional: This is a well developed, well nourished patient who is awake, alert, rn and in no acute distress. Sitting in room, legs crossed, appears comfortable, sipping on leonides leandra ENT: No stridor Cardiovascular: Regular rate and rhythm. No pulse deficits. Respiratory: No increased work of breathing, no retractions or nasal flaring. Abdomen/GI: Soft, non-tender Vital Signs: 11:28 BP 139 / 86; Pulse 67; Resp 18; Temp 97.9; Pulse Ox 100% ; Weight 70 kg; ap3 12:18 BP 147 / 62; Pulse 71; Resp 18; Pulse Ox 100% on R/A; ld1 13:31 BP 99 / 77; Pulse 67; Resp 16; Pulse Ox 99% ; ko1 14:30 BP 139 / 71; Pulse 69; Resp 17; Pulse Ox 100% on R/A; ld1 15:35 BP 125 / 76; Pulse 73; Resp 18; Pulse Ox 100% on R/A; ld1 MDM: 11:22 Patient medically screened. rn 15:16 Data reviewed: vital signs, nurses notes, and as a result, I will discharge patient. rn Consideration of Admission/Observation Escalation of care including admission/observation considered. Patient able to tolerate fluids, took water and Coke without it coming back up. Patient does not feel foreign body in esophagus at this time but still does not feel completely normal to swallow and passed fluid. Offered admission with GI consultation for scope to make sure it has resolved, patient declines wants to go home and states can come back if anything gets worse.. Counseling: I had a detailed discussion with the patient and/or guardian regarding the historical points, exam findings, and any diagnostic results supporting the discharge/admit diagnosis. Response to treatment: the patient's symptoms have markedly improved after treatment. 15:16 ED course: Return precautions given and understood. Patient understands that if rn symptoms return or get worse needs to come back for evaluation. Patient insist on going home at this time, states can take water and Coke, recommend liquid diet for today with protein drinks in such and can advance diet as tolerated tomorrow. Patient does not want to stay for GI consultation. Patient does state he feels better than when he got here.. 02/18 11:30 Order name: IV Start; Complete Time: 12:18 rn Administered Medications: 12:18 Drug: Glucagon IVP 1 mg IVP once Route: IVP; Site: Port-a-cath; ld1 12:18 Drug: metoCLOPramide IVP 10 mg IVP once; over 1 to 2 minutes Route: IVP; Site: ld1 Port-a-cath; 12:54 Drug: Glucagon IVP 1 mg IVP once Route: IVP; Site: Port-a-cath; ld1 15:45 Drug: HEParin Flush IVP 500 units IVP once; for Port-a-cath packing Route: IVP; Site: ld1 Port-a-cath; Disposition Summary: 02/19/24 15:26 Discharge Ordered Notes: Location: Home rn Problem: new rn Symptoms: have improved rn Condition: Stable rn Diagnosis - Foreign body in esophagus - Food rn Followup: rn - With: Private Physician - When: As needed - Reason: Recheck today's complaints, Re-evaluation by your physician Forms: - Medication Reconciliation Form rn - 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
--- NOTE | 2024-02-19 15:27 | ER ---
Nurse's Notes [facility] Name: Analilia Colby Age: 78 yrs Sex: Male : 1945 Arrival Date: 02/19/2024 Time: 11:19 Bed 6 Private MD: Diagnosis: Foreign body in esophagus-Food Presentation: 02/18 11:28 Chief complaint: Patient states: he has a sensation that a hamburger is stuck in his ap3 throat since eating one at 0930 this morning. Coronavirus screen: At this time, the client does not indicate any symptoms associated with coronavirus-19. Ebola Screen: No symptoms or risks identified at this time. Initial Sepsis Screen: Does the patient meet any 2 criteria? No. Patient's initial sepsis screen is negative. Does the patient have a suspected source of infection? No. Patient's initial sepsis screen is negative. Risk Assessment: Do you want to hurt yourself or someone else? Patient reports no desire to harm self or others. Onset of symptoms was February 19, 2024 at 09:30. 11:28 Method Of Arrival: Ambulatory ap3 11:28 Acuity: RIVERA 3 ap3 Triage Assessment: 11:29 General: Appears in no apparent distress. Behavior is calm, cooperative, appropriate ap3 for age. Pain: Complains of pain in throat Pain began gradually. EENT: Reports feeling like a hamburger is stuck in his throat. Neuro: Level of Consciousness is awake, alert, obeys commands, Oriented to person, place, time, situation, Appropriate for age. Cardiovascular: Patient's skin is warm and dry. Cardiovascular: Dialysis shunt: in the right arm. Respiratory: Airway is patent Respiratory effort is even, unlabored, Respiratory pattern is regular, symmetrical. GI:. Historical: - Allergies: 15:47 No Known Allergies; ld1 - Home Meds: 11:23 amlodipine 10 mg tab 1 tab twice a day [Active]; carvedilol 12.5 mg Oral tab 2 times mb9 per day [Active]; losartan 100 mg Oral tab 1 tab once daily [Active]; Betty-Rahul 0.8 mg Oral tab daily [Active]; - PMHx: 11:23 Cancer; Dialysis; Hypertension; Liver disease; Renal Cancer; mb9 - PSHx: 11:23 x2 Kidney removal; Bilateral fistulas; mb9 - Immunization history:: Client reports receiving the 2nd dose of the Covid vaccine. - Infectious Disease History:: Denies. - Family history:: not pertinent. - Social history:: Smoking status: Patient denies any tobacco usage or history of. - Hospitalizations: : No recent hospitalization is reported. Screenin:26 [facility] ED Fall Risk Assessment (Adult) History of falling in the last 3 months, mb9 including since admission No falls in past 3 months (0 pts) Confusion or Disorientation No (0 pts) Intoxicated or Sedated No (0 pts) Impaired Gait No (0 pts) Mobility Assist Device Used No (0 pt) Altered Elimination No (0 pt) Score/Fall Risk Level 0 - 2 = Low Risk Oriented to surroundings, Maintained a safe environment, Educated pt \\T\\ family on fall prevention, incl call for assistance when getting out of bed. Abuse screen: Denies threats or abuse. Nutritional screening: No deficits noted. Tuberculosis screening: No symptoms or risk factors identified. Assessment: 12:18 General: Appears in no apparent distress. comfortable, Behavior is calm, cooperative, ld1 appropriate for age. Pain: Denies pain. Neuro: Level of Consciousness is awake, alert, obeys commands, Oriented to person, place, time, situation. Cardiovascular: Capillary refill < 3 seconds Patient's skin is warm and dry. Respiratory: Airway is patent Respiratory effort is even, unlabored. GI: Abdomen is flat, non-distended. : No signs and/or symptoms were reported regarding the genitourinary system. EENT: Reports having food stuck in throat.. Derm: No signs and/or symptoms reported regarding the dermatologic system. Musculoskeletal: No signs and/or symptoms reported regarding the musculoskeletal system. 14:00 Reassessment: Patient appears in no apparent distress at this time. No changes from ld1 previously documented assessment. Patient and/or family updated on plan of care and expected duration. Pain level reassessed. Patient states symptoms have improved. 15:30 Reassessment: Pt requesting to leave. States "I was able to drink the soda and have it ld1 pass down easily." Notified ERP. Vital Signs: 11:28 BP 139 / 86; Pulse 67; Resp 18; Temp 97.9; Pulse Ox 100% ; Weight 70 kg; ap3 12:18 BP 147 / 62; Pulse 71; Resp 18; Pulse Ox 100% on R/A; ld1 13:31 BP 99 / 77; Pulse 67; Resp 16; Pulse Ox 99% ; ko1 14:30 BP 139 / 71; Pulse 69; Resp 17; Pulse Ox 100% on R/A; ld1 15:35 BP 125 / 76; Pulse 73; Resp 18; Pulse Ox 100% on R/A; ld1 ED Course: 11:22 Patient arrived in ED. mg5 11:22 Brenden Bonilla MD is Attending Physician. rn 11:22 Arm band placed on. mb9 11:26 Bed in low position. Call light in reach. Side rails up X 1. Client placed on mb9 continuous cardiac and pulse oximetry monitoring. NIBP monitoring applied. 11:29 Triage completed. ap3 11:37 Eva Blackman, RN is Primary Nurse. ld1 12:18 No provider procedures requiring assistance completed. Accessed Port-a-Cath. using ld1 accessed w/ #19 Cespedes needle, ,sterile technique, per hospital protocol. Clean \\T\\ dry. Dressing intact. Good blood return. Flushes easily. 13:31 Provided Education on: meds/call light. Door closed. Noise minimized. Lights dimmed. ko1 Warm blanket given. Pillow given. 15:47 IV discontinued, intact, bleeding controlled, No redness/swelling at site. ld1 Administered Medications: 12:18 Drug: Glucagon IVP 1 mg IVP once Route: IVP; Site: Port-a-cath; ld1 12:18 Drug: metoCLOPramide IVP 10 mg IVP once; over 1 to 2 minutes Route: IVP; Site: ld1 Port-a-cath; 12:54 Drug: Glucagon IVP 1 mg IVP once Route: IVP; Site: Port-a-cath; ld1 15:45 Drug: HEParin Flush IVP 500 units IVP once; for Port-a-cath packing Route: IVP; Site: ld1 Port-a-cath; Medication: 11:26 VIS not applicable for this client. mb9 Outcome: 15:26 Discharge ordered by . rn 15:47 Discharged to home ambulatory, with family, ld1 15:47 Condition: stable 15:47 Discharge instructions given to patient, family, Instructed on discharge instructions, follow up and referral plans. Demonstrated understanding of instructions, follow-up care, 15:47 Patient left the ED. ld1 Signatures: Brenden Bonilla MD MD rn Jon, ALEK Noguera RN [email or web address] Eva Blackman RN RN ld1 Ca Bocanegra RN RN [email or web address] Alessandra Price RN RN mb9 [place] 5
[2024-02-19] MEDS ORDERED: HEPARIN 500 UNIT/5 ML SYR IV ONE (15:31)
== END 2024-02-19 15:47 | disposition home or self-care (01) ==
LOC: ER 11:19
DX: T18.128A Food in esophagus causing other injury, initial encounter (principal); I10 Essential (primary) hypertension; Z79.899 Other long term (current) drug therapy
CPT/HCPCS: J1610 ×2; J2765; J1642; 96374; 96375; 99284

== ENCOUNTER 2024-03-05 10:18 | Emergency (ER) | payer OTHER, BC ==
--- NOTE | 2024-03-05 11:48 | RAD REPORT ---
EXAM DESCRIPTION: RAD - Chest Single View - 03/05/2024 11:41 am CLINICAL HISTORY: TRAUMA Chest pain. COMPARISON: Chest Pa And Lat (2 Views) dated 01/07/2024; Chest Single View dated 04/28/2023; Chest Pa And Lat (2 Views) dated 02/12/2023; Chest Single View dated 08/22/2021 FINDINGS: Portable technique limits examination quality. Mild interstitial pulmonary edema. The heart is moderately enlarged. No displaced fractures.Left-side d port catheter has tip in the SVC. IMPRESSION: Mild CHF pattern.
--- NOTE | 2024-03-05 11:57 | RAD REPORT ---
EXAM DESCRIPTION: CT - Head Brain Wo Cont - 03/05/2024 11:49 am CLINICAL HISTORY: TRAUMA Fall, trauma, head injury COMPARISON: HEAD BRAIN W O CONTRAST dated 08/26/2009 TECHNIQUE: All CT scans are performed using dose optimization technique as appropriate and may inclu de automated exposure control or mA/KV adjustment according to patient size. FINDINGS: No intracranial hemorrhage, hydrocephalus or extra-axial fluid collection.Mild generalized brain atrophy is present with mild periventricular and deep white matter chronic microvascular ische abdirahman changes.No areas of brain edema or evidence of midline shift. Vertebral atherosclerosis. The paranasal sinuses and mastoids are clear. The calvarium is intact. Mild nasal bone fracture. IMPRESSION: No acute intracranial abnormality. Mild nasal bone fracture.
[2024-03-05 12:26] LABS: PT Prothrombin Time 11.5 SECONDS (9.4-12.5); Protime INR 1.05
[2024-03-05 12:28] LABS: Absolute Lymphocytes (CBC) 0.5 K/uL (0.7-4.9); Absolute Monocytes 0.2 K/uL (0.1-1.3); Absolute Neutrophil 5.3 K/uL (1.8-8.0); Basophils % 0.1 % (0-1.3); Hematocrit 31.8 % (39.6-49.0); Hemoglobin 10.2 g/dL (13.6-17.9); Lymphocytes % 8.9 % (15.3-44.8); MCH 33.2 pg (27.0-35.0); MCHC 32.2 g/dL (32.0-36.0); MCV 103.4 fL (80-100); Monocytes % 3.4 % (3.3-12.3); Neutrophils % 87.6 % (41.7-73.7); Nucleated Red Blood Cells % 0.4 % (0-0); Platelets 73 thou/uL (152-406); RBC Red Blood Cell Count 3.08 M/uL (4.33-5.43); Red Cell Distribution Width 18.3 % (12.1-15.2)
[2024-03-05 12:31] LABS: Anion Gap 8.8 mEq/L (5.0-15.0); Potassium 3.8 mEq/L (3.5-5.1)
[2024-03-05 13:00] LABS: Anisocytosis 2+; Blood Morphology Comment NOTED (NOT SEEN); Hypochromasia 2+; Platelet Estimate DECR; White Blood Cell Scan OK (OK)
--- NOTE | 2024-03-05 15:49 | ER ---
Nurse's Notes [facility] Name: Analilia Colby Age: 78 yrs Sex: Male : 1945 Arrival Date: 03/05/2024 Time: 10:18 Bed 6 Private MD: Diagnosis: Syncope Near;Nonrheumatic aortic (valve) stenosis with insufficiency;End stage renal disease;Laceration without foreign body of nose Presentation: 03/05 10:38 Chief complaint: EMS states: pt fell while leaving his doctors office this AM. denies kc6 LOC, no blood thinners. pt reports facial pain. Coronavirus screen: At this time, the client does not indicate any symptoms associated with coronavirus-19. Ebola Screen: No symptoms or risks identified at this time. Initial Sepsis Screen: Does the patient meet any 2 criteria? No. Patient's initial sepsis screen is negative. Does the patient have a suspected source of infection? No. Patient's initial sepsis screen is negative. Risk Assessment: Do you want to hurt yourself or someone else? Patient reports no desire to harm self or others. Onset of symptoms was March 05, 2024. 10:38 Method Of Arrival: EMS: [facility] kc6 10:38 Acuity: RIVERA 3 kc6 Triage Assessment: 10:39 General: Appears in no apparent distress. comfortable, well groomed, well developed, kc6 Behavior is calm, cooperative, appropriate for age. Pain: Complains of pain in right eye and nose. EENT: No signs and/or symptoms were reported regarding the EENT system. Neuro: Level of Consciousness is awake, alert, obeys commands, Oriented to person, place, time, situation, Appropriate for age. Cardiovascular: Capillary refill < 3 seconds. Respiratory: Airway is patent Trachea midline Respiratory effort is even, unlabored, Respiratory pattern is regular, symmetrical. GI: No signs and/or symptoms were reported involving the gastrointestinal system. : No signs and/or symptoms were reported regarding the genitourinary system. Derm: Skin is fragile, is thin, has skin tears on interior part of the left elbow Skin is pink, warm \T\ dry. Musculoskeletal: No signs and/or symptoms reported regarding the musculoskeletal system. Circulation, motion, and sensation intact. Capillary refill < 3 seconds, Range of motion: intact in all extremities. Historical: - Allergies: 10:39 No Known Allergies; kc6 - PMHx: 10:39 Renal Cancer; Hypertension; Dialysis; Liver disease; Cancer; kc6 - PSHx: 10:39 Bilateral fistulas; x2 Kidney removal; kc6 - Immunization history:: Adult Immunizations up to date. - Infectious Disease History:: Denies. - Social history:: Smoking status: Patient denies any tobacco usage or history of. Screenin:41 [facility] ED Fall Risk Assessment (Adult) History of falling in the last 3 months, kc6 including since admission Yes- single mechanical fall (1 pt) Confusion or Disorientation No (0 pts) Intoxicated or Sedated No (0 pts) Impaired Gait No (0 pts) Mobility Assist Device Used No (0 pt) Altered Elimination No (0 pt) Score/Fall Risk Level 0 - 2 = Low Risk. Abuse screen: Denies threats or abuse. Denies injuries from another. Nutritional screening: No deficits noted. Tuberculosis screening: No symptoms or risk factors identified. Assessment: 10:40 Reassessment: please see triage. kc 11:40 Reassessment: Patient appears in no apparent distress at this time. No changes from kc6 previously documented assessment. Patient and/or family updated on plan of care and expected duration. Pain level reassessed. Patient is alert, oriented x 3, equal unlabored respirations, skin warm/dry/pink. 12:40 Reassessment: Patient appears in no apparent distress at this time. No changes from kc6 previously documented assessment. Patient and/or family updated on plan of care and expected duration. Pain level reassessed. Patient is alert, oriented x 3, equal unlabored respirations, skin warm/dry/pink. 13:40 Reassessment: Patient appears in no apparent distress at this time. No changes from kc6 previously documented assessment. Patient and/or family updated on plan of care and expected duration. Pain level reassessed. Patient is alert, oriented x 3, equal unlabored respirations, skin warm/dry/pink. 14:36 Reassessment: Patient appears in no apparent distress at this time. No changes from kc6 previously documented assessment. Patient and/or family updated on plan of care and expected duration. Pain level reassessed. Patient is alert, oriented x 3, equal unlabored respirations, skin warm/dry/pink. 15:45 Reassessment: Patient appears in no apparent distress at this time. No changes from kc6 previously documented assessment. Patient and/or family updated on plan of care and expected duration. Pain level reassessed. Patient is alert, oriented x 3, equal unlabored respirations, skin warm/dry/pink. 16:00 Reassessment: attempted to call report to [facility] ER. on hold for 10min for a 6 tank charger. 16:25 Reassessment: Patient appears in no apparent distress at this time. Patient and/or db family updated on plan of care and expected duration. Pain level reassessed. Patient is alert, oriented x 3, equal unlabored respirations, skin warm/dry/pink. General: Appears in no apparent distress. comfortable, Behavior is calm, cooperative. Pain: Complains of pain in nose. Neuro: Level of Consciousness is awake, alert, obeys commands, Oriented to person, place, time, situation. Respiratory: Airway is patent Respiratory effort is even, unlabored, Respiratory pattern is regular, symmetrical. 17:18 Reassessment: Patient appears in no apparent distress at this time. No changes from kc6 previously documented assessment. Patient and/or family updated on plan of care and expected duration. Pain level reassessed. Patient is alert, oriented x 3, equal unlabored respirations, skin warm/dry/pink. 18:18 Reassessment: Patient appears in no apparent distress at this time. No changes from kc6 previously documented assessment. Patient and/or family updated on plan of care and expected duration. Pain level reassessed. Patient is alert, oriented x 3, equal unlabored respirations, skin warm/dry/pink. Vital Signs: 10:38 BP 142 / 75; Pulse 65; Resp 18 S; Pulse Ox 99% on R/A; Weight 73 kg (M); Height 5 ft. 7 kc6 in. (R); 14:36 BP 152 / 89; Pulse 59; Resp 16 S; Pulse Ox 100% on R/A; kc6 15:45 BP 153 / 87; Pulse 68; Resp 18 S; Pulse Ox 100% on R/A; kc6 16:16 BP 127 / 90; Pulse 60; Resp 14; Pulse Ox 100% on R/A; db 17:57 BP 155 / 64; Pulse 59; Resp 16 S; Pulse Ox 100% on R/A; kc6 10:38 Body Mass Index 25.21 (73.00 kg, 170.18 cm) kc6 ED Course: 10:37 Patient arrived in ED. kc6 10:39 Triage completed. kc6 10:39 Arm band placed on. kc6 10:41 Patient has correct armband on for positive identification. Bed in low position. Call kc6 light in reach. Side rails up X2. Adult w/ patient. Pulse ox on. NIBP on. Door closed. Noise minimized. Lights dimmed. Warm blanket given. Pillow given. 10:42 Arti Baker, RN is Primary Nurse. kc6 10:52 Tiffanie Gupta MD is Attending Physician. gb1 11:43 XRAY Chest (1 view) In Process Unspecified. EDMS 11:51 CT Head Brain wo Cont In Process Unspecified. EDMS 12:17 Initial lab(s) drawn, by sd, sent to lab. Inserted saline lock: 20 gauge in left em1 antecubital area, using aseptic technique. Blood collected. 15:20 Initiated transfer with [facility] transfer center coordinator. jr12 16:24 Wound care: to abrasion, located on nose, right cheek was cleaned with with saline, db dressed with Neosporin, steri-strips, Patient tolerated well. 18:52 No provider procedures requiring assistance completed. Patient transferred, IV remains kc6 in place. Administered Medications: No medications were administered Medication: 18:53 VIS not applicable for this client. kc6 Outcome: 15:48 ER care complete, transfer ordered by . gb1 18:52 Transferred by ground EMS Transfer form completed. kc6 18:52 Condition: stable 18:52 Instructed on the need for transfer, 18:53 Patient left the ED. kc6 Signatures: Dispatcher [employer] Bret Hubbard em1 Arti Baker RN RN kc6 Joy Lynn RN RN db Blocker, Gina, MD MD gb1 Elvie Hinds jr12 Corrections: (The following items were deleted from the chart) 10:39 10:39 Allergies: No Known Allergies; kc6 kc6 10:39 10:39 PMHx: Cancer; kc6 kc6 10:39 10:39 PMHx: Cancer; kc6 kc6
--- NOTE | 2024-03-05 15:49 | EDPHYS ---
Physician Documentation [facility] Name: Analilia Colby Age: 78 yrs Sex: Male : 1945 Arrival Date: 03/05/2024 Time: 10:18 Bed 6 Private MD: ED Physician Tiffanie Gupta HPI: 03/05 15:48 This 78 yrs old Male presents to ER via EMS with complaints of Fall Injury. gb1 15:48 78-year-old male who had a syncopal episode in Dr. Wing's office after his gb1 echocardiogram this morning. Patient arrived with a nasal bone laceration and a right facial contusion. Patient states he has been he has been very weak lately and he missed a step coming out of the office and fell. He denies any head strike. Patient denies any chest pain or shortness of breath he has a history of renal carcinoma, hypertension, end-stage renal disease on dialysis. He dialyzes Saturday.. Historical: - Allergies: 10:39 No Known Allergies; kc6 - PMHx: 10:39 Renal Cancer; Hypertension; Dialysis; Liver disease; Cancer; kc6 - PSHx: 10:39 Bilateral fistulas; x2 Kidney removal; kc6 - Immunization history:: Adult Immunizations up to date. - Infectious Disease History:: Denies. - Social history:: Smoking status: Patient denies any tobacco usage or history of. Exam: 15:48 Constitutional: This is a well developed, well nourished patient who is awake, alert, gb1 and in no acute distress. Head/Face: Patient has a superficial laceration to the mid cartilage of the anterior nasal bone. He also has a nonbleeding right facial bone contusion. Neck: Trachea midline, no thyromegaly or masses palpated, and no cervical lymphadenopathy. Supple, full range of motion without nuchal rigidity, or vertebral point tenderness. No Meningismus. Chest/axilla: Normal chest wall appearance and motion. Nontender with no deformity. No lesions are appreciated. Cardiovascular: Regular rate and rhythm with a normal S1 and S2. No gallops, murmurs, or rubs. Normal PMI, no JVD. No pulse deficits. Respiratory: Lungs have equal breath sounds bilaterally, clear to auscultation and percussion. No rales, rhonchi or wheezes noted. No increased work of breathing, no retractions or nasal flaring. Abdomen/GI: Soft, non-tender, with normal bowel sounds. No distension or tympany. No guarding or rebound. No evidence of tenderness throughout. Back: No spinal tenderness. No costovertebral tenderness. Full range of motion. Skin: Warm, dry with normal turgor. Normal color with no rashes, no lesions, and no evidence of cellulitis. MS/ Extremity: Pulses equal, no cyanosis. Neurovascular intact. Full, normal range of motion. Neuro: Awake and alert, GCS 15, oriented to person, place, time, and situation. Cranial nerves II-XII grossly intact. Motor strength 5/5 in all extremities. Sensory grossly intact. Cerebellar exam normal. Normal gait. Vital Signs: 10:38 BP 142 / 75; Pulse 65; Resp 18 S; Pulse Ox 99% on R/A; Weight 73 kg (M); Height 5 ft. 7 kc6 in. (R); 14:36 BP 152 / 89; Pulse 59; Resp 16 S; Pulse Ox 100% on R/A; kc6 15:45 BP 153 / 87; Pulse 68; Resp 18 S; Pulse Ox 100% on R/A; kc6 16:16 BP 127 / 90; Pulse 60; Resp 14; Pulse Ox 100% on R/A; db 17:57 BP 155 / 64; Pulse 59; Resp 16 S; Pulse Ox 100% on R/A; kc6 10:38 Body Mass Index 25.21 (73.00 kg, 170.18 cm) kc6 MDM: 10:54 Patient medically screened. gb1 15:48 Data reviewed: vital signs, nurses notes, EKG, radiologic studies, CT scan, plain gb1 films. 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 Patient has been seen and evaluated by Dr. Mcdaniel in the emergency department and has been recommended to be transferred to [facility] for that a TAVR. Dr. Mai is the consulting fire patroller and Dr. Caio Hercules is the accepting physician at [facility].. 03/05 11:09 Order name: Basic Metabolic Panel; Complete Time: 14:16 gb1 03/05 11:09 Order name: CBC with Diff; Complete Time: 14:16 03/05 11:09 Order name: PT-INR; Complete Time: 14:16 03/05 11:09 Order name: Troponin HS; Complete Time: 14:16 03/05 12:32 Order name: CBC Smear Scan; Complete Time: 14:16 EDWA 03/05 11:09 Order name: XRAY Chest (1 view); Complete Time: 12:09 03/05 11:09 Order name: CT Head Brain wo Cont; Complete Time: 12:09 03/05 11:09 Order name: EKG; Complete Time: 11:09 03/05 11:09 Order name: Cardiac monitoring; Complete Time: 12:44 03/05 11:09 Order name: EKG - Nurse/Tech; Complete Time: 12:44 03/05 11:09 Order name: IV Saline Lock; Complete Time: 12:17 03/05 11:09 Order name: Labs collected and sent; Complete Time: 12:17 03/05 11:09 Order name: O2 Per Protocol; Complete Time: 11:17 03/05 11:09 Order name: O2 Sat Monitoring; Complete Time: 11:17 gb Administered Medications: No medications were administered Disposition Summary: 03/05/24 15:48 Transfer Ordered Notes: Transfer Location: [facility] System gb1 Reason: Higher level of care gb1 Condition: Fair gb1 Problem: new gb1 Symptoms: have worsened gb1 Accepting Physician: Dr. Nicolasa Flood(03/05/24 18:53) kc6 Diagnosis - Syncope Near gb1 - Nonrheumatic aortic (valve) stenosis with insufficiency gb1 - End stage renal disease gb1 - Laceration without foreign body of nose gb1 Forms: - Medication Reconciliation Form gb1 - SBAR form gb1 Signatures: Dispatcher [employer] Arti Russell RN RN kc6 Tiffanie Gupta MD MD gb1 Corrections: (The following items were deleted from the chart) 10:39 10:39 Allergies: No Known Allergies; kc6 kc6 10:39 10:39 PMHx: Cancer; kc6 kc6 10:39 10:39 PMHx: Cancer; kc6 kc6 11:10 11:10 Head Brain Wo Cont+CT.RAD.BRZ ordered. EDMS EDMS 18:53 15:48 Dr. Nicolasa Flood gb1 kc6
--- NOTE | 2024-03-05 19:53 | CON ---
Date of Consultation: 03/05/2024 Reason For Consultation: Severe aortic valve stenosis, congestive heart failure. History Of Present Illness: A 78-year-old male, who has critical aortic valve stenosis, mean gradien t above 60, severe mitral valve regurgitation and severe systolic heart failure, ejection fraction in the high 30s, history of COPD, end-stage renal disease, on hemodialysis, COPD, dyslipidemia, and hyp ertension. He sustained a ground level fall, questionable syncope, so he was directed to the [facility] to be admitted for further evaluation and management of his critical . Denies having chest pain, but he does have shortness of breath on minimal exertion, just walking from room to room, has zero e nergy, and that is why he had a fall today. Past Medical History: As outlined above in HPI. Medications: Refer reconciliation sheet for detailed list. Allergies: NO KNOWN DRUG ALLERGIES. Family History: No premature coronary artery disease or cancer. Social History: Does not smoke or drink. Does not use any drugs. Review of Systems: All systems reviewed, they are negative except as mentioned in HPI. Physical Examination: Vital Signs: Reviewed. Head and Neck: Pupils are equal, reactive to light. Intact eye movements. No JVD. No cervical lym phadenopathy. Neck is supple. Thyroid is not enlarged. Lungs: Clear to auscultation bilaterally. No rhonchi, wheezing, or crackles. No accessory muscle u se. Heart: Regular rate and rhythm with very late-peaking aortic ejection murmur. Abdomen: Soft, nontender. Bowel sounds positive. No organomegaly. No masses or hernia. No rigidi ty or rebound. Extremities: No clubbing, cyanosis. Intact pulses. Skin: There is a skin tear on his face from the fall. No other lesions. Neurologic: Alert, awake, oriented x3. No acute focal deficits appreciated. Investigations: BUN 30, creatinine 4.8, troponin is 2000, hemoglobin is 10.2. Assessment/recommendation: 1.Critical and severe mitral valve regurgitation. We will transfer to [facility] and present this case in the heart team meeting to assess the best way of action. He might benefit from transcatheter aortic valve replacement first. He is not a candidate for open heart surgery and then maybe the mitral valve can be treated at a later time once his ejection fraction improves. 2.Elevated troponin. No chest pain. Could be non-ST elevation myocardial infarction, could be due to severe . Transfer to [facility] as above and he will have an angiogram. 3.Severe mitral valve regurgitation and mild mitral valve stenosis. Plan as above. 4.End-stage renal disease, on hemodialysis. 5.Fall due to severe weakness from his cardiac condition. We will transfer for emergent management of his cardiac issue. I will discuss case with the emergency room physician. /WATSON Voice ID: [id number] Report ID: [id number]
[2024-03-05 20:18] VITALS: BP 155/64; O2SAT 100
--- NOTE | 2024-03-07 14:11 | EKG ---
Test Date: 2024-03-05 Test Time: 12:45:23 System Safety Manager: MARLEY MEASUREMENT RESULTS: Intervals: Rate: 59 IL: 190 QRSD: 152 QT: 456 QTc: 451 Ferguson: P: 57 IL: 190 QRS: -48 T: 145 INTERPRETIVE STATEMENTS: Sinus bradycardia Left axis deviation Left bundle branch block Abnormal ECG Compared to ECG 04/28/2023 18:37:13 Sinus rhythm no longer present Electronically Signed On 03-07-24 14:07:42 CDT by eNel Wing
== END 2024-03-05 18:53 | disposition short-term general hospital (02) ==
LOC: ER 10:18
DX: I35.2 Nonrheumatic aortic (valve) stenosis with insufficiency (principal); R55 Syncope and collapse; S01.21XA Laceration without foreign body of nose, initial encounter; W19.XXXA Unspecified fall, initial encounter; Y92.531 Health care provider office as the place of occurrence of the external cause; I13.2 Hypertensive heart and chronic kidney disease with heart failure and with stage 5 chronic kidney disease, or end stage renal disease; N18.6 End stage renal disease; I50.20 Unspecified systolic (congestive) heart failure; Z99.2 Dependence on renal dialysis; R53.1 Weakness; J44.9 Chronic obstructive pulmonary disease, unspecified; E78.5 Hyperlipidemia, unspecified; K76.9 Liver disease, unspecified; R79.89 Other specified abnormal findings of blood chemistry; Z85.53 Personal history of malignant neoplasm of renal pelvis
CPT/HCPCS: 36415; 70450; 71045; 80048; 84484; 85025; 85610; 93005; 99285